=== PATIENT | male | born 1955 | race Caucasian/White ===

== ENCOUNTER 2016-06-03 03:10 | Emergency (ER) | payer MEDICARE, MEDICAID ==
[~2016-06-03] VITALS: Ht 190.5 cm; Wt 115.0 kg
[2016-06-03 03:20] VITALS: BP 139/70; PULSE 75; RESP 18; TEMP 98.1; O2SAT 99
[2016-06-03] MEDS ORDERED: PROZ40CA PO (03:24)
[2016-06-03] MEDS ORDERED: TRAZ100T4 PO (03:24)
[2016-06-03] MEDS ORDERED: HYDROmorphone HCL PF 1 MG/ML VIAL IVS ONE (03:45)
[2016-06-03] MEDS ORDERED: diphenhydrAMINE HCL 50 MG/ML VIAL IVP ONE (03:45)
[2016-06-03] MEDS ORDERED: METOCLOPRAMIDE HCL 10 MG/2 ML VIAL IVP ONE (03:45)
[2016-06-03] MEDS ORDERED: SODIUM CHLORIDE 0.9% FLUSH 5 ML FLUSH IVF PRN (03:45)
[2016-06-03 03:51] LABS: AUTOMATED NEUTROPHIL # 4.7 TH/MM3 (1.8-7.7); BASOPHIL # 0.1 TH/MM3 (0-0.2); BASOPHIL % 1.1 % (0.0-2.0); EOSINOPHIL # 0.3 TH/MM3 (0-0.4); EOSINOPHIL % 3.7 % (0.0-4.0); HEMATOCRIT 40.9 % (39.0-51.0); HEMO FLAGS DIFF FINAL; LYMPH % 31.6 % (9.0-44.0); LYMPHOCYTE # 2.8 TH/MM3 (1.0-4.8); MEAN CELL VOLUME 94.7 FL (80.0-100.0); MEAN CORPUSCULAR HEMOGLOBIN 32.9 PG (27.0-34.0); MEAN CORPUSCULAR HGB CONC 34.7 % (32.0-36.0); NEUT % 52.6 % (16.0-70.0); PLATELET COUNT 186 TH/MM3 (150-450); RED BLOOD COUNT 4.32 MIL/MM3 (4.50-5.90); RED CELL DISTRIBUTION WIDTH 14.4 % (11.6-17.2); WHITE BLOOD COUNT 8.9 TH/MM3 (4.0-11.0)
--- NOTE | 2016-06-03 03:52 | PD ---
HPI Chief Complaint: Headache Time Seen by Provider: 03:36 Travel History International Travel<30 days: No Contact w/Intl Traveler<30days: No Traveled to known affect area: No History of Present Illness HPI 60-year-old male with history of previous headaches, intracranial bleed, asthma , presents to the ER today because of headache that started gradually today getting to a 10 out of 10 currently. He has been nauseous, but denies any stiff neck, fevers, or other symptoms. He started having some chest discomfort while on the ambulance ride. He states it feels like his asthma. He denies any other issues. He does not know any exacerbating or alleviating factors. Modifying Factors: None Associated Signs & Symptoms: Headaches, nausea, chest discomfort Risk Factors: History of chronic headaches PFSH Past Medical History Depression: Yes Headaches: Yes Immunizations Current: No ("ALLERGIC TO IT") Tetanus Vaccination: < 5 Years Influenza Vaccination: Yes Past Surgical History Surgical History: No Previous Surgery Social History Alcohol Use: Yes Tobacco Use: No Substance Use: No Allergies-Medications (Allergen,Severity, Reaction): Coded Allergies: No Known Allergies (Unverified , 06/03/16) Reported Meds & Prescriptions Reported Meds & Active Scripts Active Reported Prozac (Fluoxetine HCl) 40 Mg Cap 40 Mg PO DAILY Trazodone (Trazodone HCl) 100 Mg Tab 200 Mg PO HS Review of Systems Except as stated in HPI: all other systems reviewed are Neg Physical Exam Narrative GENERAL: Well-nourished, well-developed elderly white male patient in no acute distress. Awake and oriented 3. SKIN: Warm and dry. HEAD: Normocephalic. EYES: No scleral icterus. No injection or drainage. NECK: Supple, trachea midline. CARDIOVASCULAR: Regular rate and rhythm without murmurs, gallops, or rubs. RESPIRATORY: Breath sounds equal with mild intermittent wheezing bilaterally. No accessory muscle use. GASTROINTESTINAL: Abdomen soft, non-tender, nondistended. MUSCULOSKELETAL: No cyanosis, or edema. BACK: Nontender without obvious deformity. No CVA tenderness. Data Data Last Documented VS Vital Signs Date Time Temp Pulse Resp B/P Pulse Ox O2 Delivery O2 Flow Rate FiO2 06/03/16 03:20 98.1 75 18 139/70 99 Room Air Orders Complete Blood Count With Diff (06/03/16 03:36) Comprehensive Metabolic Panel (06/03/16 03:36) [place] Sedimentation Rate (06/03/16 03:36) C-Reactive Protein (Crp) (06/03/16 03:36) Ct Brain W/O Iv Contrast(Rout) (06/03/16 03:36) Ecg Monitoring (06/03/16 03:36) Iv Access Insert/Monitor (06/03/16 03:36) Oximetry (06/03/16 03:36) Sodium Chloride 0.9% Flush (Ns Flush) (06/03/16 03:45) Diphenhydramine Inj (Benadryl Inj) (06/03/16 03:45) Metoclopramide Inj (Reglan Inj) (06/03/16 03:45) Hydromorphone Pf Inj (Dilaudid Pf Inj) (06/03/16 03:45) Ckmb (Isoenzyme) Profile (06/03/16 03:36) Troponin I (06/03/16 03:36) Albuterol Neb (Albuterol Neb) (06/03/16 04:00) CKMB (06/03/16 03:35) CKMB% (06/03/16 03:35) Labs Laboratory Tests Test 06/03/16 03:35 White Blood Count 8.9 TH/MM3 Red Blood Count 4.32 MIL/MM3 Hemoglobin 14.2 GM/DL Hematocrit 40.9 % Mean Corpuscular Volume 94.7 FL Mean Corpuscular Hemoglobin 32.9 PG Mean Corpuscular Hemoglobin 34.7 % Concent Red Cell Distribution Width 14.4 % Platelet Count 186 TH/MM3 Mean Platelet Volume 7.7 FL Neutrophils (%) (Auto) 52.6 % Lymphocytes (%) (Auto) 31.6 % Monocytes (%) (Auto) 11.0 % Eosinophils (%) (Auto) 3.7 % Basophils (%) (Auto) 1.1 % Neutrophils # (Auto) 4.7 TH/MM3 Lymphocytes # (Auto) 2.8 TH/MM3 Monocytes # (Auto) 1.0 TH/MM3 Eosinophils # (Auto) 0.3 TH/MM3 Basophils # (Auto) 0.1 TH/MM3 CBC Comment DIFF FINAL Differential Comment Erythrocyte Sedimentation Rate 7 mm/hr Sodium Level 137 MEQ/L Potassium Level 4.1 MEQ/L Chloride Level 103 MEQ/L Carbon Dioxide Level 26.8 MEQ/L Anion Gap 7 MEQ/L Blood Urea Nitrogen 39 MG/DL Creatinine 2.04 MG/DL Estimat Glomerular Filtration 33 ML/MIN Rate Random Glucose 87 MG/DL Calcium Level 8.4 MG/DL Total Bilirubin 0.4 MG/DL Aspartate Amino Transf 30 U/L (AST/SGOT) Alanine Aminotransferase 27 U/L (ALT/SGPT) Alkaline Phosphatase 46 U/L Total Creatine Kinase 722 U/L Creatine Kinase MB 4.1 NG/ML Creatine Kinase MB % 0.6 % Troponin I LESS THAN 0.02 NG/ML C-Reactive Protein LESS THAN 0.29 MG/DL Total Protein 6.9 GM/DL Albumin 3.9 GM/DL MDM Medical Decision Making Medical Screen Exam Complete: Yes Emergency Medical Condition: Yes Medical Record Reviewed: Yes Interpretation(s) EKG shows NSR, no ST elevation or depression, and no arrhythmias. No significant T-wave inversions. Laboratory Tests Test 06/03/16 03:35 Red Blood Count 4.32 MIL/MM3 (4.50-5.90) Monocytes (%) (Auto) 11.0 % (0.0-8.0) Monocytes # (Auto) 1.0 TH/MM3 (0-0.9) Blood Urea Nitrogen 39 MG/DL (7-18) Creatinine 2.04 MG/DL (0.60-1.30) Estimat Glomerular Filtration 33 ML/MIN (>89) Rate Calcium Level 8.4 MG/DL (8.5-10.1) Total Creatine Kinase 722 U/L (39-308) Creatine Kinase MB 4.1 NG/ML (0.5-3.6) Troponin I LESS THAN 0.02 NG/ML (0.02-0.05) Last [address] 06/03/16 0336 Signed Impressions: Service Date/Time: Friday, June 03, 2016 04:10 - CONCLUSION: No acute disease. Efrain Soria MD Differential Diagnosis Headache, nausea, chest discomfortmigraine headaches versus acute intracranial processes versus hypertensive urgency versus ACS versus asthma exacerbation Narrative Course Patient was given symptomatically relief for his headache, nausea medication, and nebulizers in the ER. Lab work did not indicate any signs of significant leukocytosis or metabolic issues or dehydration. His CAT scan the brain is negative for any signs of acute processes. Patient is reevaluated at 4:45 AM and I have offered to do a lumbar puncture for further characterization of the headache and to rule out acute intracranial bleeding. Patient has declined at this time stating that he is comfortable with current workup. I have talked him about missed infections and intracranial bleeds without LP. Patient states understanding. At this point, he states he is having some relief in headache but is still having the headache. He is comfortable with follow-up to primary care physician as an outpatient as well as a give him symptomatic relief for headache. Return for any worsening in symptoms as necessary or if he changes his mind about the lumbar puncture. The plan was discussed with him and he states understanding. Diagnosis Primary Impression: Headache Med/Other Pt SpecificInfo: Prescription(s) given Scripts Ondansetron Odt (Zofran Odt)4 Mg Tab4 Mg SL Q6HR PRN (Nausea/Vomiting) #7 TAB Ref 0 Prov:Bharath Rose MD 06/03/16 Hydrocodone-Acetaminophen (Lortab)5-325 Mg Tab1 Tab PO Q6H PRN (PAIN) #12 TAB Ref 0 Prov:Bharath Rose MD 06/03/16 Disposition: 01 DISCHARGE HOME Condition: Stable Bharath Rose MD Jun 03, 2016 03:52
[2016-06-03] MEDS ORDERED: RESP: ALBUTEROL 2.5 MG/3 ML NEB (SCH) INH ONE (04:00)
[2016-06-03 04:22] LABS: ALKALINE PHOSPHATASE 46 U/L (45-117); ALT (GPT) 27 U/L (12-78); ANION GAP 7 MEQ/L (5-15); AST (GOT) 30 U/L (15-37); BICARBONATE 26.8 MEQ/L (21.0-32.0); BLOOD UREA NITROGEN 39 MG/DL (7-18); CHLORIDE 103 MEQ/L (98-107); CREATINE KINASE 722 U/L (39-308); GLOMERULAR FILTRATION RATE 33 ML/MIN (>89); POTASSIUM 4.1 MEQ/L (3.5-5.1); SODIUM (NA) 137 MEQ/L (136-145); TOTAL BILIRUBIN ADULT 0.4 MG/DL (0.2-1.0)
--- NOTE | 2016-06-03 04:25 | RADRPT ---
EXAM DATE/TIME: 06/03/2016 04:10 [facility] COMPARISON: No previous studies available for comparison. INDICATIONS : Headaches. RADIATION DOSE: 35.39 CTDIvol (mGy) MEDICAL HISTORY : None SURGICAL HISTORY : None. ENCOUNTER: Initial ACUITY: 1 day PAIN SCALE: 10/10 LOCATION: Bilateral cranial TECHNIQUE: Multiple contiguous axial images were obtained of the head. Using automated exposure control and adj ustment of the mA and/or kV according to patient size, radiation dose was kept as low as reasonably a chievable to obtain optimal diagnostic quality images. FINDINGS: CEREBRUM: The ventricles are normal for age. No evidence of midline shift, mass lesion, hemorrhage or acute in farction. No extra-axial fluid collections are seen. POSTERIOR FOSSA: The cerebellum and brainstem are intact. The 4th ventricle is midline. The cerebellopontine angle i s unremarkable. EXTRACRANIAL: The visualized portion of the orbits is intact. SKULL: The calvaria is intact. No evidence of skull fracture. CONCLUSION: No acute disease. Efarin Soria MD on June 03, 2016 at 4:24 Board Certified Radiologist. This report was verified electronically.
[2016-06-03 04:35] LABS: CKMB 4.1 NG/ML (0.5-3.6)
[2016-06-03] MEDS ORDERED: HYDR-3533 PO (04:48)
[2016-06-03] MEDS ORDERED: ZOFR4TAB3 SL (04:48)
[2016-06-03 05:20] VITALS: BP 115/70; PULSE 76; RESP 18; O2SAT 99
--- NOTE | 2016-06-03 22:01 | EKG ---
Date Performed: 06/03/2016 Time Performed: 03:31:49 PTAGE: 60 years EKG: Sinus rhythm NORMAL ECG NO PREVIOUS TRACING DOCTOR: Jose Alejandro Rivera Interpretating Date/Time 06/03/2016 21:59:39
[2016-06-29] MEDS ORDERED: PROP40TA3 PO (14:23)
[2016-06-29] MEDS ORDERED: PROZ40CA PO (14:23)
[2016-06-29] MEDS ORDERED: TRAZ100T4 PO (14:23)
[2016-06-29] MEDS ORDERED: MECL-62 PO (14:23)
[2016-07-31] MEDS ORDERED: ZOFR4TAB3 SL (13:35)
[2016-07-31] MEDS ORDERED: VENTAER INH (13:35)
== END 2016-06-03 05:26 | disposition home or self-care (01) ==
LOC: NEPC 03:10
DX: R51 Headache (principal); R07.89 Other chest pain
CPT/HCPCS: 70450; 80053; 82550; 82552; 84484; 85025; 85652; 86140; 93005; 94664; 96374; 96375; 99284; J1170; J1200; J2765

== ENCOUNTER 2016-06-09 03:31 | Inpatient (IN) | payer MEDICARE, MEDICAID ==
[~2016-06-09] VITALS: Ht 190.5 cm; Wt 115.0 kg
[2016-06-09] VITALS (12 sets, daily range): BP systolic 110–188; BP diastolic 59–117; PULSE 61–82; RESP 15–22; TEMP 97.7–98.7; O2SAT 93–98
[~2016-06-09 03:31] MED LIST: HYDR-3533 PO; PROZ40CA PO; TRAZ100T4 PO; ZOFR4TAB3 SL
[2016-06-09] MEDS ORDERED: PROCHLORPERAZINE INJ 10 MG/2 ML VIAL IVS ONE (04:00)
--- NOTE | 2016-06-09 04:00 | PD ---
HPI Chief Complaint: Headache Time Seen by Provider: 03:42 Travel History International Travel<30 days: No Contact w/Intl Traveler<30days: No Traveled to known affect area: No History of Present Illness HPI The patient is a 60 year old male who presents to the [facility] emergency department with a history of headache that began 2 hours prior to arrival. The patient reports that the headache is in the back of his head and is associated with sensation of vertigo. He reports having nausea but no vomiting. The patient reports that he took an unknown pain pill for pain approximately 1-1/2 hours ago. The patient reports that he was up watching television when this began. He reports that he does have a history of migraine headaches. The patient was last seen in the emergency department related to a headache on June 03, 2016. He reports that he moved to the area 1 month ago from [place]. He has not established primary care physician. One week ago he reports he ran out of his blood pressure medication. He reports having some shortness of breath. He denies having any chest pain or pressure. The patient's past medical history otherwise is significant for depression, asthma, daily marijuana use. The patient denies any facial droop, difficulty with word finding ability, vision changes, numbness or tingling to his extremities, or weakness of his extremities. The patient denies any recent fevers, cough, congestion, neck pain, chest pain, abdominal pain, vomiting, diarrhea, urinary symptoms, or other neurologic symptoms. [facility] Past Medical History Narrative Medical The patient's past medical history is significant for migraine headaches, daily marijuana use, hypertension, asthma, depression Asthma: Yes Depression: Yes Headaches: Yes Respiratory: Yes (ASTHMA) Immunizations Current: No ("ALLERGIC TO IT") Past Surgical History Narrative Surgical The patient's past surgical history is significant for right shoulder surgery. Surgical History: No Previous Surgery Social History Alcohol Use: Yes Tobacco Use: No Substance Use: Yes (two joints daily) Allergies-Medications (Allergen,Severity, Reaction): Coded Allergies: No Known Allergies (Unverified , 06/09/16) Reported Meds & Prescriptions Reported Meds & Active Scripts Active Zofran Odt (Ondansetron Odt) 4 Mg Tab 4 Mg SL Q6HR PRN Lortab (Hydrocodone-Acetaminophen) 5-325 Mg Tab 1 Tab PO Q6H PRN Reported Prozac (Fluoxetine HCl) 40 Mg Cap 40 Mg PO DAILY Trazodone (Trazodone HCl) 100 Mg Tab 200 Mg PO HS Review of Systems Except as stated in HPI: all other systems reviewed are Neg General / Constitutional: No: Fever Eyes: No: Visual changes HENT: Positive: Headaches, Vertigo, No: Neck Stiffness, Neck Pain Cardiovascular: Positive: Dyspnea on exertion, No: Chest Pain or Discomfort Respiratory: Positive: Shortness of Breath Gastrointestinal: Positive: Nausea, No: Vomiting, Diarrhea, Abdominal Pain Genitourinary: No: Dysuria Musculoskeletal: No: Pain Skin: No Rash Neurologic: Positive: Dizziness, Coordination Problem, No: Weakness, Focal Abnormalities, Change in Mentation, Slurred Speech, Sensory Disturbance Psychiatric: No: Depression Endocrine: No: Polydipsia Hematologic/Lymphatic: No: Easy Bruising Physical Exam Narrative General: The patient is a well-developed well-nourished male in no acute distress. Head and Neck exam: Head is normocephalic atraumatic. Eyes: EOMI, pupils are equal round and reactive to light. The patient has nystagmus on lateral gaze bilaterally that fatigues. Nose: Midline septum with pink mucous membranes Mouth: Dentition unremarkable. Moist mucus membranes. Posterior oropharynx is not erythematous. No tonsillar hypertrophy. Uvula midline. Airway patent. Neck: No palpable lymphadenopathy. No nuchal rigidity. No thyromegaly. Cardiovascular: Regular rate and rhythm without murmurs, gallops, or rubs. Lungs: Clear to auscultation bilaterally. No wheezes, rhonchi, or rales. Abdomen: Soft, without tenderness to palpation in all 4 quadrants of the abdomen. No guarding, rebound, or rigidity. Normal bowel sounds are audible. Extremities: No clubbing, cyanosis, or edema. 2+ pulses in all 4 extremities. Back: No spinous process tenderness to palpation. No costovertebral angle tenderness to palpation. Neurologic Exam: Cranial nerves 2-12 were intact on exam. Strength is 5/5 in all 4 extremities. No sensory deficits noted. The patient has a poor finger to nose bilaterally, poor heel to morales bilaterally. Skin Exam: No rash noted. Intact skin that is warm and dry. Data Data Last Documented VS Vital Signs Date Time Temp Pulse Resp B/P Pulse Ox O2 Delivery O2 Flow Rate FiO2 06/09/16 03:41 80 15 94 Room Air 06/09/16 03:37 167/98 Orders Electrocardiogram (06/09/16 03:47) Complete Blood Count With Diff (06/09/16 03:47) Comprehensive Metabolic Panel (06/09/16 03:47) B-Type Natriuretic Peptide (06/09/16 03:47) Prothrombin Time / Inr (Pt) (06/09/16 03:47) Act Partial Throm Time (Ptt) (06/09/16 03:47) Urinalysis - C+S If Indicated (06/09/16 03:47) Chest, Single Ap (06/09/16 03:47) Ct Brain W/O Iv Contrast(Rout) (06/09/16 03:47) Iv Access Insert/Monitor (06/09/16 03:47) Ecg Monitoring (06/09/16 03:47) Oximetry (06/09/16 03:47) Drug Screen, Random Urine (06/09/16 03:47) Alcohol (Ethanol) (06/09/16 03:47) Creatine Kinase (Cpk) (06/09/16 03:47) Ckmb (Isoenzyme) Profile (06/09/16 03:47) Troponin I (06/09/16 03:47) C-Reactive Protein (Crp) (06/09/16 03:47) [place] (06/09/16 03:47) Sodium Chlor 0.9% 1000 Ml Inj (Ns 1000 M (06/09/16 04:00) Prochlorperazine Inj (Compazine Inj) (06/09/16 04:00) CKMB (06/09/16 04:12) CKMB% (06/09/16 04:12) Aspirin (Aspirin) (06/09/16 05:15) Meclizine (Antivert) (06/09/16 05:15) Admit Order (Ed Use Only) (06/09/16 05:34) Meclizine (Antivert) (06/09/16 05:45) Albuterol Neb (Albuterol Neb) (06/09/16 05:45) Mri Brain W&W/O Contrast (06/09/16 ) Consult Neurology (06/09/16 ) Neuro Checks . ORDERED (06/09/16 06:00) Labs Laboratory Tests Test 06/09/16 06/09/16 04:12 04:35 White Blood Count 7.4 TH/MM3 Red Blood Count 4.59 MIL/MM3 Hemoglobin 15.0 GM/DL Hematocrit 43.5 % Mean Corpuscular Volume 94.9 FL Mean Corpuscular Hemoglobin 32.7 PG Mean Corpuscular Hemoglobin 34.4 % Concent Red Cell Distribution Width 14.8 % Platelet Count 190 TH/MM3 Mean Platelet Volume 7.6 FL Neutrophils (%) (Auto) 49.8 % Lymphocytes (%) (Auto) 35.0 % Monocytes (%) (Auto) 9.9 % Eosinophils (%) (Auto) 4.1 % Basophils (%) (Auto) 1.2 % Neutrophils # (Auto) 3.7 TH/MM3 Lymphocytes # (Auto) 2.6 TH/MM3 Monocytes # (Auto) 0.7 TH/MM3 Eosinophils # (Auto) 0.3 TH/MM3 Basophils # (Auto) 0.1 TH/MM3 CBC Comment DIFF FINAL Differential Comment Prothrombin Time 11.5 SEC Prothromb Time International 1.0 RATIO Ratio Activated Partial 24.9 SEC Thromboplast Time Sodium Level 141 MEQ/L Potassium Level 4.2 MEQ/L Chloride Level 105 MEQ/L Carbon Dioxide Level 26.7 MEQ/L Anion Gap 9 MEQ/L Blood Urea Nitrogen 19 MG/DL Creatinine 1.94 MG/DL Estimat Glomerular Filtration 35 ML/MIN Rate Random Glucose 85 MG/DL Calcium Level 8.5 MG/DL Total Bilirubin 0.3 MG/DL Aspartate Amino Transf 28 U/L (AST/SGOT) Alanine Aminotransferase 31 U/L (ALT/SGPT) Alkaline Phosphatase 51 U/L Total Creatine Kinase 410 U/L Creatine Kinase MB 3.1 NG/ML Creatine Kinase MB % 0.8 % Troponin I LESS THAN 0.02 NG/ML C-Reactive Protein LESS THAN 0.29 MG/DL B-Type Natriuretic Peptide LESS THAN 2 PG/ML Total Protein 7.4 GM/DL Albumin 4.3 GM/DL Ethyl Alcohol Level 38 MG/DL Urine Color LIGHT-YELLOW Urine Turbidity CLEAR Urine pH 6.0 Urine Specific [place] 1.003 Urine Protein NEG mg/dL Urine Glucose (UA) NEG mg/dL Urine Ketones NEG mg/dL Urine Occult Blood NEG Urine Nitrite NEG Urine Bilirubin NEG Urine Urobilinogen LESS THAN 2.0 MG/DL Urine Leukocyte Esterase NEG Urine RBC 1 /hpf Urine WBC 1 /hpf Microscopic Urinalysis Comment CULT NOT INDICATED Urine Opiates Screen NEG Urine Barbiturates Screen NEG Urine Amphetamines Screen NEG Urine Benzodiazepines Screen NEG Urine Cocaine Screen NEG Urine Cannabinoids Screen POS MDM Medical Decision Making Medical Screen Exam Complete: Yes Emergency Medical Condition: Yes Medical Record Reviewed: Yes Interpretation(s) Last Impressions Head CT 06/09/16346 Signed Impressions: Service Date/Time: Thursday, June 09, 2016 04:41 - CONCLUSION: 1. No acute intracranial abnormalities. Small remote lacunar infarcts in the basal ganglia unchanged from prior study. Jordi Hudson MD Chest X-Ray 06/09/16346 Signed Impressions: Service Date/Time: Thursday, June 09, 2016 04:01 - CONCLUSION: No acute disease. Jordi Hudson MD Differential Diagnosis Benign positional vertigo, versus cerebellar process, versus cerebellar stroke, versus migraine headache, versus tension headache, versus cluster headache, versus labyrinthitis Narrative Course During the course of the patients emergency department visit, the patients history, examination, and differential diagnosis were reviewed with the patient. The patient had IV access obtained and blood work sent for analysis. The patient's place with the head of the bed flat. The patient was started on normal saline at 70 mL/h. The patient was given Compazine 5 mg IV [address] scan of the brain was ordered. The patient had an EKG done on arrival. The patient's EKG shows a sinus rhythm heart rate of 83, no acute ST segment elevation or depression. The patients laboratory studies were reviewed and remarkable for a white count of 7.4, hemoglobin 15, platelets 190 with 9.9 monocytes, CMP is remarkable for BUN of 19, creatinine 1.94, CPK is 410, troponin I is 0.02, MB percent is 0.8, C -reactive protein is less than 0.29, BNP is less than 2, PT PTT within normal limits. Urine drug screen was positive for cannabinoids, alcohol level XXXVIII , urinalysis is unremarkable. Radiology studies were reviewed and remarkable for a chest x-ray that shows no acute abnormality. CT scan of the brain shows no acute abnormality, small remote lacunar infarcts in the basal ganglia, unchanged from prior study. The patient was given aspirin 325 mg by mouth 1. The patient was given Antivert 25 mg by mouth 1 for vertigo. Given the concern that this could be a cerebellar process, versus cerebellar stroke, the patient will be admitted to the hospital for evaluation for possible TIA versus CVA cleaning an MRI of the brain. The patients results were discussed with the patient, including the plan of care. I explained that further testing and/ or monitoring is indicated based on the patients history, examination, and/ or laboratory findings. Therefore, I recommended admission for additional evaluation. The patient expressed understanding and was agreeable with this plan. The patient was admitted to the hospital in stable condition and sent to a bed under the care of the [facility]. Physician Communication Physician Communication The patient's case was discussed with Dr. Izaguirre who did agree to admit the patient for further evaluation and treatment at this time. Diagnosis Primary Impression: Vertigo Additional Impression: Headache Qualified Code: R51 - Acute nonintractable headache, unspecified headache type Admitting Information Admitting Physician Requests: Observation Corazon Lew MD Jun 09, 2016 04:00
--- NOTE | 2016-06-09 04:17 | RADRPT ---
EXAM DATE/TIME: 06/09/2016 04:01 [facility] COMPARISON: No previous studies available for comparison. INDICATIONS : Short of breath. Headaches. MEDICAL HISTORY : Asthma. SURGICAL HISTORY : None. ENCOUNTER: Initial ACUITY: 4 - 6 days PAIN SCORE: 0/10 LOCATION: Bilateral chest FINDINGS: A single view of the chest demonstrates the lungs to be symmetrically aerated without evidence of mas s, infiltrate or effusion. The cardiomediastinal contours are unremarkable. Osseous structures are intact. CONCLUSION: No acute disease. Jordi Hudson MD on June 09, 2016 at 4:15 Board Certified Radiologist. This report was verified electronically.
[2016-06-09] MEDS: SODIUM CHLOR 0.9% 1000 ML INJ 1,000 ML IV SCH ×2 (04:18→15:51)
[2016-06-09 04:21] LABS: AUTOMATED NEUTROPHIL # 3.7 TH/MM3 (1.8-7.7); BASOPHIL # 0.1 TH/MM3 (0-0.2); BASOPHIL % 1.2 % (0.0-2.0); EOSINOPHIL # 0.3 TH/MM3 (0-0.4); EOSINOPHIL % 4.1 % (0.0-4.0); HEMATOCRIT 43.5 % (39.0-51.0); HEMO FLAGS DIFF FINAL; LYMPHOCYTE # 2.6 TH/MM3 (1.0-4.8); MEAN CELL VOLUME 94.9 FL (80.0-100.0); MEAN CORPUSCULAR HEMOGLOBIN 32.7 PG (27.0-34.0); MEAN CORPUSCULAR HGB CONC 34.4 % (32.0-36.0); MONO % 9.9 % (0.0-8.0); NEUT % 49.8 % (16.0-70.0); PLATELET COUNT 190 TH/MM3 (150-450); RED BLOOD COUNT 4.59 MIL/MM3 (4.50-5.90); RED CELL DISTRIBUTION WIDTH 14.8 % (11.6-17.2); WHITE BLOOD COUNT 7.4 TH/MM3 (4.0-11.0)
[2016-06-09 04:29] LABS: APTT (PATIENT) 24.9 SEC (24.3-30.1); PROTHROMBIN TIME - PATIENT 11.5 SEC (9.8-11.6)
[2016-06-09 04:45] LABS: BLOOD, URINE NEG (NEG); COMMENT (UR) CULT NOT INDICATED; CULTURE IF INDICATED CULT NOT INDICATED; GLUCOSE,URINE NEG (NEG); KETONE, URINE NEG (NEG); NITRITE,URINE NEG (NEG); URINE COLOR LIGHT-YELLOW (YELLW/STRAW)
[2016-06-09 04:51] LABS: AMPHETAMINE, URINE NEG (NEG); BARBITURATES, URINE NEG (NEG); COCAINE, URINE NEG (NEG)
[2016-06-09 04:52] LABS: ALT (GPT) 31 U/L (12-78); ANION GAP 9 MEQ/L (5-15); AST (GOT) 28 U/L (15-37); BICARBONATE 26.7 MEQ/L (21.0-32.0); BLOOD UREA NITROGEN 19 MG/DL (7-18); CHLORIDE 105 MEQ/L (98-107); GLOMERULAR FILTRATION RATE 35 ML/MIN (>89); POTASSIUM 4.2 MEQ/L (3.5-5.1); SODIUM (NA) 141 MEQ/L (136-145)
[2016-06-09 04:54] LABS: ALKALINE PHOSPHATASE 51 U/L (45-117); CREATINE KINASE 410 U/L (39-308); TOTAL BILIRUBIN ADULT 0.3 MG/DL (0.2-1.0)
--- NOTE | 2016-06-09 05:06 | RADRPT ---
EXAM DATE/TIME: 06/09/2016 04:41 [facility] COMPARISON: No previous studies available for comparison. INDICATIONS : Cephalgia. RADIATION DOSE: 47.71 CTDIvol (mGy) MEDICAL HISTORY : asthma SURGICAL HISTORY : None. ENCOUNTER: Initial ACUITY: 1 day PAIN SCALE: 9/10 LOCATION: cranial TECHNIQUE: Multiple contiguous axial images were obtained of the head. Using automated exposure control and adj ustment of the mA and/or kV according to patient size, radiation dose was kept as low as reasonably a chievable to obtain optimal diagnostic quality images. FINDINGS: CEREBRUM: The ventricles are normal for age. No evidence of midline shift, mass lesion, hemorrhage or acute in farction. No extra-axial fluid collections are seen. POSTERIOR FOSSA: The cerebellum and brainstem are intact. The 4th ventricle is midline. The cerebellopontine angle i s unremarkable. EXTRACRANIAL: The visualized portion of the orbits is intact. SKULL: The calvaria is intact. No evidence of skull fracture. CONCLUSION: 1. No acute intracranial abnormalities. Small remote lacunar infarcts in the basal ganglia unchanged from prior study. Jordi Hudson MD on June 09, 2016 at 5:03 Board Certified Radiologist. This report was verified electronically.
[2016-06-09 05:07] LABS: CKMB 3.1 NG/ML (0.5-3.6)
[2016-06-09] MEDS ORDERED: MECLIZINE HCL 25 MG TAB PO ONE (05:15)
[2016-06-09] MEDS ORDERED: ASPIRIN 325 MG TAB PO ONE (05:15)
[2016-06-09] MEDS ORDERED: ENALAPRILAT 1.25 MG/ML VIAL IV PRN (05:45)
[2016-06-09] MEDS ORDERED: RESP: ALBUTEROL 0.63 MG/3 ML NEB (PRN) NEB (05:45)
[2016-06-09] MEDS ORDERED: ONDANSETRON HCL 4 MG/2 ML VIAL IVP PRN (05:45)
[2016-06-09] MEDS ORDERED: cloNIDine HCL 0.1 MG TAB PO PRN (05:45)
[2016-06-09] MEDS ORDERED: ACETAMINOPHEN 325 MG TAB PO PRN ×2 (05:45)
[2016-06-09] MEDS ORDERED: MAGNESIUM HYDROXIDE SUSP 30 ML CUP PO PRN (05:45)
[2016-06-09] MEDS ORDERED: METOCLOPRAMIDE HCL 10 MG/2 ML VIAL IV PUSH PRN (05:45)
[2016-06-09] MEDS ORDERED: SENNOSIDES 8.6 MG TAB PO PRN (05:45)
[2016-06-09] MEDS ORDERED: NALOXONE HCL 0.4 MG/ML AMP IV PRN (05:45)
[2016-06-09] MEDS ORDERED: SODIUM CHLORIDE 0.9% FLUSH 5 ML FLUSH FLUSH PRN (05:45)
[2016-06-09] MEDS ORDERED: traMADol HCL 50 MG TAB PO PRN ×2 (05:45)
[2016-06-09] MEDS ORDERED: BISACODYL 10 MG SUPP PR PRN (05:45)
[2016-06-09] MEDS ORDERED: LORazepam 0.5 MG TAB PO ONE (08:00)
[2016-06-09] MEDS: DOCUSATE SODIUM 100 MG CAP PO SCH ×2 (08:35→21:00)
[2016-06-09] MEDS: SODIUM CHLORIDE 0.9% FLUSH 5 ML FLUSH FLUSH SCH ×2 (08:45→21:44)
[2016-06-09] MEDS ORDERED: LORazepam 1 MG TAB PO ONE (09:00)
--- NOTE | 2016-06-09 09:15 | HHI.HP ---
HPI Service [facility] Primary Care Physician No Primary Care Physician Admission Diagnosis Vertigo, R/O cerebellar process Diagnoses: Chief Complaint: Headache Travel History International Travel<30 Days: No Contact w/Intl Traveler <30 Da: No Traveled to Known Affected Are: No History of Present Illness 60-year-old male with a past medical history of major depressive disorder and migraines who presented for evaluation of headache. The patient states that last night while watching TV he had sudden posterior headache. He had associated dizziness, lightheadedness, unsteadiness, sensation like the room is spinning. He states he had blurry vision, no vision loss. He denies any numbness or tingling. He denies any focal weakness. He does have a history of migraine headaches, but states that in the past those were frontal headaches and not associated with lightheadedness and dizziness. He states that he has been treated with "everything including Dilaudid" for his headaches in the past. He has been out of his multiple antidepressants for the past 1-2 weeks. He does smoke marijuana every other day, states it helps with headaches. He tried an MRI earlier, but became extremely anxious, and was unable to have it done. No other acute complaints at this time. Review of Systems Except as stated in HPI: all other systems reviewed are Neg Past Family Social History Past Medical History Migraine headaches Major depressive disorder Asthma by history, not taking anything for it Hypertension by history, not taking anything for it Past Surgical History Right shoulder surgery Reported Medications None currently Has been out of trazodone, Prozac, and BuSpar for 1-2 week Allergies: Coded Allergies: No Known Allergies (Unverified , 06/09/16) Active Ordered Medications Current Medications Medications (Trade) Dose Ordered Sig/Lou Route Start Time Stop Time Status Last Admin (NS 1000 ml Inj) 1,000 ml @ 70 mls/hr [id number] IV 06/09/16 04:00 06/09/16 04:18 (Antivert) 25 mg Q6H PRN PO 06/09/16 05:45 (NS Flush) 2 ml UNSCH PRN FLUSH 06/09/16 05:45 (NS Flush) 2 ml BID FLUSH 06/09/16 09:00 (Tylenol) 650 mg Q4H PRN PO 06/09/16 05:45 (Zofran Inj) 4 mg Q6H PRN IVP 06/09/16 05:45 (Reglan Inj) 5 mg Q6H PRN IV PUSH 06/09/16 05:45 (Dulcolax Supp) 10 mg DAILY PRN [place] 06/09/16 05:45 (Colace) 100 mg Q12H PO 06/09/16 09:00 (Milk Of [place] Liq) 30 ml Q12H PRN PO 06/09/16 05:45 (Senokot) 17.2 mg Q12H PRN PO 06/09/16 05:45 (Tylenol) 650 mg Q6H PRN PO 06/09/16 05:45 (Narcan Inj) 0.4 mg UNSCH PRN IV 06/09/16 05:45 (Ecotrin Ec) 325 mg DAILY PO 06/10/16 09:00 (Vasotec Inj) 1.25 mg Q6H PRN IV 06/09/16 05:45 (Catapres) 0.1 mg Q6H PRN PO 06/09/16 05:45 (PROzac) 40 mg DAILY PO 06/09/16 09:00 (Desyrel) 200 mg HS PO 06/09/16 21:00 (Fioricet 325-50-40) 1 tab Q6H PRN PO 06/09/16 09:15 UNV Family History Mother at age 98 Father had diabetes and of [place] at age 85 Social History Smokes marijuana every other day Occasional alcohol use Denies any tobacco use Physical Exam Vital Signs Vital Signs Date Time Temp Pulse Resp B/P Pulse Ox O2 Delivery O2 Flow Rate FiO2 06/09/16 07:20 97.8 78 20 188/94 96 06/09/16 06:15 80 15 152/92 93 Room Air 06/09/16 06:13 15 93 Room Air 06/09/16 03:41 80 15 94 Room Air 06/09/16 03:37 82 15 167/98 94 Physical Exam GENERAL: Well-developed well-nourished. In no acute distress. SKIN: Warm and dry. No lesions noted. HEENT: Normocephalic. Pupils equal and round and reactive to light. EOMs intact. Mucous membranes pink and moist. CARDIOVASCULAR: Regular rate and rhythm. No murmur appreciated. RESPIRATORY: No accessory muscle use. Clear to auscultation. Breath sounds equal bilaterally. GASTROINTESTINAL: Abdomen soft, non-tender, nondistended. Bowel sounds x4. MUSCULOSKELETAL: No obvious deformities. No clubbing or cyanosis. No edema. NEUROLOGICAL: Awake and alert. No focal neurological deficits. Moves upper and lower extremities spontaneously. Normal speech. Strength 5/5. No cranial nerve deficits. PSYCHIATRIC: Appropriate mood and affect; insight and judgment normal. Laboratory Laboratory Tests Test 06/09/16 06/09/16 04:12 04:35 White Blood Count 7.4 Red Blood Count 4.59 Hemoglobin 15.0 Hematocrit 43.5 Mean Corpuscular Volume 94.9 Mean Corpuscular Hemoglobin 32.7 Mean Corpuscular Hemoglobin 34.4 Concent Red Cell Distribution Width 14.8 Platelet Count 190 Mean Platelet Volume 7.6 Neutrophils (%) (Auto) 49.8 Lymphocytes (%) (Auto) 35.0 Monocytes (%) (Auto) 9.9 Eosinophils (%) (Auto) 4.1 Basophils (%) (Auto) 1.2 Neutrophils # (Auto) 3.7 Lymphocytes # (Auto) 2.6 Monocytes # (Auto) 0.7 Eosinophils # (Auto) 0.3 Basophils # (Auto) 0.1 CBC Comment DIFF FINAL Differential Comment Prothrombin Time 11.5 Prothromb Time International 1.0 Ratio Activated Partial 24.9 Thromboplast Time Sodium Level 141 Potassium Level 4.2 Chloride Level 105 Carbon Dioxide Level 26.7 Anion Gap 9 Blood Urea Nitrogen 19 Creatinine 1.94 Estimat Glomerular Filtration 35 Rate Random Glucose 85 Calcium Level 8.5 Total Bilirubin 0.3 Aspartate Amino Transf 28 (AST/SGOT) Alanine Aminotransferase 31 (ALT/SGPT) Alkaline Phosphatase 51 Total Creatine Kinase 410 Creatine Kinase MB 3.1 Creatine Kinase MB % 0.8 Troponin I LESS THAN 0.02 C-Reactive Protein LESS THAN 0.29 B-Type Natriuretic Peptide LESS THAN 2 Total Protein 7.4 Albumin 4.3 Ethyl Alcohol Level 38 Urine Color LIGHT-YELLOW Urine Turbidity CLEAR Urine pH 6.0 Urine Specific [place] 1.003 Urine Protein NEG Urine Glucose (UA) NEG Urine Ketones NEG Urine Occult Blood NEG Urine Nitrite NEG Urine Bilirubin NEG Urine Urobilinogen LESS THAN 2.0 Urine Leukocyte Esterase NEG Urine RBC 1 Urine WBC 1 Microscopic Urinalysis Comment CULT NOT INDICATED Urine Opiates Screen NEG Urine Barbiturates Screen NEG Urine Amphetamines Screen NEG Urine Benzodiazepines Screen NEG Urine Cocaine Screen NEG Urine Cannabinoids Screen POS Result Diagram: 06/09/1641106/09/16411 Imaging Last Impressions Head CT 06/09/16346 Signed Impressions: Service Date/Time: Thursday, June 09, 2016 04:41 - CONCLUSION: 1. No acute intracranial abnormalities. Small remote lacunar infarcts in the basal ganglia unchanged from prior study. Jordi Hudson MD Chest X-Ray 06/09/16346 Signed Impressions: Service Date/Time: Thursday, June 09, 2016 04:01 - CONCLUSION: No acute disease. Jordi Hudson MD Assessment and Plan Assessment and Plan 60-year-old male with a past medical history of major depressive disorder and migraines who presented for evaluation of headache Headache/vertigo/lightheadedness Migraine vs concern for cerebellar CVA Imaging reviewed: Head CT with no acute intracranial abnormalities; small remote lacunar infarcts in the basal ganglia unchanged from prior study. Labs reviewed: CRP within normal limits. CPK slightly elevated at 410. UDS positive for cannabinoids. EtOH level 38 at admission. -Neurology consulted, appreciate specialists input -Brain MRI ordered, will give Ativan 1 for claustrophobia -Check carotid ultrasound -PT/OT/ST -Fioricet as needed for headache -Started on daily aspirin -IVF and permissive hypertension for now -Antiemetics as needed Hypertension: Accelerated. Possibly exacerbated by headache pain. Permissive hypertension for now pending brain MRI. Clonidine and IV Vasotec as needed. CKD: Creatinine 1.94, previously 2.04 on 06/03/16. No prior labs for comparison. Monitor. Depression: Chronic. Resume home Prozac and trazodone. DVT prophylaxis: SCDs Discussed Condition With Patient, RN, Dr. Valle Attending Statement The exam, history, and the medical decision-making described in the above note were completed with the assistance of the mid-level provider. I reviewed and agree with the findings presented. I attest that I had a [id number] encounter with the patient on the same day, and personally performed and documented my assessment and findings in the medical record. Long,Aris D. PA Jun 09, 2016 09:15 Bolivar Valle MD Jun 15, 2016 00:36
[2016-06-09] MEDS: FLUoxetine HCL 20 MG CAP PO SCH (09:54)
--- NOTE | 2016-06-09 12:03 | RADRPT ---
EXAM DATE/TIME: 06/09/2016 11:03 [facility] COMPARISON: CT BRAIN W/O CONTRAST, June 09, 2016, 4:41. INDICATIONS : Cephalgia. Dizziness with nausea. CONTRAST: 23 cc Multihance (gadobenate) IV MEDICAL HISTORY : Hypertension. SURGICAL HISTORY : rt shoulder ENCOUNTER: Initial ACUITY: 1 day PAIN SCORE: 3/10 LOCATION: cranial TECHNIQUE: Multiplanar, multisequence MRI of the brain was performed both prior to and following the administrat ion of paramagnetic contrast. FINDINGS: CEREBRUM: The ventricles are normal for age. Basal ganglia lacunes. No evidence of midline shift, mass lesion, hemorrhage or acute infarction. No extraaxial fluid collections are seen. The pituitary gland and suprasellar cistern are normal in configuration. WHITE MATTER: No significant signal abnormalities are seen in the white matter. POSTERIOR FOSSA: The cerebellum and brainstem are intact. The 4th ventricle is midline. The cerebellopontine angle is unremarkable. The cerebellar tonsils are normal in position. DIFFUSION IMAGING: No focal areas of restricted diffusion are seen. No evidence of acute infarction. EXTRACRANIAL: The visualized portions of the orbits and paranasal sinuses are unremarkable. POST-CONTRAST: No abnormal areas of parenchymal or dural enhancement. No evidence of blood-brain barrier breakdown. CONCLUSION: 1. No acute intracranial abnormality. 2. Vascular channels versus old basal ganglia lacunar infarcts. Perico Wahl MD on June 09, 2016 at 12:00 Board Certified Radiologist. This report was verified electronically.
[2016-06-09] MEDS ORDERED: GADOBENATE DIM PF 529 MG/ML 5 ML VIAL (for RAD MRI) IV ONE (12:19)
--- NOTE | 2016-06-09 13:18 | RADRPT ---
EXAM DATE/TIME: 06/09/2016 09:28 [facility] COMPARISON: No previous studies available for comparison. INDICATIONS : Transischemic attack. MEDICAL HISTORY : Hypertension. Migraine. SURGICAL HISTORY : None. ENCOUNTER: Initial ACUITY: 1 day PAIN SCORE: 10 LOCATION: Bilateral neck PEAK SYSTOLIC VELOCITIES (cm/sec): ICA/CCA RATIO: Right: 0.7 Left: 0.8 ICA: Right: 95 Left: 97 CCA: Right: 146 Left: 114 ECA: Right: 131 Left: 98 VERTEBRAL: Right: 73 antegrade Left: 65 antegrade Elevated flow velocities and ICA/CCA ratios have been found to correlate with increased degrees of vessel stenosis, calculated as percentage of diameter relative to a normal segment of distal ICA/CCA FINDINGS: RIGHT CAROTID: No significant stenosis is visualized. The waveforms are within normal limits. LEFT CAROTID: No significant stenosis is visualized. The waveforms are within normal limits. VERTEBRAL ARTERIES: Antegrade flow is seen in both vertebral arteries. MISCELLANEOUS: None. CONCLUSION: No hemodynamically significant stenosis either carotid artery. Perico Wahl MD on June 09, 2016 at 13:16 Board Certified Radiologist. This report was verified electronically.
--- NOTE | 2016-06-09 13:55 | RADRPT ---
EXAM DATE/TIME: 06/09/2016 11:03 [facility] COMPARISON: No previous studies available for comparison. INDICATIONS : Cephalgia. Dizziness with nausea. MEDICAL HISTORY : Hypertension. SURGICAL HISTORY : Rt shoulder ENCOUNTER: Initial ACUITY: 1 day PAIN SCORE: 0/10 LOCATION: cranial Please note a normal MRA of the brain does not entirely exclude the possibility of a small aneurysm, nor the possibility of distal intracranial vessel disease. TECHNIQUE: 3D time of flight MRA was performed. Source images, multiplanar STS MIP, and 3D volume MIP reconstru ctions were reviewed. FINDINGS: There is excellent visualization of the major intracranial arteries out to the second-order branch ve ssels. There is no evidence for vessel truncation or stenosis, and no evidence for vascular malforma tion. Vertebrobasilar junction is normal. Small aneurysm at the tip of the basilar artery measures 4 x 3 mm. Small posterior communicating arteries. Anterior communicating artery. CONCLUSION: 1. 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 2. No stenosis or occlusion. Perico Wahl MD on June 09, 2016 at 13:50 Board Certified Radiologist. This report was verified electronically.
--- NOTE | 2016-06-09 14:00 | RADRPT ---
EXAM DATE/TIME: 06/09/2016 11:03 [facility] COMPARISON: No previous studies available for comparison. INDICATIONS : Vertigo. Stenosis. CONTRAST: 20 cc Multihance (gadobenate) IV MEDICAL HISTORY : Hypertension. SURGICAL HISTORY : Right shoulder. ENCOUNTER: Subsequent ACUITY: 1 day PAIN SCORE: 0/10 LOCATION: neck. Percent stenosis is calculated using the diameter of the stenotic region over the diameter of the nor mal distal internal carotid artery. TECHNIQUE: Bolus infused MRA of the extracranial circulation was performed using a neurovascular coil. Post pro cessing was performed including rotationg subvolume maximum intensity projections of each carotid art tammy, rotating full volume maximum intensity projections of both carotid arteries, sagittal and mcwilliams l sliding thin slab reformations of each carotid artery, and left oblique sliding thin slab reformati on through the aortic arch to include the origin of the arch branch vessels. FINDINGS: AORTIC ARCH: There is a three vessel origin of the great vessels from the aorta. No evidence of ostial narrowing. RIGHT CAROTID: The common carotid artery is intact. The carotid bulb has a normal configuration without ulceration or narrowing. The internal carotid artery lumen is smooth without stenosis. The external carotid ar travis is intact. LEFT CAROTID: The common carotid artery is intact. The carotid bulb has a normal configuration without ulceration or narrowing. The internal carotid artery lumen is smooth without stenosis. The external carotid ar travis is intact. VERTEBRALS: The vertebral arteries have a symmetric diameter. No stenotic lesions are seen. CONCLUSION: 1. No significant stenosis in either carotid artery. 2. 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 Perico Wahl MD on June 09, 2016 at 13:57 Board Certified Radiologist. This report was verified electronically.
[2016-06-09] MEDS: PROPRANOLOL HCL 40 MG TAB PO SCH ×2 (15:51→21:51)
[2016-06-09] MEDS: MECLIZINE HCL 25 MG TAB PO PRN ×2 (17:10→21:45)
--- NOTE | 2016-06-09 20:47 | MB ---
cc: FELICIA FAN MD DATE OF CONSULTATION: 06/09/2016 REASON FOR CONSULTATION: Headache, vertigo, rule out stroke. HISTORY OF PRESENT ILLNESS Mr. Gomez is a 60-year-old male with past medical history of major depressive disorder and migraine headache, who presented to the emergency room at [facility] for evaluation of headache. The patient states that he had a sudden headache in the back of his head associated with dizziness, lightheadedness, unsteadiness and a sensation that the room was spinning, pounding in character, associated with nausea but no vomiting. He denied slurred speech, difficulty in speech, loss of consciousness, convulsion or weakness of an extremity. The patient was diagnosed with a brain aneurysm 15 years ago and he states that the surgeon who saw him, who he cannot remember the name of, told him that this is a risky area in the brain to be operated. The patient smokes marijuana. He is out of his antidepressants for the last 2 weeks because he ran out of it. REVIEW OF SYSTEMS A 12-point review of systems is negative except for what is stated in the HPI. PAST MEDICAL HISTORY Migraine headaches, major depressive disorder, asthma, hypertension. PAST SURGICAL HISTORY Right shoulder surgery. ALLERGIES No known allergies. FAMILY HISTORY Mother at age 98. The father had diabetes of [place] at age 85. SOCIAL HISTORY Smokes marijuana every other day. Occasional alcohol use. Denies tobacco use. PHYSICAL EXAMINATION General: Awake, alert, oriented. Well-developed, well-nourished. He is in mild distress because of the headache. HEENT: Atraumatic, normocephalic. Intact vision, intact hearing. Cardiovascular: Regular rate and rhythm. Respiratory: Clear to auscultation. Musculoskeletal: No obvious deformities. Moves extremities equally. No edema. Neurological: Awake, alert, oriented to time, person and place. No dysarthria or dysphasia. Cranial nerve examination: Intact. No signs of meningeal irritation. Upper and lower extremity 5/5 bilateral symmetrical. No abnormal movements. No abnormal tone. Sensation is intact bilateral and symmetrical throughout to pain and temperature. Reflexes are 2+ bilateral and symmetrical. Cerebellar functions [id number] and [id number] are normal. Psychiatry: Appropriate mood and affect. LABORATORY DATA - White BC 7.4, hemoglobin 15, MCV 94.9, INR 1, sodium 141, potassium 4.2, chloride 105, anion gap 9, BUN 19, creatinine 1.94, AST 28, ALT 31, alkaline phosphatase 51, CK 410. Ethyl alcohol 38. Urine tox is positive for cannabinoids. DIAGNOSTIC IMAGING - Head CT scan without contrast revealed no acute intracranial abnormality. Small remote lacunar infarct in the basal ganglia unchanged from a prior study. - Brain MRI revealed no acute intracranial abnormality. Vascular channels versus old basal ganglia lacunar infarct. - Carotid ultrasound with no hemodynamically significant stenosis in either carotid artery. - Head MRA revealed small aneurysm at the tip of the basilar artery measuring 4.3 mm. No stenosis or occlusion. - Neck MRA with no significant stenosis in either carotid artery, there does appear to be aneurysm at the tip of the basilar artery. DIAGNOSTIC IMPRESSION 1. History of migraine headache, possible vertebrobasilar insufficiency / vertigo. 2. History of tip of basilar artery aneurysm. PLAN 1. Neuro checks q4 hourly. 2. Continue home medications 3. Aspirin 81 mg 4. Meclizine 12.5 mg three times daily p.r.n. 5. May consider consult, vascular surgery as per patient's request. 6. DVT prophylaxis. 7. GI prophylaxis. Thank you for the opportunity to participate in the care of your patient. MD CHARLENE Lomeli/EMIL /7:55 PM /8:31 PM RAFA
[2016-06-09] MEDS: traZODone HCL 100 MG TAB PO SCH (21:45)
[2016-06-09] MEDS: ACETAMIN 325 MG/BUTALBITAL 50 MG/CAFFEINE 40 MG TAB PO PRN (21:46)
[2016-06-10 04:50] VITALS: BP 166/71; PULSE 67; RESP 18; TEMP 97.8; O2SAT 95
[2016-06-10] MEDS: ACETAMIN 325 MG/BUTALBITAL 50 MG/CAFFEINE 40 MG TAB PO PRN ×2 (05:01→10:55)
[2016-06-10 05:58] LABS: BICARBONATE 30.1 MEQ/L (21.0-32.0); MAGNESIUM 2.1 MG/DL (1.5-2.5); POTASSIUM 4.6 MEQ/L (3.5-5.1)
[2016-06-10 06:17] LABS: CKMB 2.4 NG/ML (0.5-3.6)
[2016-06-10 08:00] VITALS: BP 126/69; PULSE 72; RESP 20; TEMP 97.4; O2SAT 97
[2016-06-10] MEDS ORDERED: ASPIRIN EC 325 MG TABEC PO SCH (09:00)
[2016-06-10] MEDS: SODIUM CHLORIDE 0.9% FLUSH 5 ML FLUSH FLUSH SCH ×2 (10:55→20:19)
[2016-06-10] MEDS: ASPIRIN 81 MG CHEW TAB CHEW SCH (10:55)
[2016-06-10] MEDS: PROPRANOLOL HCL 40 MG TAB PO SCH ×2 (10:55→20:14)
[2016-06-10] MEDS: DOCUSATE SODIUM 100 MG CAP PO SCH ×2 (10:56→20:15)
[2016-06-10] MEDS: FLUoxetine HCL 20 MG CAP PO SCH (10:56)
[2016-06-10 11:34] VITALS: BP 117/60; PULSE 68; RESP 20; TEMP 96.2; O2SAT 94
--- NOTE | 2016-06-10 12:01 | HHI.PR ---
Subjective Remarks Follow-up for headache. The patient continues to complain of headache today. He continues to complain of dizziness and gait unsteadiness. He states that overnight he tried to get better to go the bathroom, and had a fall because he is unsteady on his feet. He states he landed on his buttocks, no other trauma. He complains of mild buttocks pain. He declines any x-ray. Objective Vitals Vital Signs Date Time Temp Pulse Resp B/P Pulse Ox O2 Delivery O2 Flow Rate FiO2 06/10/16 11:34 96.2 68 20 117/60 94 06/10/16 08:00 97.4 72 20 126/69 97 06/10/16 07:14 20 06/10/16 04:50 97.8 67 18 166/71 95 06/09/16 23:31 98.4 61 18 110/59 96 06/09/16 21:29 94 06/09/16 21:03 72 06/09/16 19:19 98.2 68 18 173/94 94 06/09/16 18:46 77 22 184/117 98 06/09/16 16:00 75 06/09/16 15:42 97.7 75 20 158/81 96 Result Diagram: 06/09/16 0412 06/10/16 0427 Imaging Last Impressions Head CT 06/09/16346 Signed Impressions: Service Date/Time: Thursday, June 09, 2016 04:41 - CONCLUSION: 1. No acute intracranial abnormalities. Small remote lacunar infarcts in the basal ganglia unchanged from prior study. Jordi Hudson MD Chest X-Ray 06/09/16346 Signed Impressions: Service Date/Time: Thursday, June 09, 2016 04:01 - CONCLUSION: No acute disease. Jordi Hudson MD Neck Magnetic Resonance Angiography 06/09/16 0000 Signed Impressions: Service Date/Time: Thursday, June 09, 2016 11:03 - CONCLUSION: 1. No significant stenosis in either carotid artery. 2. 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 Perico Wahl MD Head Magnetic Resonance Angiography 06/09/16 0000 Signed Impressions: Service Date/Time: Thursday, June 09, 2016 11:03 - CONCLUSION: 1. 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 2. No stenosis or occlusion. Perico Wahl MD Carotid Artery Ultrasound 06/09/16 0000 Signed Impressions: Service Date/Time: Thursday, June 09, 2016 09:28 - CONCLUSION: No hemodynamically significant stenosis either carotid artery. Perico Wahl MD Brain MRI 06/09/16 0000 Signed Impressions: Service Date/Time: Thursday, June 09, 2016 11:03 - CONCLUSION: 1. No acute intracranial abnormality. 2. Vascular channels versus old basal ganglia lacunar infarcts. Perico Wahl MD Objective Remarks GENERAL: Well-developed well-nourished. In no acute distress. SKIN: Warm and dry. No lesions noted. HEENT: Normocephalic. Pupils equal and round. Mucous membranes pink and moist. CARDIOVASCULAR: Regular rate and rhythm. No murmur appreciated. RESPIRATORY: No accessory muscle use. Clear to auscultation. Breath sounds equal bilaterally. GASTROINTESTINAL: Abdomen soft, non-tender, nondistended. Bowel sounds x4. MUSCULOSKELETAL: No obvious deformities. No clubbing or cyanosis. No edema. NEUROLOGICAL: Awake and alert. No focal neurological deficits. Moves upper and lower extremities spontaneously. Normal speech. Mild to moderate uncoordination with finger to nose testing. No problems with rapid alternating movements or [id number] testing. PSYCHIATRIC: Appropriate mood and affect; insight and judgment normal. A/P Assessment and Plan 60-year-old male with a past medical history of major depressive disorder and migraines who presented for evaluation of headache Headache/vertigo/lightheadedness Migraine vs possible vertebrobasilar insufficiency Imaging reviewed: Brain MRI with no acute intracranial process, old basal ganglia lacunar infarcts. Head and neck MRAs showed small aneurysm of the tip of the basilar artery, stenosis or occlusion. Labs reviewed: CRP within normal limits. CPK slightly elevated. UDS positive for cannabinoids. EtOH level 38 at admission. -Neurology consulted, appreciate specialists input, recommended aspirin, meclizine, and possible vascular surgery consult -PT/OT/ST -Fioricet as needed for headache -Daily aspirin -IVF -Meclizine and Antiemetics as needed -Consult neurosurgery Hypertension: Accelerated, better controlled currently. Possibly exacerbated by headache. Started on propranolol for BP migraine prophylaxis with good effect. Clonidine and IV Vasotec as needed. CKD: Creatinine 1.94, previously 2.04 on 06/03/16. No prior labs for comparison. Monitor. Depression: Chronic. Continue home Prozac and trazodone. Fall: Secondary gait unsteadiness from the above. Fall precautions. Mild buttocks pain, patient declines x-ray. DVT prophylaxis: SCDs Discussed with Aris Farias Jun 10, 2016 12:01
[2016-06-10] MEDS: MECLIZINE HCL 25 MG TAB PO PRN (12:40)
[2016-06-10 15:28] VITALS: BP 134/77; PULSE 68; RESP 20; TEMP 98.4; O2SAT 94
[2016-06-10] MEDS: SODIUM CHLOR 0.9% 1000 ML INJ 1,000 ML IV SCH ×2 (18:41→22:54)
[2016-06-10 20:00] VITALS: PULSE 72
[2016-06-10] MEDS: traZODone HCL 100 MG TAB PO SCH (20:14)
[2016-06-10 20:44] VITALS: BP 119/65; PULSE 69; RESP 18; TEMP 98.2; O2SAT 94
[2016-06-11] VITALS (7 sets, daily range): BP systolic 105–124; BP diastolic 55–70; PULSE 58–84; RESP 18–20; TEMP 98; O2SAT 94–97
[2016-06-11] MEDS: SODIUM CHLORIDE 0.9% FLUSH 5 ML FLUSH FLUSH SCH ×2 (09:00→20:59)
[2016-06-11] MEDS: PROPRANOLOL HCL 40 MG TAB PO SCH ×2 (09:26→21:00)
[2016-06-11] MEDS: ACETAMIN 325 MG/BUTALBITAL 50 MG/CAFFEINE 40 MG TAB PO PRN ×2 (09:26→15:52)
[2016-06-11] MEDS: DOCUSATE SODIUM 100 MG CAP PO SCH ×2 (09:27→21:00)
[2016-06-11] MEDS: FLUoxetine HCL 20 MG CAP PO SCH (09:27)
[2016-06-11] MEDS: ASPIRIN 81 MG CHEW TAB CHEW SCH (09:27)
--- NOTE | 2016-06-11 10:53 | HHI.PR ---
Subjective Remarks Follow-up for headache, dizziness. The patient reports continued diffuse occipital 10/10 throbbing headache today, denies any photophobia/phonophobia/ nausea/vomiting. Denies any changes in his vision. He states he gets minimal relief with pain medications. He also complains of dizziness, worse upon ambulation with gait unsteadiness. He states last night he was dreaming that he was going home, and stood up from bed but became dizzy and fell to the ground. He denies hitting his head or any loss of consciousness. Denies any injury. He states he was able to get himself back into bed. He has no other medical complaints at this time. Objective Vitals Vital Signs Date Time Temp Pulse Resp B/P Pulse Ox O2 Delivery O2 Flow Rate FiO2 06/11/16 08:20 98.0 67 19 124/67 97 06/11/16 06:08 65 18 110/57 94 06/10/16 21:15 12 06/10/16 20:44 98.2 69 18 119/65 94 06/10/16 20:00 72 06/10/16 15:28 98.4 68 20 134/77 94 06/10/16 11:55 20 06/10/16 11:34 96.2 68 20 117/60 94 I/O 06/10/16 06/10/16 06/10/16 06/11/16 06/11/16 06/11/16 07:00 15:00 23:00 07:00 15:00 23:00 Output Total 400 ml Balance -400 ml Output Urine Total 400 ml Result Diagram: 06/09/16 0412 06/10/16 0427 Imaging Last Impressions Head CT 06/09/16346 Signed Impressions: Service Date/Time: Thursday, June 09, 2016 04:41 - CONCLUSION: 1. No acute intracranial abnormalities. Small remote lacunar infarcts in the basal ganglia unchanged from prior study. Jordi Hudson MD Chest X-Ray 06/09/16346 Signed Impressions: Service Date/Time: Thursday, June 09, 2016 04:01 - CONCLUSION: No acute disease. Jordi Hudson MD Neck Magnetic Resonance Angiography 06/09/16 0000 Signed Impressions: Service Date/Time: Thursday, June 09, 2016 11:03 - CONCLUSION: 1. No significant stenosis in either carotid artery. 2. 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 Perico Wahl MD Head Magnetic Resonance Angiography 06/09/16 0000 Signed Impressions: Service Date/Time: Thursday, June 09, 2016 11:03 - CONCLUSION: 1. 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 2. No stenosis or occlusion. Perico Wahl MD Carotid Artery Ultrasound 06/09/16 0000 Signed Impressions: Service Date/Time: Thursday, June 09, 2016 09:28 - CONCLUSION: No hemodynamically significant stenosis either carotid artery. Perico Wahl MD Brain MRI 06/09/16 Signed Impressions: Service Date/Time: Thursday, June 09, 2016 11:03 - CONCLUSION: 1. No acute intracranial abnormality. 2. Vascular channels versus old basal ganglia lacunar infarcts. Perico Wahl MD Objective Remarks GENERAL: Well-nourished, well-developed middle aged male patient in [facility]. SKIN: Warm and dry. No rash. HEENT: Normocephalic. Atraumatic. Pupils equal and round. No scleral icterus. No injection or drainage. Mucous membranes pink and moist. NECK: Supple. Trachea midline. CARDIOVASCULAR: Regular rate and rhythm. S1, S2 noted. No murmur appreciated. RESPIRATORY: No accessory muscle use. Clear to auscultation. Breath sounds equal bilaterally. GASTROINTESTINAL: Abdomen soft, non-tender, nondistended. Normoactive bowel sounds x4. MUSCULOSKELETAL: No obvious deformities. Extremities without clubbing, cyanosis , or edema. NEUROLOGICAL: Awake and alert. No obvious cranial nerve deficits. Motor grossly within normal limits. 5/5 muscle strength in bilateral upper and lower extremities. Normal speech. PSYCHIATRIC: Appropriate mood and affect; insight and judgment normal. Medications and IVs Current Medications Medications (Trade) Dose Ordered Sig/Lou Route Start Time Stop Time Status Last Admin (NS 1000 ml Inj) 1,000 ml @ 70 mls/hr [id number] IV 06/09/16 04:00 06/10/16 18:41 (Antivert) 25 mg Q6H PRN PO 06/09/16 05:45 06/10/16 12:40 (NS Flush) 2 ml UNSCH PRN FLUSH 06/09/16 05:45 (NS Flush) 2 ml BID FLUSH 06/09/16 09:00 06/10/16 10:55 (Tylenol) 650 mg Q4H PRN PO 06/09/16 05:45 06/10/16 20:15 (Zofran Inj) 4 mg Q6H PRN IVP 06/09/16 05:45 (Reglan Inj) 5 mg Q6H PRN IV PUSH 06/09/16 05:45 (Dulcolax Supp) 10 mg DAILY PRN [place] 06/09/16 05:45 (Colace) 100 mg Q12H PO 06/09/16 09:00 06/11/16 09:27 (Milk Of Magnchristina Liq) 30 ml Q12H PRN PO 06/09/16 05:45 (Senokot) 17.2 mg Q12H PRN PO 06/09/16 05:45 (Tylenol) 650 mg Q6H PRN PO 06/09/16 05:45 06/10/16 06:14 (Narcan Inj) 0.4 mg UNSCH PRN IV 06/09/16 05:45 (Vasotec Inj) 1.25 mg Q6H PRN IV 06/09/16 05:45 06/09/16 18:52 (Catapres) 0.1 mg Q6H PRN PO 06/09/16 05:45 (PROzac) 40 mg DAILY PO 06/09/16 09:00 06/11/16 09:27 (Desyrel) 200 mg HS PO 06/09/16 21:00 06/10/16 20:14 (Fioricet 325-50-40) 1 tab Q6H PRN PO 06/09/16 09:15 06/11/16 09:26 (Aspirin Chew) 81 mg DAILY CHEW 06/10/16 09:00 06/11/16 09:27 (Inderal) 40 mg Q12HR PO 06/09/16 14:00 06/11/16 09:26 Urinary Catheter: No Vascular Central Line Catheter: No A/P Assessment and Plan 60-year-old male with a past medical history of major depressive disorder and migraines who presented for evaluation of headache Headache/vertigo/lightheadedness Suspect Migraine vs possible vertebrobasilar insufficiency Imaging reviewed: Brain MRI with no acute intracranial process, old basal ganglia lacunar infarcts. 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 Labs reviewed: CRP wnl. CPK slightly elevated. UDS positive for cannabinoids. EtOH level 38 at admission. -Neurology consulted, appreciate specialists input, recommended aspirin, meclizine -PT/OT/ST, recommends outpatient PT if still symptomatic -Fioricet as needed for headache -Daily aspirin -IVF -Meclizine and Antiemetics as needed -Consult neurosurgery, discussed with Dr. Amaro, no surgical intervention recommended, dizziness/headache not related to aneurysm Hypertension: Accelerated, better controlled currently. Possibly exacerbated by headache. -Started on propranolol for BP and migraine prophylaxis with good effect. -Clonidine and IV Vasotec as needed. CKD: Creatinine 1.94, previously 2.04 on 06/03/16. No prior labs for comparison. Monitor. Depression: Chronic. Continue home Prozac and trazodone. Fall: Secondary gait unsteadiness from the above. Fall precautions. Mild buttocks pain, patient declines x-ray. DVT prophylaxis: SCDs Discussed with Carlee Blanca PA-C Jun 11, 2016 10:53
--- NOTE | 2016-06-11 12:50 | PD.CONS ---
[facility] Service Neurosurg Consult Requested By dr Ellis Reason for Consult Aneurysm Primary Care Physician No Primary Care Physician History of Present Illness This is a 60-year-old male with past medical history of major depressive disorder and migraine headaches, who presented to the emergency room at [facility] for evaluation of vertigo. He reports a sudden headache in the back of his head associated with dizziness, lightheadedness, unsteadiness and a sensation that the room was spinning, associated with nausea but no vomiting. He denied slurred speech, difficulty in speech, loss of consciousness, seizures, neck pain , or weakness of an extremities. He was diagnosed with a brain aneurysm 15 years ago and he states that the surgeon who saw him, told him that this is a risky area in the brain to be operated. The patient smokes marijuana. He stopped his antidepressants. Neurosurgical consultation was requested. Review of Systems Constitutional: COMPLAINS OF: Dizziness, DENIES: Diaphoretic episodes, Fatigue , Fever, Weight gain, Weight loss, Chills, Change in appetite, Night Sweats Endocrine: DENIES: Heat/cold intolerance, Polydipsia, Polyuria, Polyphagia Eyes: DENIES: Blurred vision, Diplopia, Eye inflammation, Eye pain, Vision loss , Photosensitivity, Double Vision Ears, nose, mouth, throat: COMPLAINS OF: Vertigo, DENIES: Tinnitus, Hearing loss, Nasal discharge, Oral lesions, Throat pain, Hoarseness, Ear Pain, Running Nose, Epistaxis, Sinus Pain, Toothache, Odynophagia Respiratory: DENIES: Apneas, Cough, Snoring, Wheezing, Hemoptysis, Sputum production, Shortness of breath Cardiovascular: DENIES: Chest pain, Palpitations, Syncope, Dyspnea on Exertion , PND, Lower Extremity Edema, Orthopnea, Claudication Gastrointestinal: DENIES: Abdominal pain, Black stools, Bloody stools, Constipation, Diarrhea, Nausea, Vomiting, Difficulty Swallowing, Anorexia Genitourinary: DENIES: Sexual dysfunction, Urinary frequency, Urinary incontinence, Urgency, Hematuria, Dysuria, Nocturia, Penile Discharge, Testicular Pain, Testicular Swelling Musculoskeletal: DENIES: Joint pain, Muscle aches, Stiffness, Joint Swelling, Back pain, Neck pain Integumentary: DENIES: Abnormal pigmentation, Nail changes, Pruritus, Rash Hematologic/lymphatic: DENIES: Bruising, Lymphadenopathy Immunologic/allergic: DENIES: Eczema, Urticaria Neurologic: COMPLAINS OF: Headache, Poor Balance, DENIES: Abnormal gait, Localized weakness, Paresthesias, Seizures, Speech Problems, Tremor Psychiatric: DENIES: Anxiety, Confusion, Mood changes, Depression, Hallucinations, Agitation, Suicidal Ideation, Homicidal Ideation, Delusions Past Family Social History Allergies: Coded Allergies: No Known Allergies (Unverified , 06/09/16) Past Medical History Migraine headaches, major depressive disorder, asthma, hypertension. Basilar aneurysm Past Surgical History Right shoulder surgery. Reported Medications He stopped all Active Ordered Medications Current Medications Sodium Chloride (NS 1000 ml Inj) 1,000 ml @ 70 mls/hr [id number] IV Last administered on 06/10/16 18:41; Start 06/09/16 at 04:00 Prochlorperazine Edisylate (Compazine Inj) 5 mg ONCE ONCE IVS Last administered on 06/09/16 04:32; Start 06/09/16 at 04:00; Stop 06/09/16 at 04:01 ; Status DC Aspirin (Aspirin) 325 mg ONCE ONCE PO Last administered on 06/09/16 05:35; Start 06/09/16 at 05:15; Stop 06/09/16 at 05:16; Status DC Meclizine HCl (Antivert) 25 mg ONCE ONCE PO Last administered on 06/09/16 05: 35; Start 06/09/16 at 05:15; Stop 06/09/16 at 05:16; Status DC Meclizine HCl (Antivert) 25 mg Q6H PRN PO vertigo Last administered on 12:40; Start 06/09/16 at 05:45 Albuterol Sulfate (Albuterol Neb) 0.63 mg Q4HR NEB PRN NEB SOB/WHEEZING; Start 06/09/16 at 05:45 IV Flush (NS Flush) 2 ml UNSCH PRN FLUSH FLUSH AFTER USING IV ACCESS; Start at 05:45 IV Flush (NS Flush) 2 ml BID FLUSH Last administered on 06/10/16 10:55; Start 06/09/16 at 09:00 Acetaminophen (Tylenol) 650 mg Q4H PRN PO TEMP > 100.4 Last administered on 06/10 20:15; Start 06/09/16 at 05:45 Ondansetron HCl (Zofran Inj) 4 mg Q6H PRN IVP NAUSEA OR VOMITING; Start at 05:45 Metoclopramide HCl (Reglan Inj) 5 mg Q6H PRN IV PUSH NAUSEA OR VOMITING; Start 06/09/16 at 05:45 Bisacodyl (Dulcolax Supp) 10 mg DAILY PRN OR CONSTIPATION; Start 06/09/16 at 05 :45 Docusate Sodium (Colace) 100 mg Q12H PO Last administered on 06/11/16 09:27; Start 06/09/16 at 09:00 Magnesium Hydroxide (Milk Of Magnchristina Liq) 30 ml Q12H PRN PO CONSTIPATION; Start 06/09/16 at 05:45 Sennosides (Senokot) 17.2 mg Q12H PRN PO CONSTIPATION; Start 06/09/16 at 05:45 Acetaminophen (Tylenol) 650 mg Q6H PRN PO PAIN SCALE 1 TO 2 Last administered on 06/10/16 06:14; Start 06/09/16 at 05:45 Tramadol HCl (Ultram) 50 mg Q4H PRN PO PAIN SCALE 3 TO 5; Start 06/09/16 at 05: 45; Stop 06/09/16 at 09:02; Status DC Tramadol HCl (Ultram) 100 mg Q4H PRN PO PAIN SCALE 6 TO 10; Start 06/09/16 at 05:45; Stop 06/09/16 at 09:02; Status DC Naloxone HCl (Narcan Inj) 0.4 mg UNSCH PRN IV SEE LABEL COMMENTS; Start at 05:45 Aspirin (Ecotrin Ec) 325 mg DAILY PO ; Start 06/10/16 at 09:00; Stop 06/10/16 at 09:00; Status DC Enalaprilat (Vasotec Inj) 1.25 mg Q6H PRN IV SBP> OR = 200, DBP> OR = 100 Last administered on 06/09/16 18:52; Start 06/09/16 at 05:45 Clonidine (Catapres) 0.1 mg Q6H PRN PO SBP> OR = 200, DBP> OR = 100; Start at 05:45 Lorazepam (Ativan) 0.5 mg ONCE ONCE PO Last administered on 06/09/16 08:00; Start 06/09/16 at 08:00; Stop 06/09/16 at 08:01; Status DC Fluoxetine HCl (PROzac) 40 mg DAILY PO Last administered on 06/11/16 09:27; Start 06/09/16 at 09:00 Trazodone HCl (Desyrel) 200 mg HS PO Last administered on 06/10/16 20:14; Start 06/09/16 at 21:00 Lorazepam (Ativan) 1 mg ONCE ONCE PO Last administered on 06/09/16 09:54; Start 06/09/16 at 09:00; Stop 06/09/16 at 09:01; Status DC Acetaminophen/ Butalbital/ Caffeine (Fioricet 325-50-40) 1 tab Q6H PRN PO HEADACHE Last administered on 06/11/16 09:26; Start 06/09/16 at 09:15 Aspirin (Aspirin Chew) 81 mg DAILY CHEW Last administered on 06/11/16 09:27; Start 06/10/16 at 09:00 Gadobenate Dimeglumine (Multihance Pf Inj) 23 ml STK-MED ONCE IV Last administered on 06/09/16 12:19; Start 06/09/16 at 12:19; Stop 06/09/16 at 12:21 ; Status DC Propranolol HCl (Inderal) 40 mg Q12HR PO Last administered on 06/11/16 09:26; Start 06/09/16 at 14:00 Family History Mother at age 98. The father had diabetes of [place] at age 85. Social History Smokes marijuana every other day. Occasional alcohol use. Denies tobacco use. Physical Exam Vital Signs Vital Signs Date Time Temp Pulse Resp B/P Pulse Ox O2 Delivery O2 Flow Rate FiO2 06/11/16 08:20 98.0 67 19 124/67 97 06/11/16 06:08 65 18 110/57 94 06/10/16 21:15 12 06/10/16 20:44 98.2 69 18 119/65 94 06/10/16 20:00 72 06/10/16 15:28 98.4 68 20 134/77 94 Physical Exam The patient is alert, awake and oriented to time, place and person. Speech is fluent. Higher cognitive functions are normal. Cranial nerve examination demonstrates the pupils to be equal, round, and reactive to light. Extra-ocular movements are intact. Facial motor and sensory function are normal and symmetrical. Gross hearing is intact, bilaterally. The uvula is midline and elevates symmetrically with the soft palate. Sternocleidomastoid and trapezius muscles have normal and symmetrical strength. Other cranial nerves are intact. Neck is soft and supple. Cervical spine has a full range of motion in anterior flexion, extension, lateral bending, and rotation without pain. There is no tenderness to palpation to the spinous processes or paraspinal muscles. Muscle testing reveals normal bulk and tone overall without rigidity, spasticity , fasciculations, or atrophy. Muscle strength is 5/5 in all muscle groups of both upper extremities including deltoid, biceps, triceps, brachioradialis, wrist extension and pastry supervisor. In the lower extremities, strength is 5/5 in both iliopsoas, quadriceps, hamstrings, plantar flexion, dorsiflexion, and extensor hallicus longus. Sensory examination is intact to light touch and sharp/dull discrimination in both the upper and lower extremities, symmetrically. Deep tendon reflexes are 2+ and symmetrical in the biceps, triceps, and brachioradialis, bilaterally, in the upper extremities. In the lower extremities , the patellar and Achilles are 2+, bilaterally. There is a bilateral plantar flexion response. Hoffmanns sign is negative. There is no clonus or other abnormal reflexes noted. Cerebellar examination is intact to [id number] test, rapid rhythmic alternating motion. There is no dysmetria, dysdiadochokinesia, truncal ataxia, or tremor. Result Diagram: 06/09/16 0412 06/10/16426 Imaging Last Impressions Head CT 06/09/16346 Signed Impressions: Service Date/Time: Thursday, June 09, 2016 04:41 - CONCLUSION: 1. No acute intracranial abnormalities. Small remote lacunar infarcts in the basal ganglia unchanged from prior study. Jordi Hudson MD Chest X-Ray 06/09/16346 Signed Impressions: Service Date/Time: Thursday, June 09, 2016 04:01 - CONCLUSION: No acute disease. Jordi Hudson MD Neck Magnetic Resonance Angiography 06/09/16 0000 Signed Impressions: Service Date/Time: Thursday, June 09, 2016 11:03 - CONCLUSION: 1. No significant stenosis in either carotid artery. 2. 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 Perico Wahl MD Head Magnetic Resonance Angiography 06/09/16 0000 Signed Impressions: Service Date/Time: Thursday, June 09, 2016 11:03 - CONCLUSION: 1. 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 2. No stenosis or occlusion. Perico Wahl MD Carotid Artery Ultrasound 06/09/16 0000 Signed Impressions: Service Date/Time: Thursday, June 09, 2016 09:28 - CONCLUSION: No hemodynamically significant stenosis either carotid artery. Perico Wahl MD Brain MRI 06/09/16 0000 Signed Impressions: Service Date/Time: Thursday, June 09, 2016 11:03 - CONCLUSION: 1. No acute intracranial abnormality. 2. Vascular channels versus old basal ganglia lacunar infarcts. Perico Wahl MD Assessment and Plan Assessment and Plan 1. History of migraine headache, possible bening parixusmal vertigo, rule out vertebrobasilar insufficiency 2. History of tip of basilar artery aneurysm., incidental Attending Statement I have reviewed his clinical and further studies. neuro checks in a serial fashion. I have discussed the natural history and physiopathology of intracranial aneurysms. Intracranial aneurysms can grow in size producing mass effect, or they can rupture producing intracranial, subarachnoid hemorrhage. The risk of aneurysm rupture depends on its size, and it is estimated to be 1 to 2% per year. Approximately one-to- two thirds of patients with ruptured aneurysms will not survive the hemorrhage or will require detention care. I have explained to the patient that the size considered critical for a hemorrhage is 7-to-8 mm. We also discussed the treatment options for people with cerebral aneurysms including surgical treatment by clipping or endovascular coiling. The common goal of both surgical clipping and endovascular coiling is the obliteration of the aneurysm. An aneurysm is clipped through a craniotomy, where the brain and the blood vessels are accessed through an opening in the skull. During endovascular treatment coils are released into the aneurysm, the blood flow pattern within the aneurysm is altered, and the slow or sluggish remaining blood flow leads to a clot of the aneurysm. Another alternative is to undergo no treatment and medical follow up. I discussed the case with an interventional neuroradiologist Dr Blackwood. He is aneurysm is too small for endovascular treatment and the risks at the weights the potential benefits Respiratory. pulmonary toilette, nasotracheal suction, and breathing treatments with nebulizers. Hypertension As needed Cardene to maintain systolic blood pressure less than 150. Meclizine 12.5 mg three times daily p.r.n. PT and OT eval Nutrition. Oral diet Renal. monitor closely urine output, BUN and creatinine Endocrine. Monitor serial Acu checks and SSI for tight control ID monitor for signs of infection Protonix for stress ulcer prophylaxis Lorenzo hose and SCD's for DVT prophylaxis Rodo Amaro MD Jun 11, 2016 12:50
[2016-06-11] MEDS: SODIUM CHLOR 0.9% 1000 ML INJ 1,000 ML IV SCH (13:12)
[2016-06-11] MEDS: traZODone HCL 100 MG TAB PO SCH (21:00)
--- NOTE | 2016-06-11 21:35 | HHI.PR ---
Review/Management Diagnosis - History of migraine headache, possible vertebrobasilar insufficiency / vertigo. - History of tip of basilar artery aneurysm - H/o intracerebral thrombosis 2009, was on Coumadin Plan - Neuro checks q4 hourly. - Continue home medications - Aspirin 81 mg - Meclizine 12.5 mg three times daily p.r.n. - MRV with contrast - DVT prophylaxis. - GI prophylaxis. Diagnosis/Plan: Subjective Subjective Comments Complains of constant pulsating occipital headache, dizziness, nausea Denies double vision or speech difficulty Patient states that he was diagnosed with "clot in my head" in [place] in 2009, received anticoagulation/Coumadin. Basilar aneurysm is not amenable to intervention Active Medications Current Medications Medications (Trade) Dose Ordered Sig/Lou Route Start Time Stop Time Status Last Admin (NS 1000 ml Inj) 1,000 ml @ 70 mls/hr [id number] IV 06/09/16 04:00 06/10/16 18:41 (Antivert) 25 mg Q6H PRN PO 06/09/16 05:45 06/10/16 12:40 (NS Flush) 2 ml UNSCH PRN FLUSH 06/09/16 05:45 (NS Flush) 2 ml BID FLUSH 06/09/16 09:00 06/11/16 20:59 (Tylenol) 650 mg Q4H PRN PO 06/09/16 05:45 06/10/16 20:15 (Zofran Inj) 4 mg Q6H PRN IVP 06/09/16 05:45 (Reglan Inj) 5 mg Q6H PRN IV PUSH 06/09/16 05:45 (Dulcolax Supp) 10 mg DAILY PRN [place] 06/09/16 05:45 (Colace) 100 mg Q12H PO 06/09/16 09:00 06/11/16 21:00 (Milk Of Magnesia Liq) 30 ml Q12H PRN PO 06/09/16 05:45 (Senokot) 17.2 mg Q12H PRN PO 06/09/16 05:45 (Tylenol) 650 mg Q6H PRN PO 06/09/16 05:45 06/10/16 06:14 (Narcan Inj) 0.4 mg UNSCH PRN IV 06/09/16 05:45 (Vasotec Inj) 1.25 mg Q6H PRN IV 06/09/16 05:45 06/09/16 18:52 (Catapres) 0.1 mg Q6H PRN PO 06/09/16 05:45 (PROzac) 40 mg DAILY PO 06/09/16 09:00 06/11/16 09:27 (Desyrel) 200 mg HS PO 06/09/16 21:00 06/11/16 21:00 (Fioricet 325-50-40) 1 tab Q6H PRN PO 06/09/16 09:15 06/11/16 15:52 (Aspirin Chew) 81 mg DAILY CHEW 06/10/16 09:00 06/11/16 09:27 (Inderal) 40 mg Q12HR PO 06/09/16 14:00 06/11/16 21:00 Allergies Allergies Coded Allergies No Known Allergies (Unverified06/09/16) Exam I&O / VS 06/10/16 06/10/16 06/11/16 15:00 23:00 07:00 Output Total 400 ml Balance -400 ml Output Urine Total 400 ml Vital Signs Date Time Temp Pulse Resp B/P Pulse Ox O2 Delivery O2 Flow Rate FiO2 06/11/16 19:24 84 18 105/55 97 06/11/16 17:22 60 20 114/66 95 06/11/16 16:52 20 06/11/16 12:59 62 19 123/70 96 06/11/16 08:20 98.0 67 19 124/67 97 06/11/16 08:00 58 06/11/16 06:08 65 18 110/57 94 Exam Comments General: Awake, alert, oriented. Well-developed, well-nourished. Mild distress because of the headache. HEENT: Atraumatic, normocephalic. Intact vision, intact hearing. Cardiovascular: Regular rate and rhythm. Respiratory: Clear to auscultation. Musculoskeletal: No obvious deformities. Moves extremities equally. No edema. Neurological: Awake, alert, oriented to time, person and place. No dysarthria or dysphasia. Cranial nerve examination: Intact. No signs of meningeal irritation. Upper and lower extremity 5/5 bilateral symmetrical. No abnormal movements. No abnormal tone. Sensation is intact bilateral and symmetrical throughout to pain and temperature. Reflexes are 2+ bilateral and symmetrical. Cerebellar functions [id number] and [id number] are normal. Psychiatry: Appropriate mood and affect. Objective Radiology Results Last [address] 06/09/16346 Signed Impressions: Service Date/Time: Thursday, June 09, 2016 04:41 - CONCLUSION: 1. No acute intracranial abnormalities. Small remote lacunar infarcts in the basal ganglia unchanged from prior study. Jordi Hudson MD Chest X-Ray 06/09/16346 Signed Impressions: Service Date/Time: Thursday, June 09, 2016 04:01 - CONCLUSION: No acute disease. Jordi Hudson MD Neck Magnetic Resonance Angiography 06/09/16 0000 Signed Impressions: Service Date/Time: Thursday, June 09, 2016 11:03 - CONCLUSION: 1. No significant stenosis in either carotid artery. 2. 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 Perico Wahl MD Head Magnetic Resonance Angiography 06/09/16 0000 Signed Impressions: Service Date/Time: Thursday, June 09, 2016 11:03 - CONCLUSION: 1. 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 2. No stenosis or occlusion. Perico Wahl MD Carotid Artery Ultrasound 06/09/16 0000 Signed Impressions: Service Date/Time: Thursday, June 09, 2016 09:28 - CONCLUSION: No hemodynamically significant stenosis either carotid artery. Perico Wahl MD Brain MRI 06/09/16 0000 Signed Impressions: Service Date/Time: Thursday, June 09, 2016 11:03 - CONCLUSION: 1. No acute intracranial abnormality. 2. Vascular channels versus old basal ganglia lacunar infarcts. Perico Wahl MD Ossi,Mya Cates MD Jun 11, 2016 21:35
[2016-06-12] VITALS (7 sets, daily range): BP systolic 112–146; BP diastolic 58–89; PULSE 61–80; RESP 18–20; TEMP 97.8–98.5; O2SAT 94–97
[2016-06-12] MEDS: SODIUM CHLOR 0.9% 1000 ML INJ 1,000 ML IV SCH ×2 (03:30→15:00)
[2016-06-12] MEDS: ACETAMIN 325 MG/BUTALBITAL 50 MG/CAFFEINE 40 MG TAB PO PRN (08:38)
[2016-06-12] MEDS: SODIUM CHLORIDE 0.9% FLUSH 5 ML FLUSH FLUSH SCH ×2 (09:00→19:51)
--- NOTE | 2016-06-12 09:31 | HHI.PR ---
Subjective Remarks Follow-up for headache, dizziness. Attempted to see the patient early this morning [id number] however he was sound asleep. Saw the patient later this morning around 9am, he is sitting upright in bed eating breakfast. He reports overall feeling a little bit better today. He still reports an 8/10 throbbing occipital headache today. Also reporting some mild dizziness, mostly with ambulation. Denies nausea/vomiting. He is tolerating oral intake. He was able to ambulate down the hallway with physical therapy this morning. The patient agrees to home health care if possible. Objective Vitals Vital Signs Date Time Temp Pulse Resp B/P Pulse Ox O2 Delivery O2 Flow Rate FiO2 06/12/16 08:01 98.5 65 19 128/77 94 06/12/16 03:45 98.1 80 18 116/75 97 06/11/16 20:00 68 06/11/16 19:24 84 18 105/55 97 06/11/16 17:22 60 20 114/66 95 06/11/16 16:52 20 06/11/16 12:59 62 19 123/70 96 I/O 06/11/16 06/11/16 06/11/16 06/12/16 06/12/16 06/12/16 07:00 15:00 23:00 07:00 15:00 23:00 Intake Total 900 ml Output Total 600 ml Balance 300 ml Intake Oral 900 ml Output Urine Total 600 ml # Bowel Movements 1 Result Diagram: 06/09/16 0412 06/10/16 0427 Imaging Last Impressions Head CT 06/09/16346 Signed Impressions: Service Date/Time: Thursday, June 09, 2016 04:41 - CONCLUSION: 1. No acute intracranial abnormalities. Small remote lacunar infarcts in the basal ganglia unchanged from prior study. Jordi Hudson MD Chest X-Ray 06/09/167 Signed Impressions: Service Date/Time: Thursday, June 09, 2016 04:01 - CONCLUSION: No acute disease. Jordi Hudson MD Neck Magnetic Resonance Angiography 06/09/16 0000 Signed Impressions: Service Date/Time: Thursday, June 09, 2016 11:03 - CONCLUSION: 1. No significant stenosis in either carotid artery. 2. 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 Perico Wahl MD Head Magnetic Resonance Angiography 06/09/16 0000 Signed Impressions: Service Date/Time: Thursday, June 09, 2016 11:03 - CONCLUSION: 1. 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 2. No stenosis or occlusion. Perico Wahl MD Carotid Artery Ultrasound 06/09/16 0000 Signed Impressions: Service Date/Time: Thursday, June 09, 2016 09:28 - CONCLUSION: No hemodynamically significant stenosis either carotid artery. Perico Wahl MD Brain MRI 06/09/16 0000 Signed Impressions: Service Date/Time: Thursday, June 09, 2016 11:03 - CONCLUSION: 1. No acute intracranial abnormality. 2. Vascular channels versus old basal ganglia lacunar infarcts. Perico Wahl MD Objective Remarks GENERAL: Well-nourished, well-developed middle aged male patient in [facility]. SKIN: Warm and dry. No rash. HEENT: Normocephalic. Atraumatic. Pupils equal and round. No scleral icterus. No injection or drainage. Mucous membranes pink and moist. NECK: Supple. Trachea midline. CARDIOVASCULAR: Regular rate and rhythm. S1, S2 noted. No murmur appreciated. RESPIRATORY: No accessory muscle use. Clear to auscultation. Breath sounds equal bilaterally. GASTROINTESTINAL: Abdomen soft, non-tender, nondistended. Normoactive bowel sounds x4. MUSCULOSKELETAL: No obvious deformities. Extremities without clubbing, cyanosis , or edema. NEUROLOGICAL: Awake and alert. No obvious cranial nerve deficits. Motor grossly within normal limits. 5/5 muscle strength in bilateral upper and lower extremities. Normal speech. PSYCHIATRIC: Appropriate mood and affect; insight and judgment normal. Medications and IVs Current Medications Medications (Trade) Dose Ordered Sig/Lou Route Start Time Stop Time Status Last Admin (NS 1000 ml Inj) 1,000 ml @ 70 mls/hr [id number] IV 06/09/16 04:00 06/10/16 18:41 (Antivert) 25 mg Q6H PRN PO 06/09/16 05:45 06/10/16 12:40 (NS Flush) 2 ml UNSCH PRN FLUSH 06/09/16 05:45 (NS Flush) 2 ml BID FLUSH 06/09/16 09:00 06/11/16 20:59 (Tylenol) 650 mg Q4H PRN PO 06/09/16 05:45 06/10/16 20:15 (Zofran Inj) 4 mg Q6H PRN IVP 06/09/16 05:45 (Reglan Inj) 5 mg Q6H PRN IV PUSH 06/09/16 05:45 (Dulcolax Supp) 10 mg DAILY PRN [place] 06/09/16 05:45 (Colace) 100 mg Q12H PO 06/09/16 09:00 06/11/16 21:00 (Milk Of Magnchristina Liq) 30 ml Q12H PRN PO 06/09/16 05:45 (Senokot) 17.2 mg Q12H PRN PO 06/09/16 05:45 (Tylenol) 650 mg Q6H PRN PO 06/09/16 05:45 06/10/16 06:14 (Narcan Inj) 0.4 mg UNSCH PRN IV 06/09/16 05:45 (Vasotec Inj) 1.25 mg Q6H PRN IV 06/09/16 05:45 06/09/16 18:52 (Catapres) 0.1 mg Q6H PRN PO 06/09/16 05:45 (PROzac) 40 mg DAILY PO 06/09/16 09:00 06/11/16 09:27 (Desyrel) 200 mg HS PO 06/09/16 21:00 06/11/16 21:00 (Fioricet 325-50-40) 1 tab Q6H PRN PO 06/09/16 09:15 06/12/16 08:38 (Aspirin Chew) 81 mg DAILY CHEW 06/10/16 09:00 06/11/16 09:27 (Inderal) 40 mg Q12HR PO 06/09/16 14:00 06/11/16 21:00 Urinary Catheter: No Vascular Central Line Catheter: No A/P Assessment and Plan 60-year-old male with a past medical history of major depressive disorder and migraines who presented for evaluation of headache Headache/vertigo/dizziness Suspect Migraine vs vertigo vs possible vertebrobasilar insufficiency Imaging reviewed: Brain MRI with no acute intracranial process, old basal ganglia lacunar infarcts. 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 Labs reviewed: CRP wnl. CPK slightly elevated. UDS positive for cannabinoids. EtOH level 38 at admission. -Neurology consulted, appreciate specialists input, recommended aspirin, meclizine -PT/OT/ST, recommends outpatient PT if still symptomatic -Fioricet as needed for headache -Daily aspirin -IVF -Meclizine and Antiemetics as needed -Consult neurosurgery, discussed with Dr. Amaro, no surgical intervention recommended, dizziness/headache not related to aneurysm -Neurology ordered brain MRV -if imaging unremarkable, will likely discharge today with Meclizine Hypertension: Accelerated, better controlled currently. Possibly exacerbated by headache. -Started on propranolol for BP and migraine prophylaxis with good effect. -Clonidine and IV Vasotec as needed. CKD: Creatinine 1.94, previously 2.04 on 06/03/16. No prior labs for comparison. Repeat BMP. Depression: Chronic. Continue home Prozac and trazodone. Fall: Secondary to gait unsteadiness from the above. Fall precautions. Mild buttocks pain, patient declines x-ray. Pain resolved. DVT prophylaxis: SCDs Discussed with Dr. Ellis Discharge Planning Discharge today if Brain MRV unremarkable. Carlee Petersen PA-C Jun 12, 2016 9:31 am
[2016-06-12] MEDS: ASPIRIN 81 MG CHEW TAB CHEW SCH (10:12)
[2016-06-12] MEDS: DOCUSATE SODIUM 100 MG CAP PO SCH ×2 (10:12→19:51)
[2016-06-12] MEDS: PROPRANOLOL HCL 40 MG TAB PO SCH ×2 (10:12→19:51)
[2016-06-12] MEDS: FLUoxetine HCL 20 MG CAP PO SCH (10:13)
[2016-06-12 11:16] LABS: BICARBONATE 31.9 MEQ/L (21.0-32.0); POTASSIUM 4.3 MEQ/L (3.5-5.1)
[2016-06-12] MEDS ORDERED: LORazepam 2 MG/ML VIAL IV PUSH PRN (14:45)
[2016-06-12] MEDS ORDERED: PILL SPLITTER OTHER PRN (16:00)
--- NOTE | 2016-06-12 17:14 | RADRPT ---
EXAM DATE/TIME: 06/12/2016 15:46 [facility] COMPARISON: MRI BRAIN W & W/O CONTRAST, June 09, 2016, 11:03. INDICATIONS : Thrombosis. MEDICAL HISTORY : Hypertension. SURGICAL HISTORY : Right shoulder. ENCOUNTER: Initial ACUITY: 2 day PAIN SCORE: 3/10 LOCATION: head Please note a normal MRA of the brain does not entirely exclude the possibility of a small aneurysm, nor the possibility of distal intracranial vessel disease. TECHNIQUE: MR venography of the brain was performed without contrast with multiplanar and 3D reconstructions. FINDINGS: The superior sagittal sinus straight sinus and intracerebral veins are patent. The transverse sinuses are intact. CONCLUSION: 1. No evidence of venous sinus thrombosis Ramírez El MD on June 12, 2016 at 17:10 Board Certified Radiologist. This report was verified electronically.
[2016-06-12] MEDS: traZODone HCL 100 MG TAB PO SCH (19:51)
[2016-06-12] MEDS: MECLIZINE HCL 25 MG TAB PO PRN (19:52)
[2016-06-13 00:07] VITALS: BP_SYST 111; BP_SYST 95; BP_DIAS 53; BP_DIAS 65; PULSE 68; RESP 20; TEMP 98.3; O2SAT 95
[2016-06-13 04:23] VITALS: BP 110/83; PULSE 73; RESP 20; TEMP 97.6; O2SAT 95
[2016-06-13] MEDS: ACETAMIN 325 MG/BUTALBITAL 50 MG/CAFFEINE 40 MG TAB PO PRN (05:09)
[2016-06-13 07:21] VITALS: BP 111/57; PULSE 64; RESP 18; TEMP 97.7; O2SAT 94
[2016-06-13 07:29] LABS: BICARBONATE 30.8 MEQ/L (21.0-32.0); POTASSIUM 4.7 MEQ/L (3.5-5.1)
[2016-06-13] MEDS: SODIUM CHLORIDE 0.9% FLUSH 5 ML FLUSH FLUSH SCH (09:00)
[2016-06-13] MEDS: DOCUSATE SODIUM 100 MG CAP PO SCH (09:00)
[2016-06-13] MEDS ORDERED: SUMAtriptan SUCCINATE 25 MG TAB PO ONE ×2 (09:00→16:00)
[2016-06-13] MEDS: FLUoxetine HCL 20 MG CAP PO SCH (09:20)
[2016-06-13] MEDS: ASPIRIN 81 MG CHEW TAB CHEW SCH (09:20)
[2016-06-13] MEDS: PROPRANOLOL HCL 40 MG TAB PO SCH (09:20)
[2016-06-13] MEDS: MECLIZINE HCL 25 MG TAB PO PRN (09:21)
[2016-06-13] MEDS: SODIUM CHLOR 0.9% 1000 ML INJ 1,000 ML IV SCH (09:24)
--- NOTE | 2016-06-13 09:30 | HHI.PR ---
Subjective Remarks Follow-up for headache, dizziness. Patient is again sound asleep upon my arrival this morning. He awakens and tells me he has continued 8/10 occipital headache, requesting medication. He has continued mild dizziness mostly with ambulation. He was able to ambulate with physical therapy yesterday. Discussed the patient seeing an ENT specialist after discharge for evaluation of vertigo, the patient verbalizes understanding. Also recommended that he follow-up with Dr. Garibay to discuss treatment for migraine prophylaxis if the headaches persist. The patient reports he does get headaches frequently. He otherwise denies any other medical complaints. No nausea/vomiting, photophobia/ phonophobia. He is tolerating oral intake. Objective Vitals Vital Signs Date Time Temp Pulse Resp B/P Pulse Ox O2 Delivery O2 Flow Rate FiO2 06/13/16 07:21 97.7 64 18 111/57 94 06/13/16 06:19 16 06/13/16 04:23 97.6 73 20 110/83 95 06/13/16 00:07 98.3 68 20 111/65 95 06/12/16 21:30 62 06/12/16 19:06 98.0 68 20 112/58 97 06/12/16 16:26 97.8 61 19 139/89 95 06/12/16 11:36 63 20 146/73 97 I/O 06/12/16 06/12/16 06/12/16 06/13/16 06/13/16 06/13/16 07:00 15:00 23:00 07:00 15:00 23:00 Output Total 800 ml 900 ml 800 ml Balance -800 ml -900 ml -800 ml Output Urine Total 800 ml 900 ml 800 ml # Voids 2 Result Diagram: 06/09/16 0412 06/13/16 0510 Imaging Last Impressions Head/Brain Mag Res Venography 06/12/16 0000 Signed Impressions: Service Date/Time: Sunday, June 12, 2016 15:46 - CONCLUSION: 1. No evidence of venous sinus thrombosis Ramírez El MD Head CT 06/09/16 0347 Signed Impressions: Service Date/Time: Thursday, June 09, 2016 04:41 - CONCLUSION: 1. No acute intracranial abnormalities. Small remote lacunar infarcts in the basal ganglia unchanged from prior study. Jordi Hudson MD Chest X-Ray 06/09/16 0347 Signed Impressions: Service Date/Time: Thursday, June 09, 2016 04:01 - CONCLUSION: No acute disease. Jordi Hudson MD Neck Magnetic Resonance Angiography 06/09/16 0000 Signed Impressions: Service Date/Time: Thursday, June 09, 2016 11:03 - CONCLUSION: 1. No significant stenosis in either carotid artery. 2. 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 Perico Wahl MD Head Magnetic Resonance Angiography 06/09/16 0000 Signed Impressions: Service Date/Time: Thursday, June 09, 2016 11:03 - CONCLUSION: 1. 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 2. No stenosis or occlusion. Perico Wahl MD Carotid Artery Ultrasound 06/09/16 Signed Impressions: Service Date/Time: Thursday, June 09, 2016 09:28 - CONCLUSION: No hemodynamically significant stenosis either carotid artery. Perico Wahl MD Brain MRI 06/09/16 Signed Impressions: Service Date/Time: Thursday, June 09, 2016 11:03 - CONCLUSION: 1. No acute intracranial abnormality. 2. Vascular channels versus old basal ganglia lacunar infarcts. Perico Wahl MD Objective Remarks GENERAL: Well-nourished, well-developed middle aged male patient in [facility]. Sleeping upon my arrival. SKIN: Warm and dry. No rash. HEENT: Normocephalic. Atraumatic. Pupils equal and round. No scleral icterus. No injection or drainage. Mucous membranes pink and moist. NECK: Supple. Trachea midline. CARDIOVASCULAR: Regular rate and rhythm. S1, S2 noted. No murmur appreciated. RESPIRATORY: No accessory muscle use. Clear to auscultation. Breath sounds equal bilaterally. GASTROINTESTINAL: Abdomen soft, non-tender, nondistended. Normoactive bowel sounds x4. MUSCULOSKELETAL: No obvious deformities. Extremities without clubbing, cyanosis , or edema. NEUROLOGICAL: Awake and alert. No obvious cranial nerve deficits. Motor grossly within normal limits. 5/5 muscle strength in bilateral upper and lower extremities. Normal speech. PSYCHIATRIC: Appropriate mood and affect; insight and judgment normal. Medications and IVs Current Medications Medications (Trade) Dose Ordered Sig/Lou Route Start Time Stop Time Status Last Admin (NS 1000 ml Inj) 1,000 ml @ 70 mls/hr [id number] IV 06/09/16 04:00 06/13/16 09:24 (NS Flush) 2 ml UNSCH PRN FLUSH 06/09/16 05:45 (NS Flush) 2 ml BID FLUSH 06/09/16 09:00 06/12/16 19:51 (Tylenol) 650 mg Q4H PRN PO 06/09/16 05:45 06/10/16 20:15 (Zofran Inj) 4 mg Q6H PRN IVP 06/09/16 05:45 (Reglan Inj) 5 mg Q6H PRN IV PUSH 06/09/16 05:45 (Dulcolax Supp) 10 mg DAILY PRN [place] 06/09/16 05:45 (Colace) 100 mg Q12H PO 06/09/16 09:00 06/12/16 19:51 (Milk Of Magnesia Liq) 30 ml Q12H PRN PO 06/09/16 05:45 (Senokot) 17.2 mg Q12H PRN PO 06/09/16 05:45 (Tylenol) 650 mg Q6H PRN PO 06/09/16 05:45 06/10/16 06:14 (Narcan Inj) 0.4 mg UNSCH PRN IV 06/09/16 05:45 (Vasotec Inj) 1.25 mg Q6H PRN IV 06/09/16 05:45 06/09/16 18:52 (Catapres) 0.1 mg Q6H PRN PO 06/09/16 05:45 (PROzac) 40 mg DAILY PO 06/09/16 09:00 06/13/16 09:20 (Desyrel) 200 mg HS PO 06/09/16 21:00 06/12/16 19:51 (Fioricet 325-50-40) 1 tab Q6H PRN PO 06/09/16 09:15 06/13/16 05:09 (Aspirin Chew) 81 mg DAILY CHEW 06/10/16 09:00 06/13/16 09:20 (Inderal) 40 mg Q12HR PO 06/09/16 14:00 06/13/16 09:20 (Antivert) 12.5 mg Q6H PRN PO 06/12/16 18:00 06/13/16 09:21 (Pill Splitter) 1 ea UNSCH PRN OTHER 06/12/16 16:00 A/P Assessment and Plan 60-year-old male with a past medical history of major depressive disorder and migraines who presented for evaluation of headache Headache/vertigo/dizziness Suspect Migraine vs vertigo vs possible vertebrobasilar insufficiency Imaging reviewed: Brain MRI with no acute intracranial process, old basal ganglia lacunar infarcts. 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 Brain MRV unremarkable. Labs reviewed: CRP wnl. CPK slightly elevated. UDS positive for cannabinoids. EtOH level 38 at admission. -Neurology consulted, appreciate specialists input, recommended aspirin, meclizine -PT/OT/ST, recommends outpatient PT if still symptomatic -Fioricet as needed for headache -Daily aspirin, IVF, Meclizine and Antiemetics as needed -Consult neurosurgery, discussed with Dr. Amaro, no surgical intervention recommended, dizziness/headache not related to aneurysm -still with headache today 06/13, will give Imitrex x1 -with extensive work up unremarkable, will discharge with Rx for Meclizine/ Fioricet, outpatient f/up with neurology and ENT Hypertension: Accelerated, better controlled currently. Possibly exacerbated by headache. -Started on propranolol for BP and migraine prophylaxis with good effect. -Clonidine and IV Vasotec as needed. CKD: Creatinine 1.94, previously 2.04 on 06/03/16. No prior labs for comparison. BMP stable with Cr ~2. -Check renal U/S -Outpatient f/up with nephrology Depression: Chronic. Continue home Prozac and trazodone. Fall: Secondary to gait unsteadiness from the above. Fall precautions. Mild buttocks pain, patient declines x-ray. Pain resolved. DVT prophylaxis: SCDs Discussed with Dr. Ellis Discharge Planning Discharge today after renal U/S. Carlee Petersen PA-C Jun 13, 2016 9:29 am
[2016-06-13 09:45] VITALS: PULSE 71
[2016-06-13 11:01] VITALS: BP_SYST 117; BP_SYST 161; BP_DIAS 57; BP_DIAS 96; PULSE 68; RESP 20; TEMP 97.9; O2SAT 95
--- NOTE | 2016-06-13 12:15 | RADRPT ---
EXAM DATE/TIME: 06/13/2016 10:15 [facility] COMPARISON: No previous studies available for comparison. INDICATIONS : Increased BUN/creatinine. MEDICAL HISTORY : Vertigo. Asthma. Substance use. SURGICAL HISTORY : Right shoulder surgery. ENCOUNTER: Initial ACUITY: 1 day PAIN SCORE: 2/10 LOCATION: Bilateral flank MEASUREMENTS: RIGHT KIDNEY: 11.5 x 4.8 x 5.2 cm LEFT KIDNEY: 11.7 x 5.5 x 6.5 cm FINDINGS: RIGHT KIDNEY: Renal cortex is normal in thickness and echotexture. No hydronephrosis, stone, or mass. LEFT KIDNEY: Renal cortex is normal in thickness and echotexture. No hydronephrosis, stone, or mass. BLADDER: Within normal limits given the degree of distension. CONCLUSION: Normal ultrasound of the urinary system. Efrain Stokes MD on June 13, 2016 at 12:13 Board Certified Radiologist. This report was verified electronically.
--- NOTE | 2016-06-13 13:39 | HHI.DCPOC ---
Discharge Care Plan Diagnosis: (1) Headache (2) Vertigo Goals to Promote Your Health * To prevent worsening of your condition and complications * To maintain your health at the optimal level Directions to Meet Your Goals Take your medications as prescribed Follow your dietary instruction Follow activity as directed Keep your appointments as scheduled Take your immunizations and boosters as scheduled If your symptoms worsen call your PCP, if no PCP go to Urgent Care Center or Emergency Room Smoking is Dangerous to Your Health. Avoid second hand smoke Call the 24-hour hour crisis hotline for domestic abuse at Carlee Petersen PA-C Jun 13, 2016 13:39
[2016-06-13] MEDS ORDERED: Aspirin Chew CHEW (13:40)
[2016-06-13] MEDS ORDERED: PROP40TA3 PO (13:40)
[2016-06-13] MEDS ORDERED: MECL-62 PO (13:40)
[2016-06-13 14:14] VITALS: BP 146/64; PULSE 62; RESP 20; TEMP 97.4; O2SAT 89
[2016-06-13] MEDS ORDERED: BUTATAB6 PO (15:39)
--- NOTE | 2016-06-13 15:42 | HHI.FF ---
Face to Face Verification Diagnosis: (1) Migraine (2) Vertigo (3) CKD (chronic kidney disease) Physical Therapy Order: Evaluate and Treat, Improve ambulation, Strength and gait training Home Health Nursing Order: Medical education Signs/symptoms of disease process Nursing assessment with vital signs I have seen patient Stephan Gomez on 06/13/16. My clinical findings support the need for the requested home health care services because: Ltd mobility - disease progression Deconditioned w/ increased weakness Limited ability to care for self High risk of falls I certify that my clinical findings support that this patient is homebound because: Unsteady gait/balance Unsafe to leave home unassisted Carlee Petersen PA-C Jun 13, 2016 3:42 pm
--- NOTE | 2016-06-13 16:02 | HHI.DS ---
Discharge Summary Admission Date Jun 09, 2016 Discharge Date: Jun 13, 2016 Admitting Diagnosis Vertigo, R/O cerebellar process (1) Migraine ICD Code: G43.909 Diagnosis: Principal (2) Vertigo ICD Code: R42 Diagnosis: Principal (3) CKD (chronic kidney disease) ICD Code: N18.9 Diagnosis: Secondary Procedures None. Brief History - From Admission 60-year-old male with a past medical history of major depressive disorder and migraines who presented for evaluation of headache. The patient states that last night while watching TV he had sudden posterior headache. He had associated dizziness, lightheadedness, unsteadiness, sensation like the room is spinning. He states he had blurry vision, no vision loss. He denies any numbness or tingling. He denies any focal weakness. He does have a history of migraine headaches, but states that in the past those were frontal headaches and not associated with lightheadedness and dizziness. He states that he has been treated with "everything including Dilaudid" for his headaches in the past. He has been out of his multiple antidepressants for the past 1-2 weeks. He does smoke marijuana every other day, states it helps with headaches. He tried an MRI earlier, but became extremely anxious, and was unable to have it done. No other acute complaints at this time. CBC/BMP: 06/09/16 0412 06/13/16 0510 Significant Findings Laboratory Tests Test 06/12/16 06/13/16 10:12 05:10 Anion Gap 4 MEQ/L (5-15) Blood Urea Nitrogen 20 MG/DL (7-18) 21 MG/DL (7-18) Creatinine 2.24 MG/DL 2.21 MG/DL (0.60-1.30) (0.60-1.30) Estimat Glomerular Filtration 30 ML/MIN (>89) 30 ML/MIN (>89) Rate Random Glucose 139 MG/DL (74-106) Calcium Level 8.4 MG/DL (8.5-10.1) Imaging Last Impressions Renal Ultrasound 06/13/16 0000 Signed Impressions: Service Date/Time: Monday, June 13, 2016 10:15 - CONCLUSION: Normal ultrasound of the urinary system. Efrain Stoeks MD Head/Brain Mag Res Venography 06/12/16 Signed Impressions: Service Date/Time: Sunday, June 12, 2016 15:46 - CONCLUSION: 1. No evidence of venous sinus thrombosis Ramírez El MD Head CT 06/09/16346 Signed Impressions: Service Date/Time: Thursday, June 09, 2016 04:41 - CONCLUSION: 1. No acute intracranial abnormalities. Small remote lacunar infarcts in the basal ganglia unchanged from prior study. Jordi Hudson MD Chest X-Ray 06/09/16346 Signed Impressions: Service Date/Time: Thursday, June 09, 2016 04:01 - CONCLUSION: No acute disease. Jordi Hudson MD Neck Magnetic Resonance Angiography 06/09/16 Signed Impressions: Service Date/Time: Thursday, June 09, 2016 11:03 - CONCLUSION: 1. No significant stenosis in either carotid artery. 2. 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 Perico Wahl MD Head Magnetic Resonance Angiography 06/09/16 Signed Impressions: Service Date/Time: Thursday, June 09, 2016 11:03 - CONCLUSION: 1. 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 2. No stenosis or occlusion. Perico Wahl MD Carotid Artery Ultrasound 06/09/16 Signed Impressions: Service Date/Time: Thursday, June 09, 2016 09:28 - CONCLUSION: No hemodynamically significant stenosis either carotid artery. Perico Wahl MD Brain MRI 06/09/16 0000 Signed Impressions: Service Date/Time: Thursday, June 09, 2016 11:03 - CONCLUSION: 1. No acute intracranial abnormality. 2. Vascular channels versus old basal ganglia lacunar infarcts. Perico Wahl MD PE at Discharge GENERAL: Well-nourished, well-developed middle aged male patient in NAD. Sleeping upon my arrival. SKIN: Warm and dry. No rash. HEENT: Normocephalic. Atraumatic. Pupils equal and round. No scleral icterus. No injection or drainage. Mucous membranes pink and moist. NECK: Supple. Trachea midline. CARDIOVASCULAR: Regular rate and rhythm. S1, S2 noted. No murmur appreciated. RESPIRATORY: No accessory muscle use. Clear to auscultation. Breath sounds equal bilaterally. GASTROINTESTINAL: Abdomen soft, non-tender, nondistended. Normoactive bowel sounds x4. MUSCULOSKELETAL: No obvious deformities. Extremities without clubbing, cyanosis , or edema. NEUROLOGICAL: Awake and alert. No obvious cranial nerve deficits. Motor grossly within normal limits. 5/5 muscle strength in bilateral upper and lower extremities. Normal speech. PSYCHIATRIC: Appropriate mood and affect; insight and judgment normal. Pt update on day of discharge Patient has mild headache and mild dizziness almost resolved. No nausea or vomiting. Not short of breath. Hospital Course 60-year-old male with a past medical history of major depressive disorder and migraines who presented for evaluation of headache Headache/vertigo/dizziness Suspect Migraine vs vertigo vs possible vertebrobasilar insufficiency Imaging reviewed: Brain MRI with no acute intracranial process, old basal ganglia lacunar infarcts. 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 Brain MRV unremarkable. Labs reviewed: CRP wnl. CPK slightly elevated. UDS positive for cannabinoids. EtOH level 38 at admission. -Neurology consulted, appreciate specialists input, recommended aspirin, meclizine -PT/OT/ST, recommends outpatient PT if still symptomatic -Fioricet as needed for headache -Daily aspirin, IVF, Meclizine and Antiemetics as needed -Consult neurosurgery, discussed with Dr. Amaro, no surgical intervention recommended, dizziness/headache not related to aneurysm -still with headache today 3/4, given Imitrex x2 with some relief -with extensive work up unremarkable, will discharge with Rx for Meclizine/ Fioricet, outpatient f/up with neurology and ENT Hypertension: Accelerated, better controlled currently. Possibly exacerbated by headache. -Started on propranolol for BP and migraine prophylaxis with good effect. -Clonidine and IV Vasotec as needed. CKD: Creatinine 1.94, previously 2.04 on 06/03/16. No prior labs for comparison. BMP stable with Cr ~2. -Renal U/S unremarkable -Outpatient f/up with nephrology Depression: Chronic. Continue home Prozac and trazodone. Fall: Secondary to gait unsteadiness from the above. Fall precautions. Mild buttocks pain, patient declines x-ray. Pain resolved. DVT prophylaxis: SCDs I spent 35 minutes [id number] with the patient or on the oseguera discussing the patient's disposition, prognosis, and plan of care with his caregivers. Over half the time spent was devoted to counseling the patient regarding placement in coordinating care with caregivers and case management. Written by Carlee Petersen, acting as scribe for Dr. Ellis on 06/13/16 at 16: 01. Pt Condition on Discharge: Stable Discharge Disposition: Disch w/ Home Health Serv Discharge Time: > 30 minutes Discharge Instructions DIET: Follow Instructions for: Heart Healthy Diet Activities you can perform: Regular-No Restrictions Follow up Referrals: Ear Nose Throat - 1 Week @ [facility] Nephrology - 1 Week Neurology - 1 Week with Mya Garibay MD PCP Follow-up - 1 Week New Medications: Hstdfollld-Jgtkwjddvhqao-Uwnhyilm (Lwvqweakjf-Wlzcdwtcbvmuo-Uixbfqmw) 50-325-40 Mg Tab 1 TAB PO Q6H PRN HEADACHE #20 TAB Meclizine (Meclizine) 25 Mg Tab 12.5 MG PO Q8HR PRN vertigo #21 TAB Propranolol (Propranolol) 40 Mg Tab 40 MG PO Q12HR Migraines #60 TAB ([Aspirin Chew]) 81 MG CHEW 81 MG CHEW DAILY Prevent Blood Clot #30 TAB.CHEW Continued Medications: Fluoxetine (Prozac) 40 Mg Cap 40 MG PO DAILY Depression Control #14 Ref 0 CAP (This prescription has been renewed) Trazodone (Trazodone) 100 Mg Tab 200 MG PO HS Control Depression #14 Ref 0 TAB (This prescription has been renewed) Discontinued Medications: Hydrocodone-Acetaminophen (Lortab) 5-325 Mg Tab 1 TAB PO Q6H PRN PAIN #12 Ref 0 TAB Ondansetron Odt (Zofran Odt) 4 Mg Tab 4 MG SL Q6HR PRN Nausea/Vomiting #7 Ref 0 TAB Carlee Petersen PA-C Jun 13, 2016 16:02 Rosalee Ellis MD Jun 14, 2016 13:38
[2016-06-13] MEDS ORDERED: TRAZ100T4 PO (17:27)
[2016-06-13] MEDS ORDERED: PROZ40CA PO (17:27)
--- NOTE | 2016-06-15 14:50 | EKG ---
Date Performed: 06/09/2016 Time Performed: 03:39:30 PTAGE: 60 years EKG: Sinus rhythm NORMAL ECG Compared to prior tracing no significant change PREVIOUS TRACING : 06/03/2016 03.31 DOCTOR: Ramírez Dickey Interpretating Date/Time 06/15/2016 14:48:57
[2016-06-29] MEDS ORDERED: TRAZ100T4 PO (14:23)
[2016-06-29] MEDS ORDERED: PROP40TA3 PO (14:23)
[2016-06-29] MEDS ORDERED: MECL-62 PO (14:23)
[2016-06-29] MEDS ORDERED: PROZ40CA PO (14:23)
[2016-07-31] MEDS ORDERED: ZOFR4TAB3 SL (13:35)
[2016-07-31] MEDS ORDERED: VENTAER INH (13:35)
== END 2016-06-13 19:45 | disposition home or self-care (01) | DRG 103 ==
LOC: NEPC 03:31 → NEDA 05:36 → NEPFCDU 07:01 → OBSVTOIN 06-12 08:44
PROVIDERS: ADMIT Hospitalist; ATTEND Hospitalist
DX: G43.909 Migraine, unspecified, not intractable, without status migrainosus (principal); I67.1 Cerebral aneurysm, nonruptured; I12.9 Hypertensive chronic kidney disease with stage 1 through stage 4 chronic kidney disease, or unspecified chronic kidney disease; N18.9 Chronic kidney disease, unspecified; Z91.14 Patient's other noncompliance with medication regimen; R42 Dizziness and giddiness; F12.90 Cannabis use, unspecified, uncomplicated; F32.9 Major depressive disorder, single episode, unspecified; Z79.82 Long term (current) use of aspirin; W19.XXXA Unspecified fall, initial encounter; Y92.230 Patient room in hospital as the place of occurrence of the external cause; R26.81 Unsteadiness on feet; Y90.1 Blood alcohol level of 20-39 mg/100 ml
CPT/HCPCS: 70450; 70544; 70548; 70553; 71010; 76775; 80048; 80053; 80307; 80320; 81001; 82550; 82552; 83735; 83880; 84484; 85025; 85610; 85730; 86140; 93005; 93880; 96361; 96374; A9577; G0378; G8987-GO; G8987-GP; G8988-GO; G8988-GP; G8996-GN; G8997-GN; G8998-GN; J0780; J2060; J7030

== ENCOUNTER 2016-06-28 05:03 | Emergency (ER) | payer MEDICARE, MEDICAID ==
[~2016-06-28] VITALS: Ht 190.5 cm; Wt 115.0 kg
[~2016-06-28 05:03] MED LIST changes: +Aspirin Chew CHEW; +BUTATAB6 PO; -HYDR-3533 PO; +MECL-62 PO; +PROP40TA3 PO; -ZOFR4TAB3 SL
[2016-06-28 05:19] VITALS: BP 140/85; PULSE 80; RESP 16; TEMP 98.6; O2SAT 94
[2016-06-28 05:24] VITALS: BP 140/85; PULSE 84; RESP 15; O2SAT 94
[2016-06-28] MEDS ORDERED: SODIUM CHLORIDE 0.9% FLUSH 5 ML FLUSH IVF PRN (05:30)
[2016-06-28] MEDS ORDERED: diphenhydrAMINE HCL 50 MG/ML VIAL IVP ONE (05:30)
[2016-06-28] MEDS ORDERED: MECLIZINE HCL 25 MG TAB PO ONE (05:30)
[2016-06-28] MEDS ORDERED: METOCLOPRAMIDE HCL 10 MG/2 ML VIAL IVP ONE (05:30)
--- NOTE | 2016-06-28 05:34 | PD ---
HPI Chief Complaint: Headache Time Seen by Provider: 05:26 Travel History International Travel<30 days: No Contact w/Intl Traveler<30days: No Traveled to known affect area: No History of Present Illness HPI Patient is a 60-year-old male with history of venous sinus thrombosis here with complaint of headache. Patient admitted at the end of May for intractable headache with vertigo. 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 Patient states that he has been taking meclizine that he was discharged with with some improvement of his headaches. He developed a headache at approximately 1 AM over the course of 30 minutes while attempting to fall sleep. This is primarily along the top of the head and occiput bilateral. Associated photophobia, phonophobia, nausea but no vomiting. Patient has had some visual sick, with this. States it is similar to his previous headache. He has not tried any the meclizine tonight. He does have the sense of vertigo currently. PFSH Past Medical History Asthma: Yes Blood Disorders: No Anxiety: Yes Depression: Yes (ECT [place] (JAN 2017)) Heart Rhythm Problems: No Cancer: No Cardiovascular Problems: No High Cholesterol: No Chest Pain: No Congestive Heart Failure: No Diabetes: No Endocrine: No Genitourinary: No Headaches: Yes Immune Disorder: No Neurologic: No Psychiatric: Yes Reproductive: No Respiratory: Yes (ASTHMA) Immunizations Current: No ("ALLERGIC TO IT") Thyroid Disease: No Past Surgical History Other Surgery: Yes (right shoulder) Social History Alcohol Use: Yes Tobacco Use: No Substance Use: Yes (two joints daily) Allergies-Medications (Allergen,Severity, Reaction): Coded Allergies: No Known Allergies (Unverified , 06/28/16) Reported Meds & Prescriptions Reported Meds & Active Scripts Active Prozac (Fluoxetine HCl) 40 Mg Cap 40 Mg PO DAILY Trazodone (Trazodone HCl) 100 Mg Tab 200 Mg PO HS Ncksjvibag-Fxptizlbsarig-Yjequzhe 50-325-40 Mg Tab 1 Tab PO Q6H PRN Propranolol (Propranolol HCl) 40 Mg Tab 40 Mg PO Q12HR Meclizine (Meclizine HCl) 25 Mg Tab 12.5 Mg PO Q8HR PRN [Aspirin Chew] 81 MG Chew 81 Mg CHEW DAILY Review of Systems Except as stated in HPI: all other systems reviewed are Neg Physical Exam Narrative GENERAL: Well-appearing male sitting and ambulate room in no acute distress SKIN: Warm and dry. HEAD: Normocephalic. EYES: Pupils equal and round. No scleral icterus. No injection or drainage. ENT: No nasal bleeding or discharge. Mucous membranes pink and moist. NECK: supple without bruit or nuchal rigidity CARDIOVASCULAR: Regular rate and rhythm. RESPIRATORY: No accessory muscle use. MUSCULOSKELETAL: Moves all extremities normally NEUROLOGICAL: Awake and alert. No obvious cranial nerve deficits. Motor grossly within normal limits. Normal speech. PSYCHIATRIC: Appropriate mood and affect; insight and judgment normal. Data Data Last Documented VS Vital Signs Date Time Temp Pulse Resp B/P Pulse Ox O2 Delivery O2 Flow Rate FiO2 06/28/16 05:24 84 15 140/85 94 Room Air 06/28/16 05:19 98.6 Orders Ecg Monitoring (06/28/16 05:28) Iv Access Insert/Monitor (06/28/16 05:28) Oximetry (06/28/16 05:28) Sodium Chloride 0.9% Flush (Ns Flush) (06/28/16 05:30) Diphenhydramine Inj (Benadryl Inj) (06/28/16 05:30) Metoclopramide Inj (Reglan Inj) (06/28/16 05:30) Meclizine (Antivert) (06/28/16 05:30) Lorazepam Inj (Ativan Inj) (06/28/16 06:45) MDM Medical Decision Making Medical Screen Exam Complete: Yes Emergency Medical Condition: Yes Medical Record Reviewed: Yes Differential Diagnosis 60-year-old male with history of venous sinus thrombosis with admission approximately 2-3 weeks ago for intractable headache with negative MRI/MRA/MRV here with complaint of headache to the occiput and the top of the head for the last 4 hours that was gradual in onset, typical of his previous headache. Differential includes migraine headache, tension headache, cluster headache.Patient has been afebrile, no neck stiffness or noctural headaches, is well-appearing, with a normal neurologic examination. This makes infection and subarachnoid hemorrhage very unlikely. There is not enough evidence to pursue these diagnoses. My suspicion for venous sinus thrombosis is exceedingly low and I do not think patient warrants further workup for this. Narrative Course Patient placed on monitor, IV established. Patient given 50 mg Benadryl, 10 mg Reglan, 25 mg meclizine. Patient's headache improved but still vertiginous. Given 1 mg Ativan. Patient had improvement will be discharged home. Diagnosis Primary Impression: Migraine Qualified Code: G43.109 - Migraine with aura and without status migrainosus, not intractable Additional Impression: Vertigo Referrals: Neurologist 2 days Additional Instructions: Follow-up with neurologist as discussed. Continue home meclizine as needed for vertigo. Med/Other Pt SpecificInfo: No Change to Meds Disposition: 01 DISCHARGE HOME Condition: Stable Loreto Meléndez MD Jun 28, 2016 05:34
[2016-06-28] MEDS ORDERED: LORazepam 2 MG/ML VIAL IV PUSH ONE (06:45)
[2016-06-29] MEDS ORDERED: PROZ40CA PO (14:23)
[2016-06-29] MEDS ORDERED: MECL-62 PO (14:23)
[2016-06-29] MEDS ORDERED: TRAZ100T4 PO (14:23)
[2016-06-29] MEDS ORDERED: PROP40TA3 PO (14:23)
[2016-07-31] MEDS ORDERED: VENTAER INH (13:35)
[2016-07-31] MEDS ORDERED: ZOFR4TAB3 SL (13:35)
== END 2016-06-28 08:24 | disposition home or self-care (01) ==
LOC: NEPE 05:03
DX: G43.109 Migraine with aura, not intractable, without status migrainosus (principal); R42 Dizziness and giddiness; F12.90 Cannabis use, unspecified, uncomplicated
CPT/HCPCS: 96374; 96375; 99284; J1200; J2060; J2765

== ENCOUNTER 2016-06-30 16:04 | Emergency (ER) | payer MEDICAID, MEDICARE ==
[~2016-06-30] VITALS: Ht 190.5 cm; Wt 115.0 kg
[~2016-06-30 16:04] MED LIST changes: -BUTATAB6 PO
[2016-06-30 16:05] VITALS: BP 138/71; PULSE 104; RESP 20; TEMP 98.6; O2SAT 95
[2016-07-31] MEDS ORDERED: VENTAER INH (13:35)
[2016-07-31] MEDS ORDERED: ZOFR4TAB3 SL (13:35)
== END 2016-06-30 19:40 | disposition left against medical advice (07) ==
LOC: NED 16:04
DX: R51 Headache (principal)
CPT/HCPCS: 99281

== ENCOUNTER 2016-08-04 18:06 | Inpatient (IN) | payer MEDICARE, MEDICAID ==
[2016-08-04] VITALS (13 sets, daily range): BP systolic 89–150; BP diastolic 49–73; PULSE 112–133; RESP 10–24; TEMP 98.5–98.9; O2SAT 77–100
[~2016-08-04] VITALS: Ht 188 cm; Wt 107.9 kg
[~2016-08-04 18:06] MED LIST changes: -MECL-62 PO; -PROP40TA3 PO; +VENTAER INH; +ZOFR4TAB3 SL
[2016-08-04] MEDS ORDERED: CEFEPIME INJ 2,000 MG in SODIUM CHLORIDE 0.9% INJ 100 ML IV STA (18:40)
[2016-08-04] MEDS ORDERED: AZITHROMYCIN INJ 500 MG in SODIUM CHLOR 0.9% 250 ML INJ 250 ML IV STA (18:40)
[2016-08-04] MEDS ORDERED: SODIUM CHLOR 0.9% 1000 ML INJ 1,000 ML IV ONE ×3 (18:45→21:30)
[2016-08-04] MEDS ORDERED: methylPREDNISolone SOD SUCC 125 MG/2 ML VIAL IVP ONE (18:45)
--- NOTE | 2016-08-04 18:47 | PD ---
HPI Chief Complaint: SOB,N/V/D Time Seen by Provider: 18:44 Travel History International Travel<30 days: No Contact w/Intl Traveler<30days: No History of Present Illness HPI 60-year-old male presents to the emergency department by EMS for evaluation of shortness of breath, productive cough, nausea, vomiting or diarrhea. Per EMS report the patient has had oxygen saturation 80% on room air and 85% on 5 L nasal cannula. The patient states that he has been sick for a little over 2 weeks. States that his symptoms acutely worsened over the past 3-4 days. States that he has not been able to keep down any food or fluids and has had loose brown stools. States that he has subjective fevers and night sweats. He is complaining of pain in his chest with shortness of breath and cough. States that he has a history of childhood asthma and his asthma flares up when he gets sick. He has been using an inhaler without improvement of symptoms. He's also been taking Zofran without improvement of symptoms. He denies any recent travel or sick contacts. Denies any smoking history. Does not have a PCP. No other complaints. PFSH Past Medical History Asthma: Yes Blood Disorders: No Anxiety: Yes Depression: Yes (ECT [place] (JAN 2017)) Heart Rhythm Problems: No Cancer: No Cardiovascular Problems: No High Cholesterol: No Chest Pain: No Congestive Heart Failure: No Diabetes: No Endocrine: No Genitourinary: No Headaches: Yes Immune Disorder: No Neurologic: No Psychiatric: Yes Reproductive: No Respiratory: Yes (ASTHMA) Immunizations Current: No ("ALLERGIC TO IT") Thyroid Disease: No Past Surgical History Other Surgery: Yes (right shoulder) Social History Alcohol Use: Yes Tobacco Use: No Substance Use: Yes (two joints daily) Allergies-Medications (Allergen,Severity, Reaction): Coded Allergies: No Known Allergies (Unverified , 07/31/16) Reported Meds & Prescriptions Reported Meds & Active Scripts Active Zofran Odt (Ondansetron Odt) 4 Mg Tab 4 Mg SL Q6HR PRN Ventolin Hfa 18 GM Inh (Albuterol Sulfate) 90 Mcg/Act Aer 2 Puff INH Q3HR PRN Prozac (Fluoxetine HCl) 40 Mg Cap 40 Mg PO DAILY Trazodone (Trazodone HCl) 100 Mg Tab 200 Mg PO HS [Aspirin Chew] 81 MG Chew 81 Mg CHEW DAILY Review of Systems Except as stated in HPI: all other systems reviewed are Neg Physical Exam Narrative GENERAL: Well-nourished and well-developed male patient in no acute distress. SKIN: Warm and dry. HEAD: Normocephalic and atraumatic. EYES: No injection, drainage, or hyphema noted. PERRLA. EOMI. ENT: No nasal drainage noted. Oropharynx is clear. NECK: Supple and the trachea is midline. CARDIOVASCULAR: Regular rate and rhythm. RESPIRATORY: Left lung kelly with wheezing and crackles throughout, right lung field with wheezing and crackles at bases. No accessory muscle use. Speaking in full sentences. GASTROINTESTINAL: Tenderness to palpation of left lower quadrant, no rebound tenderness or guarding. Abdomen is soft and nondistended. MUSCULOSKELETAL: No obvious deformities, swelling, cyanosis, or ecchymosis is present throughout the upper and lower extremities. Patient has full range of motion without any signs of neurovascular compromise. NEUROLOGICAL: Awake, alert, and oriented. Normal speech and gait. Cranial nerves are grossly intact. Data Data Last Documented VS Vital Signs Date Time Temp Pulse Resp B/P Pulse Ox O2 Delivery O2 Flow Rate FiO2 08/04/16 18:45 87 BiPAP 50 08/04/16 18:30 98.5 124 24 105/61 Orders Complete Blood Count With Diff (08/04/16 18:32) Comprehensive Metabolic Panel (08/04/16 18:32) Urinalysis - C+S If Indicated (08/04/16 18:32) Influenzae A/B Antigen (08/04/16 18:32) Iv Access Insert/Monitor (08/04/16 18:32) Ecg Monitoring (08/04/16 18:32) Oximetry (08/04/16 18:32) Oxygen Administration (08/04/16 18:32) Chest, Single Ap (08/04/16 18:32) Sodium Chloride 0.9% Flush (Ns Flush) (08/04/16 18:45) Methylprednisolone So Succ Inj (Solumedr (08/04/16 18:45) Albuterol Neb (Albuterol Neb) (08/04/16 18:45) Lactic Acid Sepsis Protocol (08/04/16 18:32) Creatine Kinase (Cpk) (08/04/16 18:32) Blood Culture (08/04/16 18:38) Cefepime Inj (Maxipime Inj) (08/04/16 18:40) Azithromycin Inj (Zithromax Inj) (08/04/16 18:40) Sodium Chlor 0.9% 1000 Ml Inj (Ns 1000 M (08/04/16 18:45) Resp Bipap / Cpap Non Invas Vt (08/04/16 ) Succinylcholine Inj (Quelicin Inj) (08/04/16 19:03) Etomidate Inj (Amidate Inj) (08/04/16 19:03) Chest, Single Ap (08/04/16 ) Labs Laboratory Tests Test 08/04/16 18:45 White Blood Count 15.6 TH/MM3 Red Blood Count 4.62 MIL/MM3 Hemoglobin 14.6 GM/DL Hematocrit 43.1 % Mean Corpuscular Volume 93.3 FL Mean Corpuscular Hemoglobin 31.7 PG Mean Corpuscular Hemoglobin 34.0 % Concent Red Cell Distribution Width 13.6 % Platelet Count 250 TH/MM3 Mean Platelet Volume 8.7 FL Neutrophils (%) (Auto) 97.6 % Lymphocytes (%) (Auto) 1.1 % Monocytes (%) (Auto) 0.6 % Eosinophils (%) (Auto) 0.3 % Basophils (%) (Auto) 0.4 % Neutrophils # (Auto) 15.2 TH/MM3 Lymphocytes # (Auto) 0.2 TH/MM3 Monocytes # (Auto) 0.1 TH/MM3 Eosinophils # (Auto) 0.0 TH/MM3 Basophils # (Auto) 0.1 TH/MM3 CBC Comment AUTO DIFF MDM Medical Decision Making Medical Screen Exam Complete: Yes Emergency Medical Condition: Yes Differential Diagnosis Pneumonia versus influenza versus dehydration versus electrolyte abnormality versus sepsis Narrative Course 60-year-old male is brought to the emergency department by EMS for evaluation of productive cough, shortness of breath, nausea, vomiting, diarrhea and abdominal pain. Patient is afebrile. Tachycardic with heart rate of 124 bpm. He's hypoxic with an oxygen saturation of 77% on room air. The patient's oxygen saturation only improved to 87% on BiPAP. His chest x-ray shows consolidations throughout both lung kelly. The patient will be signed out to my attending physician Dr. Levi as he will require emergent intubation. Ruth Herbert Aug 04, 2016 18:47
[2016-08-04] MEDS: RESP: ALBUTEROL 2.5 MG/3 ML NEB (SCH) INH ×2 (18:54→18:55)
[2016-08-04] MEDS: SODIUM CHLORIDE 0.9% FLUSH 10 ML FLUSH IVF PRN (18:58)
[2016-08-04 19:01] LABS: AUTOMATED NEUTROPHIL # 15.2 TH/MM3 (1.8-7.7); BASOPHIL # 0.1 TH/MM3 (0-0.2); BASOPHIL % 0.4 % (0.0-2.0); EOSINOPHIL % 0.3 % (0.0-4.0); HEMATOCRIT 43.1 % (39.0-51.0); LYMPH % 1.1 % (9.0-44.0); LYMPHOCYTE # 0.2 TH/MM3 (1.0-4.8); MEAN CELL VOLUME 93.3 FL (80.0-100.0); MEAN CORPUSCULAR HEMOGLOBIN 31.7 PG (27.0-34.0); MONO % 0.6 % (0.0-8.0); NEUT % 97.6 % (16.0-70.0); PLATELET COUNT 250 TH/MM3 (150-450); RED BLOOD COUNT 4.62 MIL/MM3 (4.50-5.90); RED CELL DISTRIBUTION WIDTH 13.6 % (11.6-17.2); WHITE BLOOD COUNT 15.6 TH/MM3 (4.0-11.0)
[2016-08-04] MEDS ORDERED: ETOMIDATE 40 MG/20 ML VIAL ONE (19:03)
[2016-08-04] MEDS ORDERED: SUCCINYLCHOLINE CHLORIDE 200 MG/10 ML VIAL ONE (19:03)
[2016-08-04 19:09] LABS: HEMO FLAGS AUTO DIFF
--- NOTE | 2016-08-04 19:10 | RADRPT ---
EXAM DATE/TIME: 08/04/2016 18:50 [facility] COMPARISON: No previous studies available for comparison. INDICATIONS : [place], vomiting, diarrhea, chest pain, shortness of breath. MEDICAL HISTORY : Hypertension. Asthma. SURGICAL HISTORY : None. ENCOUNTER: Initial ACUITY: 2 weeks PAIN SCORE: 8/10 LOCATION: Left chest FINDINGS: A single view of the chest demonstrates patchy airspace disease throughout the left lung and also to a lesser degree within the right lung more notably within the right perihilar region and right lower lobe. Questionable pneumomediastinum. Osseous structures are intact. CONCLUSION: Extensive bilateral airspace disease greater in the left lung. There may be pneumomediastinum. Perico Wahl MD on August 04, 2016 at 19:02 Board Certified Radiologist. This report was verified electronically.
[2016-08-04] MEDS ORDERED: PROPOFOL 1000 MG/100 ML INJ 100 ML ONE (19:13)
[2016-08-04] MEDS ORDERED: ETOMIDATE 40 MG/20 ML VIAL IV PUSH ONE (19:15)
[2016-08-04] MEDS ORDERED: SUCCINYLCHOLINE CHLORIDE 200 MG/10 ML VIAL IV PUSH ONE (19:15)
[2016-08-04] MEDS ORDERED: PROPOFOL 1000 MG/100 ML INJ 100 ML IV SCH (19:15)
--- NOTE | 2016-08-04 19:18 | PD ---
Physical Exam Exam Limitations: Clinical Condition Narrative GENERAL: Pale, diaphoretic ill-appearing patient. SKIN: Warm HEAD: Normocephalic EYES: No injection or drainage. ENT: No nasal drainage noted. NECK: Supple, trachea midline. CARDIOVASCULAR: Tachycardic rate RESPIRATORY: Coarse bilaterally. Tachypnea noted GASTROINTESTINAL: Abdomen soft, diffusely tender, nondistended. NEUROLOGICAL: Talks in short sentences, moves all extremities Data Data Last Documented VS Vital Signs Date Time Temp Pulse Resp B/P Pulse Ox O2 Delivery O2 Flow Rate FiO2 08/04/16 18:45 87 BiPAP 50 08/04/16 18:30 98.5 124 24 105/61 Orders Complete Blood Count With Diff (08/04/16 18:32) Comprehensive Metabolic Panel (08/04/16 18:32) Urinalysis - C+S If Indicated (08/04/16 18:32) Influenzae A/B Antigen (08/04/16 18:32) Iv Access Insert/Monitor (08/04/16 18:32) Ecg Monitoring (08/04/16 18:32) Oximetry (08/04/16 18:32) Oxygen Administration (08/04/16 18:32) Chest, Single Ap (08/04/16 18:32) Sodium Chloride 0.9% Flush (Ns Flush) (08/04/16 18:45) Methylprednisolone So Succ Inj (Solumedr (08/04/16 18:45) Albuterol Neb (Albuterol Neb) (08/04/16 18:45) Lactic Acid Sepsis Protocol (08/04/16 18:32) Creatine Kinase (Cpk) (08/04/16 18:32) Blood Culture (08/04/16 18:38) Cefepime Inj (Maxipime Inj) (08/04/16 18:40) Azithromycin Inj (Zithromax Inj) (08/04/16 18:40) Sodium Chlor 0.9% 1000 Ml Inj (Ns 1000 M (08/04/16 18:45) Resp Bipap / Cpap Non Invas Vt (08/04/16 ) Succinylcholine Inj (Quelicin Inj) (08/04/16 19:03) Etomidate Inj (Amidate Inj) (08/04/16 19:03) Chest, Single Ap (08/04/16 ) Labs Laboratory Tests Test 08/04/16 18:45 White Blood Count 15.6 TH/MM3 Red Blood Count 4.62 MIL/MM3 Hemoglobin 14.6 GM/DL Hematocrit 43.1 % Mean Corpuscular Volume 93.3 FL Mean Corpuscular Hemoglobin 31.7 PG Mean Corpuscular Hemoglobin 34.0 % Concent Red Cell Distribution Width 13.6 % Platelet Count 250 TH/MM3 Mean Platelet Volume 8.7 FL Neutrophils (%) (Auto) 97.6 % Lymphocytes (%) (Auto) 1.1 % Monocytes (%) (Auto) 0.6 % Eosinophils (%) (Auto) 0.3 % Basophils (%) (Auto) 0.4 % Neutrophils # (Auto) 15.2 TH/MM3 Lymphocytes # (Auto) 0.2 TH/MM3 Monocytes # (Auto) 0.1 TH/MM3 Eosinophils # (Auto) 0.0 TH/MM3 Basophils # (Auto) 0.1 TH/MM3 CBC Comment AUTO DIFF MDM Medical Record Reviewed: Yes Supervised Visit with JERAMIE: Yes Interpretation(s) Prelim chest x-ray shows significant infiltrate bilaterally left worse than right Differential Diagnosis Pneumonia, asthma exacerbation, pneumothorax, anemia, renal failure Narrative Course I, Dr. barrett, have reviewed the advance practice practitioner's documentation and am in agreement, met with the patient face to face, made the diagnosis, and the medical decision making was done by me. *My assessment and Findings: 60-year-old male presents by ambulance with hypoxemia, shortness of breath with recent urgent care visit for vomiting and URI symptoms. He was given an inhaler and Zofran there. He has not improved. When I evaluated the patient he had been placed on a nonrebreather and his oxygen saturations were in the low 90s. I switched him to BiPAP and ordered broad-spectrum antibiotic coverage and IV fluid hydration. After review of prelim x-ray discussed with change of shift physician who will take over care and intubate patient Physician Communication Physician Communication dr ramirez given transfer report and will take over care of patient at bedside Diagnosis Primary Impression: Acute respiratory failure Qualified Code: J96.00 - Acute respiratory failure, unspecified whether with hypoxia or hypercapnia Additional Impressions: Sepsis Qualified Code: A41.9 - Sepsis, due to unspecified organism Pneumonia Qualified Code: J18.9 - Pneumonia of both lungs due to infectious organism, unspecified part of lung Admitting Information Admitting Physician Requests: Admit Lindsay Barrett MD Aug 04, 2016 19:18
[2016-08-04] MEDS ORDERED: ROCURONIUM INJ 100 MG/10 ML VIAL IV ONE (19:45)
[2016-08-04] MEDS ORDERED: MIDAZOLAM HCL 2 MG/2 ML VIAL IV PUSH ONE (19:45)
[2016-08-04 19:48] LABS: BANDS 38 % (0-6); METAMYELOCYTES 1 % (0-1); NEUTROPHIL # MANUAL DIFF 15.3 TH/MM3 (1.8-7.7); PLATELET ESTIMATE SMEAR NORMAL (NORMAL); PLATELET MORPHOLOGY NORMAL (NORMAL); POLYS (SEG NEUTROPHILS) 59 % (16-70); SCAN/DIFF FINAL DIFF MANUAL; TOXIC GRANULATION 1+ (NORMAL); TOXIC VACUOLATION PRESENT (NONE SEEN); WBC DIFF SAMPLE 100
[2016-08-04 19:50] LABS: BACTERIA, URINE MOD /hpf; BLOOD, URINE SMALL (NEG); COMMENT (UR) CULTURE INDICATED; CULTURE IF INDICATED CULTURE INDICATED; GLUCOSE,URINE NEG (NEG); HYALINE CAST, URINE 43 /lpf (RARE); KETONE, URINE NEG (NEG); MUCUS URINE MANY /lpf (OCC); NITRITE,URINE NEG (NEG); PH, URINE 5.5 (5.0-8.5); SQUAMOUS EPITHELIAL CELL URINE 6 /hpf (0-5); URINE COLOR ORANGE (YELLW/STRAW)
--- NOTE | 2016-08-04 19:56 | RADRPT ---
EXAM DATE/TIME: 08/04/2016 19:24 [facility] COMPARISON: CHEST SINGLE AP, August 04, 2016, 18:50. INDICATIONS : Post intubation and OG tube placement. MEDICAL HISTORY : None. SURGICAL HISTORY : None. ENCOUNTER: Initial ACUITY: 1 day PAIN SCORE: Non-responsive. LOCATION: Bilateral chest FINDINGS: A single view of the chest demonstrates bilateral airspace disease greater in the left lung. Endotrac heal tube 6.5 cm above the long. Nasogastric tube is in the left mainstem bronchus. Osseous struct ures are intact. CONCLUSION: 1. Endotracheal tube 6.5 cm above the long. 2. Nasogastric tube in left mainstem bronchus and needs to be removed. Perico Wahl MD on August 04, 2016 at 19:53 Board Certified Radiologist. This report was verified electronically.
--- NOTE | 2016-08-04 19:56 | PD ---
HPI Chief Complaint: Respiratory Distress Time Seen by Provider: 19:12 Travel History International Travel<30 days: No Contact w/Intl Traveler<30days: No Traveled to known affect area: No History of Present Illness HPI 60-year-old male came to the emergency room with history of shortness of breath that has been progressively over past 4-5 days. Patient had cough, nausea, vomiting and fever about 5 days ago when he went to urgent care and was started on Zofran and an inhaler. Patient has been taking this medication but did not feel better. Today he was extremely short of breath and called 911. When he was brought in he was on oxygen via nasal cannula 5 L and saturating in the 80s. He appeared to be in distress. He was initially seen by the PA and the previous ER physician. Please refer to their notes for additional details. He was started on a BiPAP initially as per the previous ER physician's orders. By the time I came in and patient was on the BiPAP for about 20 minutes but continued to appear in distress. I asked him how he was feeling and he gave me a thumbs down. His oxygen saturation was 88-89% on 100%. [facility] Past Medical History Narrative Medical List of his past medical, surgical, social and family history is reviewed from the nursing note. Asthma: Yes Blood Disorders: No Anxiety: Yes Depression: Yes (ECT [place] (JAN 2017)) Heart Rhythm Problems: No Cancer: No High Cholesterol: No Chest Pain: No Congestive Heart Failure: No Diabetes: No Diminished Hearing: No Endocrine: No Genitourinary: No Headaches: Yes Hypertension: Yes Immune Disorder: No Neurologic: No Psychiatric: Yes Reproductive: No Respiratory: Yes (ASTHMA ) Immunizations Current: No ("ALLERGIC TO IT") Thyroid Disease: No Tetanus Vaccination: Unknown Influenza Vaccination: Yes Past Surgical History Surgical History: Unable to Obtain Other Surgery: Yes (right shoulder) Social History Alcohol Use: Yes (OCC) Tobacco Use: No Substance Use: Yes (two joints daily) Allergies-Medications (Allergen,Severity, Reaction): Coded Allergies: No Known Allergies (Unverified , 07/31/16) Comments No known drug allergies. Reported Meds & Prescriptions Reported Meds & Active Scripts Active Zofran Odt (Ondansetron Odt) 4 Mg Tab 4 Mg SL Q6HR PRN Ventolin Hfa 18 GM Inh (Albuterol Sulfate) 90 Mcg/Act Aer 2 Puff INH Q3HR PRN Prozac (Fluoxetine HCl) 40 Mg Cap 40 Mg PO DAILY Trazodone (Trazodone HCl) 100 Mg Tab 200 Mg PO HS [Aspirin Chew] 81 MG Chew 81 Mg CHEW DAILY Narrative Medication List of his home medications reviewed from the nursing note. Review of Systems Except as stated in HPI: all other systems reviewed are Neg Physical Exam Narrative GENERAL: Patient is awake but in severe distress, BiPAP on SKIN: Clear, cool and diaphoretic HEAD: Atraumatic. Normocephalic. EYES: Pupils equal and round. No scleral icterus. No injection or drainage. ENT: No nasal bleeding or discharge. Mucous membranes pink and moist. BiPAP on the face NECK: Trachea midline. No JVD. CARDIOVASCULAR: Regular rate and rhythm. No murmur appreciated. RESPIRATORY: Decreased air entry bilaterally with scattered coarse crackles GASTROINTESTINAL: Abdomen soft, non-tender, nondistended. Hepatic and splenic margins not palpable. MUSCULOSKELETAL: No obvious deformities. No clubbing. No cyanosis. No edema. NEUROLOGICAL: Awake and alert. No obvious cranial nerve deficits. Motor grossly within normal limits. Normal speech. PSYCHIATRIC: Anxious Data Data Last Documented VS Vital Signs Date Time Temp Pulse Resp B/P Pulse Ox O2 Delivery O2 Flow Rate FiO2 08/04/16 19:19 125 16 145/72 96 Auto-Vent 100 08/04/16 18:30 98.5 Orders Complete Blood Count With Diff (08/04/16 18:32) Comprehensive Metabolic Panel (08/04/16 18:32) Urinalysis - C+S If Indicated (08/04/16 18:32) Iv Access Insert/Monitor (08/04/16 18:32) Ecg Monitoring (08/04/16 18:32) Oximetry (08/04/16 18:32) Oxygen Administration (08/04/16 18:32) Chest, Single Ap (08/04/16 18:32) Sodium Chloride 0.9% Flush (Ns Flush) (08/04/16 18:45) Methylprednisolone So Succ Inj (Solumedr (08/04/16 18:45) Albuterol Neb (Albuterol Neb) (08/04/16 18:45) Lactic Acid Sepsis Protocol (08/04/16 18:32) Creatine Kinase (Cpk) (08/04/16 18:32) Blood Culture (08/04/16 18:38) Cefepime Inj (Maxipime Inj) (08/04/16 18:40) Azithromycin Inj (Zithromax Inj) (08/04/16 18:40) Sodium Chlor 0.9% 1000 Ml Inj (Ns 1000 M (08/04/16 18:45) Resp Bipap / Cpap Non Invas Vt (08/04/16 ) Succinylcholine Inj (Quelicin Inj) (08/04/16 19:03) Etomidate Inj (Amidate Inj) (08/04/16 19:03) Chest, Single Ap (08/04/16 ) Propofol 1000 Mg/100 Ml Inj (Diprivan 10 (08/04/16 19:13) Arterial Blood Gas (Abg) (08/04/16 ) ^ Orogastric Tube (08/04/16 19:12) Urinary Catheter Insert/Apply (08/04/16 19:12) Propofol 1000 Mg/100 Ml Inj (Diprivan 10 (08/04/16 19:15) ^ Infusion (08/04/16 19:12) RASS (08/04/16 19:12) Neurological Rass Scale BRITTNEE.Q2H (08/04/16 19:12) Succinylcholine Inj (Quelicin Inj) (08/04/16 19:15) Etomidate Inj (Amidate Inj) (08/04/16 19:15) Sodium Chlor 0.9% 1000 Ml Inj (Ns 1000 M (08/04/16 19:15) Sputum Culture And Gram Stain (08/04/16 19:15) Sputum Afb Culture And Stain (08/04/16 19:15) Legionella Urinary Antigen (08/04/16 19:15) Midazolam Inj (Versed Inj) (08/04/16 19:45) Fentanyl Inj (Fentanyl Inj) (08/04/16 19:45) Rocuronium Inj (Zemuron Inj) (08/04/16 19:45) Urine Culture (08/04/16 19:15) Troponin I (08/04/16 19:56) B-Type Natriuretic Peptide (08/04/16 19:56) Admit Order (Ed Use Only) (08/04/16 20:08) Labs Laboratory Tests Test 08/04/16 08/04/16 08/04/16 18:45 18:55 19:15 White Blood Count 15.6 TH/MM3 Red Blood Count 4.62 MIL/MM3 Hemoglobin 14.6 GM/DL Hematocrit 43.1 % Mean Corpuscular Volume 93.3 FL Mean Corpuscular Hemoglobin 31.7 PG Mean Corpuscular Hemoglobin 34.0 % Concent Red Cell Distribution Width 13.6 % Platelet Count 250 TH/MM3 Mean Platelet Volume 8.7 FL Neutrophils (%) (Auto) 97.6 % Lymphocytes (%) (Auto) 1.1 % Monocytes (%) (Auto) 0.6 % Eosinophils (%) (Auto) 0.3 % Basophils (%) (Auto) 0.4 % Neutrophils # (Auto) 15.2 TH/MM3 Lymphocytes # (Auto) 0.2 TH/MM3 Monocytes # (Auto) 0.1 TH/MM3 Eosinophils # (Auto) 0.0 TH/MM3 Basophils # (Auto) 0.1 TH/MM3 CBC Comment AUTO DIFF Differential Total Cells 100 Counted Neutrophils % (Manual) 59 % Band Neutrophils % 38 % Lymphocytes % 1 % Monocytes % 1 % Neutrophils # (Manual) 15.3 TH/MM3 Metamyelocytes 1 % Differential Comment FINAL DIFF MANUAL Toxic Granulation 1+ Toxic Vacuolation PRESENT Platelet Estimate NORMAL Platelet Morphology Comment NORMAL Red Cell Morphology Comment NORMAL Sodium Level 132 MEQ/L Potassium Level 5.4 MEQ/L Chloride Level 95 MEQ/L Carbon Dioxide Level 22.9 MEQ/L Anion Gap 14 MEQ/L Blood Urea Nitrogen 50 MG/DL Creatinine 3.36 MG/DL Estimat Glomerular Filtration 19 ML/MIN Rate Random Glucose 103 MG/DL Calcium Level 8.8 MG/DL Total Bilirubin 1.6 MG/DL Aspartate Amino Transf 91 U/L (AST/SGOT) Alanine Aminotransferase 41 U/L (ALT/SGPT) Alkaline Phosphatase 63 U/L Total Creatine Kinase 207 U/L Troponin I LESS THAN 0.02 NG/ML B-Type Natriuretic Peptide 23 PG/ML Total Protein 7.4 GM/DL Albumin 2.0 GM/DL Lactic Acid Level 2.3 mmol/L Urine Color ORANGE Urine Turbidity CLOUDY Urine pH 5.5 Urine Specific [place] 1.019 Urine Protein 30 mg/dL Urine Glucose (UA) NEG mg/dL Urine Ketones NEG mg/dL Urine Occult Blood SMALL Urine Nitrite NEG Urine Bilirubin SMALL Urine Urobilinogen 4.0 MG/DL Urine Leukocyte Esterase NEG Urine RBC 6 /hpf Urine WBC 21 /hpf Urine Squamous Epithelial 6 /hpf Cells Urine Amorphous Sediment RARE Urine Bacteria MOD /hpf Urine Hyaline Casts 43 /lpf Urine Mucus MANY /lpf Microscopic Urinalysis Comment CULTURE INDICATED MDM Medical Decision Making Medical Screen Exam Complete: Yes Emergency Medical Condition: Yes Medical Record Reviewed: Yes Differential Diagnosis pneumonia, impending respiratory failure, congestive heart failure Narrative Course 7:53 PM patient's chest x-ray showed bilateral significant infiltrate in the left upper, lower lobe and right lower and medial lobe. Given the extensive nature of the airway disease and the clinical picture I decided to go ahead and intubate the patient since he seemed to be in impending respiratory failure. I quickly discussed this with the patient and he consented verbally to the intubation. Please refer to my intubation note. Patient overall tolerated the procedure well. Currently he is on sedation and paralyzed as well. Awaiting for the 2 blood gas. The repeat chest x-ray shows the tube and OG tube to be in good position. Awaiting for the tufting machine fixer to call back for admission. Patient is receiving IV cefepime and Zithromax. I have ordered sputum culture and Gram stain and AFB as well as urine for legionella antigen. He is given 2 L of IV fluid bolus. 9:24 PM his blood pressure has been dropping and the lowest has been 80 systolic. I decided to put a central line. A left subclavian triple-lumen has been inserted. Awaiting for the chest x-ray for placement. Patient will be going to the ICU soon. Critical Care Narrative Aggregate critical care time was 90 minutes. Time to perform other separately billable procedures was not included in the critical care time. My time did not include minutes spent treating any other patients simultaneously or on activities that did not directly contribute to the patient's treatment. The services I provided to this patient were to treat and/or prevent clinically significant deterioration that could result in: Respiratory failure, hypoxia, pneumonia, ventilator management, sepsis I provided critical care services requiring my management, as noted below: Chart data review, documentation time, medication orders and management, vital sign assessments/reviewing monitor data, ordering and reviewing lab tests, ordering and interpreting/reviewing x-rays and diagnostic studies, care of the patient and discussion of the patient with the admitting physicians. Procedures Procedure Narrative After the risks and benefits were discussed the following procedure was performed: INTUBATION: The patient was put in optimal position for the procedure. Rapid sequence intubation was initiated by me using 40 milligrams of etomidate IV and 200 milligrams of succinylcholine IV. The patient was intubated with a 7.5 cuffed endotracheal tube. Tube placement was confirmed by visualization of the tube and balloon passing through the cords, capnometry and subsequent chest x-ray. Breath sounds were equal and well aerated bilaterally postintubation. No breath sounds over stomach. Patient tolerated procedure well. CENTRAL VENOUS LINE: The site was prepped with Betadine and sterilely draped. It was infiltrated with 1% lidocaine plain. The deep vein was cannulated using normal Seldinger technique. A triple lumen central line was placed in the left subclavian site and secured with simple interrupted suture. The site was sterilely dressed. The patient tolerated the procedure well. EKG Prior to Arrival: No Physician Communication Physician Communication Dr. De La O Diagnosis Primary Impression: Acute respiratory failure Qualified Code: J96.00 - Acute respiratory failure, unspecified whether with hypoxia or hypercapnia Additional Impressions: Sepsis Qualified Code: A41.9 - Sepsis, due to unspecified organism Pneumonia Qualified Code: J18.9 - Pneumonia of both lungs due to infectious organism, unspecified part of lung Admitting Information Admitting Physician Requests: Admit Jacqui Levi MD Aug 04, 2016 19:56
[2016-08-04 20:33] LABS: BLOOD GAS BASE EXCESS -4.6 mmol/L (-2-2); BLOOD GAS CARBOXYHEMOGLOBIN 0.6 % (0-4); BLOOD GAS HCO3 21 mmol/L (22-26); BLOOD GAS METHEMOGLOBIN 0.6 % (0-2); BLOOD GAS O2 HGB SATURATION 87 % (90-100); BLOOD GAS OXYGEN CONTENT 15.6 Vol % (12.0-20.0); BLOOD GAS PCO2 46 mmHg (38-42); BLOOD GAS PO2 65 mmHG (61-120); BLOOD GAS TOTAL HGB 12.7 G/DL (12.0-16.0); CRITICAL VALUE YES; DRAW SITE RT RADIAL; FIO2 100 %; NUMBER OF ARTERIAL PUNCTURES 1; OXYGEN DEVICE VENTILATOR; STAT NO; TEMP CORR TO 98.6; ULNAR PULSE PRESENT; VENT SETTINGS AC/16/650/PEEP7
[2016-08-04 20:50] LABS: ALKALINE PHOSPHATASE 63 U/L (45-117); ALT (GPT) 41 U/L (12-78); ANION GAP 14 MEQ/L (5-15); AST (GOT) 91 U/L (15-37); BICARBONATE 22.9 MEQ/L (21.0-32.0); BLOOD UREA NITROGEN 50 MG/DL (7-18); CHLORIDE 95 MEQ/L (98-107); CREATINE KINASE 207 U/L (39-308); GLOMERULAR FILTRATION RATE 19 ML/MIN (>89); SODIUM (NA) 132 MEQ/L (136-145); TOTAL BILIRUBIN ADULT 1.6 MG/DL (0.2-1.0)
[2016-08-04 20:51] LABS: POTASSIUM 5.4 MEQ/L (3.5-5.1)
[2016-08-04 20:57] LABS: LACTIC ACID GHOST NOT REPORTABLE
--- NOTE | 2016-08-04 21:24 | HHI.HP ---
HPI Service Critical Care Medicine Primary Care Physician Unknown Admission Diagnosis respiratory failure, pneumonia Diagnosis: (1) Acute respiratory failure Diagnosis: Principal (2) Pneumonia (3) CKD (chronic kidney disease) Travel History International Travel<30 Days: No Contact w/Intl Traveler <30 Da: No Traveled to Known Affected Are: No History of Present Illness 60 y/o man with several week history of weakness, fatigue; fevers and sweats over past week. Today with severe SOB, arrived by EMS with hypoxemia. CO2 retention as well in ED. Required intubation in ED. Creatinine > 3.0 and severely dehydrated. Past Family Social History Allergies: Coded Allergies: No Known Allergies (Unverified , 07/31/16) Past Medical History Past Medical History Asthma: Yes Blood Disorders: No Anxiety: Yes Depression: Yes (ECT [place] (JAN 2017)) Heart Rhythm Problems: No Cancer: No Cardiovascular Problems: No High Cholesterol: No Chest Pain: No Congestive Heart Failure: No Diabetes: No Endocrine: No Genitourinary: No Headaches: Yes Immune Disorder: No Neurologic: No Psychiatric: Yes Reproductive: No Respiratory: Yes (ASTHMA) Immunizations Current: No ("ALLERGIC TO IT") Thyroid Disease: No Past Surgical History Other Surgery: Yes (right shoulder) Social History Alcohol Use: Yes Tobacco Use: No Substance Use: Yes (two joints daily) Allergies-Medications Allergies-Medications (Allergen,Severity, Reaction): Coded Allergies: No Known Allergies (Unverified , 07/31/16) Reported Meds & Prescriptions Reported Meds & Active Scripts Active Zofran Odt (Ondansetron Odt) 4 Mg Tab 4 Mg SL Q6HR PRN Ventolin Hfa 18 GM Inh (Albuterol Sulfate) 90 Mcg/Act Aer 2 Puff INH Q3HR PRN Prozac (Fluoxetine HCl) 40 Mg Cap 40 Mg PO DAILY Trazodone (Trazodone HCl) 100 Mg Tab 200 Mg PO HS [Aspirin Chew] 81 MG Chew 81 Mg CHEW DAILY Physical Exam Vital Signs Vital Signs Date Time Temp Pulse Resp B/P Pulse Ox O2 Delivery O2 Flow Rate FiO2 08/04/16 21:17 120 10 150/65 91 Auto-Vent 100 08/04/16 21:04 114 16 89/49 82 Auto-Vent 100 08/04/16 20:30 100 08/04/16 20:29 118 16 105/53 88 Auto-Vent 100 08/04/16 19:19 125 16 145/72 96 Auto-Vent 100 08/04/16 19:18 96 Auto-Vent 100 08/04/16 19:18 96 Auto-Vent 100 08/04/16 19:10 100 08/04/16 19:10 93 100 08/04/16 18:45 88 BiPAP 100 08/04/16 18:45 87 BiPAP 100 08/04/16 18:45 88 100 08/04/16 18:30 98.5 112 24 105/61 77 Room Air 08/04/16 18:30 98.5 124 24 105/61 77 Physical Exam Gen: Pale, ill-appearing Head: Normal. Neck: Supple, orally intubated. Lungs: Diffuse light wheezes, rhonchi. Heart: NL S1S2, no JVD. Abdomen: Soft, NT, ND, no guarding. Extremities: Clammy, adequately perfused. Neuro: Conversant prior to intubation, distress, moves 4 limbs. Laboratory Laboratory Tests Test 08/04/16 08/04/16 08/04/16 08/04/16 18:45 18:55 19:15 20:22 White Blood Count 15.6 Red Blood Count 4.62 Hemoglobin 14.6 Hematocrit 43.1 Mean Corpuscular Volume 93.3 Mean Corpuscular Hemoglobin 31.7 Mean Corpuscular Hemoglobin 34.0 Concent Red Cell Distribution Width 13.6 Platelet Count 250 Mean Platelet Volume 8.7 Neutrophils (%) (Auto) 97.6 Lymphocytes (%) (Auto) 1.1 Monocytes (%) (Auto) 0.6 Eosinophils (%) (Auto) 0.3 Basophils (%) (Auto) 0.4 Neutrophils # (Auto) 15.2 Lymphocytes # (Auto) 0.2 Monocytes # (Auto) 0.1 Eosinophils # (Auto) 0.0 Basophils # (Auto) 0.1 CBC Comment AUTO DIFF Differential Total Cells 100 Counted Neutrophils % (Manual) 59 Band Neutrophils % 38 Lymphocytes % 1 Monocytes % 1 Neutrophils # (Manual) 15.3 Metamyelocytes 1 Differential Comment FINAL DIFF MANUAL Toxic Granulation 1+ Toxic Vacuolation PRESENT Platelet Estimate NORMAL Platelet Morphology Comment NORMAL Red Cell Morphology Comment NORMAL Sodium Level 132 Potassium Level 5.4 Chloride Level 95 Carbon Dioxide Level 22.9 Anion Gap 14 Blood Urea Nitrogen 50 Creatinine 3.36 Estimat Glomerular Filtration 19 Rate Random Glucose 103 Calcium Level 8.8 Total Bilirubin 1.6 Aspartate Amino Transf 91 (AST/SGOT) Alanine Aminotransferase 41 (ALT/SGPT) Alkaline Phosphatase 63 Total Creatine Kinase 207 Troponin I LESS THAN 0.02 B-Type Natriuretic Peptide 23 Total Protein 7.4 Albumin 2.0 Lactic Acid Level 2.3 Urine Color ORANGE Urine Turbidity CLOUDY Urine pH 5.5 Urine Specific [place] 1.019 Urine Protein 30 Urine Glucose (UA) NEG Urine Ketones NEG Urine Occult Blood SMALL Urine Nitrite NEG Urine Bilirubin SMALL Urine Urobilinogen 4.0 Urine Leukocyte Esterase NEG Urine RBC 6 Urine WBC 21 Urine Squamous Epithelial 6 Cells Urine Amorphous Sediment RARE Urine Bacteria MOD Urine Hyaline Casts 43 Urine Mucus MANY Microscopic Urinalysis Comment CULTURE INDICATED Blood Gas Puncture Site RT RADIAL Blood Gas Patient Temperature 98.6 Blood Gas HCO3 21 Blood Gas Base Excess -4.6 Blood Gas Oxygen Saturation 87 Arterial Blood pH 7.28 Arterial Blood Partial 46 Pressure CO2 Arterial Blood Partial 65 Pressure O2 Arterial Blood Oxygen Content 15.6 Arterial Blood 0.6 Carboxyhemoglobin Arterial Blood Methemoglobin 0.6 Blood Gas Hemoglobin 12.7 Oxygen Delivery Device VENTILATOR Blood Gas Ventilator Setting AC/16/650/PEEP7 Blood Gas Inspired Oxygen 100 Date/Time Procedure Status Source Growth 08/04/16 20:00 Gram Stain Received Sputum Oral Tracheal Aspirate Pending 08/04/16 20:00 Sputum Culture Received Sputum Oral Tracheal Aspirate Pending 08/04/16 20:00 Acid Fast Stain Received Sputum Oral Tracheal Aspirate Pending 08/04/16 20:00 Mycobacterial Culture Received Sputum Oral Tracheal Aspirate Pending 08/04/16 19:15 Urine Culture Worksheet Urine Random Urine Pending 08/04/16 18:55 Aerobic Blood Culture Received Blood Peripheral Pending 08/04/16 18:55 Anaerobic Blood Culture Received Blood Peripheral Pending Result Diagram: 08/04/16 1845 08/04/16 1845 Assessment and Plan Assessment and Plan Assessment: 1. Severe Sepsis. 2. Hypoxemic Respiratory Failure. 3. Pneumonia, bilateral. 4. CKD with CHAN 5. Hx depression with recent ECT 2017 Plan: 1. APRV vent mode until achieve oxygenation > 90% 2. Blood, urine, sputum cults. 3. Broad abx coverage for ICU admission pneumonia. 4. Protonix. 5. Lovenox adjusted for renal function. 6. Witt to CBD. 7. Central line. Overall impression: Critically ill with severe sepsis, renal failure, and hypoxemic respiratory failure. He will require mechanical ventilation for at least 3 days and is probably going to end up on dialysis. Critical Care 45 mins aside from procedures. Problem Qualifiers (1) Acute respiratory failure: Qualified Code: J96.01 - Acute respiratory failure with hypoxia and hypercapnia (2) Pneumonia: Qualified Code: J18.9 - Pneumonia of both lungs due to infectious organism, unspecified part of lung Lul De La O MD Aug 04, 2016 21:24
[2016-08-04] MEDS ORDERED: SENNOSIDES SYRUP 8.8 MG/5 ML CUP G-TUBE PRN (21:45)
[2016-08-04] MEDS ORDERED: CHLORHEXIDINE GLUCONATE 2 % 1 PACK (2 CLOTHS) TOP PRN (21:45)
[2016-08-04] MEDS ORDERED: MISCELLANEOUS NURSING INFORMATION XX SCH (21:45)
[2016-08-04] MEDS ORDERED: LORazepam 2 MG/ML VIAL IV PRN (21:45)
[2016-08-04] MEDS ORDERED: ONDANSETRON HCL 4 MG/2 ML VIAL IV PRN (21:45)
[2016-08-04] MEDS: SODIUM CHLOR 0.9% 1000 ML INJ 1,000 ML IV SCH (21:45)
[2016-08-04] MEDS: RESP: ALBUTEROL 2.5 MG/IPRATROPIUM 0.5 MG NEB (SCH) INH (22:00)
--- NOTE | 2016-08-04 22:02 | RADRPT ---
EXAM DATE/TIME: 08/04/2016 21:34 [facility] COMPARISON: CHEST SINGLE AP, August 04, 2016, 19:24. INDICATIONS : Central line placement and NG tube placement. MEDICAL HISTORY : None. SURGICAL HISTORY : None. ENCOUNTER: Subsequent ACUITY: 1 day PAIN SCORE: Non-responsive. LOCATION: Bilateral chest FINDINGS: A single view of the chest demonstrates bilateral airspace disease greater left lung. Nasogastric tub e has been placed with tip in the stomach. Endotracheal tube unchanged. Left subclavian central line with tip in the SVC. No pneumothorax. Osseous structures are intact. CONCLUSION: Stable chest. Endotracheal tube with tip in stomach. Perico Wahl MD on August 04, 2016 at 22:00 Board Certified Radiologist. This report was verified electronically.
[2016-08-04 22:16] LABS: BLOOD GAS BASE EXCESS -4.7 mmol/L (-2-2); BLOOD GAS HCO3 23 mmol/L (22-26); BLOOD GAS METHEMOGLOBIN 0.6 % (0-2); BLOOD GAS O2 HGB SATURATION 96 % (90-100); BLOOD GAS OXYGEN CONTENT 19.4 Vol % (12.0-20.0); BLOOD GAS PCO2 63 mmHg (38-42); BLOOD GAS PO2 118 mmHG (61-120); BLOOD GAS TOTAL HGB 14.3 G/DL (12.0-16.0); TEMP CORR TO 98.6
[2016-08-04 22:18] LABS: CRITICAL VALUE YES; OXYGEN DEVICE VENTILATOR
[2016-08-04 22:19] LABS: DRAW SITE RT RADIAL; FIO2 100 %; NUMBER OF ARTERIAL PUNCTURES 1; ULNAR PULSE PRESENT; VENT SETTINGS APRV
[2016-08-04 22:20] LABS: STAT NO
[2016-08-04] MEDS: CHLORHEXIDINE GLUCONATE 2 % 1 PACK (2 CLOTHS) TOP SCH (22:49)
[2016-08-04] MEDS: fentaNYL DRIP 250 ML IV SCH (23:03)
[2016-08-05] VITALS (23 sets, daily range): BP systolic 90–141; BP diastolic 52–71; PULSE 86–132; RESP 12–23; TEMP 97.6–98.8; O2SAT 90–98
[2016-08-05] MEDS ORDERED: SODIUM CHLOR 0.9% 1000 ML INJ 1,000 ML IV ONE ×2 (01:00→20:30)
[2016-08-05] MEDS: SODIUM CHLOR 0.9% 1000 ML INJ 1,000 ML IV SCH ×4 (02:06→20:17)
[2016-08-05] MEDS: RESP: ALBUTEROL 2.5 MG/IPRATROPIUM 0.5 MG NEB (SCH) INH ×4 (02:53→19:53)
[2016-08-05 03:27] LABS: BLOOD GAS BASE EXCESS -5.4 mmol/L (-2-2); BLOOD GAS CARBOXYHEMOGLOBIN 0.7 % (0-4); BLOOD GAS HCO3 21 mmol/L (22-26); BLOOD GAS METHEMOGLOBIN 1.2 % (0-2); BLOOD GAS O2 HGB SATURATION 94 % (90-100); BLOOD GAS OXYGEN CONTENT 16.5 Vol % (12.0-20.0); BLOOD GAS PCO2 51 mmHg (38-42); BLOOD GAS PO2 105 mmHg (61-120); BLOOD GAS TOTAL HGB 12.4 G/DL (12.0-16.0); TEMP CORR TO 98.6
[2016-08-05 03:28] LABS: CRITICAL VALUE YES; DRAW SITE RT RADIAL; FIO2 100 %; NUMBER OF ARTERIAL PUNCTURES 1; OXYGEN DEVICE VENTILATOR; STAT NO; ULNAR PULSE PRESENT
[2016-08-05] MEDS ORDERED: LORazepam 2 MG/ML VIAL IV PUSH ONE (03:30)
[2016-08-05] MEDS ORDERED: diphenhydrAMINE HCL 50 MG/ML VIAL IV PUSH ONE (03:45)
[2016-08-05] MEDS: methylPREDNISolone SOD SUCC 125 MG/2 ML VIAL IV PUSH SCH ×3 (05:04→20:16)
[2016-08-05] MEDS: ENOXAPARIN SODIUM 30 MG/0.3 ML SYRINGE SQ SCH (05:04)
[2016-08-05 05:18] LABS: AUTOMATED NEUTROPHIL # 10.1 TH/MM3 (1.8-7.7); BASOPHIL % 0.3 % (0.0-2.0); EOSINOPHIL % 0.1 % (0.0-4.0); HEMATOCRIT 36.3 % (39.0-51.0); LYMPH % 2.1 % (9.0-44.0); LYMPHOCYTE # 0.2 TH/MM3 (1.0-4.8); MEAN CELL VOLUME 94.8 FL (80.0-100.0); MEAN CORPUSCULAR HGB CONC 33.7 % (32.0-36.0); MONO % 1.2 % (0.0-8.0); NEUT % 96.3 % (16.0-70.0); PLATELET COUNT 167 TH/MM3 (150-450); RED BLOOD COUNT 3.83 MIL/MM3 (4.50-5.90); RED CELL DISTRIBUTION WIDTH 13.7 % (11.6-17.2); WHITE BLOOD COUNT 10.5 TH/MM3 (4.0-11.0)
[2016-08-05 05:37] LABS: HEMO FLAGS AUTO DIFF
[2016-08-05 05:40] LABS: ALKALINE PHOSPHATASE 48 U/L (45-117); ALT (GPT) 39 U/L (12-78); ANION GAP 7 MEQ/L (5-15); AST (GOT) 83 U/L (15-37); BICARBONATE 24.9 MEQ/L (21.0-32.0); BLOOD UREA NITROGEN 55 MG/DL (7-18); CHLORIDE 105 MEQ/L (98-107); GLOMERULAR FILTRATION RATE 19 ML/MIN (>89); POTASSIUM 4.9 MEQ/L (3.5-5.1); SODIUM (NA) 137 MEQ/L (136-145); TOTAL BILIRUBIN ADULT 1.8 MG/DL (0.2-1.0)
[2016-08-05 07:03] LABS: BANDS 33 % (0-6); NEUTROPHIL # MANUAL DIFF 10.1 TH/MM3 (1.8-7.7); POLYS (SEG NEUTROPHILS) 63 % (16-70); WBC DIFF SAMPLE 100
[2016-08-05 07:04] LABS: PLATELET ESTIMATE SMEAR NORMAL (NORMAL); PLATELET MORPHOLOGY NORMAL (NORMAL); SCAN/DIFF FINAL DIFF MANUAL
[2016-08-05] MEDS: PANTOPRAZOLE SODIUM 40 MG VIAL IV SCH (08:16)
[2016-08-05] MEDS: SODIUM CHLORIDE 0.9% FLUSH 10 ML FLUSH IVF PRN (08:16)
[2016-08-05] MEDS: CHLORHEXIDINE 0.12% (ORAL KIT) 15 ML CUP MT SCH ×2 (08:17→19:35)
[2016-08-05] MEDS: LACTULOSE SYRUP 20 GM/30 ML CUP PO SCH (08:18)
[2016-08-05] MEDS: PROPOFOL 1000 MG/100 ML INJ 100 ML IV SCH ×2 (12:42→21:44)
--- NOTE | 2016-08-05 14:49 | PD.CONS ---
HPI Service Nephrology Consult Requested By Reason for Consult CHAN on CKD Primary Care Physician Unknown History of Present Illness This is a 60 y/o male pt who was admitted yesterday. He came to ER for weakness , fever/chills with sweating, and shortness of breath. He had symptoms for one week. In the ER he became hypoxic and was intubated, CXR shows patchy infiltrates and urine tested positive for legionella. He was seen today in [facility], is on ventilator but is awake and able to answer questions. 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 May of this year his best creatinine was 1.94, GFR 35, consistent with CKD 3. He nods his head yes when asked about history of kidney stones. Other PMH of migraines/chronic headaches, asthma, insomnia, and anxiety. His creatinine was 3.36 yesterday, is 3.30 today. Potassium 5.4 improved to 4.9. Lactic acid 2.3 improved to 1.3 with IV fluids. He received 4 to 5 liters of normal saline in the ER, has been borderline hypotensive but is not on pressors. He is non oliguric, we were consulted for renal management. He is to be placed on rotoprone bed beginning tomorrow. On ventilatory at 80% with saturations of 97%. Review of Systems ROS Limitations: Intubated, Unresponsive Past Family Social History Allergies: Coded Allergies: No Known Allergies (Unverified , 07/31/16) Past Medical History CKD 3, creatinine 1.94, GFR 35 from May 2016 HTN chronic headaches/migraines anxiety insomnia asthma Past Surgical History Right shoulder others unknown Reported Medications Zofran Odt (Ondansetron Odt) 4 Mg Tab 4 Mg SL Q6HR PRN Ventolin Hfa 18 GM Inh (Albuterol Sulfate) 90 Mcg/Act Aer 2 Puff INH Q3HR PRN Prozac (Fluoxetine HCl) 40 Mg Cap 40 Mg PO DAILY Trazodone (Trazodone HCl) 100 Mg Tab 200 Mg PO HS [Aspirin Chew] 81 MG Chew 81 Mg CHEW DAILY Active Ordered Medications Current Medications Medications (Trade) Dose Ordered Sig/Lou Route Start Time Stop Time Status Last Admin (NS Flush) 2 ml UNSCH PRN IVF 08/04/16 18:45 08/05/16 08:16 Chlorhexidine Gluconate 15 ml 15 ml BID@08,20 MT 08/05/16 08:00 08/05/16 08:17 Propofol 100 ml @ 0 mls/hr TITRATE IV 08/04/16 21:45 08/05/16 12:42 Cefepime HCl 2000 mg/Sodium Chloride 100 ml @ 200 mls/hr HS IV 08/05/16 21:00 Azithromycin 500 mg/Sodium Chloride 250 ml @ 250 mls/hr Q24H IV 08/05/16 20:00 (NS 1000 ml Inj) 1,000 ml @ 200 mls/hr Q5H IV 08/04/16 21:45 08/05/16 12:41 (Tylenol) 650 mg Q6H PRN PO 08/04/16 21:45 (Morphine Inj) 2 mg Q2H PRN IV 08/04/16 21:45 (Protonix Inj) 40 mg DAILY IV 08/05/16 09:00 08/05/16 08:16 (Ativan Inj) 1 mg Q1H PRN IV 08/04/16 21:45 (Zofran Inj) 4 mg Q6H PRN IV 08/04/16 21:45 (Senna Liq) 17.6 mg Q12H PRN G-TUBE 08/04/16 21:45 (Lactulose Liq) 30 ml DAILY PO 08/05/16 09:00 (Lovenox Inj) 30 mg Q24H SQ 08/05/16 06:00 08/05/16 05:04 Miscellaneous Information 1 Q361D XX 08/04/16 21:45 08/04/16 21:45 (Chlorhexidine 2% Cloth) 3 pack Taper DAILY@04 TOP 08/05/16 04:00 08/01/17 03:59 08/04/16 22:49 (Chlorhexidine 2% Cloth) 3 pack UNSCH PRN TOP 08/04/16 21:45 Fentanyl Citrate 100 mcg 100 mcg Q1H PRN SLOW IVP 08/04/16 22:45 (fentaNYL DRIP) 250 ml @ 0 mls/hr TITRATE IV 08/04/16 22:45 08/04/16 23:03 (SoluMEDROL INJ) 60 mg Q6H IV PUSH 08/05/16 05:00 08/05/16 08:16 Family History unable to obtain family hx related to renal disorders Social History unknown about smoking history denies ETOH smoker marijuana daily retired lives with family he is no longer full code Physical Exam Vital Signs Vital Signs Date Time Temp Pulse Resp B/P Pulse Ox O2 Delivery O2 Flow Rate FiO2 08/05/16 13:00 93 80 08/05/16 12:00 97.6 86 22 102/58 94 08/05/16 12:00 86 08/05/16 10:21 95 100 08/05/16 10:00 87 08/05/16 09:31 90 100 08/05/16 09:26 90 90 08/05/16 08:00 97.6 99 23 141/71 98 08/05/16 08:00 99 08/05/16 07:56 98 85 08/05/16 06:00 89 08/05/16 04:57 95 100 08/05/16 04:01 97 100 08/05/16 04:00 89 08/05/16 04:00 98.6 89 18 104/55 97 08/05/16 03:06 94 100 08/05/16 02:00 88 08/05/16 00:00 101 08/05/16 00:00 98.8 101 12 90/52 91 08/04/16 23:58 93 100 08/04/16 22:29 97 100 08/04/16 22:28 98.9 133 18 141/73 97 08/04/16 22:05 100 100 08/04/16 22:00 130 08/04/16 21:17 120 10 150/65 91 Auto-Vent 100 08/04/16 21:04 114 16 89/49 82 Auto-Vent 100 08/04/16 20:30 100 08/04/16 20:29 118 16 105/53 88 Auto-Vent 100 08/04/16 19:19 125 16 145/72 96 Auto-Vent 100 08/04/16 19:18 96 Auto-Vent 100 08/04/16 19:18 96 Auto-Vent 100 08/04/16 19:10 100 08/04/16 19:10 93 100 08/04/16 18:45 88 BiPAP 100 08/04/16 18:45 87 BiPAP 100 08/04/16 18:45 88 100 08/04/16 18:30 98.5 112 24 105/61 77 Room Air 08/04/16 18:30 98.5 124 24 105/61 77 Physical Exam Young appearing middle aged male intubated but awake answers questions, follows commands, no neuro deficit S1/S2, tachycardic 120s, no murmurs lungs: scattered rales, exp wheezing abd: round, soft, non tender : no scrotal edema; gamboa in place, urine dark but clear Ext: trace edema, distal pulses strong Laboratory Laboratory Tests Test 08/04/16 08/04/16 08/04/16 08/04/16 18:45 18:55 19:15 20:22 White Blood Count 15.6 Red Blood Count 4.62 Hemoglobin 14.6 Hematocrit 43.1 Mean Corpuscular Volume 93.3 Mean Corpuscular Hemoglobin 31.7 Mean Corpuscular Hemoglobin 34.0 Concent Red Cell Distribution Width 13.6 Platelet Count 250 Mean Platelet Volume 8.7 Neutrophils (%) (Auto) 97.6 Lymphocytes (%) (Auto) 1.1 Monocytes (%) (Auto) 0.6 Eosinophils (%) (Auto) 0.3 Basophils (%) (Auto) 0.4 Neutrophils # (Auto) 15.2 Lymphocytes # (Auto) 0.2 Monocytes # (Auto) 0.1 Eosinophils # (Auto) 0.0 Basophils # (Auto) 0.1 CBC Comment AUTO DIFF Differential Total Cells 100 Counted Neutrophils % (Manual) 59 Band Neutrophils % 38 Lymphocytes % 1 Monocytes % 1 Neutrophils # (Manual) 15.3 Metamyelocytes 1 Differential Comment FINAL DIFF MANUAL Toxic Granulation 1+ Toxic Vacuolation PRESENT Platelet Estimate NORMAL Platelet Morphology Comment NORMAL Red Cell Morphology Comment NORMAL Sodium Level 132 Potassium Level 5.4 Chloride Level 95 Carbon Dioxide Level 22.9 Anion Gap 14 Blood Urea Nitrogen 50 Creatinine 3.36 Estimat Glomerular Filtration 19 Rate Random Glucose 103 Calcium Level 8.8 Total Bilirubin 1.6 Aspartate Amino Transf 91 (AST/SGOT) Alanine Aminotransferase 41 (ALT/SGPT) Alkaline Phosphatase 63 Total Creatine Kinase 207 Troponin I LESS THAN 0.02 B-Type Natriuretic Peptide 23 Total Protein 7.4 Albumin 2.0 Lactic Acid Level 2.3 Urine Color ORANGE Urine Turbidity CLOUDY Urine pH 5.5 Urine Specific [place] 1.019 Urine Protein 30 Urine Glucose (UA) NEG Urine Ketones NEG Urine Occult Blood SMALL Urine Nitrite NEG Urine Bilirubin SMALL Urine Urobilinogen 4.0 Urine Leukocyte Esterase NEG Urine RBC 6 Urine WBC 21 Urine Squamous Epithelial 6 Cells Urine Amorphous Sediment RARE Urine Bacteria MOD Urine Hyaline Casts 43 Urine Mucus MANY Microscopic Urinalysis Comment CULTURE INDICATED Blood Gas Puncture Site RT RADIAL Blood Gas Patient Temperature 98.6 Blood Gas HCO3 21 Blood Gas Base Excess -4.6 Blood Gas Oxygen Saturation 87 Arterial Blood pH 7.28 Arterial Blood Partial 46 Pressure CO2 Arterial Blood Partial 65 Pressure O2 Arterial Blood Oxygen Content 15.6 Arterial Blood 0.6 Carboxyhemoglobin Arterial Blood Methemoglobin 0.6 Blood Gas Hemoglobin 12.7 Oxygen Delivery Device VENTILATOR Blood Gas Ventilator Setting AC/16/650/PEEP7 Blood Gas Inspired Oxygen 100 Test 08/04/16 08/04/16 08/05/16 08/05/16 22:00 22:30 00:03 03:15 Blood Gas Puncture Site RT RADIAL RT RADIAL Blood Gas Patient Temperature 98.6 98.6 Blood Gas HCO3 23 21 Blood Gas Base Excess -4.7 -5.4 Blood Gas Oxygen Saturation 96 94 Arterial Blood pH 7.18 7.23 Arterial Blood Partial 63 51 Pressure CO2 Arterial Blood Partial 118 105 Pressure O2 Arterial Blood Oxygen Content 19.4 16.5 Arterial Blood 0.0 0.7 Carboxyhemoglobin Arterial Blood Methemoglobin 0.6 1.2 Blood Gas Hemoglobin 14.3 12.4 Oxygen Delivery Device VENTILATOR VENTILATOR Blood Gas Ventilator Setting APRV SEE COMMENT Blood Gas Inspired Oxygen 100 100 Nasal Screen MRSA (PCR) MRSA NOT DETECTED Lactic Acid Level 1.3 Test 08/05/16 04:41 White Blood Count 10.5 Red Blood Count 3.83 Hemoglobin 12.2 Hematocrit 36.3 Mean Corpuscular Volume 94.8 Mean Corpuscular Hemoglobin 32.0 Mean Corpuscular Hemoglobin 33.7 Concent Red Cell Distribution Width 13.7 Platelet Count 167 Mean Platelet Volume 8.4 Neutrophils (%) (Auto) 96.3 Lymphocytes (%) (Auto) 2.1 Monocytes (%) (Auto) 1.2 Eosinophils (%) (Auto) 0.1 Basophils (%) (Auto) 0.3 Neutrophils # (Auto) 10.1 Lymphocytes # (Auto) 0.2 Monocytes # (Auto) 0.1 Eosinophils # (Auto) 0.0 Basophils # (Auto) 0.0 CBC Comment AUTO DIFF Differential Total Cells 100 Counted Neutrophils % (Manual) 63 Band Neutrophils % 33 Lymphocytes % 4 Neutrophils # (Manual) 10.1 Differential Comment FINAL DIFF MANUAL Platelet Estimate NORMAL Platelet Morphology Comment NORMAL Red Cell Morphology Comment NORMAL Sodium Level 137 Potassium Level 4.9 Chloride Level 105 Carbon Dioxide Level 24.9 Anion Gap 7 Blood Urea Nitrogen 55 Creatinine 3.30 Estimat Glomerular Filtration 19 Rate Random Glucose 171 Lactic Acid Level 1.3 Calcium Level 7.8 Total Bilirubin 1.8 Aspartate Amino Transf 83 (AST/SGOT) Alanine Aminotransferase 39 (ALT/SGPT) Alkaline Phosphatase 48 Total Protein 5.9 Albumin 1.6 Date/Time Procedure Status Source Growth 08/04/16 20:00 Gram Stain - Final Resulted Sputum Oral Tracheal Aspirate 08/04/16 20:00 Sputum Culture - Preliminary Resulted Sputum Oral Tracheal Aspirate HEAVY GROWTH NORMAL RESPIRATORY THANIA... 08/04/16 20:00 Acid Fast Stain - Final Resulted Sputum Oral Tracheal Aspirate NO ACID FAST BACILLI SEEN 08/04/16 20:00 Mycobacterial Culture Resulted Sputum Oral Tracheal Aspirate Pending 08/04/16 19:15 Urine Culture - Preliminary Resulted Urine Random Urine RESULTS PENDING 08/04/16 19:15 Legionella Antigen - Final Complete Urine Catheterized Urine Pos For Legionella Antigen 08/04/16 18:55 Aerobic Blood Culture - Preliminary Resulted Blood Peripheral NO GROWTH IN 1 DAY 08/04/16 18:55 Anaerobic Blood Culture - Preliminary Resulted Blood Peripheral NO GROWTH IN 1 DAY Result Diagram: 08/05/16 0441 08/05/16 0441 Imaging Last Impressions Chest X-Ray 08/04/16 1832 Signed Impressions: Service Date/Time: Thursday, August 04, 2016 18:50 - CONCLUSION: Extensive bilateral airspace disease greater in the left lung. There may be pneumomediastinum. Perico Wahl MD Assessment and Plan Problem List: (1) Acute renal failure superimposed on stage 3 chronic kidney disease Plan: baseline creatinine 1.94, GFR 35 CHAN may be due to sepsis, hypotension, and diminished renal perfusion he also reports vomiting/diarrhea prior to admission, may have been dehydrated check urine electrolytes, check renal US quantify proteinuria no current electrolyte disorders minimal improvement in renal function overnight has Miryam, he is non oliguric at this time reduce IVF from 200 cc/hr to 75 cc/hr, monitor response may need diuresis in upcoming days pressors if needed to maintain adequate MAP > 65 mmHg avoid nephrotoxins daily renal panel (2) Acute respiratory failure Plan: vent management by nurse sitter on A/C 20/550/80/14 (3) Pneumonia Plan: Blood culture negative x 1 day + legionella in urine he is on Zithromax and cefepime to be placed on rotoprone bed tomorrow (4) Hyperglycemia Plan: may be due to steroid use monitor glucose insulin if needed Problem Qualifiers (1) Acute respiratory failure: Qualified Code: J96.01 - Acute respiratory failure with hypoxia and hypercapnia (2) Pneumonia: Qualified Code: J18.9 - Pneumonia of both lungs due to infectious organism, unspecified part of lung Marium Diana [facility] Aug 05, 2016 14:48
[2016-08-05] MEDS ORDERED: DIGOXIN 0.5 MG/2 ML VIAL IV PUSH STA (15:28)
[2016-08-05] MEDS ORDERED: AMIODARONE INJ 150 MG in DEXTROSE 5% IN WATER 100ML INJ 97 ML IV ONE ×2 (15:30)
[2016-08-05] MEDS ORDERED: DIGOXIN 0.5 MG/2 ML VIAL ONE (15:30)
--- NOTE | 2016-08-05 15:57 | PD.CONS ---
History of Present Illness Service Infectious Disease Consult Requested By Dr Nazario Duran Reason for Consult Evaluate patient with sepsis and Legionella PNA Primary Care Physician Unknown Diagnoses: History of Present Illness Patient seen and examined. Records reviewed Patient is a 60-year-old male, brought into the hospital for evaluation of shortness of breath, cough, nausea and vomiting, as well as diarrhea. He apparently has been sick for a little over 2 weeks, but his symptoms have been worsening over the last 4-5 days. He brings up some yellow phlegm, and at times it would be somewhat cifuentes. There is been no hemoptysis. He has not had any chest pain. There is been no fever or chills. He denies any ear problem. He has no recent travel. He lives with 3 other people, and no one else in the house has been sick. EMS was called, and his oxygen saturation was about 80%. Patient got intubated, and currently he is on the vent, FiO2 at 80%. He is not hypotensive. His chest x-ray showed bilateral pulmonary infiltrates. Urine for Legionella antigen came back positive. Patient also has acute renal failure , but still making some urine. Nephrology has been evaluating the patient. Patient also has atrial fibrillation with RVR, and is on Cordarone drip. Infectious disease consultation has been requested to evaluate the patient. Review of Systems ROS Limitations: Clinical Condition, Intubated Constitutional: DENIES: Fever, Chills Ears, nose, mouth, throat: DENIES: Throat pain, Ear Pain Respiratory: COMPLAINS OF: Cough, Sputum production, Shortness of breath Cardiovascular: DENIES: Chest pain, Syncope Gastrointestinal: COMPLAINS OF: Diarrhea, Nausea, Vomiting, DENIES: Abdominal pain Genitourinary: DENIES: Dysuria Musculoskeletal: DENIES: Joint pain, Muscle aches Integumentary: DENIES: Rash Past Family Social History Allergies: Coded Allergies: No Known Allergies (Unverified , 07/31/16) Past Medical History Asthma Anxiety, Depression Hypertension Headache, ?migraine 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 2016 Past Surgical History R shoulder surgery Active Ordered Medications Tylenol Albuterol Cordarone Azithromycin Cefepime Lovenox Fentanyl Lactulose Ativan Solumedrol Morphine Zofran Protonix Diprivan Senna Social History No smoking Occ ETOH smokes marijuana Physical Exam Vital Signs Vital Signs Date Time Temp Pulse Resp B/P Pulse Ox O2 Delivery O2 Flow Rate FiO2 08/05/16 14:00 125 08/05/16 13:00 93 80 08/05/16 12:00 80 08/05/16 12:00 97.6 86 22 102/58 94 08/05/16 12:00 86 08/05/16 10:21 95 100 08/05/16 10:00 87 08/05/16 09:31 90 100 08/05/16 09:26 90 90 08/05/16 08:00 97.6 99 23 141/71 98 08/05/16 08:00 99 08/05/16 07:56 98 85 08/05/16 06:00 89 08/05/16 04:57 95 100 08/05/16 04:01 97 100 08/05/16 04:00 89 08/05/16 04:00 98.6 89 18 104/55 97 08/05/16 03:06 94 100 08/05/16 02:00 88 08/05/16 00:00 101 08/05/16 00:00 98.8 101 12 90/52 91 08/04/16 23:58 93 100 08/04/16 22:29 97 100 08/04/16 22:28 98.9 133 18 141/73 97 08/04/16 22:05 100 100 08/04/16 22:00 130 08/04/16 21:17 120 10 150/65 91 Auto-Vent 100 08/04/16 21:04 114 16 89/49 82 Auto-Vent 100 08/04/16 20:30 100 08/04/16 20:29 118 16 105/53 88 Auto-Vent 100 08/04/16 19:19 125 16 145/72 96 Auto-Vent 100 08/04/16 19:18 96 Auto-Vent 100 08/04/16 19:18 96 Auto-Vent 100 08/04/16 19:10 100 08/04/16 19:10 93 100 08/04/16 18:45 88 BiPAP 100 08/04/16 18:45 87 BiPAP 100 08/04/16 18:45 88 100 08/04/16 18:30 98.5 112 24 105/61 77 Room Air 08/04/16 18:30 98.5 124 24 105/61 77 Physical Exam GENERAL: This is a well-nourished, well-developed male, intubated, on sedation, but he is awake and interactive. He looks comfortable on the current vent settings. SKIN: Cool and moist. No generalized rash, no ecchymosis. HEAD: Atraumatic. Normocephalic. No temporal or scalp tenderness. EYES: Crum conjunctivae, no petechia or hemorrhage. Pupils equal round and reactive. Extraocular motions intact. No scleral icterus. No injection or drainage. ENT: Nose without bleeding, or purulent drainage. He is orally intubated, has moist oral mucosa. NECK: Trachea midline. No JVD or lymphadenopathy. Supple, nontender, no meningeal signs. CARDIOVASCULAR: Tachycardic, with irregular rate and rhythm without murmurs, gallops, or rubs. RESPIRATORY: Decreased breath sounds bilaterally, with scattered rales. No wheezing or rhonchi. GASTROINTESTINAL: Abdomen soft, globular, non-tender, nondistended. Bowel sounds are present and normoactive. No hepato-splenomegaly, or palpable masses. No guarding. MUSCULOSKELETAL: Extremities without clubbing, cyanosis, or edema. No joint effusion, or edema noted. No calf tenderness. Both feet are warm. NEUROLOGICAL: Awake and alert. Following commands. No facial asymmetry. Motor grossly within normal limits. No Babinski. PSYCH: Unable to fully assess LINE: LSC TLC with no evidence of infection : Witt cath in place, urine looks clear Laboratory Laboratory Tests Test 08/04/16 08/04/16 08/04/16 08/04/16 18:45 18:55 19:15 20:22 White Blood Count 15.6 Red Blood Count 4.62 Hemoglobin 14.6 Hematocrit 43.1 Mean Corpuscular Volume 93.3 Mean Corpuscular Hemoglobin 31.7 Mean Corpuscular Hemoglobin 34.0 Concent Red Cell Distribution Width 13.6 Platelet Count 250 Mean Platelet Volume 8.7 Neutrophils (%) (Auto) 97.6 Lymphocytes (%) (Auto) 1.1 Monocytes (%) (Auto) 0.6 Eosinophils (%) (Auto) 0.3 Basophils (%) (Auto) 0.4 Neutrophils # (Auto) 15.2 Lymphocytes # (Auto) 0.2 Monocytes # (Auto) 0.1 Eosinophils # (Auto) 0.0 Basophils # (Auto) 0.1 CBC Comment AUTO DIFF Differential Total Cells 100 Counted Neutrophils % (Manual) 59 Band Neutrophils % 38 Lymphocytes % 1 Monocytes % 1 Neutrophils # (Manual) 15.3 Metamyelocytes 1 Differential Comment FINAL DIFF MANUAL Toxic Granulation 1+ Toxic Vacuolation PRESENT Platelet Estimate NORMAL Platelet Morphology Comment NORMAL Red Cell Morphology Comment NORMAL Sodium Level 132 Potassium Level 5.4 Chloride Level 95 Carbon Dioxide Level 22.9 Anion Gap 14 Blood Urea Nitrogen 50 Creatinine 3.36 Estimat Glomerular Filtration 19 Rate Random Glucose 103 Calcium Level 8.8 Total Bilirubin 1.6 Aspartate Amino Transf 91 (AST/SGOT) Alanine Aminotransferase 41 (ALT/SGPT) Alkaline Phosphatase 63 Total Creatine Kinase 207 Troponin I LESS THAN 0.02 B-Type Natriuretic Peptide 23 Total Protein 7.4 Albumin 2.0 Lactic Acid Level 2.3 Urine Color ORANGE Urine Turbidity CLOUDY Urine pH 5.5 Urine Specific [place] 1.019 Urine Protein 30 Urine Glucose (UA) NEG Urine Ketones NEG Urine Occult Blood SMALL Urine Nitrite NEG Urine Bilirubin SMALL Urine Urobilinogen 4.0 Urine Leukocyte Esterase NEG Urine RBC 6 Urine WBC 21 Urine Squamous Epithelial 6 Cells Urine Amorphous Sediment RARE Urine Bacteria MOD Urine Hyaline Casts 43 Urine Mucus MANY Microscopic Urinalysis Comment CULTURE INDICATED Blood Gas Puncture Site RT RADIAL Blood Gas Patient Temperature 98.6 Blood Gas HCO3 21 Blood Gas Base Excess -4.6 Blood Gas Oxygen Saturation 87 Arterial Blood pH 7.28 Arterial Blood Partial 46 Pressure CO2 Arterial Blood Partial 65 Pressure O2 Arterial Blood Oxygen Content 15.6 Arterial Blood 0.6 Carboxyhemoglobin Arterial Blood Methemoglobin 0.6 Blood Gas Hemoglobin 12.7 Oxygen Delivery Device VENTILATOR Blood Gas Ventilator Setting AC/16/650/PEEP7 Blood Gas Inspired Oxygen 100 Test 08/04/16 08/04/16 08/05/16 08/05/16 22:00 22:30 00:03 03:15 Blood Gas Puncture Site RT RADIAL RT RADIAL Blood Gas Patient Temperature 98.6 98.6 Blood Gas HCO3 23 21 Blood Gas Base Excess -4.7 -5.4 Blood Gas Oxygen Saturation 96 94 Arterial Blood pH 7.18 7.23 Arterial Blood Partial 63 51 Pressure CO2 Arterial Blood Partial 118 105 Pressure O2 Arterial Blood Oxygen Content 19.4 16.5 Arterial Blood 0.0 0.7 Carboxyhemoglobin Arterial Blood Methemoglobin 0.6 1.2 Blood Gas Hemoglobin 14.3 12.4 Oxygen Delivery Device VENTILATOR VENTILATOR Blood Gas Ventilator Setting APRV SEE COMMENT Blood Gas Inspired Oxygen 100 100 Nasal Screen MRSA (PCR) MRSA NOT DETECTED Lactic Acid Level 1.3 Test 08/05/16 04:41 White Blood Count 10.5 Red Blood Count 3.83 Hemoglobin 12.2 Hematocrit 36.3 Mean Corpuscular Volume 94.8 Mean Corpuscular Hemoglobin 32.0 Mean Corpuscular Hemoglobin 33.7 Concent Red Cell Distribution Width 13.7 Platelet Count 167 Mean Platelet Volume 8.4 Neutrophils (%) (Auto) 96.3 Lymphocytes (%) (Auto) 2.1 Monocytes (%) (Auto) 1.2 Eosinophils (%) (Auto) 0.1 Basophils (%) (Auto) 0.3 Neutrophils # (Auto) 10.1 Lymphocytes # (Auto) 0.2 Monocytes # (Auto) 0.1 Eosinophils # (Auto) 0.0 Basophils # (Auto) 0.0 CBC Comment AUTO DIFF Differential Total Cells 100 Counted Neutrophils % (Manual) 63 Band Neutrophils % 33 Lymphocytes % 4 Neutrophils # (Manual) 10.1 Differential Comment FINAL DIFF MANUAL Platelet Estimate NORMAL Platelet Morphology Comment NORMAL Red Cell Morphology Comment NORMAL Sodium Level 137 Potassium Level 4.9 Chloride Level 105 Carbon Dioxide Level 24.9 Anion Gap 7 Blood Urea Nitrogen 55 Creatinine 3.30 Estimat Glomerular Filtration 19 Rate Random Glucose 171 Lactic Acid Level 1.3 Calcium Level 7.8 Total Bilirubin 1.8 Aspartate Amino Transf 83 (AST/SGOT) Alanine Aminotransferase 39 (ALT/SGPT) Alkaline Phosphatase 48 Total Protein 5.9 Albumin 1.6 Date/Time Procedure Status Source Growth 08/04/16 20:00 Gram Stain - Final Resulted Sputum Oral Tracheal Aspirate 08/04/16 20:00 Sputum Culture - Preliminary Resulted Sputum Oral Tracheal Aspirate HEAVY GROWTH NORMAL RESPIRATORY THANIA... 08/04/16 20:00 Acid Fast Stain - Final Resulted Sputum Oral Tracheal Aspirate NO ACID FAST BACILLI SEEN 08/04/16 20:00 Mycobacterial Culture Resulted Sputum Oral Tracheal Aspirate Pending 08/04/16 19:15 Urine Culture - Preliminary Resulted Urine Random Urine RESULTS PENDING 08/04/16 19:15 Legionella Antigen - Final Complete Urine Catheterized Urine Pos For Legionella Antigen 08/04/16 18:55 Aerobic Blood Culture - Preliminary Resulted Blood Peripheral NO GROWTH IN 1 DAY 08/04/16 18:55 Anaerobic Blood Culture - Preliminary Resulted Blood Peripheral NO GROWTH IN 1 DAY Result Diagram: 08/05/1644008/05/16 0441 Imaging Chest X-Ray 08/04/16 1832 Signed Impressions: Service Date/Time: Thursday, August 04, 2016 18:50 - CONCLUSION: Extensive bilateral airspace disease greater in the left lung. There may be pneumomediastinum. Perico Wahl MD Assessment and Plan Assessment and Plan IMPRESSION Severe bilateral pneumonia, (+) Legionella Respiratory failure, with significant hypoxemia Hx anxiety/depression RECOMMENDATION Continue current Abx: Cefepime and Zithromax Add Levaquin - some studies of some benefit with 2 therapy for severe Pcases If nothing else on C/S, stop Cefepime Follow C/S Monitor progress To be placed on rotaprone bed tomorrow I will follow along with you Thank you for this consultation Discussed Condition With D/W Kyleigh Duarte MD Aug 05, 2016 15:56
--- NOTE | 2016-08-05 16:00 | HHI.CCPN ---
Subjective Remarks/Hospital Course 08/04: 60 y/o man with several week history of weakness, fatigue; fevers and sweats over past week. Today with severe SOB, arrived by EMS with hypoxemia. CO2 retention as well in ED. Required intubation in ED. Creatinine > 3.0 and severely dehydrated. 08/05: Remains sedated, orally intubated on mechanical ventilation. He remains at PEEP+14, FiO2 decreased to 80%. Urine positive for Legionella Ag. Went into A. fib with RVR. Objective Vital Signs Date Time Temp Pulse Resp B/P Pulse Ox O2 Delivery O2 Flow Rate FiO2 08/05/16 14:00 125 08/05/16 13:00 93 80 08/05/16 12:00 97.6 22 102/58 08/04/16 21:17 Auto-Vent Result Diagram: 08/05/16 0441 08/05/16 0441 Other Results Microbiology Date/Time Procedure Status Source Growth 08/04/16 19:15 Legionella Antigen - Final Complete Urine Catheterized Urine Pos For Legionella Antigen Laboratory Tests Test 08/04/16 08/04/16 08/05/16 20:22 22:00 03:15 Blood Gas Puncture Site RT RADIAL RT RADIAL RT RADIAL Blood Gas Patient Temperature 98.6 98.6 98.6 Blood Gas HCO3 21 mmol/L 23 mmol/L 21 mmol/L (22-26) (22-26) (22-26) Blood Gas Base Excess -4.6 mmol/L -4.7 mmol/L -5.4 mmol/L (-2-2) (-2-2) (-2-2) Blood Gas Oxygen Saturation 87 % (90-100) 96 % (90-100) 94 % (90-100) Arterial Blood pH 7.28 7.18 7.23 (7.380-7.420) (7.380-7.420) (7.380-7.420) Arterial Blood Partial 46 mmHg (38-42) 63 mmHg (38-42) 51 mmHg (38-42) Pressure CO2 Arterial Blood Partial 65 mmHG 118 mmHG 105 mmHg Pressure O2 (61-120) (61-120) (61-120) Arterial Blood Oxygen Content 15.6 Vol % 19.4 Vol % 16.5 Vol % (12.0-20.0) (12.0-20.0) (12.0-20.0) Arterial Blood 0.6 % (0-4) 0.0 % (0-4) 0.7 % (0-4) Carboxyhemoglobin Arterial Blood Methemoglobin 0.6 % (0-2) 0.6 % (0-2) 1.2 % (0-2) Blood Gas Hemoglobin 12.7 G/DL 14.3 G/DL 12.4 G/DL (12.0-16.0) (12.0-16.0) (12.0-16.0) Oxygen Delivery Device VENTILATOR VENTILATOR VENTILATOR Blood Gas Ventilator Setting AC/16/650/PEEP7 APRV SEE COMMENT Blood Gas Inspired Oxygen 100 % 100 % 100 % Imaging Last Impressions Chest X-Ray 08/04/16 1832 Signed Impressions: Service Date/Time: Thursday, August 04, 2016 18:50 - CONCLUSION: Extensive bilateral airspace disease greater in the left lung. There may be pneumomediastinum. Perico Wahl MD Objective Remarks Gen: Pale, ill-appearing HEENT: Positive pallor, no icterus. Orally intubated. Mucosa moist. Neck: Supple, orally intubated. Lungs: Orally intubated on mechanical ventilation, air entry decreased bilaterally at bases, bilateral rhonchi Heart: NL S1S2 irregularly irregular, no JVD. Abdomen: Soft, NT, ND, no guarding. Extremities: Warm bilaterally, no edema Neuro: Sedated, orally intubated on mechanical ventilation. A/P Assessment and Plan Assessment: 1. Severe Sepsis. 2. Hypoxemic Respiratory Failure. 3. Legionella Pneumonia 4. ARDS 5. CKD with CHAN 6. A. fib with RVR 7. Hx depression with recent ECT 2016 Neuro: Continue sedation with propofol/fentanyl gtt. No sedation vacation while requiring high PEEP and FiO2. Cardiovascular: IV hydration, watch for hypotension. Digoxin 0.5 mg IV stat for A. fib with RVR. Initiating amiodarone 150 mg bolus followed by drip per protocol. Pulmonary: Continue mechanical ventilation, PRVC mode: PEEP +14, FiO2 80%. Vent bundle, bronchodilators, pulmonary toilet. We will initiate prone ventilation if unable to titrate down FiO2. Decrease Solu-Medrol to 80 mg IV every 12 hourly GI/liver: Tube feeds as tolerated. Renal/: IV hydration, strict intake output, monitor and replete elect lites, follow BUN/creatinine. Nephrology consulted for history of present illness/CKD. Heme: Follow CBC ID: Continue antibiotic coverage with IV Zithromax/cefepime. ID consult requested. Urine positive for Legionella antigen. Endocrine: SSI for glycemic control Prophylaxis: PPI/SCDs/Lovenox Discussed with ID - Dr. Nichols. Overall impression: Critically ill with severe sepsis, renal failure, and hypoxemic respiratory failure with legionella pneumonia. He will require mechanical ventilation for at least 3 days and is probably going to end up on dialysis. Critical Care 45 mins aside from procedures. Viet Duran MD Aug 05, 2016 16:00
[2016-08-05] MEDS: AMIODARONE INJ 450 MG in DEXTROSE 5% IN WATE(EXCEL) INJ 250 ML IV SCH ×4 (16:04→23:32)
[2016-08-05] MEDS ORDERED: CISATRACURIUM BESYLATE 20 MG/10 ML VIAL IVP ONE (16:30)
[2016-08-05] MEDS ORDERED: CALCIUM GLUCONATE INJ 2 GM in DEXTROSE 5% IN WATER 100ML INJ 100 ML IV ONE ×2 (17:00)
[2016-08-05] MEDS: LEVOFLOXACIN 250 MG PREMIX INJ 50 ML IV SCH (17:31)
[2016-08-05] MEDS: MAGNESIUM SULFATE 1 GM PREMIX 100 ML IV SCH ×2 (17:31→18:24)
--- NOTE | 2016-08-05 18:08 | PD.CONS ---
HPI Consult Requested By Primary Care Physician Unknown Past Family Social History Allergies: Coded Allergies: No Known Allergies (Unverified , 07/31/16) Physical Exam Vital Signs Vital Signs Date Time Temp Pulse Resp B/P Pulse Ox O2 Delivery O2 Flow Rate FiO2 08/05/16 16:52 90 100 08/05/16 14:00 125 08/05/16 13:00 93 80 08/05/16 12:00 80 08/05/16 12:00 97.6 86 22 102/58 94 08/05/16 12:00 86 08/05/16 10:21 95 100 08/05/16 10:00 87 08/05/16 09:31 90 100 08/05/16 09:26 90 90 08/05/16 08:00 97.6 99 23 141/71 98 08/05/16 08:00 99 08/05/16 07:56 98 85 08/05/16 06:00 89 08/05/16 04:57 95 100 08/05/16 04:01 97 100 08/05/16 04:00 89 08/05/16 04:00 98.6 89 18 104/55 97 08/05/16 03:06 94 100 08/05/16 02:00 88 08/05/16 00:00 101 08/05/16 00:00 98.8 101 12 90/52 91 08/04/16 23:58 93 100 08/04/16 22:29 97 100 08/04/16 22:28 98.9 133 18 141/73 97 08/04/16 22:05 100 100 08/04/16 22:00 130 08/04/16 21:17 120 10 150/65 91 Auto-Vent 100 08/04/16 21:04 114 16 89/49 82 Auto-Vent 100 08/04/16 20:30 100 08/04/16 20:29 118 16 105/53 88 Auto-Vent 100 08/04/16 19:19 125 16 145/72 96 Auto-Vent 100 08/04/16 19:18 96 Auto-Vent 100 08/04/16 19:18 96 Auto-Vent 100 08/04/16 19:10 100 08/04/16 19:10 93 100 08/04/16 18:45 88 BiPAP 100 08/04/16 18:45 87 BiPAP 100 08/04/16 18:45 88 100 08/04/16 18:30 98.5 112 24 105/61 77 Room Air 08/04/16 18:30 98.5 124 24 105/61 77 Laboratory Laboratory Tests Test 08/04/16 08/04/16 08/04/16 08/04/16 18:45 18:55 19:15 20:22 White Blood Count 15.6 Red Blood Count 4.62 Hemoglobin 14.6 Hematocrit 43.1 Mean Corpuscular Volume 93.3 Mean Corpuscular Hemoglobin 31.7 Mean Corpuscular Hemoglobin 34.0 Concent Red Cell Distribution Width 13.6 Platelet Count 250 Mean Platelet Volume 8.7 Neutrophils (%) (Auto) 97.6 Lymphocytes (%) (Auto) 1.1 Monocytes (%) (Auto) 0.6 Eosinophils (%) (Auto) 0.3 Basophils (%) (Auto) 0.4 Neutrophils # (Auto) 15.2 Lymphocytes # (Auto) 0.2 Monocytes # (Auto) 0.1 Eosinophils # (Auto) 0.0 Basophils # (Auto) 0.1 CBC Comment AUTO DIFF Differential Total Cells 100 Counted Neutrophils % (Manual) 59 Band Neutrophils % 38 Lymphocytes % 1 Monocytes % 1 Neutrophils # (Manual) 15.3 Metamyelocytes 1 Differential Comment FINAL DIFF MANUAL Toxic Granulation 1+ Toxic Vacuolation PRESENT Platelet Estimate NORMAL Platelet Morphology Comment NORMAL Red Cell Morphology Comment NORMAL Sodium Level 132 Potassium Level 5.4 Chloride Level 95 Carbon Dioxide Level 22.9 Anion Gap 14 Blood Urea Nitrogen 50 Creatinine 3.36 Estimat Glomerular Filtration 19 Rate Random Glucose 103 Calcium Level 8.8 Total Bilirubin 1.6 Aspartate Amino Transf 91 (AST/SGOT) Alanine Aminotransferase 41 (ALT/SGPT) Alkaline Phosphatase 63 Total Creatine Kinase 207 Troponin I LESS THAN 0.02 B-Type Natriuretic Peptide 23 Total Protein 7.4 Albumin 2.0 Lactic Acid Level 2.3 Urine Color ORANGE Urine Turbidity CLOUDY Urine pH 5.5 Urine Specific [place] 1.019 Urine Protein 30 Urine Glucose (UA) NEG Urine Ketones NEG Urine Occult Blood SMALL Urine Nitrite NEG Urine Bilirubin SMALL Urine Urobilinogen 4.0 Urine Leukocyte Esterase NEG Urine RBC 6 Urine WBC 21 Urine Squamous Epithelial 6 Cells Urine Amorphous Sediment RARE Urine Bacteria MOD Urine Hyaline Casts 43 Urine Mucus MANY Microscopic Urinalysis Comment CULTURE INDICATED Blood Gas Puncture Site RT RADIAL Blood Gas Patient Temperature 98.6 Blood Gas HCO3 21 Blood Gas Base Excess -4.6 Blood Gas Oxygen Saturation 87 Arterial Blood pH 7.28 Arterial Blood Partial 46 Pressure CO2 Arterial Blood Partial 65 Pressure O2 Arterial Blood Oxygen Content 15.6 Arterial Blood 0.6 Carboxyhemoglobin Arterial Blood Methemoglobin 0.6 Blood Gas Hemoglobin 12.7 Oxygen Delivery Device VENTILATOR Blood Gas Ventilator Setting AC/16/650/PEEP7 Blood Gas Inspired Oxygen 100 Test 08/04/16 08/04/16 08/05/16 08/05/16 22:00 22:30 00:03 03:15 Blood Gas Puncture Site RT RADIAL RT RADIAL Blood Gas Patient Temperature 98.6 98.6 Blood Gas HCO3 23 21 Blood Gas Base Excess -4.7 -5.4 Blood Gas Oxygen Saturation 96 94 Arterial Blood pH 7.18 7.23 Arterial Blood Partial 63 51 Pressure CO2 Arterial Blood Partial 118 105 Pressure O2 Arterial Blood Oxygen Content 19.4 16.5 Arterial Blood 0.0 0.7 Carboxyhemoglobin Arterial Blood Methemoglobin 0.6 1.2 Blood Gas Hemoglobin 14.3 12.4 Oxygen Delivery Device VENTILATOR VENTILATOR Blood Gas Ventilator Setting APRV SEE COMMENT Blood Gas Inspired Oxygen 100 100 Nasal Screen MRSA (PCR) MRSA NOT DETECTED Lactic Acid Level 1.3 Test 08/05/16 04:41 White Blood Count 10.5 Red Blood Count 3.83 Hemoglobin 12.2 Hematocrit 36.3 Mean Corpuscular Volume 94.8 Mean Corpuscular Hemoglobin 32.0 Mean Corpuscular Hemoglobin 33.7 Concent Red Cell Distribution Width 13.7 Platelet Count 167 Mean Platelet Volume 8.4 Neutrophils (%) (Auto) 96.3 Lymphocytes (%) (Auto) 2.1 Monocytes (%) (Auto) 1.2 Eosinophils (%) (Auto) 0.1 Basophils (%) (Auto) 0.3 Neutrophils # (Auto) 10.1 Lymphocytes # (Auto) 0.2 Monocytes # (Auto) 0.1 Eosinophils # (Auto) 0.0 Basophils # (Auto) 0.0 CBC Comment AUTO DIFF Differential Total Cells 100 Counted Neutrophils % (Manual) 63 Band Neutrophils % 33 Lymphocytes % 4 Neutrophils # (Manual) 10.1 Differential Comment FINAL DIFF MANUAL Platelet Estimate NORMAL Platelet Morphology Comment NORMAL Red Cell Morphology Comment NORMAL Sodium Level 137 Potassium Level 4.9 Chloride Level 105 Carbon Dioxide Level 24.9 Anion Gap 7 Blood Urea Nitrogen 55 Creatinine 3.30 Estimat Glomerular Filtration 19 Rate Random Glucose 171 Lactic Acid Level 1.3 Calcium Level 7.8 Total Bilirubin 1.8 Aspartate Amino Transf 83 (AST/SGOT) Alanine Aminotransferase 39 (ALT/SGPT) Alkaline Phosphatase 48 Total Protein 5.9 Albumin 1.6 Date/Time Procedure Status Source Growth 08/04/16 20:00 Gram Stain - Final Resulted Sputum Oral Tracheal Aspirate 08/04/16 20:00 Sputum Culture - Preliminary Resulted Sputum Oral Tracheal Aspirate HEAVY GROWTH NORMAL RESPIRATORY THANIA... 08/04/16 20:00 Acid Fast Stain - Final Resulted Sputum Oral Tracheal Aspirate NO ACID FAST BACILLI SEEN 08/04/16 20:00 Mycobacterial Culture Resulted Sputum Oral Tracheal Aspirate Pending 08/04/16 19:15 Urine Culture - Preliminary Resulted Urine Random Urine RESULTS PENDING 08/04/16 19:15 Legionella Antigen - Final Complete Urine Catheterized Urine Pos For Legionella Antigen 08/04/16 18:55 Aerobic Blood Culture - Preliminary Resulted Blood Peripheral NO GROWTH IN 1 DAY 08/04/16 18:55 Anaerobic Blood Culture - Preliminary Resulted Blood Peripheral NO GROWTH IN 1 DAY Result Diagram: 08/05/1644008/05/16440 Assessment and Plan Problem List: (1) Acute renal failure superimposed on stage 3 chronic kidney disease Plan: baseline creatinine 1.94, GFR 35 CHAN may be due to sepsis, hypotension, and diminished renal perfusion he also reports vomiting/diarrhea prior to admission, may have been dehydrated check urine electrolytes, check renal US quantify proteinuria no current electrolyte disorders minimal improvement in renal function overnight has Miryam, he is non oliguric at this time reduce IVF from 200 cc/hr to 75 cc/hr, monitor response may need diuresis in upcoming days pressors if needed to maintain adequate MAP > 65 mmHg avoid nephrotoxins daily renal panel (2) Acute respiratory failure Plan: vent management by checker cashier on A/C 20/550/80/14 (3) Pneumonia Plan: Blood culture negative x 1 day + legionella in urine he is on Zithromax and cefepime to be placed on rotoprone bed tomorrow (4) Hyperglycemia Plan: may be due to steroid use monitor glucose insulin if needed Discussed Condition With patient was seen and examined. ARDS picture with Legionella pneumonia. Acute on chronic kidney disease, likely due to ATN. May need dialysis. At this time, recommend to minimize IVF administration. Avoid nephrotoxins. ID note reviewed. Will be on Zithromax and Levaquin. Prognosis is guarded. We will follow. Problem Qualifiers (1) Acute respiratory failure: Qualified Code: J96.01 - Acute respiratory failure with hypoxia and hypercapnia (2) Pneumonia: Qualified Code: J18.9 - Pneumonia of both lungs due to infectious organism, unspecified part of lung Kevin Hernandez MD Aug 05, 2016 18:08
[2016-08-05] MEDS: fentaNYL DRIP 250 ML IV SCH (19:35)
[2016-08-05] MEDS: AZITHROMYCIN INJ 500 MG in SODIUM CHLOR 0.9% 250 ML INJ 250 ML IV SCH (19:35)
[2016-08-05] MEDS: CEFEPIME INJ 2,000 MG in SODIUM CHLORIDE 0.9% INJ 100 ML IV SCH (20:16)
[2016-08-05] MEDS ORDERED: TERBUTALINE INJ 1 MG/ML AMP SQ PRN (20:30)
--- NOTE | 2016-08-05 21:43 | RADRPT ---
EXAM DATE/TIME: 08/05/2016 21:01 [facility] COMPARISON: US KIDNEY/RENAL/BLADDER, June 13, 2016, 10:15. INDICATIONS : Increased BUN/creatinine. MEDICAL HISTORY : Hypertension. Asthma. Depression. Anxiety. Substance use. SURGICAL HISTORY : Right shoulder surgery. ENCOUNTER: Subsequent ACUITY: 1 day PAIN SCORE: Nonresponsive. LOCATION: Bilateral flank MEASUREMENTS: RIGHT KIDNEY: 11.6 x 6.2 x 4.9 cm LEFT KIDNEY: 11.8 x 5.6 x 5.3 cm FINDINGS: RIGHT KIDNEY: Renal cortex is normal in thickness and echotexture. 13 mm simple appearing right upper pole cyst. N o hydronephrosis, stone, or solid mass. LEFT KIDNEY: Renal cortex is normal in thickness and echotexture. No hydronephrosis, stone, or mass. BLADDER: Decompressed with a Witt catheter, grossly unremarkable. Small left pleural effusion evident. CONCLUSION: 1. No evidence of obstruction or other acute renal abnormality. 2. Small, benign appearing cyst of the right kidney. 3. Witt catheter present. Efrain Syed MD on August 05, 2016 at 21:39 Board Certified Radiologist. This report was verified electronically.
[2016-08-05] MEDS: PHENYLEPHRINE 40 MG/D5W 496 ML ADMIX IV SCH ×4 (21:44→23:33)
[2016-08-05 23:20] LABS: BLOOD GAS CARBOXYHEMOGLOBIN 0.5 % (0-4); BLOOD GAS HCO3 19 mmol/L (22-26); BLOOD GAS METHEMOGLOBIN 1.3 % (0-2); BLOOD GAS O2 HGB SATURATION 94 % (90-100); BLOOD GAS OXYGEN CONTENT 17.2 Vol % (12.0-20.0); BLOOD GAS PCO2 52 mmHg (38-42); BLOOD GAS PO2 107 mmHg (61-120); BLOOD GAS TOTAL HGB 12.9 G/DL (12.0-16.0); CRITICAL VALUE YES; TEMP CORR TO 98.6
[2016-08-05 23:21] LABS: OXYGEN DEVICE VENTILATOR
[2016-08-05 23:22] LABS: DRAW SITE ART LINE; FIO2 100 %; STAT NO; VENT SETTINGS BILEVEL/APRV
[2016-08-06] VITALS (17 sets, daily range): BP systolic 99–120; BP diastolic 55–88; PULSE 81–113; RESP 11–20; TEMP 97.3–98.4; O2SAT 93–98
[2016-08-06] MEDS: CHLORHEXIDINE GLUCONATE 2 % 1 PACK (2 CLOTHS) TOP SCH (02:52)
[2016-08-06] MEDS: PHENYLEPHRINE 40 MG/D5W 496 ML ADMIX IV SCH ×2 (02:52)
[2016-08-06] MEDS: RESP: ALBUTEROL 2.5 MG/IPRATROPIUM 0.5 MG NEB (SCH) INH ×4 (03:15→20:03)
--- NOTE | 2016-08-06 04:23 | RADRPT ---
EXAM DATE/TIME: 08/06/2016 03:00 [facility] COMPARISON: CHEST SINGLE AP, August 04, 2016, 21:34. INDICATIONS : Shortness of breath MEDICAL HISTORY : Hypertension. Asthma. SURGICAL HISTORY : None. ENCOUNTER: Initial ACUITY: 1 day PAIN SCORE: Non-responsive. LOCATION: Bilateral chest FINDINGS: The support devices remain in place. There has been no significant change of the bilateral interstiti al and airspace pulmonary infiltrates. No evidence of pneumothorax. Heart size is stable. No signific ant pleural effusions. CONCLUSION: No significant interval change with bilateral pulmonary infiltrates. Ronny Joshi MD on August 06, 2016 at 4:22 Board Certified Radiologist. This report was verified electronically.
[2016-08-06] MEDS: ENOXAPARIN SODIUM 30 MG/0.3 ML SYRINGE SQ SCH (05:07)
[2016-08-06 05:42] LABS: AUTOMATED NEUTROPHIL # 17.8 TH/MM3 (1.8-7.7); BASOPHIL % 0.1 % (0.0-2.0); HEMATOCRIT 36.4 % (39.0-51.0); LYMPHOCYTE # 0.2 TH/MM3 (1.0-4.8); MEAN CELL VOLUME 95.7 FL (80.0-100.0); MEAN CORPUSCULAR HEMOGLOBIN 31.7 PG (27.0-34.0); MEAN CORPUSCULAR HGB CONC 33.1 % (32.0-36.0); MONO % 1.4 % (0.0-8.0); NEUT % 97.5 % (16.0-70.0); PLATELET COUNT 194 TH/MM3 (150-450); RED CELL DISTRIBUTION WIDTH 14.2 % (11.6-17.2); WHITE BLOOD COUNT 18.3 TH/MM3 (4.0-11.0)
[2016-08-06 05:47] LABS: HEMO FLAGS AUTO DIFF
[2016-08-06 06:16] LABS: ALKALINE PHOSPHATASE 60 U/L (45-117); ALT (GPT) 73 U/L (12-78); ANION GAP 8 MEQ/L (5-15); AST (GOT) 138 U/L (15-37); BICARBONATE 24.5 MEQ/L (21.0-32.0); BLOOD UREA NITROGEN 70 MG/DL (7-18); CHLORIDE 105 MEQ/L (98-107); GLOMERULAR FILTRATION RATE 18 ML/MIN (>89); MAGNESIUM 3.7 MG/DL (1.5-2.5); SODIUM (NA) 137 MEQ/L (136-145); TOTAL BILIRUBIN ADULT 1.6 MG/DL (0.2-1.0)
[2016-08-06] MEDS: PANTOPRAZOLE SODIUM 40 MG VIAL IV SCH (08:02)
[2016-08-06] MEDS: LACTULOSE SYRUP 20 GM/30 ML CUP PO SCH (08:02)
[2016-08-06] MEDS: methylPREDNISolone SOD SUCC 125 MG/2 ML VIAL IV PUSH SCH (08:03)
[2016-08-06] MEDS: CISATRACURIUM INJ 100 MG in SODIUM CHLOR 0.9% 250 ML INJ 240 ML IV SCH ×3 (08:04→22:52)
[2016-08-06] MEDS: fentaNYL DRIP 250 ML IV SCH ×3 (08:04→22:53)
[2016-08-06 08:21] LABS: BANDS 51 % (0-6); NEUTROPHIL # MANUAL DIFF 18.1 TH/MM3 (1.8-7.7); POLYS (SEG NEUTROPHILS) 48 % (16-70); WBC DIFF SAMPLE 100
[2016-08-06 08:22] LABS: BURR CELLS 1+ (NORMAL); PLATELET ESTIMATE SMEAR NORMAL (NORMAL); PLATELET MORPHOLOGY NORMAL (NORMAL); SCAN/DIFF FINAL DIFF MANUAL
[2016-08-06] MEDS ORDERED: PHENYLEPHRINE HCL 80 MG/D5W 492 ML ADMIX IV SCH ×2 (08:30)
[2016-08-06] MEDS ORDERED: MIDAZOLAM HCL 2 MG/2 ML VIAL IV ONE (09:00)
[2016-08-06 09:06] LABS: BLOOD GAS BASE EXCESS -7.7 mmol/L (-2-2); BLOOD GAS CARBOXYHEMOGLOBIN 0.9 % (0-4); BLOOD GAS HCO3 18 mmol/L (22-26); BLOOD GAS METHEMOGLOBIN 1.5 % (0-2); BLOOD GAS O2 HGB SATURATION 92 % (90-100); BLOOD GAS OXYGEN CONTENT 16.1 Vol % (12.0-20.0); BLOOD GAS PCO2 45 mmHg (38-42); BLOOD GAS PO2 88 mmHg (61-120); BLOOD GAS TOTAL HGB 12.3 G/DL (12.0-16.0); TEMP CORR TO 98.6
[2016-08-06 09:07] LABS: CRITICAL VALUE YES; OXYGEN DEVICE VENTILATOR; VENT SETTINGS PC/AC
[2016-08-06 09:08] LABS: DRAW SITE ART LINE; FIO2 70 %; STAT NO
[2016-08-06] MEDS ORDERED: FUROSEMIDE 40 MG/4 ML VIAL IV PUSH SCH (09:15)
[2016-08-06] MEDS ORDERED: SODIUM BICARBONATE 8.4% INJ 150 MEQ in WATER STERILE FOR INJ 850 ML IV SCH (10:00)
[2016-08-06] MEDS: VASOPRESSIN INJ 40 UNITS in DEXTROSE 5% IN WATER 100ML INJ 98 ML IV SCH ×2 (11:02)
[2016-08-06] MEDS: HYDROCORTISONE SOD SUCCINATE 100 MG VIAL IV PUSH SCH ×4 (11:10→23:01)
[2016-08-06] MEDS: CHLORHEXIDINE 0.12% (ORAL KIT) 15 ML CUP MT SCH ×2 (11:11→20:24)
--- NOTE | 2016-08-06 12:26 | HHI.NPPN ---
Subjective Renal Failure: Chronic, Acute Interval History He was placed on rotaprone bed. Intubated, sedated, on Nimbex. On 70% Fi02, PEEP 10. He went into A fib with RVR last night, is on amiodarone gtt but rate now controlled. (Marium Diana) Review of Systems General General Remarks unable to evaluate (Marium Diana) Objective Data Data 08/05/16 08/06/16 19:00 07:00 Intake Total 1914 ml 2402 ml Output Total 575 ml 1050 ml Balance 1339 ml 1352 ml Intake IV Total 1914 ml 2402 ml Output Urine Total 575 ml 1050 ml Vital Signs Date Time Temp Pulse Resp B/P Pulse Ox O2 Delivery O2 Flow Rate FiO2 08/06/16 11:47 96 70 08/06/16 08:10 95 80 08/06/16 06:00 94 08/06/16 04:15 95 100 08/06/16 04:00 97.3 103 11 120/61 95 08/06/16 04:00 103 08/06/16 04:00 100 08/06/16 02:00 113 08/06/16 00:00 98.4 113 20 115/63 93 08/06/16 00:00 113 08/06/16 00:00 100 08/05/16 22:30 93 100 08/05/16 22:00 104 08/05/16 20:00 97.8 103 20 99/62 91 08/05/16 20:00 90 08/05/16 20:00 103 08/05/16 19:53 93 50 08/05/16 18:00 115 08/05/16 16:52 90 100 08/05/16 16:00 98.2 132 20 110/55 90 08/05/16 16:00 90 08/05/16 16:00 132 08/05/16 14:00 125 08/05/16 13:00 93 80 (Marium Diana) -: 08/06/16 0445 08/06/16 0445 Imaging Last Impressions Chest X-Ray 08/06/16 0400 Signed Impressions: Service Date/Time: July 03:00 - CONCLUSION: No significant interval change with bilateral pulmonary infiltrates. Ronny Joshi MD Renal Ultrasound 08/05/16 1504 Signed Impressions: Service Date/Time: Friday, August 05, 2016 21:01 - CONCLUSION: 1. No evidence of obstruction or other acute renal abnormality. 2. Small, benign appearing cyst of the right kidney. 3. Witt catheter present. Efrain Syed MD Tubes & Lines: Witt Tubes & Lines Comment TLC Drip Comment fentanyl, propofol, nimbex, amiodarone, bicarbonate, vasopressin (Marium DianaP) Physical Exam General Appearance: Well Developed, Well Nourished, No Acute Distress Appearance Remarks difficult to examine in rotaprone bed (Marium DianaP) Throat Throat Remarks ETT (Marium Diana DROP WIRE STRINGER) Pulmonary Resp Exam: Breath Sounds Equal, Crackles (Marium Diana BJackie DROP WIRE STRINGER) Cardiology CV Exam: Good Perfusion, Irregular, Tachycardia (Marium DianaP) Genitourinary Exam: Clear Urine (Marium DianaP) Extremeties Extremities Exam: Pedal Pulses Palpable, Moderate Edema (Marium Diana DROP WIRE STRINGER) Neurologic Neuro Exam: Unresponsive, Sedated, Comatose (Marium Diana) Assessment/Plan Assessment Summary: CHAN/Acute Renal Failure, Fluid/Volume Overload, Hypotension Problem List: (1) Acute renal failure superimposed on stage 3 chronic kidney disease Plan: baseline creatinine 1.94, GFR 35 FeNa < 1% confirming prerenal etiology of renal failure from sepsis and hypotension with diminished renal perfusion dehydration may also contributed renal US benign aside from a cyst no current electrolyte disorders creatinine increased only sightly overnight has Witt, he is non oliguric he is fluid overloaded, stop bicarb gtt and change Lasix to Bumex 2 mg BID; monitor response if inadequate response and/or renal function worsens, he may need renal replacement therapy pressors if needed to maintain adequate MAP > 65 mmHg avoid nephrotoxins NPO now, begin phoslo when tube feeding has started for hyperphosphatemia daily renal panel (2) Acute respiratory failure Plan: vent management by wardsperson on A/C 20/600/70/15 ABG reviewed (3) Pneumonia Plan: Blood culture negative to date + legionella in urine he is on Zithromax and cefepime, Levaquin added ID following (4) Hyperglycemia Plan: may be due to steroid use monitor glucose insulin if needed (5) A-fib Plan: on amiodarone also on digoxin, monitor drug levels (Marium Diana) Plan patient was seen and examined. Stop IVF, continue diuretics. No immediate need for dialysis. (Kevin Hernandez MD) Problem Qualifiers (1) Acute respiratory failure: Qualified Code: J96.01 - Acute respiratory failure with hypoxia and hypercapnia (2) Pneumonia: Qualified Code: J18.9 - Pneumonia of both lungs due to infectious organism, unspecified part of lung Marium Diana Aug 06, 2016 12:26 Kevin Hernandez MD Aug 07, 2016 13:47
--- NOTE | 2016-08-06 14:35 | HHI.IDPN ---
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 Vital Signs Date Time Temp Pulse Resp B/P Pulse Ox O2 Delivery O2 Flow Rate FiO2 08/06/16 12:00 89 08/06/16 12:00 98.0 91 20 120/74 93 111/75 08/06/16 12:00 70 08/06/16 11:47 96 70 08/06/16 10:30 70 08/06/16 10:00 90 08/06/16 08:10 95 80 08/06/16 08:00 100 08/06/16 08:00 106 08/06/16 08:00 97.8 106 20 120/65 97 104/55 08/06/16 06:00 94 08/06/16 04:15 95 100 08/06/16 04:00 97.3 103 11 120/61 95 08/06/16 04:00 103 08/06/16 04:00 100 08/06/16 02:00 113 08/06/16 00:00 98.4 113 20 115/63 93 08/06/16 00:00 113 08/06/16 00:00 100 08/05/16 22:30 93 100 08/05/16 22:00 104 08/05/16 20:00 97.8 103 20 99/62 91 08/05/16 20:00 90 08/05/16 20:00 103 08/05/16 19:53 93 50 08/05/16 18:00 115 08/05/16 16:52 90 100 08/05/16 16:00 98.2 132 20 110/55 90 08/05/16 16:00 90 08/05/16 16:00 132 08/05/16 08/05/16 08/06/16 15:00 23:00 07:00 Intake Total 1914 ml 562 ml 1840 ml Output Total 575 ml 550 ml 500 ml Balance 1339 ml 12 ml 1340 ml Intake IV Total 1914 ml 562 ml 1840 ml Output Urine Total 575 ml 550 ml 500 ml . Laboratory Tests Test 08/04/16 08/05/16 08/06/16 18:45 04:41 04:45 White Blood Count 15.6 TH/MM3 10.5 TH/MM3 18.3 TH/MM3 Red Blood Count 4.62 MIL/MM3 3.83 MIL/MM3 3.80 MIL/MM3 Hemoglobin 14.6 GM/DL 12.2 GM/DL 12.1 GM/DL Hematocrit 43.1 % 36.3 % 36.4 % Mean Corpuscular Volume 93.3 FL 94.8 FL 95.7 FL Mean Corpuscular Hemoglobin 31.7 PG 32.0 PG 31.7 PG Mean Corpuscular Hemoglobin 34.0 % 33.7 % 33.1 % Concent Red Cell Distribution Width 13.6 % 13.7 % 14.2 % Platelet Count 250 TH/MM3 167 TH/MM3 194 TH/MM3 Mean Platelet Volume 8.7 FL 8.4 FL 8.0 FL Neutrophils (%) (Auto) 97.6 % 96.3 % 97.5 % Lymphocytes (%) (Auto) 1.1 % 2.1 % 1.0 % Monocytes (%) (Auto) 0.6 % 1.2 % 1.4 % Eosinophils (%) (Auto) 0.3 % 0.1 % 0.0 % Basophils (%) (Auto) 0.4 % 0.3 % 0.1 % Neutrophils # (Auto) 15.2 TH/MM3 10.1 TH/MM3 17.8 TH/MM3 Lymphocytes # (Auto) 0.2 TH/MM3 0.2 TH/MM3 0.2 TH/MM3 Monocytes # (Auto) 0.1 TH/MM3 0.1 TH/MM3 0.3 TH/MM3 Eosinophils # (Auto) 0.0 TH/MM3 0.0 TH/MM3 0.0 TH/MM3 Basophils # (Auto) 0.1 TH/MM3 0.0 TH/MM3 0.0 TH/MM3 CBC Comment AUTO DIFF AUTO DIFF AUTO DIFF Differential Total Cells 100 100 100 Counted Neutrophils % (Manual) 59 % 63 % 48 % Band Neutrophils % 38 % 33 % 51 % Lymphocytes % 1 % 4 % 1 % Monocytes % 1 % Neutrophils # (Manual) 15.3 TH/MM3 10.1 TH/MM3 18.1 TH/MM3 Metamyelocytes 1 % Differential Comment FINAL DIFF FINAL DIFF FINAL DIFF MANUAL MANUAL MANUAL Toxic Granulation 1+ Toxic Vacuolation PRESENT Platelet Estimate NORMAL NORMAL NORMAL Platelet Morphology Comment NORMAL NORMAL NORMAL Red Cell Morphology Comment NORMAL NORMAL [place] Cells 1+ Laboratory Tests Test 08/04/16 08/04/16 08/05/16 08/05/16 18:45 18:55 00:03 04:41 Sodium Level 132 MEQ/L 137 MEQ/L Potassium Level 5.4 MEQ/L 4.9 MEQ/L Chloride Level 95 MEQ/L 105 MEQ/L Carbon Dioxide Level 22.9 MEQ/L 24.9 MEQ/L Anion Gap 14 MEQ/L 7 MEQ/L Blood Urea Nitrogen 50 MG/DL 55 MG/DL Creatinine 3.36 MG/DL 3.30 MG/DL Estimat Glomerular Filtration 19 ML/MIN 19 ML/MIN Rate Random Glucose 103 MG/DL 171 MG/DL Calcium Level 8.8 MG/DL 7.8 MG/DL Total Bilirubin 1.6 MG/DL 1.8 MG/DL Aspartate Amino Transf 91 U/L 83 U/L (AST/SGOT) Alanine Aminotransferase 41 U/L 39 U/L (ALT/SGPT) Alkaline Phosphatase 63 U/L 48 U/L Total Creatine Kinase 207 U/L Troponin I LESS THAN 0.02 NG/ML B-Type Natriuretic Peptide 23 PG/ML Total Protein 7.4 GM/DL 5.9 GM/DL Albumin 2.0 GM/DL 1.6 GM/DL Lactic Acid Level 2.3 mmol/L 1.3 mmol/L 1.3 mmol/L Test 08/06/16 04:45 Sodium Level 137 MEQ/L Potassium Level 5.0 MEQ/L Chloride Level 105 MEQ/L Carbon Dioxide Level 24.5 MEQ/L Anion Gap 8 MEQ/L Blood Urea Nitrogen 70 MG/DL Creatinine 3.41 MG/DL Estimat Glomerular Filtration 18 ML/MIN Rate Random Glucose 195 MG/DL Calcium Level 8.0 MG/DL Phosphorus Level 6.3 MG/DL Magnesium Level 3.7 MG/DL Total Bilirubin 1.6 MG/DL Aspartate Amino Transf 138 U/L (AST/SGOT) Alanine Aminotransferase 73 U/L (ALT/SGPT) Alkaline Phosphatase 60 U/L Total Protein 6.4 GM/DL Albumin 1.6 GM/DL Microbiology Date/Time Procedure Status Source Growth 08/04/16 18:45 Aerobic Blood Culture - Preliminary Resulted Blood Peripheral NO GROWTH IN 2 DAYS 08/04/16 18:45 Anaerobic Blood Culture - Preliminary Resulted Blood Peripheral NO GROWTH IN 2 DAYS 08/04/16 18:55 Aerobic Blood Culture - Preliminary Resulted Blood Peripheral NO GROWTH IN 2 DAYS 08/04/16 18:55 Anaerobic Blood Culture - Preliminary Resulted Blood Peripheral NO GROWTH IN 2 DAYS 08/04/16 19:15 Legionella Antigen - Final Complete Urine Catheterized Urine Pos For Legionella Antigen 08/04/16 19:15 Urine Culture - Final Complete Urine Random Urine NO GROWTH IN 48 HOURS. 08/04/16 20:00 Gram Stain - Final Complete Sputum Oral Tracheal Aspirate 08/04/16 20:00 Sputum Culture - Final Complete Sputum Oral Tracheal Aspirate HEAVY GROWTH NORMAL RESPIRATORY THANIA 08/04/16 20:00 Acid Fast Stain - Final Resulted Sputum Oral Tracheal Aspirate NO ACID FAST BACILLI SEEN 08/04/16 20:00 Mycobacterial Culture Resulted Sputum Oral Tracheal Aspirate Pending Imaging Last Impressions Chest X-Ray 08/06/16 0400 Signed Impressions: Service Date/Time: July 03:00 - CONCLUSION: No significant interval change with bilateral pulmonary infiltrates. Ronny Joshi MD Renal Ultrasound 08/05/16 1504 Signed Impressions: Service Date/Time: Friday, August 05, 2016 21:01 - CONCLUSION: 1. No evidence of obstruction or other acute renal abnormality. 2. Small, benign appearing cyst of the right kidney. 3. Witt catheter present. Efrain Syed MD Physical Exam GENERAL: On the vent, on sedation and paralytics, on rotaprone bed, currently prone. SKIN: Cool and moist. No rash, or ecchymosis in back. CARDIOVASCULAR: Tachycardic, with irregular rate and rhythm without murmurs, gallops, or rubs. RESPIRATORY: Decreased breath sounds bilaterally GASTROINTESTINAL: Abdomen soft, MUSCULOSKELETAL: Extremities without edema. NEUROLOGICAL: Sedated, on paralytics PSYCH: Unable to fully assess LINE: LSC TLC with no evidence of infection : Witt cath in place, urine looks clear Assessment & Plan Remarks IMPRESSION Severe bilateral pneumonia, (+) Legionella Respiratory failure, with significant hypoxemia Hx anxiety/depression RECOMMENDATION Continue current Abx: Cefepime and Zithromax Continue Levaquin - some studies of some benefit with 2 therapy for severe Pcases If nothing else on C/S, stop Cefepime tomorrow Follow C/S Monitor progress D/W Kyleigh Duarte MD Aug 06, 2016 14:34
[2016-08-06 14:55] LABS: MICRO ALBUMIN RANDOM URINE RAW 23.4 MG/L (0.0-30.0)
[2016-08-06] MEDS: AMIODARONE INJ 450 MG in DEXTROSE 5% IN WATE(EXCEL) INJ 250 ML IV SCH ×4 (15:03→22:53)
[2016-08-06 15:16] LABS: BLOOD GAS BASE EXCESS -7.1 mmol/L (-2-2); BLOOD GAS CARBOXYHEMOGLOBIN 0.5 % (0-4); BLOOD GAS HCO3 19 mmol/L (22-26); BLOOD GAS METHEMOGLOBIN 1.1 % (0-2); BLOOD GAS O2 HGB SATURATION 95 % (90-100); BLOOD GAS OXYGEN CONTENT 30.5 Vol % (12.0-20.0); BLOOD GAS PCO2 41 mmHg (38-42); BLOOD GAS PO2 115 mmHg (61-120); BLOOD GAS TOTAL HGB 22.8 G/DL (12.0-16.0); CRITICAL VALUE YES; OXYGEN DEVICE VENT; TEMP CORR TO 98.6
[2016-08-06 15:18] LABS: DRAW SITE ALINE; FIO2 70 %; STAT NO; VENT SETTINGS PC/AC/20/20/1.85ITIM
--- NOTE | 2016-08-06 17:04 | HHI.CCPN ---
Subjective Remarks/Hospital Course 08/04: 60 y/o man with several week history of weakness, fatigue; fevers and sweats over past week. Today with severe SOB, arrived by EMS with hypoxemia. CO2 retention as well in ED. Required intubation in ED. Creatinine > 3.0 and severely dehydrated. 08/05: Remains sedated, orally intubated on mechanical ventilation. He remains at PEEP+14, FiO2 decreased to 80%. Urine positive for Legionella Ag. Went into A. fib with RVR. 08/06: Remains sedated, orally intubated on mechanical ventilation. On neuromuscular blockade with Nimbex. Initiated on prone ventilation today. Switched to pressure control mode with positive inspiratory pressure +20, PEEP + 15, respiratory rate 20, I time 1.82 seconds, FiO2 70%.. On propofol/fentanyl/ Versed/Nimbex/amiodarone/ vasopressin drips. Jose-Synephrine titrated off following switching from APRV to pressure control mode mechanical ventilation and initiating pronating. Objective Vital Signs Date Time Temp Pulse Resp B/P Pulse Ox O2 Delivery O2 Flow Rate FiO2 08/06/16 16:00 81 08/06/16 12:00 98.0 20 120/74 93 111/75 08/06/16 12:00 70 08/04/16 21:17 Auto-Vent Intake and Output 08/05/16 08/05/16 08/06/16 08:00 16:00 00:00 Intake Total 2524 ml 1914 ml 562 ml Output Total 750 ml 575 ml 550 ml Balance 1774 ml 1339 ml 12 ml Result Diagram: 08/06/16 0445 08/06/16 0445 Other Results Microbiology Date/Time Procedure Status Source Growth 08/04/16 19:15 Legionella Antigen - Final Complete Urine Catheterized Urine Pos For Legionella Antigen 08/04/16 19:15 Urine Culture - Final Complete Urine Random Urine NO GROWTH IN 48 HOURS. 08/04/16 20:00 Gram Stain - Final Complete Sputum Oral Tracheal Aspirate 08/04/16 20:00 Sputum Culture - Final Complete Sputum Oral Tracheal Aspirate HEAVY GROWTH NORMAL RESPIRATORY THANIA Laboratory Tests Test 08/05/16 08/06/16 08/06/16 23:08 08:55 15:00 Blood Gas Puncture Site ART LINE ART LINE GURMEET Blood Gas Patient Temperature 98.6 98.6 98.6 Blood Gas HCO3 19 mmol/L 18 mmol/L 19 mmol/L (22-26) (22-26) (22-26) Blood Gas Base Excess -8.0 mmol/L -7.7 mmol/L -7.1 mmol/L (-2-2) (-2-2) (-2-2) Blood Gas Oxygen Saturation 94 % (90-100) 92 % (90-100) 95 % (90-100) Arterial Blood pH 7.19 7.24 7.28 (7.380-7.420) (7.380-7.420) (7.380-7.420) Arterial Blood Partial 52 mmHg (38-42) 45 mmHg (38-42) 41 mmHg (38-42) Pressure CO2 Arterial Blood Partial 107 mmHg 88 mmHg 115 mmHg Pressure O2 (61-120) (61-120) (61-120) Arterial Blood Oxygen Content 17.2 Vol % 16.1 Vol % 30.5 Vol % (12.0-20.0) (12.0-20.0) (12.0-20.0) Arterial Blood 0.5 % (0-4) 0.9 % (0-4) 0.5 % (0-4) Carboxyhemoglobin Arterial Blood Methemoglobin 1.3 % (0-2) 1.5 % (0-2) 1.1 % (0-2) Blood Gas Hemoglobin 12.9 G/DL 12.3 G/DL 22.8 G/DL (12.0-16.0) (12.0-16.0) (12.0-16.0) Oxygen Delivery Device VENTILATOR VENTILATOR VENT Blood Gas Ventilator Setting BILEVEL/APRV PC/AC PC/AC/20/20/1.85ITIM Blood Gas Inspired Oxygen 100 % 70 % 70 % Imaging Last 24 hours Impressions Chest X-Ray 08/06/16 0400 Signed Impressions: Service Date/Time: July 03:00 - CONCLUSION: No significant interval change with bilateral pulmonary infiltrates. Ronny Joshi MD Last Impressions Chest X-Ray 08/04/16 1832 Signed Impressions: Service Date/Time: Thursday, August 04, 2016 18:50 - CONCLUSION: Extensive bilateral airspace disease greater in the left lung. There may be pneumomediastinum. Perico Wahl MD Objective Remarks Gen: Pale, ill-appearing HEENT: Positive pallor, no icterus. Orally intubated. Mucosa moist. Neck: Supple, orally intubated. Lungs: Orally intubated on mechanical ventilation, air entry decreased bilaterally at bases, bilateral rhonchi Heart: NL S1S2 irregularly irregular, no JVD. Abdomen: Soft, NT, ND, no guarding. Extremities: Warm bilaterally, no edema Neuro: Sedated, on neuromuscular blockade, orally intubated on mechanical ventilation. Urinary Catheter: Yes Assessment to: Continue Vascular Central Line Catheter: Yes Assessment to: Continue A/P Assessment and Plan Assessment: 1. Septic shock 2. Acute Respiratory Failure on mechanical ventilation 3. Legionella Pneumonia 4. ARDS 5. CKD with CHAN 6. A. fib with RVR 7. Hx depression with recent ECT 2016 Neuro: Continue sedation with Versed/fentanyl gtt, titrate off propofol in view of hypotension. No sedation vacation while requiring high PEEP and FiO2 and on Rota prone bed. Cardiovascular: Continue amiodarone drip for A. fib. Jose-Synephrine titrated off. Continue vasopressin 0.03 units per minute. IV fluids decreased to KVO and initiated on Bumex to attempt keeping even fluid balance. Pulmonary: Continue mechanical ventilation, AC/PC PIP +20, PEEP +15, respiratory rate 20, FiO2 70%, inspiratory time 1.83 seconds(I:E 1.5:1) Vent bundle, bronchodilators, pulmonary toilet. On prone ventilation. On neuromuscular blockade. GI/liver: Tube feeds as tolerated. Renal/: KVO IVF, strict intake output, monitor and replete elect lites, follow BUN/creatinine. Nephrology consulted for CHAN/CKD. Heme: Follow CBC ID: Continue antibiotic coverage with IV Levaquin Zithromax/cefepime per ID. ID following. Urine positive for Legionella antigen. Endocrine: SSI for glycemic control Prophylaxis: PPI/SCDs/Lovenox Remains critical with severe ARDS secondary to Legionella pneumonia and septic shock on prone ventilation and neuromuscular blockade. Critical Care time: 50 mins aside from procedures. Viet Duran MD Aug 06, 2016 17:03
[2016-08-06] MEDS: LEVOFLOXACIN 250 MG PREMIX INJ 50 ML IV SCH (17:18)
[2016-08-06] MEDS: BUMETANIDE INJ 1 MG/4 ML VIAL IV PUSH SCH (17:18)
[2016-08-06 17:25] LABS: MAGNESIUM 3.7 MG/DL (1.5-2.5)
--- NOTE | 2016-08-06 18:04 | EKG ---
Date Performed: 08/05/2016 Time Performed: 15:29:46 PTAGE: 60 years EKG: ATRIAL FIBRILLATION WITH RAPID VENTRICULAR RESPONSE NONSPECIFIC T-WAVE ABNORMALITY ABNORMAL RHYTHM ECG Compared to prior study of 06/09/2016, atrial fibrillation with rapid ventricular respons e has replaced Sinus rhythm . PREVIOUS TRACING : 06/09/2016 03.39 DOCTOR: Ramírez Dickey Interpretating Date/Time 08/06/2016 18:03:50
[2016-08-06] MEDS: AZITHROMYCIN INJ 500 MG in SODIUM CHLOR 0.9% 250 ML INJ 250 ML IV SCH (20:10)
[2016-08-06] MEDS: CEFEPIME INJ 2,000 MG in SODIUM CHLORIDE 0.9% INJ 100 ML IV SCH (20:10)
[2016-08-06] MEDS: MIDAZOLAM 100 MG/ML INJ 100 ML IV SCH (22:53)
[2016-08-07] VITALS (17 sets, daily range): BP systolic 102–139; BP diastolic 58–98; PULSE 71–100; RESP 20; TEMP 96.8–98.3; O2SAT 91–96
[2016-08-07] MEDS: VASOPRESSIN INJ 40 UNITS in DEXTROSE 5% IN WATER 100ML INJ 98 ML IV SCH ×4 (00:59→23:53)
[2016-08-07] MEDS: RESP: ALBUTEROL 2.5 MG/IPRATROPIUM 0.5 MG NEB (SCH) INH ×4 (03:38→21:48)
[2016-08-07] MEDS: CHLORHEXIDINE GLUCONATE 2 % 1 PACK (2 CLOTHS) TOP SCH (04:00)
[2016-08-07 05:13] LABS: AUTOMATED NEUTROPHIL # 18.2 TH/MM3 (1.8-7.7); BASOPHIL % 0.2 % (0.0-2.0); LYMPH % 1.2 % (9.0-44.0); LYMPHOCYTE # 0.2 TH/MM3 (1.0-4.8); MEAN CELL VOLUME 93.6 FL (80.0-100.0); MEAN CORPUSCULAR HEMOGLOBIN 32.4 PG (27.0-34.0); MEAN CORPUSCULAR HGB CONC 34.6 % (32.0-36.0); MONO % 0.5 % (0.0-8.0); NEUT % 98.1 % (16.0-70.0); PLATELET COUNT 214 TH/MM3 (150-450); RED BLOOD COUNT 3.52 MIL/MM3 (4.50-5.90); RED CELL DISTRIBUTION WIDTH 14.5 % (11.6-17.2); WHITE BLOOD COUNT 18.6 TH/MM3 (4.0-11.0)
[2016-08-07 05:18] LABS: HEMO FLAGS AUTO DIFF
[2016-08-07 05:19] LABS: ALT (GPT) 62 U/L (12-78); ANION GAP 10 MEQ/L (5-15); AST (GOT) 74 U/L (15-37); BLOOD UREA NITROGEN 85 MG/DL (7-18); CHLORIDE 105 MEQ/L (98-107); GLOMERULAR FILTRATION RATE 20 ML/MIN (>89); MAGNESIUM 3.4 MG/DL (1.5-2.5); SODIUM (NA) 138 MEQ/L (136-145)
[2016-08-07 05:21] LABS: ALKALINE PHOSPHATASE 60 U/L (45-117); TOTAL BILIRUBIN ADULT 1.5 MG/DL (0.2-1.0)
[2016-08-07] MEDS: ENOXAPARIN SODIUM 30 MG/0.3 ML SYRINGE SQ SCH (05:32)
[2016-08-07] MEDS: HYDROCORTISONE SOD SUCCINATE 100 MG VIAL IV PUSH SCH ×4 (05:32→23:52)
--- NOTE | 2016-08-07 06:12 | RADRPT ---
EXAM DATE/TIME: 08/07/2016 04:57 [facility] COMPARISON: CHEST SINGLE AP, August 06, 2016, 3:00. INDICATIONS : Shortness of breath. MEDICAL HISTORY : Hypertension. Asthma. SURGICAL HISTORY : None. ENCOUNTER: Subsequent ACUITY: 4 - 6 days PAIN SCORE: Non-responsive. LOCATION: chest FINDINGS: Bilateral extensive infiltrates persist and not significantly changed. No large effusion seen. No pne umothorax. Heart size stable, upper limits of normal. Endotracheal tube tip is approximately 5 cm above the long. There is a nasogastric tube coursing in to the stomach. Left subclavian central venous catheter with tip in the superior vena cava again note d. CONCLUSION: No significant change. Extensive bilateral infiltrates persist. Efrain Syed MD on August 07, 2016 at 6:10 Board Certified Radiologist. This report was verified electronically.
[2016-08-07] MEDS: fentaNYL DRIP 250 ML IV SCH ×3 (06:31→23:53)
[2016-08-07] MEDS: MIDAZOLAM 100 MG/ML INJ 100 ML IV SCH (06:31)
[2016-08-07 08:06] LABS: BANDS 42 % (0-6); METAMYELOCYTES 1 % (0-1); NEUTROPHIL # MANUAL DIFF 18.2 TH/MM3 (1.8-7.7); POLYS (SEG NEUTROPHILS) 55 % (16-70); WBC DIFF SAMPLE 100
[2016-08-07 08:07] LABS: BURR CELLS 1+ (NORMAL); PLATELET ESTIMATE SMEAR NORMAL (NORMAL); PLATELET MORPHOLOGY NORMAL (NORMAL); SCAN/DIFF FINAL DIFF MANUAL
[2016-08-07] MEDS: CHLORHEXIDINE 0.12% (ORAL KIT) 15 ML CUP MT SCH ×2 (08:11→20:02)
[2016-08-07] MEDS: BUMETANIDE INJ 1 MG/4 ML VIAL IV PUSH SCH ×2 (08:11→17:15)
[2016-08-07] MEDS: PANTOPRAZOLE SODIUM 40 MG VIAL IV SCH (08:12)
[2016-08-07] MEDS: SODIUM CHLORIDE 0.9% FLUSH 10 ML FLUSH IVF PRN (08:12)
[2016-08-07] MEDS: LACTULOSE SYRUP 20 GM/30 ML CUP PO SCH (08:12)
--- NOTE | 2016-08-07 09:52 | HHI.NPPN ---
Subjective Renal Failure: Chronic, Acute Interval History Continues on rotaprone bed. On pressors, sedation, nimbex. Creatinine slightly worse but diuresing well. (Marium Diana) Review of Systems General General Remarks unable to evaluate (Marium Diana) Objective Data Data 08/06/16 08/07/16 19:00 07:00 Intake Total 1492 ml 1768 ml Output Total 1300 ml 2700 ml Balance 192 ml -932 ml Intake IV Total 1372 ml 1768 ml Other 120 ml Output Urine Total 1200 ml 2450 ml Stool Total 50 ml Gastric Drainage Total 100 ml 200 ml Vital Signs Date Time Temp Pulse Resp B/P Pulse Ox O2 Delivery O2 Flow Rate FiO2 08/07/16 08:00 100 08/07/16 08:00 60 08/07/16 06:00 91 08/07/16 04:32 95 60 08/07/16 04:00 98.3 100 20 108/67 95 107/71 08/07/16 04:00 60 08/07/16 04:00 100 08/07/16 02:11 95 60 08/07/16 02:00 88 08/07/16 00:00 97.6 93 20 114/68 95 128/88 08/07/16 00:00 93 08/07/16 00:00 60 08/06/16 22:00 103 08/06/16 20:03 93 60 08/06/16 20:00 60 08/06/16 20:00 97.3 94 20 114/88 95 100/68 08/06/16 20:00 94 08/06/16 18:00 95 08/06/16 16:55 96 70 08/06/16 16:00 98.1 83 20 99/66 98 101/64 08/06/16 16:00 81 08/06/16 16:00 60 08/06/16 14:00 88 08/06/16 12:00 89 08/06/16 12:00 98.0 91 20 120/74 93 111/75 08/06/16 12:00 70 08/06/16 11:47 96 70 08/06/16 10:30 70 08/06/16 10:00 90 (Marium Diana) -: 08/07/16 0330 08/07/16 0330 Tubes & Lines: Witt Tubes & Lines Comment TLC Drip Comment fentanyl, propofol, nimbex, amiodarone, bicarbonate, vasopressin (Marium Diana) Physical Exam General Appearance: Well Developed, Well Nourished, No Acute Distress Appearance Remarks difficult to examine in rotaprone bed (Marium Diana) Throat Throat Remarks ETT (Marium Diana) Pulmonary Resp Exam: Breath Sounds Equal, Crackles (Marium Diana) Cardiology CV Exam: Good Perfusion, Irregular, Tachycardia (Marium Diana) Genitourinary Exam: Clear Urine (Marium Diana) Extremeties Extremities Exam: Pedal Pulses Palpable, Moderate Edema (Marium Diana) Neurologic Neuro Exam: Unresponsive, Sedated, Comatose (Marium Diana) Assessment/Plan Assessment Summary: CHAN/Acute Renal Failure, Fluid/Volume Overload, Hypotension Problem List: (1) Acute renal failure superimposed on stage 3 chronic kidney disease Plan: baseline creatinine 1.94, GFR 35 renal failure from sepsis and hypotension, possible dehydration; may have progressed to ATN no current electrolyte disorders creatinine slightly worse today excellent response to diuretics, continue Bumex 2 mg BID, beginning negative fluid balance if inadequate response and/or renal function worsens, he may need renal replacement therapy pressors if needed to maintain adequate MAP > 65 mmHg avoid nephrotoxins NPO now, begin phoslo when tube feeding has started for hyperphosphatemia daily renal panel (2) Acute respiratory failure Plan: vent management by stallion keeper on A/C 20/600/50/15 ABG reviewed (3) Pneumonia Plan: Blood culture negative to date + legionella in urine, but sputum negative he is on Zithromax and cefepime, Levaquin added ID following (4) Hyperglycemia Plan: may be due to steroid use monitor glucose insulin if needed (5) A-fib Plan: on amiodarone also on digoxin, monitor drug levels (Marium Diana) Plan patient was seen and examined. Slight increase in creatinine. Very good diuresis , but high intake volume. Consider double concentrating all drips and minimize intake. Taper off diuretics. Recommend to maintain negative fluid balance. ( Kevin Hernandez MD) Problem Qualifiers (1) Acute respiratory failure: Qualified Code: J96.01 - Acute respiratory failure with hypoxia and hypercapnia (2) Pneumonia: Qualified Code: J18.9 - Pneumonia of both lungs due to infectious organism, unspecified part of lung Marium Diana [facility] Aug 07, 2016 09:52 Kevin Hernandez MD Aug 07, 2016 13:49
--- NOTE | 2016-08-07 13:05 | HHI.IDPN ---
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 Vital Signs Date Time Temp Pulse Resp B/P Pulse Ox O2 Delivery O2 Flow Rate FiO2 08/07/16 12:00 50 08/07/16 12:00 98 08/07/16 11:32 92 50 08/07/16 10:00 92 08/07/16 08:00 100 08/07/16 08:00 96.8 94 20 108/69 96 116/72 08/07/16 08:00 60 08/07/16 06:00 91 08/07/16 04:32 95 60 08/07/16 04:00 98.3 100 20 108/67 95 107/71 08/07/16 04:00 60 08/07/16 04:00 100 08/07/16 02:11 95 60 08/07/16 02:00 88 08/07/16 00:00 97.6 93 20 114/68 95 128/88 08/07/16 00:00 93 08/07/16 00:00 60 08/06/16 22:00 103 08/06/16 20:03 93 60 08/06/16 20:00 60 08/06/16 20:00 97.3 94 20 114/88 95 100/68 08/06/16 20:00 94 08/06/16 18:00 95 08/06/16 16:55 96 70 08/06/16 16:00 98.1 83 20 99/66 98 101/64 08/06/16 16:00 81 08/06/16 16:00 60 08/06/16 14:00 88 08/06/16 08/06/16 08/07/16 15:00 23:00 07:00 Intake Total 1492 ml 1140 ml 628 ml Output Total 1300 ml 1750 ml 950 ml Balance 192 ml -610 ml -322 ml Intake IV Total 1372 ml 1140 ml 628 ml Other 120 ml Output Urine Total 1200 ml 1600 ml 850 ml Stool Total 50 ml Gastric Drainage Total 100 ml 100 ml 100 ml . Laboratory Tests Test 08/06/16 08/07/16 04:45 03:30 White Blood Count 18.3 TH/MM3 18.6 TH/MM3 Red Blood Count 3.80 MIL/MM3 3.52 MIL/MM3 Hemoglobin 12.1 GM/DL 11.4 GM/DL Hematocrit 36.4 % 33.0 % Mean Corpuscular Volume 95.7 FL 93.6 FL Mean Corpuscular Hemoglobin 31.7 PG 32.4 PG Mean Corpuscular Hemoglobin 33.1 % 34.6 % Concent Red Cell Distribution Width 14.2 % 14.5 % Platelet Count 194 TH/MM3 214 TH/MM3 Mean Platelet Volume 8.0 FL 8.7 FL Neutrophils (%) (Auto) 97.5 % 98.1 % Lymphocytes (%) (Auto) 1.0 % 1.2 % Monocytes (%) (Auto) 1.4 % 0.5 % Eosinophils (%) (Auto) 0.0 % 0.0 % Basophils (%) (Auto) 0.1 % 0.2 % Neutrophils # (Auto) 17.8 TH/MM3 18.2 TH/MM3 Lymphocytes # (Auto) 0.2 TH/MM3 0.2 TH/MM3 Monocytes # (Auto) 0.3 TH/MM3 0.1 TH/MM3 Eosinophils # (Auto) 0.0 TH/MM3 0.0 TH/MM3 Basophils # (Auto) 0.0 TH/MM3 0.0 TH/MM3 CBC Comment AUTO DIFF AUTO DIFF Differential Total Cells 100 100 Counted Neutrophils % (Manual) 48 % 55 % Band Neutrophils % 51 % 42 % Lymphocytes % 1 % 2 % Neutrophils # (Manual) 18.1 TH/MM3 18.2 TH/MM3 Differential Comment FINAL DIFF FINAL DIFF MANUAL MANUAL Platelet Estimate NORMAL NORMAL Platelet Morphology Comment NORMAL NORMAL [place] Cells 1+ 1+ Metamyelocytes 1 % Laboratory Tests Test 08/06/16 08/06/16 08/07/16 04:45 16:30 03:30 Sodium Level 137 MEQ/L 138 MEQ/L 138 MEQ/L Potassium Level 5.0 MEQ/L 5.0 MEQ/L 5.0 MEQ/L Chloride Level 105 MEQ/L 105 MEQ/L 105 MEQ/L Carbon Dioxide Level 24.5 MEQ/L 19.0 MEQ/L 23.0 MEQ/L Anion Gap 8 MEQ/L 14 MEQ/L 10 MEQ/L Blood Urea Nitrogen 70 MG/DL 78 MG/DL 85 MG/DL Creatinine 3.41 MG/DL 3.02 MG/DL 3.19 MG/DL Estimat Glomerular Filtration 18 ML/MIN 21 ML/MIN 20 ML/MIN Rate Random Glucose 195 MG/DL 193 MG/DL 208 MG/DL Calcium Level 8.0 MG/DL 8.7 MG/DL 8.2 MG/DL Phosphorus Level 6.3 MG/DL Magnesium Level 3.7 MG/DL 3.7 MG/DL 3.4 MG/DL Total Bilirubin 1.6 MG/DL 1.5 MG/DL Aspartate Amino Transf 138 U/L 74 U/L (AST/SGOT) Alanine Aminotransferase 73 U/L 62 U/L (ALT/SGPT) Alkaline Phosphatase 60 U/L 60 U/L Total Protein 6.4 GM/DL 6.1 GM/DL Albumin 1.6 GM/DL 1.5 GM/DL Microbiology Date/Time Procedure Status Source Growth 08/04/16 18:45 Aerobic Blood Culture - Preliminary Resulted Blood Peripheral NO GROWTH IN 3 DAYS 08/04/16 18:45 Anaerobic Blood Culture - Preliminary Resulted Blood Peripheral NO GROWTH IN 3 DAYS 08/04/16 18:55 Aerobic Blood Culture - Preliminary Resulted Blood Peripheral NO GROWTH IN 3 DAYS 08/04/16 18:55 Anaerobic Blood Culture - Preliminary Resulted Blood Peripheral NO GROWTH IN 3 DAYS 08/04/16 19:15 Legionella Antigen - Final Complete Urine Catheterized Urine Pos For Legionella Antigen 08/04/16 19:15 Urine Culture - Final Complete Urine Random Urine NO GROWTH IN 48 HOURS. 08/04/16 20:00 Gram Stain - Final Complete Sputum Oral Tracheal Aspirate 08/04/16 20:00 Sputum Culture - Final Complete Sputum Oral Tracheal Aspirate HEAVY GROWTH NORMAL RESPIRATORY THANIA 08/04/16 20:00 Acid Fast Stain - Final Resulted Sputum Oral Tracheal Aspirate NO ACID FAST BACILLI SEEN 08/04/16 20:00 Mycobacterial Culture Resulted Sputum Oral Tracheal Aspirate Pending Imaging Chest X-Ray 08/07/16 0600 Signed Impressions: Service Date/Time: Sunday, August 07, 2016 04:57 - CONCLUSION: No significant change. Extensive bilateral infiltrates persist. Efrain Syed MD Chest X-Ray 08/06/16 0400 Signed Impressions: Service Date/Time: July 03:00 - CONCLUSION: No significant interval change with bilateral pulmonary infiltrates. Ronny Joshi MD Renal Ultrasound 08/05/16 1504 Signed Impressions: Service Date/Time: Friday, August 05, 2016 21:01 - CONCLUSION: 1. No evidence of obstruction or other acute renal abnormality. 2. Small, benign appearing cyst of the right kidney. 3. Witt catheter present. Efrain Syed MD Last Impressions Chest X-Ray 08/06/16 0400 Signed Impressions: Service Date/Time: July 03:00 - CONCLUSION: No significant interval change with bilateral pulmonary infiltrates. Ronny Joshi MD Renal Ultrasound 08/05/16 1504 Signed Impressions: Service Date/Time: Friday, August 05, 2016 21:01 - CONCLUSION: 1. No evidence of obstruction or other acute renal abnormality. 2. Small, benign appearing cyst of the right kidney. 3. Witt catheter present. Efrain Syed MD Physical Exam GENERAL: On the vent, on sedation and paralytics, on rotaprone bed, currently supine. SKIN: Cool and moist. No rash, or ecchymosis in back. CARDIOVASCULAR: irregular rate and rhythm without murmurs, gallops, or rubs. RESPIRATORY: Decreased breath sounds bilaterally GASTROINTESTINAL: Abdomen soft, MUSCULOSKELETAL: Extremities without edema. NEUROLOGICAL: Sedated, on paralytics PSYCH: Unable to fully assess LINE: LSC TLC with no evidence of infection : Witt cath in place, urine looks clear Assessment & Plan Remarks IMPRESSION Severe bilateral pneumonia, (+) Legionella Respiratory failure, with significant hypoxemia Hx anxiety/depression Leukocytosis, infection, reactive, ?solucortef adding to it RECOMMENDATION Continue Zithromax Continue Levaquin - some studies of some benefit with 2 therapy for severe Pcases Stop Cefepime Monitor progress D/W RN Dr Morrison covering me this weekend Kyleigh Nichols MD Aug 07, 2016 13:05
[2016-08-07] MEDS: CISATRACURIUM INJ 100 MG in SODIUM CHLOR 0.9% 250 ML INJ 240 ML IV SCH (14:01)
[2016-08-07] MEDS: LEVOFLOXACIN 250 MG PREMIX INJ 50 ML IV SCH (17:16)
--- NOTE | 2016-08-07 17:47 | HHI.CCPN ---
Subjective Remarks/Hospital Course 08/04: 60 y/o man with several week history of weakness, fatigue; fevers and sweats over past week. Today with severe SOB, arrived by EMS with hypoxemia. CO2 retention as well in ED. Required intubation in ED. Creatinine > 3.0 and severely dehydrated. 08/05: Remains sedated, orally intubated on mechanical ventilation. He remains at PEEP+14, FiO2 decreased to 80%. Urine positive for Legionella Ag. Went into A. fib with RVR. 08/06: Remains sedated, orally intubated on mechanical ventilation. On neuromuscular blockade with Nimbex. Initiated on prone ventilation today. Switched to pressure control mode with positive inspiratory pressure +20, PEEP + 15, respiratory rate 20, I time 1.82 seconds, FiO2 70%.. On propofol/fentanyl/ Versed/Nimbex/amiodarone/ vasopressin drips. Jose-Synephrine titrated off following switching from APRV to pressure control mode mechanical ventilation and initiating proning. 08/07: Remains sedated, on neuromuscular blockade, orally intubated on prone ventilation. FiO2 decreased to 50%, PEEP remains at +15. On fentanyl/versed/ Nimbex/amiodarone/vasopressin drips. Jose-Synephrine on transiently today. Diuresed well with Bumex. Objective Vital Signs Date Time Temp Pulse Resp B/P Pulse Ox O2 Delivery O2 Flow Rate FiO2 08/07/16 16:35 94 50 08/07/16 16:00 88 08/07/16 16:00 97.4 20 102/63 104/78 08/04/16 21:17 Auto-Vent Intake and Output 08/06/16 08/06/16 08/07/16 08:00 16:00 00:00 Intake Total 1840 ml 1492 ml 1140 ml Output Total 500 ml 1300 ml 1750 ml Balance 1340 ml 192 ml -610 ml Result Diagram: 08/07/16 0330 08/07/16 0330 Other Results Laboratory Tests Test 08/07/16 03:30 White Blood Count 18.6 TH/MM3 Red Blood Count 3.52 MIL/MM3 Hemoglobin 11.4 GM/DL Hematocrit 33.0 % Mean Corpuscular Volume 93.6 FL Mean Corpuscular Hemoglobin 32.4 PG Mean Corpuscular Hemoglobin 34.6 % Concent Red Cell Distribution Width 14.5 % Platelet Count 214 TH/MM3 Mean Platelet Volume 8.7 FL Neutrophils (%) (Auto) 98.1 % Lymphocytes (%) (Auto) 1.2 % Monocytes (%) (Auto) 0.5 % Eosinophils (%) (Auto) 0.0 % Basophils (%) (Auto) 0.2 % Neutrophils # (Auto) 18.2 TH/MM3 Lymphocytes # (Auto) 0.2 TH/MM3 Monocytes # (Auto) 0.1 TH/MM3 Eosinophils # (Auto) 0.0 TH/MM3 Basophils # (Auto) 0.0 TH/MM3 CBC Comment AUTO DIFF Differential Total Cells 100 Counted Neutrophils % (Manual) 55 % Band Neutrophils % 42 % Lymphocytes % 2 % Neutrophils # (Manual) 18.2 TH/MM3 Metamyelocytes 1 % Differential Comment FINAL DIFF MANUAL Platelet Estimate NORMAL Platelet Morphology Comment NORMAL [place] Cells 1+ Sodium Level 138 MEQ/L Potassium Level 5.0 MEQ/L Chloride Level 105 MEQ/L Carbon Dioxide Level 23.0 MEQ/L Anion Gap 10 MEQ/L Blood Urea Nitrogen 85 MG/DL Creatinine 3.19 MG/DL Estimat Glomerular Filtration 20 ML/MIN Rate Random Glucose 208 MG/DL Calcium Level 8.2 MG/DL Magnesium Level 3.4 MG/DL Total Bilirubin 1.5 MG/DL Aspartate Amino Transf 74 U/L (AST/SGOT) Alanine Aminotransferase 62 U/L (ALT/SGPT) Alkaline Phosphatase 60 U/L Total Protein 6.1 GM/DL Albumin 1.5 GM/DL Microbiology Date/Time Procedure Status Source Growth 08/04/16 19:15 Legionella Antigen - Final Complete Urine Catheterized Urine Pos For Legionella Antigen 08/04/16 19:15 Urine Culture - Final Complete Urine Random Urine NO GROWTH IN 48 HOURS. 08/04/16 20:00 Gram Stain - Final Complete Sputum Oral Tracheal Aspirate 08/04/16 20:00 Sputum Culture - Final Complete Sputum Oral Tracheal Aspirate HEAVY GROWTH NORMAL RESPIRATORY THANIA Imaging Last 24 hours Impressions Chest X-Ray 08/07/16 0600 Signed Impressions: Service Date/Time: Sunday, August 07, 2016 04:57 - CONCLUSION: No significant change. Extensive bilateral infiltrates persist. Efrain Syed MD Last 24 hours Impressions Chest X-Ray 08/06/16 0400 Signed Impressions: Service Date/Time: July 03:00 - CONCLUSION: No significant interval change with bilateral pulmonary infiltrates. Ronny Joshi MD Last Impressions Chest X-Ray 08/04/16 1832 Signed Impressions: Service Date/Time: Thursday, August 04, 2016 18:50 - CONCLUSION: Extensive bilateral airspace disease greater in the left lung. There may be pneumomediastinum. Perico Wahl MD Objective Remarks Gen: Pale, ill-appearing HEENT: Positive pallor, no icterus. Orally intubated. Mucosa moist. Neck: Supple, orally intubated. Lungs: Orally intubated on mechanical ventilation, air entry decreased bilaterally at bases, bilateral rhonchi Heart: NL S1S2 irregularly irregular, no JVD. Abdomen: Soft, NT, ND, no guarding. Extremities: Warm bilaterally, no edema Neuro: Sedated, on neuromuscular blockade, orally intubated on mechanical ventilation. A/P Assessment and Plan Assessment: 1. Septic shock 2. Acute Respiratory Failure on mechanical ventilation 3. Legionella Pneumonia 4. ARDS 5. CKD with CHAN 6. A. fib with RVR 7. Hx depression with recent ECT 2016 Neuro: Continue sedation with Versed/fentanyl gtt. No sedation vacation while requiring high PEEP and FiO2 and on R[place] prone bed. Cardiovascular: Continue amiodarone drip for A. fib. Jose-Synephrine titrated off. Continue vasopressin 0.03 units per minute. IV fluids decreased to KVO and initiated on Bumex to attempt keeping even fluid balance. Pulmonary: Continue mechanical ventilation, AC/PC PIP +20, PEEP +15, respiratory rate 20, FiO2 70%, inspiratory time 1.83 seconds(I:E 1.5:1) Vent bundle, bronchodilators, pulmonary toilet. On prone ventilation. On neuromuscular blockade. GI/liver: Tube feeds as tolerated. Renal/: KVO IVF, strict intake output, monitor and replete electrolytes, follow BUN/creatinine. Nephrology following for CHAN/CKD. Heme: Follow CBC ID: Continue antibiotic coverage with IV Levaquin Zithromax/cefepime per ID. ID following. Urine positive for Legionella antigen. Endocrine: SSI for glycemic control Prophylaxis: PPI/SCDs/Lovenox Remains critical with severe ARDS secondary to Legionella pneumonia and septic shock on prone ventilation and neuromuscular blockade. Critical Care time: 45 mins aside from procedures. Viet Duran MD Aug 07, 2016 17:47
[2016-08-07] MEDS: AZITHROMYCIN INJ 500 MG in SODIUM CHLOR 0.9% 250 ML INJ 250 ML IV SCH (20:01)
[2016-08-08] VITALS (19 sets, daily range): BP systolic 92–139; BP diastolic 45–81; PULSE 70–97; RESP 20; TEMP 97.5–98.5; O2SAT 89–93
[2016-08-08] MEDS: AMIODARONE INJ 450 MG in DEXTROSE 5% IN WATE(EXCEL) INJ 250 ML IV SCH ×4 (01:37→22:36)
[2016-08-08] MEDS: RESP: ALBUTEROL 2.5 MG/IPRATROPIUM 0.5 MG NEB (SCH) INH ×4 (03:34→20:25)
[2016-08-08] MEDS: CHLORHEXIDINE GLUCONATE 2 % 1 PACK (2 CLOTHS) TOP SCH (04:00)
[2016-08-08] MEDS: CISATRACURIUM INJ 100 MG in SODIUM CHLOR 0.9% 250 ML INJ 240 ML IV SCH ×2 (04:16→17:59)
[2016-08-08] MEDS: ENOXAPARIN SODIUM 30 MG/0.3 ML SYRINGE SQ SCH (05:59)
[2016-08-08] MEDS: HYDROCORTISONE SOD SUCCINATE 100 MG VIAL IV PUSH SCH ×4 (05:59→23:26)
[2016-08-08] MEDS: CHLORHEXIDINE 0.12% (ORAL KIT) 15 ML CUP MT SCH ×2 (07:57→19:23)
[2016-08-08] MEDS: LACTULOSE SYRUP 20 GM/30 ML CUP PO SCH (08:36)
[2016-08-08] MEDS: PANTOPRAZOLE SODIUM 40 MG VIAL IV SCH (08:36)
[2016-08-08] MEDS: BUMETANIDE INJ 1 MG/4 ML VIAL IV PUSH SCH (08:37)
[2016-08-08] MEDS: SODIUM CHLORIDE 0.9% FLUSH 10 ML FLUSH IVF PRN (08:37)
--- NOTE | 2016-08-08 10:45 | HHI.NPPN ---
Subjective Renal Failure: Chronic, Acute Interval History patient was seen in the ICU. He is on rotaprone bed. Excellent diuresis. BUN and creatinine are higher. Review of Systems General General Remarks unable to evaluate Objective Data Data 08/07/16 08/08/16 19:00 07:00 Intake Total 711 ml 1498 ml Output Total 1700 ml 3250 ml Balance -989 ml -1752 ml Intake IV Total 711 ml 1498 ml Output Urine Total 1600 ml 3100 ml Stool Total 0 ml 0 ml Gastric Drainage Total 100 ml 150 ml Vital Signs Date Time Temp Pulse Resp B/P Pulse Ox O2 Delivery O2 Flow Rate FiO2 08/08/16 10:00 78 08/08/16 08:00 97.7 79 20 133/75 91 136/72 08/08/16 08:00 45 08/08/16 08:00 79 08/08/16 07:43 93 45 08/08/16 06:00 72 08/08/16 04:48 93 50 08/08/16 04:00 98.4 70 20 92/53 92 124/70 08/08/16 04:00 50 08/08/16 04:00 70 08/08/16 02:00 75 08/08/16 01:02 92 50 08/08/16 00:00 50 08/08/16 00:00 97.5 70 20 111/61 93 115/61 08/08/16 00:00 70 08/07/16 22:00 72 08/07/16 21:48 93 50 08/07/16 20:00 97.2 71 20 139/89 94 125/75 08/07/16 20:00 50 08/07/16 20:00 71 08/07/16 18:00 71 08/07/16 16:35 94 50 08/07/16 16:00 88 08/07/16 16:00 50 08/07/16 16:00 97.4 88 20 102/63 94 104/78 08/07/16 14:00 94 08/07/16 12:00 50 08/07/16 12:00 97.2 91 20 106/58 91 113/98 08/07/16 12:00 98 08/07/16 11:32 92 50 -: 08/07/16 0330 08/07/16 0330 Tubes & Lines: Witt Tubes & Lines Comment TLC Drip Comment fentanyl, propofol, nimbex, amiodarone, bicarbonate, vasopressin Physical Exam General Appearance: Well Developed, Well Nourished, No Acute Distress Pulmonary Resp Exam: Breath Sounds Equal, Crackles Cardiology CV Exam: Good Perfusion, Irregular, Tachycardia Genitourinary Exam: Clear Urine Extremeties Extremities Exam: Pedal Pulses Palpable, Trace Edema Neurologic Neuro Exam: Unresponsive, Sedated Assessment/Plan Assessment Summary: CHAN/Acute Renal Failure, Fluid/Volume Overload, Hypotension Problem List: (1) Acute renal failure superimposed on stage 3 chronic kidney disease Plan: baseline creatinine 1.94, GFR 35 renal failure from sepsis and hypotension, possible dehydration; may have progressed to ATN We have achieved negative fluid balance. Improvement in oxygen requirement. Reduce bumex to once daily, may consider stopping it altogether. Avoid nephrotoxins. (2) Acute respiratory failure Plan: vent management by medical orderly on A/C 20/600/50/15 ABG reviewed (3) Pneumonia Plan: Blood culture negative to date + legionella in urine, he is on Levaquin and Zithromax. (4) Hyperglycemia Plan: may be due to steroid use monitor glucose insulin if needed (5) A-fib Plan: on amiodarone also on digoxin, monitor drug levels Plan . Problem Qualifiers (1) Acute respiratory failure: Qualified Code: J96.01 - Acute respiratory failure with hypoxia and hypercapnia (2) Pneumonia: Qualified Code: J18.9 - Pneumonia of both lungs due to infectious organism, unspecified part of lung Kevin Hernandez MD Aug 08, 2016 10:44
[2016-08-08 10:57] LABS: BLOOD GAS BASE EXCESS -0.1 mmol/L (-2-2); BLOOD GAS CARBOXYHEMOGLOBIN 0.9 % (0-4); BLOOD GAS HCO3 25 mmol/L (22-26); BLOOD GAS METHEMOGLOBIN 1.5 % (0-2); BLOOD GAS O2 HGB SATURATION 92 % (90-100); BLOOD GAS OXYGEN CONTENT 15.1 Vol % (12.0-20.0); BLOOD GAS PCO2 45 mmHg (38-42); BLOOD GAS PO2 84 mmHg (61-120); BLOOD GAS TOTAL HGB 11.6 G/DL (12.0-16.0); CRITICAL VALUE NO; OXYGEN DEVICE VENTILATOR; TEMP CORR TO 98.6
[2016-08-08 10:59] LABS: DRAW SITE ART LINE; FIO2 45 %; STAT NO
[2016-08-08 11:11] LABS: ALKALINE PHOSPHATASE 59 U/L (45-117); ALT (GPT) 55 U/L (12-78); ANION GAP 11 MEQ/L (5-15); AST (GOT) 40 U/L (15-37); BICARBONATE 23.6 MEQ/L (21.0-32.0); BLOOD UREA NITROGEN 103 MG/DL (7-18); CHLORIDE 109 MEQ/L (98-107); GLOMERULAR FILTRATION RATE 22 ML/MIN (>89); POTASSIUM 5.2 MEQ/L (3.5-5.1); SODIUM (NA) 144 MEQ/L (136-145); TOTAL BILIRUBIN ADULT 1.1 MG/DL (0.2-1.0)
--- NOTE | 2016-08-08 11:39 | RADRPT ---
EXAM DATE/TIME: 08/08/2016 10:38 [facility] COMPARISON: CHEST SINGLE AP, August 07, 2016, 4:57. INDICATIONS : Respiratory disease. MEDICAL HISTORY : Hypertension. Asthma. SURGICAL HISTORY : None. ENCOUNTER: Subsequent ACUITY: 4 - 6 days PAIN SCORE: Non-responsive. LOCATION: Bilateral chest FINDINGS: The patchy areas of parenchymal airspace disease are noted, decreased in prominence in the previous s tudy. Endotracheal tube tip at the thoracic inlet. Left subclavian line tip overlies the SVC. No effu sions. Osseous structures are intact. CONCLUSION: Improved aeration. Murali Perdomo MD on August 08, 2016 at 11:37 Board Certified Radiologist. This report was verified electronically.
[2016-08-08 11:51] LABS: AUTOMATED NEUTROPHIL # 16.4 TH/MM3 (1.8-7.7); BASOPHIL % 0.2 % (0.0-2.0); EOSINOPHIL % 0.2 % (0.0-4.0); LYMPH % 1.8 % (9.0-44.0); LYMPHOCYTE # 0.3 TH/MM3 (1.0-4.8); MEAN CELL VOLUME 94.8 FL (80.0-100.0); MEAN CORPUSCULAR HEMOGLOBIN 31.1 PG (27.0-34.0); MEAN CORPUSCULAR HGB CONC 32.8 % (32.0-36.0); NEUT % 95.8 % (16.0-70.0); PLATELET COUNT 217 TH/MM3 (150-450); RED BLOOD COUNT 3.69 MIL/MM3 (4.50-5.90); RED CELL DISTRIBUTION WIDTH 14.3 % (11.6-17.2); WHITE BLOOD COUNT 17.2 TH/MM3 (4.0-11.0)
[2016-08-08] MEDS: fentaNYL DRIP 250 ML IV SCH ×2 (11:51→19:23)
[2016-08-08] MEDS: MIDAZOLAM 100 MG/ML INJ 100 ML IV SCH ×2 (11:51→18:25)
[2016-08-08 11:53] LABS: HEMO FLAGS AUTO DIFF
[2016-08-08 12:38] LABS: BANDS 17 % (0-6); METAMYELOCYTES 1 % (0-1); MYELOCYTES 4 % (0-0); NEUTROPHIL # MANUAL DIFF 15.3 TH/MM3 (1.8-7.7); POLYS (SEG NEUTROPHILS) 67 % (16-70); WBC DIFF SAMPLE 100
[2016-08-08 12:39] LABS: PLATELET ESTIMATE SMEAR NORMAL (NORMAL); PLATELET MORPHOLOGY NORMAL (NORMAL); SCAN/DIFF FINAL DIFF MANUAL
--- NOTE | 2016-08-08 13:11 | RADRPT ---
EXAM DATE/TIME: 08/08/2016 10:38 [facility] COMPARISON: No previous studies available for comparison. INDICATIONS : Dobbhoff placement. MEDICAL HISTORY : None. SURGICAL HISTORY : None. ENCOUNTER: Initial ACUITY: 1 day PAIN SCORE: Non-responsive. LOCATION: abdomen. FINDINGS: Endotracheal tube and subclavian line are noted. EKG leads are seen. Patchy bilateral airspace diseas e is noted with nodular opacities present. A nonobstructive bowel gas pattern is noted. There is no e vidence of Dobbhoff catheter. CONCLUSION: No evidence of obstruction. Murali Perdomo MD on August 08, 2016 at 11:45 Board Certified Radiologist. This report was verified electronically.
--- NOTE | 2016-08-08 13:27 | HHI.CCPN ---
Subjective Remarks/Hospital Course 08/04: 60 y/o man with several week history of weakness, fatigue; fevers and sweats over past week. Today with severe SOB, arrived by EMS with hypoxemia. CO2 retention as well in ED. Required intubation in ED. Creatinine > 3.0 and severely dehydrated. 08/05: Remains sedated, orally intubated on mechanical ventilation. He remains at PEEP+14, FiO2 decreased to 80%. Urine positive for Legionella Ag. Went into A. fib with RVR. 08/06: Remains sedated, orally intubated on mechanical ventilation. On neuromuscular blockade with Nimbex. Initiated on prone ventilation today. Switched to pressure control mode with positive inspiratory pressure +20, PEEP + 15, respiratory rate 20, I time 1.82 seconds, FiO2 70%.. On propofol/fentanyl/ Versed/Nimbex/amiodarone/ vasopressin drips. Jose-Synephrine titrated off following switching from APRV to pressure control mode mechanical ventilation and initiating proning. 08/07: Remains sedated, on neuromuscular blockade, orally intubated on prone ventilation. FiO2 decreased to 50%, PEEP remains at +15. On fentanyl/versed/ Nimbex/amiodarone/vasopressin drips. Jose-Synephrine on transiently today. Diuresed well with Bumex. 08/08: Remains sedated, on neuromuscular blockade, orally intubated on prone ventilation. FiO2 decreased to 45%, PEEP remains at +15. Attempting to place Dobbhoff to initiate tube feeds. Off Jose-Synephrine. Vasopressin being titrated down. Objective Vital Signs Date Time Temp Pulse Resp B/P Pulse Ox O2 Delivery O2 Flow Rate FiO2 08/08/16 12:27 90 45 08/08/16 12:00 78 08/08/16 12:00 98.3 20 108/59 139/81 08/04/16 21:17 Auto-Vent Intake and Output 08/07/16 08/07/16 08/08/16 08:00 16:00 00:00 Intake Total 628 ml 711 ml 980 ml Output Total 950 ml 1700 ml 2200 ml Balance -322 ml -989 ml -1220 ml Result Diagram: 08/08/16 1000 08/08/16 0408 Other Results Laboratory Tests Test 08/08/16 08/08/16 08/08/16 04:08 10:00 10:47 Sodium Level 144 MEQ/L Potassium Level 5.2 MEQ/L Chloride Level 109 MEQ/L Carbon Dioxide Level 23.6 MEQ/L Anion Gap 11 MEQ/L Blood Urea Nitrogen 103 MG/DL Creatinine 2.95 MG/DL Estimat Glomerular Filtration 22 ML/MIN Rate Random Glucose 173 MG/DL Calcium Level 8.3 MG/DL Magnesium Level 3.5 MG/DL Total Bilirubin 1.1 MG/DL Aspartate Amino Transf 40 U/L (AST/SGOT) Alanine Aminotransferase 55 U/L (ALT/SGPT) Alkaline Phosphatase 59 U/L Total Protein 6.0 GM/DL Albumin 1.5 GM/DL White Blood Count 17.2 TH/MM3 Red Blood Count 3.69 MIL/MM3 Hemoglobin 11.5 GM/DL Hematocrit 35.0 % Mean Corpuscular Volume 94.8 FL Mean Corpuscular Hemoglobin 31.1 PG Mean Corpuscular Hemoglobin 32.8 % Concent Red Cell Distribution Width 14.3 % Platelet Count 217 TH/MM3 Mean Platelet Volume 8.9 FL Neutrophils (%) (Auto) 95.8 % Lymphocytes (%) (Auto) 1.8 % Monocytes (%) (Auto) 2.0 % Eosinophils (%) (Auto) 0.2 % Basophils (%) (Auto) 0.2 % Neutrophils # (Auto) 16.4 TH/MM3 Lymphocytes # (Auto) 0.3 TH/MM3 Monocytes # (Auto) 0.3 TH/MM3 Eosinophils # (Auto) 0.0 TH/MM3 Basophils # (Auto) 0.0 TH/MM3 CBC Comment AUTO DIFF Differential Total Cells 100 Counted Neutrophils % (Manual) 67 % Band Neutrophils % 17 % Lymphocytes % 5 % Monocytes % 6 % Neutrophils # (Manual) 15.3 TH/MM3 Metamyelocytes 1 % Myelocytes 4 % Differential Comment FINAL DIFF MANUAL Platelet Estimate NORMAL Platelet Morphology Comment NORMAL Blood Gas Puncture Site ART LINE Blood Gas Patient Temperature 98.6 Blood Gas HCO3 25 mmol/L Blood Gas Base Excess -0.1 mmol/L Blood Gas Oxygen Saturation 92 % Arterial Blood pH 7.36 Arterial Blood Partial 45 mmHg Pressure CO2 Arterial Blood Partial 84 mmHg Pressure O2 Arterial Blood Oxygen Content 15.1 Vol % Arterial Blood 0.9 % Carboxyhemoglobin Arterial Blood Methemoglobin 1.5 % Blood Gas Hemoglobin 11.6 G/DL Oxygen Delivery Device VENTILATOR Blood Gas Ventilator Setting Blood Gas Inspired Oxygen 45 % Imaging Last 24 hours Impressions Chest X-Ray 08/08/16 1000 Signed Impressions: Service Date/Time: Monday, August 08, 2016 10:38 - CONCLUSION: Improved aeration. Murali Perdomo MD Abdomen X-Ray 08/08/16 0000 Signed Impressions: Service Date/Time: Monday, August 08, 2016 10:38 - CONCLUSION: No evidence of obstruction. Murali Perdomo MD Last 24 hours Impressions Chest X-Ray 08/07/16 0600 Signed Impressions: Service Date/Time: Sunday, August 07, 2016 04:57 - CONCLUSION: No significant change. Extensive bilateral infiltrates persist. Efrain Syed MD Last 24 hours Impressions Chest X-Ray 08/06/16 0400 Signed Impressions: Service Date/Time: July 03:00 - CONCLUSION: No significant interval change with bilateral pulmonary infiltrates. Ronny Joshi MD Last Impressions Chest X-Ray 08/04/16 1832 Signed Impressions: Service Date/Time: Thursday, August 04, 2016 18:50 - CONCLUSION: Extensive bilateral airspace disease greater in the left lung. There may be pneumomediastinum. Perico Wahl MD Objective Remarks Gen: Pale, ill-appearing HEENT: Positive pallor, no icterus. Orally intubated. Mucosa moist. Neck: Supple, orally intubated. Lungs: Orally intubated on mechanical ventilation, air entry decreased bilaterally at bases, bilateral rhonchi Heart: NL S1S2 irregularly irregular, no JVD. Abdomen: Soft, NT, ND, no guarding. Extremities: Warm bilaterally, no edema Neuro: Sedated, on neuromuscular blockade, orally intubated on mechanical ventilation. Urinary Catheter: Yes Assessment to: Continue A/P Assessment and Plan Assessment: 1. Septic shock 2. Acute Respiratory Failure on mechanical ventilation 3. Legionella Pneumonia 4. ARDS 5. CKD with CHAN 6. A. fib with RVR 7. Hx depression with recent ECT 2016 Neuro: Continue sedation with Versed/fentanyl gtt. on Nimbex for neuromuscular blockade No sedation vacation. Cardiovascular: Continue amiodarone drip for A. fib. Jose-Synephrine titrated off. Decrease vasopressin gtt gradually. IV fluids decreased to KVO. Diurese with Bumex. Pulmonary: Continue mechanical ventilation, AC/PC PIP +20, PEEP +15, respiratory rate 20, FiO2 45%, inspiratory time 1.83 seconds(I:E 1.5:1) Vent bundle, bronchodilators, pulmonary toilet. On prone ventilation. On neuromuscular blockade. GI/liver: Insert Dobbhoff and start Tube feeds. Renal/: KVO IVF, strict intake output, monitor and replete electrolytes, follow BUN/creatinine. Nephrology following for CHAN/CKD. Heme: Follow CBC ID: Continue antibiotic coverage with IV Levaquin Zithromax. Cefepime stopped on 08/07 per ID. ID following. Urine positive for Legionella antigen. Endocrine: SSI for glycemic control Prophylaxis: PPI/SCDs/Lovenox Remains critical with severe ARDS secondary to Legionella pneumonia and septic shock on prone ventilation and neuromuscular blockade. Critical Care time: 45 mins aside from procedures. Viet Duran MD Aug 08, 2016 13:27
[2016-08-08] MEDS ORDERED: GLUCAGON 1 MG/ML VIAL IM/SQ PRN (13:30)
[2016-08-08] MEDS ORDERED: DEXTROSE 50% IN WATER 50 ML VIAL(D50) IV PRN (13:30)
[2016-08-08] MEDS: PROPOFOL 1000 MG/100 ML INJ 100 ML IV SCH ×2 (16:00→23:25)
[2016-08-08] MEDS: LEVOFLOXACIN 250 MG PREMIX INJ 50 ML IV SCH (16:56)
--- NOTE | 2016-08-08 17:26 | RADRPT ---
EXAM DATE/TIME: 08/08/2016 16:10 [facility] COMPARISON: No previous studies available for comparison. INDICATIONS : Evaluate for DOBHOFF placement. MEDICAL HISTORY : None. SURGICAL HISTORY : None. ENCOUNTER: Subsequent ACUITY: 1 day PAIN SCORE: Non-responsive. LOCATION: Abdomen FINDINGS: The bowel gas is nonspecific. There are no signs of obstruction or free air for technique. No defini te calcified stones are identified for technique. The visualized lungs demonstrate parenchymal proces s bilaterally discussed on the patient's chest x-ray. Dobbhoff tube is present with tip in right lowe r lobe bronchus. CONCLUSION: Dobbhoff tube is present with tip in right lower lobe bronchus. Findings were dis cussed with the patient's nurse at the time of this dictation. Aj Wright MD on August 08, 2016 at 17:21 Board Certified Radiologist. This report was verified electronically.
[2016-08-08] MEDS: INSULIN ASPART SUPPLEMENTAL SCALE SQ SCH ×2 (17:55→23:26)
[2016-08-08] MEDS: AZITHROMYCIN INJ 500 MG in SODIUM CHLOR 0.9% 250 ML INJ 250 ML IV SCH (19:24)
[2016-08-09] VITALS (18 sets, daily range): BP systolic 114–146; BP diastolic 60–93; PULSE 65–94; RESP 18–20; TEMP 97.2–99; O2SAT 90–95
[2016-08-09] MEDS: CHLORHEXIDINE GLUCONATE 2 % 1 PACK (2 CLOTHS) TOP SCH ×2 (00:50→23:16)
[2016-08-09] MEDS: VASOPRESSIN INJ 40 UNITS in DEXTROSE 5% IN WATER 100ML INJ 98 ML IV SCH ×4 (03:09→16:14)
[2016-08-09] MEDS: fentaNYL DRIP 250 ML IV SCH ×3 (03:15→21:22)
[2016-08-09] MEDS: MIDAZOLAM 100 MG/ML INJ 100 ML IV SCH ×3 (03:15→19:29)
[2016-08-09] MEDS: CISATRACURIUM INJ 100 MG in SODIUM CHLOR 0.9% 250 ML INJ 240 ML IV SCH ×2 (03:35→19:29)
[2016-08-09] MEDS: HYDROCORTISONE SOD SUCCINATE 100 MG VIAL IV PUSH SCH ×3 (05:27→21:08)
[2016-08-09] MEDS: ENOXAPARIN SODIUM 30 MG/0.3 ML SYRINGE SQ SCH (05:27)
[2016-08-09] MEDS: INSULIN ASPART SUPPLEMENTAL SCALE SQ SCH ×4 (05:28→23:15)
[2016-08-09] MEDS: SODIUM CHLORIDE 0.9% FLUSH 10 ML FLUSH IVF PRN ×2 (05:28→21:08)
[2016-08-09 05:55] LABS: AUTOMATED NEUTROPHIL # 16.6 TH/MM3 (1.8-7.7); BASOPHIL % 0.1 % (0.0-2.0); EOSINOPHIL # 0.1 TH/MM3 (0-0.4); EOSINOPHIL % 0.3 % (0.0-4.0); HEMATOCRIT 33.7 % (39.0-51.0); LYMPH % 1.1 % (9.0-44.0); LYMPHOCYTE # 0.2 TH/MM3 (1.0-4.8); MEAN CELL VOLUME 95.2 FL (80.0-100.0); MEAN CORPUSCULAR HEMOGLOBIN 31.3 PG (27.0-34.0); MEAN CORPUSCULAR HGB CONC 32.9 % (32.0-36.0); MONO % 2.6 % (0.0-8.0); NEUT % 95.9 % (16.0-70.0); PLATELET COUNT 205 TH/MM3 (150-450); RED BLOOD COUNT 3.53 MIL/MM3 (4.50-5.90); RED CELL DISTRIBUTION WIDTH 14.7 % (11.6-17.2); WHITE BLOOD COUNT 17.3 TH/MM3 (4.0-11.0)
[2016-08-09 06:04] LABS: HEMO FLAGS AUTO DIFF
[2016-08-09 06:17] LABS: ALKALINE PHOSPHATASE 70 U/L (45-117); ALT (GPT) 76 U/L (12-78); ANION GAP 7 MEQ/L (5-15); AST (GOT) 81 U/L (15-37); BICARBONATE 28.4 MEQ/L (21.0-32.0); BLOOD UREA NITROGEN 107 MG/DL (7-18); CHLORIDE 114 MEQ/L (98-107); GLOMERULAR FILTRATION RATE 25 ML/MIN (>89); POTASSIUM 5.3 MEQ/L (3.5-5.1); SODIUM (NA) 149 MEQ/L (136-145); TOTAL BILIRUBIN ADULT 1.1 MG/DL (0.2-1.0)
[2016-08-09] MEDS: CHLORHEXIDINE 0.12% (ORAL KIT) 15 ML CUP MT SCH ×2 (07:53→19:28)
[2016-08-09] MEDS: LACTULOSE SYRUP 20 GM/30 ML CUP PO SCH (08:38)
[2016-08-09] MEDS: PANTOPRAZOLE SODIUM 40 MG VIAL IV SCH (08:38)
[2016-08-09] MEDS: PROPOFOL 1000 MG/100 ML INJ 100 ML IV SCH ×3 (08:38→21:22)
[2016-08-09] MEDS: SODIUM POLYSTYRENE SULFONATE SUSP 15 GM/60 ML CUP OG-TUBE SCH ×2 (08:43→10:00)
--- NOTE | 2016-08-09 08:47 | RADRPT ---
EXAM DATE/TIME: 08/09/2016 07:51 This report includes an Addendum and supersedes previous reports for this exam. [facility] COMPARISON: CHEST SINGLE AP, August 08, 2016, 10:38. INDICATIONS : OG tube placement. MEDICAL HISTORY : None. SURGICAL HISTORY : None. ENCOUNTER: Subsequent ACUITY: 1 week PAIN SCORE: Non-responsive. LOCATION: Bilateral chest FINDINGS: Single AP view of the chest. Endotracheal tube is in place with the tip 2 cm above the long. Left s ubclavian central venous catheter is in place with the tip in the region of the brachiocephalic vein confluence. Asymmetric bilateral pulmonary parenchymal opacity is again seen with no significant inte rval change. CONCLUSION: Endotracheal tube tip now 2 cm above the long. No change in patchy bilateral pulmonary parenchymal opacity. Julio Grove MD on August 09, 2016 at 8:43 Board Certified Radiologist. This report was verified electronically. ADDENDUM: There is an NG tube in place overlapping the nasogastric tube on the image. The tip of the NG tube is at the level of the aortic arch in the proximal to mid thoracic esophagus. Side-port 3 cm below the thoracic inlet. Endotracheal tube tip is 9 cm above the long and 3 cm below the thoracic inlet. Julio Grove MD on August 09, 2016 at 9:14 Board Certified Radiologist. This report was verified electronically.
[2016-08-09] MEDS ORDERED: BUMETANIDE INJ 1 MG/4 ML VIAL IV PUSH SCH ×2 (09:00)
[2016-08-09 09:22] LABS: BLOOD GAS BASE EXCESS 1.6 mmol/L (-2-2); BLOOD GAS CARBOXYHEMOGLOBIN 1.1 % (0-4); BLOOD GAS HCO3 26 mmol/L (22-26); BLOOD GAS METHEMOGLOBIN 1.3 % (0-2); BLOOD GAS O2 HGB SATURATION 95 % (90-100); BLOOD GAS OXYGEN CONTENT 15.8 Vol % (12.0-20.0); BLOOD GAS PCO2 40 mmHg (38-42); BLOOD GAS PO2 106 mmHg (61-120); BLOOD GAS TOTAL HGB 11.7 G/DL (12.0-16.0); CRITICAL VALUE NO; OXYGEN DEVICE VENTILATOR; TEMP CORR TO 98.6
[2016-08-09 09:23] LABS: DRAW SITE ART LINE; FIO2 50 %; STAT NO
--- NOTE | 2016-08-09 11:17 | RADRPT ---
EXAM DATE/TIME: 08/09/2016 10:18 [facility] COMPARISON: No previous studies available for comparison. INDICATIONS : Evaluate for NG tube placement. MEDICAL HISTORY : None. SURGICAL HISTORY : None. ENCOUNTER: Subsequent ACUITY: 1 day PAIN SCORE: Non-responsive. LOCATION: abdomen. FINDINGS: 2 AP supine views of the abdomen. Scattered gas in small bowel and colon. No gross bowel dilatation. No abnormal abdominal calcification. Mild degenerative findings of the lumbar spine. CONCLUSION: Nonspecific bowel gas pattern. Julio Grove MD on August 09, 2016 at 11:15 Board Certified Radiologist. This report was verified electronically.
[2016-08-09] MEDS ORDERED: INSULIN HUMAN REGULAR 1,000 UNITS/10 ML VIAL SQ ONE ×2 (11:45→12:30)
[2016-08-09 12:16] LABS: BANDS 16 % (0-6); METAMYELOCYTES 1 % (0-1); MYELOCYTES 1 % (0-0); NEUTROPHIL # MANUAL DIFF 16.6 TH/MM3 (1.8-7.7); PLATELET ESTIMATE SMEAR NORMAL (NORMAL); PLATELET MORPHOLOGY CLUMPED (NORMAL); POLYS (SEG NEUTROPHILS) 78 % (16-70); SCAN/DIFF FINAL DIFF MANUAL; WBC DIFF SAMPLE 100
--- NOTE | 2016-08-09 13:39 | HHI.NPPN ---
Subjective Renal Failure: Chronic, Acute Interval History remains on the rotoprone bed. Excellent urine output. Creatinine is better, but BUN is higher. Negative fluid balance in the last 24 hours. Review of Systems General General Remarks unable to evaluate Objective Data Data 08/08/16 08/09/16 19:00 07:00 Intake Total 748 ml 1944 ml Output Total 1950 ml 2450 ml Balance -1202 ml -506 ml Intake IV Total 748 ml 1944 ml Output Urine Total 1925 ml 2450 ml Stool Total 25 ml Vital Signs Date Time Temp Pulse Resp B/P Pulse Ox O2 Delivery O2 Flow Rate FiO2 08/09/16 12:22 91 50 08/09/16 12:00 75 08/09/16 12:00 50 08/09/16 12:00 97.2 75 20 141/86 92 130/75 08/09/16 10:00 68 08/09/16 08:00 97.5 74 20 138/82 93 120/60 08/09/16 08:00 50 08/09/16 08:00 74 08/09/16 07:44 92 50 08/09/16 06:00 74 08/09/16 04:00 97.6 79 20 146/93 131/75 08/09/16 04:00 79 08/09/16 04:00 50 08/09/16 03:42 92 50 08/09/16 02:00 78 08/09/16 00:00 79 08/09/16 00:00 50 08/09/16 00:00 99.0 82 20 121/71 90 130/75 08/08/16 23:03 91 50 08/08/16 22:00 79 08/08/16 20:23 91 50 08/08/16 20:00 78 08/08/16 20:00 50 08/08/16 20:00 98.0 79 20 111/64 91 118/68 08/08/16 18:00 87 08/08/16 16:00 94 08/08/16 16:00 98.5 94 20 98/45 90 136/70 08/08/16 16:00 50 08/08/16 15:25 90 50 08/08/16 14:00 97 -: 08/09/16 0400 08/09/16 0400 Tubes & Lines: Witt Tubes & Lines Comment TLC Drip Comment fentanyl, propofol, nimbex, amiodarone, bicarbonate, vasopressin Physical Exam General Appearance: Well Developed, Well Nourished, No Acute Distress Pulmonary Resp Exam: Breath Sounds Equal, Crackles Cardiology CV Exam: Good Perfusion, Irregular Genitourinary Exam: Clear Urine Extremeties Extremities Exam: Pedal Pulses Palpable, Trace Edema Neurologic Neuro Exam: Unresponsive, Sedated Assessment/Plan Assessment Summary: CHAN/Acute Renal Failure, Fluid/Volume Overload, Hypotension Problem List: (1) Acute renal failure superimposed on stage 3 chronic kidney disease Plan: baseline creatinine 1.94, GFR 35 renal failure from sepsis and hypotension, possible dehydration; may have progressed to ATN We have achieved negative fluid balance. Improvement in oxygen requirement. Stop Bumex. No immediate need for dialysis. Taper down steroids if possible. Insulin and dextrose for hyperkalemia. Discussed with (2) Acute respiratory failure Plan: vent management by quarry extraction worker Still requiring PEEP of 15. (3) Pneumonia Plan: Blood culture negative to date + legionella in urine, he is on Levaquin and Zithromax. (4) Hyperglycemia Plan: may be due to steroid use monitor glucose insulin if needed (5) A-fib Plan: on amiodarone Plan . Problem Qualifiers (1) Acute respiratory failure: Qualified Code: J96.01 - Acute respiratory failure with hypoxia and hypercapnia (2) Pneumonia: Qualified Code: J18.9 - Pneumonia of both lungs due to infectious organism, unspecified part of lung Kevin Hernandez MD Aug 09, 2016 13:39
[2016-08-09] MEDS ORDERED: DEXTROSE 50% IN WATER 50 ML VIAL(D50) IV PUSH ONE (13:45)
[2016-08-09] MEDS ORDERED: INSULIN HUMAN REGULAR 1,000 UNITS/10 ML VIAL IV PUSH ONE (13:45)
[2016-08-09] MEDS: AMIODARONE INJ 450 MG in DEXTROSE 5% IN WATE(EXCEL) INJ 250 ML IV SCH ×2 (15:26)
--- NOTE | 2016-08-09 15:52 | HHI.CCPN ---
Subjective Remarks/Hospital Course 08/04: 60 y/o man with several week history of weakness, fatigue; fevers and sweats over past week. Today with severe SOB, arrived by EMS with hypoxemia. CO2 retention as well in ED. Required intubation in ED. Creatinine > 3.0 and severely dehydrated. 08/05: Remains sedated, orally intubated on mechanical ventilation. He remains at PEEP+14, FiO2 decreased to 80%. Urine positive for Legionella Ag. Went into A. fib with RVR. 08/06: Remains sedated, orally intubated on mechanical ventilation. On neuromuscular blockade with Nimbex. Initiated on prone ventilation today. Switched to pressure control mode with positive inspiratory pressure +20, PEEP + 15, respiratory rate 20, I time 1.82 seconds, FiO2 70%.. On propofol/fentanyl/ Versed/Nimbex/amiodarone/ vasopressin drips. Jose-Synephrine titrated off following switching from APRV to pressure control mode mechanical ventilation and initiating proning. 08/07: Remains sedated, on neuromuscular blockade, orally intubated on prone ventilation. FiO2 decreased to 50%, PEEP remains at +15. On fentanyl/versed/ Nimbex/amiodarone/vasopressin drips. Jose-Synephrine on transiently today. Diuresed well with Bumex. 08/08: Remains sedated, on neuromuscular blockade, orally intubated on prone ventilation. FiO2 decreased to 45%, PEEP remains at +15. Attempting to place Dobbhoff to initiate tube feeds. Off Jose-Synephrine. Vasopressin being titrated down. 09/08: Remains sedated, orally intubated on prone ventilation. Remains on Nimbex for neuromuscular blockade. PEEP +15, FiO2 50%. Have been unable to place OG tube despite multiple attempts. Objective Vital Signs Date Time Temp Pulse Resp B/P Pulse Ox O2 Delivery O2 Flow Rate FiO2 08/09/16 14:35 91 50 08/09/16 14:00 94 08/09/16 12:00 97.2 20 141/86 130/75 Intake and Output 08/08/16 08/08/16 08/09/16 08:00 16:00 00:00 Intake Total 518 ml 748 ml 1130 ml Output Total 1050 ml 1950 ml 1250 ml Balance -532 ml -1202 ml -120 ml Result Diagram: 08/09/16 0400 08/09/16 0400 Other Results Laboratory Tests Test 08/09/16 08/09/16 04:00 09:14 White Blood Count 17.3 TH/MM3 Red Blood Count 3.53 MIL/MM3 Hemoglobin 11.1 GM/DL Hematocrit 33.7 % Mean Corpuscular Volume 95.2 FL Mean Corpuscular Hemoglobin 31.3 PG Mean Corpuscular Hemoglobin 32.9 % Concent Red Cell Distribution Width 14.7 % Platelet Count 205 TH/MM3 Mean Platelet Volume 8.5 FL Neutrophils (%) (Auto) 95.9 % Lymphocytes (%) (Auto) 1.1 % Monocytes (%) (Auto) 2.6 % Eosinophils (%) (Auto) 0.3 % Basophils (%) (Auto) 0.1 % Neutrophils # (Auto) 16.6 TH/MM3 Lymphocytes # (Auto) 0.2 TH/MM3 Monocytes # (Auto) 0.4 TH/MM3 Eosinophils # (Auto) 0.1 TH/MM3 Basophils # (Auto) 0.0 TH/MM3 CBC Comment AUTO DIFF Differential Total Cells 100 Counted Neutrophils % (Manual) 78 % Band Neutrophils % 16 % Lymphocytes % 1 % Monocytes % 3 % Neutrophils # (Manual) 16.6 TH/MM3 Metamyelocytes 1 % Myelocytes 1 % Differential Comment FINAL DIFF MANUAL Platelet Estimate NORMAL Platelet Morphology Comment CLUMPED Red Cell Morphology Comment NORMAL Sodium Level 149 MEQ/L Potassium Level 5.3 MEQ/L Chloride Level 114 MEQ/L Carbon Dioxide Level 28.4 MEQ/L Anion Gap 7 MEQ/L Blood Urea Nitrogen 107 MG/DL Creatinine 2.59 MG/DL Estimat Glomerular Filtration 25 ML/MIN Rate Random Glucose 143 MG/DL Calcium Level 8.4 MG/DL Total Bilirubin 1.1 MG/DL Aspartate Amino Transf 81 U/L (AST/SGOT) Alanine Aminotransferase 76 U/L (ALT/SGPT) Alkaline Phosphatase 70 U/L Total Protein 6.3 GM/DL Albumin 1.6 GM/DL Blood Gas Puncture Site ART LINE Blood Gas Patient Temperature 98.6 Blood Gas HCO3 26 mmol/L Blood Gas Base Excess 1.6 mmol/L Blood Gas Oxygen Saturation 95 % Arterial Blood pH 7.43 Arterial Blood Partial 40 mmHg Pressure CO2 Arterial Blood Partial 106 mmHg Pressure O2 Arterial Blood Oxygen Content 15.8 Vol % Arterial Blood 1.1 % Carboxyhemoglobin Arterial Blood Methemoglobin 1.3 % Blood Gas Hemoglobin 11.7 G/DL Oxygen Delivery Device VENTILATOR Blood Gas Ventilator Setting Blood Gas Inspired Oxygen 50 % Imaging Last 24 hours Impressions Chest X-Ray 08/08/16 1000 Signed Impressions: Service Date/Time: Monday, August 08, 2016 10:38 - CONCLUSION: Improved aeration. Murali Perdomo MD Abdomen X-Ray 08/08/16 0000 Signed Impressions: Service Date/Time: Monday, August 08, 2016 10:38 - CONCLUSION: No evidence of obstruction. Murali Perdomo MD Last 24 hours Impressions Chest X-Ray 08/07/16 0600 Signed Impressions: Service Date/Time: Sunday, August 07, 2016 04:57 - CONCLUSION: No significant change. Extensive bilateral infiltrates persist. Efrain Syed MD Last 24 hours Impressions Chest X-Ray 08/06/16 0400 Signed Impressions: Service Date/Time: July 03:00 - CONCLUSION: No significant interval change with bilateral pulmonary infiltrates. Ronny Joshi MD Last Impressions Chest X-Ray 08/04/16 1832 Signed Impressions: Service Date/Time: Thursday, August 04, 2016 18:50 - CONCLUSION: Extensive bilateral airspace disease greater in the left lung. There may be pneumomediastinum. Perico Wahl MD Objective Remarks Gen: Elderly male, sedated, orally intubated on mechanical ventilation and neuromuscular blockade. On Rota prone bed HEENT: Positive pallor, no icterus. Orally intubated. Mucosa moist. Neck: Supple, orally intubated. Lungs: Orally intubated on mechanical ventilation, air entry decreased bilaterally at bases, bilateral rhonchi Heart: NL S1S2 regularly regular, no JVD. Abdomen: Soft, NT, ND, no guarding. Extremities: Warm bilaterally, no edema Neuro: Sedated, on neuromuscular blockade, orally intubated on mechanical ventilation. A/P Assessment and Plan Assessment: 1. Septic shock 2. Acute Respiratory Failure on mechanical ventilation 3. Legionella Pneumonia 4. ARDS 5. CKD with CHAN 6. A. fib with RVR (converted to RSR) 7. Hx depression with recent ECT 2016 Neuro: Continue sedation with Versed/fentanyl gtt. on Nimbex for neuromuscular blockade No sedation vacation. Cardiovascular: Continue amiodarone drip for A. fib. Jose-Synephrine titrated off. Decrease vasopressin gtt gradually. IV fluids decreased to KVO. Diurese with Bumex. Pulmonary: Continue mechanical ventilation, adjusted following ABG to AC/PC PIP +18, PEEP +15, respiratory rate 18, FiO2 45%, inspiratory time 1.23 seconds Vent bundle, bronchodilators, pulmonary toilet. On prone ventilation. On neuromuscular blockade. GI/liver: Unable to place OG tube despite multiple attempts. We'll consult GI to assist with Dobbhoff placement. Renal/: KVO IVF, strict intake output, monitor and replete electrolytes, follow BUN/creatinine. Nephrology following for CHAN/CKD. Given glucose/ insulin for hyperkalemia. Heme: Follow CBC ID: Continue antibiotic coverage with IV Levaquin Zithromax. Cefepime stopped on 08/07 per ID. ID following. Urine positive for Legionella antigen. Endocrine: SSI for glycemic control. Tapering stress dose hydrocortisone. Prophylaxis: PPI/SCDs/Lovenox Remains critical with severe ARDS secondary to Legionella pneumonia and septic shock on prone ventilation and neuromuscular blockade. Critical Care time: 45 mins aside from procedures. Viet Duran MD Aug 09, 2016 15:52
[2016-08-09] MEDS: LEVOFLOXACIN 250 MG PREMIX INJ 50 ML IV SCH (16:19)
[2016-08-09] MEDS: AZITHROMYCIN INJ 500 MG in SODIUM CHLOR 0.9% 250 ML INJ 250 ML IV SCH (19:28)
[2016-08-10] VITALS (21 sets, daily range): BP systolic 120–155; BP diastolic 66–84; PULSE 64–102; RESP 18–20; TEMP 97.4–99.1; O2SAT 84–100
[2016-08-10] MEDS: MIDAZOLAM 100 MG/ML INJ 100 ML IV SCH ×3 (02:16→22:20)
[2016-08-10] MEDS: AMIODARONE INJ 450 MG in DEXTROSE 5% IN WATE(EXCEL) INJ 250 ML IV SCH ×4 (02:28→22:20)
[2016-08-10 05:22] LABS: AUTOMATED NEUTROPHIL # 16.3 TH/MM3 (1.8-7.7); BASOPHIL % 0.1 % (0.0-2.0); EOSINOPHIL # 0.2 TH/MM3 (0-0.4); EOSINOPHIL % 1.1 % (0.0-4.0); HEMATOCRIT 34.1 % (39.0-51.0); LYMPH % 2.5 % (9.0-44.0); LYMPHOCYTE # 0.4 TH/MM3 (1.0-4.8); MEAN CELL VOLUME 94.9 FL (80.0-100.0); MEAN CORPUSCULAR HEMOGLOBIN 31.9 PG (27.0-34.0); MEAN CORPUSCULAR HGB CONC 33.6 % (32.0-36.0); MONO % 3.7 % (0.0-8.0); NEUT % 92.6 % (16.0-70.0); PLATELET COUNT 211 TH/MM3 (150-450); RED BLOOD COUNT 3.59 MIL/MM3 (4.50-5.90); RED CELL DISTRIBUTION WIDTH 14.5 % (11.6-17.2); WHITE BLOOD COUNT 17.6 TH/MM3 (4.0-11.0)
[2016-08-10 05:29] LABS: HEMO FLAGS AUTO DIFF
[2016-08-10] MEDS: HYDROCORTISONE SOD SUCCINATE 100 MG VIAL IV PUSH SCH ×3 (05:44→20:16)
[2016-08-10] MEDS: ENOXAPARIN SODIUM 30 MG/0.3 ML SYRINGE SQ SCH (05:44)
[2016-08-10] MEDS: INSULIN ASPART SUPPLEMENTAL SCALE SQ SCH ×3 (05:44→18:00)
[2016-08-10 05:56] LABS: ALKALINE PHOSPHATASE 67 U/L (45-117); ALT (GPT) 59 U/L (12-78); ANION GAP 4 MEQ/L (5-15); AST (GOT) 34 U/L (15-37); BICARBONATE 33.2 MEQ/L (21.0-32.0); BLOOD UREA NITROGEN 100 MG/DL (7-18); CHLORIDE 119 MEQ/L (98-107); GLOMERULAR FILTRATION RATE 31 ML/MIN (>89); POTASSIUM 5.5 MEQ/L (3.5-5.1)
[2016-08-10 06:10] LABS: SODIUM (NA) 156 MEQ/L (136-145)
[2016-08-10] MEDS: DEXTROSE 5% IN WATE 1000ML INJ 1,000 ML IV SCH ×2 (06:30→22:55)
[2016-08-10 07:04] LABS: BANDS 7 % (0-6); METAMYELOCYTES 2 % (0-1); MYELOCYTES 7 % (0-0); NEUTROPHIL # MANUAL DIFF 15.8 TH/MM3 (1.8-7.7); POLYS (SEG NEUTROPHILS) 74 % (16-70); WBC DIFF SAMPLE 100
[2016-08-10 07:05] LABS: PLATELET ESTIMATE SMEAR NORMAL (NORMAL); PLATELET MORPHOLOGY NORMAL (NORMAL); SCAN/DIFF FINAL DIFF MANUAL
[2016-08-10] MEDS: CHLORHEXIDINE 0.12% (ORAL KIT) 15 ML CUP MT SCH ×2 (07:40→20:16)
[2016-08-10] MEDS: PROPOFOL 1000 MG/100 ML INJ 100 ML IV SCH ×3 (07:46→20:17)
[2016-08-10] MEDS: PANTOPRAZOLE SODIUM 40 MG VIAL IV SCH (08:11)
[2016-08-10] MEDS: LACTULOSE SYRUP 20 GM/30 ML CUP PO SCH (08:12)
[2016-08-10] MEDS ORDERED: CHLOROTHIAZIDE SOD 500 MG VIAL IV ONE (09:00)
--- NOTE | 2016-08-10 10:12 | HHI.NPPN ---
Subjective Renal Failure: Chronic, Acute Interval History Creatinine is better. Excellent urine output. OG tube unable to be passed. Still on low dose pressor support. (Marium Diana) Review of Systems General General Remarks unable to evaluate (Marium Diana) Objective Data Data 08/09/16 08/10/16 19:00 07:00 Intake Total 1089 ml 1820 ml Output Total 2725 ml 2150 ml Balance -1636 ml -330 ml Intake IV Total 1089 ml 1820 ml Output Urine Total 2725 ml 2150 ml Vital Signs Date Time Temp Pulse Resp B/P Pulse Ox O2 Delivery O2 Flow Rate FiO2 08/10/16 08:00 97.4 71 20 139/84 93 131/70 08/10/16 08:00 71 08/10/16 08:00 50 08/10/16 07:50 92 50 08/10/16 06:00 71 08/10/16 04:02 93 60 08/10/16 04:00 75 08/10/16 04:00 98.6 75 18 139/77 96 120/68 08/10/16 04:00 50 08/10/16 02:00 76 08/10/16 00:41 100 60 08/10/16 00:00 78 08/10/16 00:00 50 08/10/16 00:00 98.0 78 18 132/70 99 131/72 08/09/16 22:30 92 100 08/09/16 22:00 65 08/09/16 20:00 70 08/09/16 20:00 97.4 70 18 137/86 95 114/68 08/09/16 20:00 50 08/09/16 19:53 92 50 08/09/16 18:00 72 08/09/16 16:00 77 08/09/16 16:00 98.2 77 18 137/81 90 124/68 08/09/16 16:00 50 08/09/16 14:35 91 50 08/09/16 14:00 94 08/09/16 12:22 91 50 08/09/16 12:00 75 08/09/16 12:00 50 08/09/16 12:00 97.2 75 20 141/86 92 130/75 (Marium Diana) -: 08/10/16 0430 08/10/16 0430 Imaging Last 72 hours Impressions Chest X-Ray 08/09/16 0000 Signed Impressions: Service Date/Time: Tuesday, August 09, 2016 07:51 - CONCLUSION: Endotracheal tube tip now 2 cm above the long. No change in patchy bilateral pulmonary parenchymal opacity. Julio Grove MD ADDENDUM: There is an NG tube in place overlapping the nasogastric tube on the image. The tip of the NG tube is at the level of the aortic arch in the proximal to mid thoracic esophagus. Side-port 3 cm below the thoracic inlet. Endotracheal tube tip is 9 cm above the long and 3 cm below the thoracic inlet. Julio Grove MD Abdomen X-Ray 08/09/16 0000 Signed Impressions: Service Date/Time: Tuesday, August 09, 2016 10:18 - CONCLUSION: Nonspecific bowel gas pattern. Julio Grove MD Chest X-Ray 08/08/16 1000 Signed Impressions: Service Date/Time: Monday, August 08, 2016 10:38 - CONCLUSION: Improved aeration. Murali Perdomo MD Abdomen X-Ray 08/08/16 0000 Signed Impressions: Service Date/Time: Monday, August 08, 2016 16:10 - CONCLUSION: Dobbhoff tube is present with tip in right lower lobe bronchus. Findings were discussed with the patient's nurse at the time of this dictation. Aj Wright MD Abdomen X-Ray 08/08/16 0000 Signed Impressions: Service Date/Time: Monday, August 08, 2016 10:38 - CONCLUSION: No evidence of obstruction. Murali Perdomo MD Tubes & Lines: Witt Tubes & Lines Comment TLC Drip Comment fentanyl, propofol, nimbex, amiodarone, vasopressin (Marium Diana) Physical Exam General Appearance: Well Developed, Well Nourished, No Acute Distress Appearance Remarks difficult to examine in rotaprone bed (Marium Diana) Throat Throat Remarks ETT (Marium Diana) Pulmonary Resp Exam: Breath Sounds Equal, Crackles Resp Remarks some expiratory wheezing (Marium Diana) Cardiology CV Exam: Good Perfusion, Irregular (Marium Diana) Genitourinary Exam: Clear Urine (Marium Diana) Extremeties Extremities Exam: Pedal Pulses Palpable, Trace Edema (Marium Diana) Neurologic Neuro Exam: Unresponsive, Sedated (Marium Diana) Assessment/Plan Assessment Summary: CHAN/Acute Renal Failure, Fluid/Volume Overload, Hypotension Problem List: (1) Acute renal failure superimposed on stage 3 chronic kidney disease Plan: baseline creatinine 1.94, GFR 35 renal failure from sepsis and hypotension, possible dehydration; may have progressed to ATN creatinine is better, excellent urine output negative fluid balance Bumex was stopped, in light of hypernatremia give a dose of Diuril he is on D5W @ 60 cc/hr K 5.5, monitor for now repeat renal panel in am (2) Acute respiratory failure Plan: vent management by project management specialist 50% Fi02, PEEP 15 (3) Pneumonia Plan: Blood culture negative to date + legionella in urine, sputum negative, taken off isolation Abx include Levaquin and Zithromax. (4) Hyperglycemia Plan: may be due to steroid use monitor glucose insulin if needed (5) A-fib Plan: on amiodarone gtt, rate controlled Plan . (Marium Diana) Plan patient was seen and examined. Non oliguric. Insulin and dextrose for hyperkalemia. Hypernatremia is noted. He is on D5W. No immediate need for dialysis. (Kevin Hernandez MD) Problem Qualifiers (1) Acute respiratory failure: Qualified Code: J96.01 - Acute respiratory failure with hypoxia and hypercapnia (2) Pneumonia: Qualified Code: J18.9 - Pneumonia of both lungs due to infectious organism, unspecified part of lung Marium Diana August 10, 2016 10:12 Kevin Hernandez MD August 11, 2016 10:52
[2016-08-10] MEDS ORDERED: DEXTROSE 50% IN WATER 50 ML VIAL(D50) IV PUSH ONE (10:30)
[2016-08-10] MEDS ORDERED: INSULIN HUMAN REGULAR 1,000 UNITS/10 ML VIAL IV PUSH ONE ×2 (11:00→18:00)
[2016-08-10] MEDS: fentaNYL DRIP 250 ML IV SCH ×2 (11:27→22:20)
[2016-08-10] MEDS: CISATRACURIUM INJ 100 MG in SODIUM CHLOR 0.9% 250 ML INJ 240 ML IV SCH (12:21)
--- NOTE | 2016-08-10 12:39 | HHI.IDPN ---
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 Vital Signs Date Time Temp Pulse Resp B/P Pulse Ox O2 Delivery O2 Flow Rate FiO2 08/10/16 12:00 50 08/10/16 12:00 97.8 66 18 126/75 94 138/80 08/10/16 12:00 66 08/10/16 10:45 92 50 08/10/16 10:20 92 50 08/10/16 10:00 92 50 08/10/16 10:00 64 08/10/16 08:00 97.4 71 18 139/84 93 131/70 08/10/16 08:00 71 08/10/16 08:00 50 08/10/16 07:50 92 50 08/10/16 06:00 71 08/10/16 04:02 93 60 08/10/16 04:00 75 08/10/16 04:00 98.6 75 18 139/77 96 120/68 08/10/16 04:00 50 08/10/16 02:00 76 08/10/16 00:41 100 60 08/10/16 00:00 78 08/10/16 00:00 50 08/10/16 00:00 98.0 78 18 132/70 99 131/72 08/09/16 22:30 92 100 08/09/16 22:00 65 08/09/16 20:00 70 08/09/16 20:00 97.4 70 18 137/86 95 114/68 08/09/16 20:00 50 08/09/16 19:53 92 50 08/09/16 18:00 72 08/09/16 16:00 77 08/09/16 16:00 98.2 77 18 137/81 90 124/68 08/09/16 16:00 50 08/09/16 14:35 91 50 08/09/16 14:00 94 08/09/16 08/09/16 08/10/16 15:00 23:00 07:00 Intake Total 1089 ml 1010 ml 810 ml Output Total 2725 ml 1000 ml 1150 ml Balance -1636 ml 10 ml -340 ml Intake IV Total 1089 ml 1010 ml 810 ml Output Urine Total 2725 ml 1000 ml 1150 ml . Laboratory Tests Test 08/09/16 08/10/16 04:00 04:30 White Blood Count 17.3 TH/MM3 17.6 TH/MM3 Red Blood Count 3.53 MIL/MM3 3.59 MIL/MM3 Hemoglobin 11.1 GM/DL 11.5 GM/DL Hematocrit 33.7 % 34.1 % Mean Corpuscular Volume 95.2 FL 94.9 FL Mean Corpuscular Hemoglobin 31.3 PG 31.9 PG Mean Corpuscular Hemoglobin 32.9 % 33.6 % Concent Red Cell Distribution Width 14.7 % 14.5 % Platelet Count 205 TH/MM3 211 TH/MM3 Mean Platelet Volume 8.5 FL 8.6 FL Neutrophils (%) (Auto) 95.9 % 92.6 % Lymphocytes (%) (Auto) 1.1 % 2.5 % Monocytes (%) (Auto) 2.6 % 3.7 % Eosinophils (%) (Auto) 0.3 % 1.1 % Basophils (%) (Auto) 0.1 % 0.1 % Neutrophils # (Auto) 16.6 TH/MM3 16.3 TH/MM3 Lymphocytes # (Auto) 0.2 TH/MM3 0.4 TH/MM3 Monocytes # (Auto) 0.4 TH/MM3 0.6 TH/MM3 Eosinophils # (Auto) 0.1 TH/MM3 0.2 TH/MM3 Basophils # (Auto) 0.0 TH/MM3 0.0 TH/MM3 CBC Comment AUTO DIFF AUTO DIFF Differential Total Cells 100 100 Counted Neutrophils % (Manual) 78 % 74 % Band Neutrophils % 16 % 7 % Lymphocytes % 1 % 3 % Monocytes % 3 % 7 % Neutrophils # (Manual) 16.6 TH/MM3 15.8 TH/MM3 Metamyelocytes 1 % 2 % Myelocytes 1 % 7 % Differential Comment FINAL DIFF FINAL DIFF MANUAL MANUAL Platelet Estimate NORMAL NORMAL Platelet Morphology Comment CLUMPED NORMAL Red Cell Morphology Comment NORMAL Laboratory Tests Test 08/09/16 08/10/16 04:00 04:30 Sodium Level 149 MEQ/L 156 MEQ/L Potassium Level 5.3 MEQ/L 5.5 MEQ/L Chloride Level 114 MEQ/L 119 MEQ/L Carbon Dioxide Level 28.4 MEQ/L 33.2 MEQ/L Anion Gap 7 MEQ/L 4 MEQ/L Blood Urea Nitrogen 107 MG/DL 100 MG/DL Creatinine 2.59 MG/DL 2.17 MG/DL Estimat Glomerular Filtration 25 ML/MIN 31 ML/MIN Rate Random Glucose 143 MG/DL 135 MG/DL Calcium Level 8.4 MG/DL 8.4 MG/DL Total Bilirubin 1.1 MG/DL 1.0 MG/DL Aspartate Amino Transf 81 U/L 34 U/L (AST/SGOT) Alanine Aminotransferase 76 U/L 59 U/L (ALT/SGPT) Alkaline Phosphatase 70 U/L 67 U/L Total Protein 6.3 GM/DL 6.1 GM/DL Albumin 1.6 GM/DL 1.6 GM/DL Phosphorus Level 4.9 MG/DL Imaging Chest X-Ray 08/07/16 0600 Signed Impressions: Service Date/Time: Sunday, August 07, 2016 04:57 - CONCLUSION: No significant change. Extensive bilateral infiltrates persist. Efrain Syed MD Chest X-Ray 08/06/16 0400 Signed Impressions: Service Date/Time: July 03:00 - CONCLUSION: No significant interval change with bilateral pulmonary infiltrates. Ronny Joshi MD Renal Ultrasound 08/05/16 1504 Signed Impressions: Service Date/Time: Friday, August 05, 2016 21:01 - CONCLUSION: 1. No evidence of obstruction or other acute renal abnormality. 2. Small, benign appearing cyst of the right kidney. 3. Witt catheter present. Efrain Syed MD Last Impressions Chest X-Ray 08/06/160 Signed Impressions: Service Date/Time: July 03:00 - CONCLUSION: No significant interval change with bilateral pulmonary infiltrates. Ronny Joshi MD Renal Ultrasound 08/05/16 1504 Signed Impressions: Service Date/Time: Friday, August 05, 2016 21:01 - CONCLUSION: 1. No evidence of obstruction or other acute renal abnormality. 2. Small, benign appearing cyst of the right kidney. 3. Witt catheter present. Efrain Syed MD Physical Exam GENERAL: On the vent, on sedation and paralytics, on rotaprone bed, currently supine. SKIN: Cool and moist. No rash, or ecchymosis in back. CARDIOVASCULAR: irregular rate and rhythm without murmurs, gallops, or rubs. RESPIRATORY: Decreased breath sounds bilaterally GASTROINTESTINAL: Abdomen soft, BS (+) MUSCULOSKELETAL: Extremities without edema. NEUROLOGICAL: Sedated, on paralytics PSYCH: Unable to fully assess LINE: LSC TLC with no evidence of infection : Witt cath in place, urine looks clear Assessment & Plan Remarks IMPRESSION Severe bilateral pneumonia, (+) Legionella Respiratory failure, with significant hypoxemia Hx anxiety/depression Leukocytosis, infection, reactive, ?solucortef adding to it RECOMMENDATION Continue Zithromax Continue Levaquin Monitor progress Monitor crystal [facility]/W Kyleigh Duarte MD August 10, 2016 12:39
--- NOTE | 2016-08-10 13:46 | PD.CONS ---
HPI History of Present Illness This is a 60 year old [gentleman] on prone ventilation who Per EMR pt arrived to ER with SOB, hypoxic, dehydration. Has PNA, sepsis, urine + for legionella antigen. Per RN multiple failed attempts to place NGT, dobhoff. GI consulted for endoscopy placement of OGT. (Jia Ruiz) PFSH Past Medical History Per EMR - asthma - depression Past Surgical History right shoulder surgery (Jia Ruiz) Coded Allergies: No Known Allergies (Unverified , 07/31/16) Medications Current Medications Medications (Trade) Dose Ordered Sig/Lou Route PRN Reason Start Time Stop Time Status Last Admin Dose Admin Sodium Chloride (NS Flush) 2 ml UNSCH PRN IVF FLUSH AFTER USING IV ACCESS 08/04/16 18:45 08/09/16 21:08 Chlorhexidine Gluconate 15 ml 15 ml BID@08,20 MT 08/05/16 08:00 08/10/16 07:40 Propofol 100 ml @ 0 mls/hr TITRATE IV 08/04/16 21:45 08/10/16 07:46 Azithromycin/ Sodium Chloride (Zithromax Inj/ NS 250 ml Inj) 250 ml @ 250 mls/hr Q24H IV 08/05/16 20:00 08/09/16 19:28 Acetaminophen (Tylenol) 650 mg Q6H PRN PO PAIN 1-10 AND/OR FEVER >101F 08/04/16 21:45 Morphine Sulfate (Morphine Inj) 2 mg Q2H PRN IV PAIN SCALE 6 TO 10 08/04/16 21:45 Pantoprazole Sodium (Protonix Inj) 40 mg DAILY IV 08/05/16 09:00 08/10/16 08:11 Lorazepam (Ativan Inj) 1 mg Q1H PRN IV Agitation/Sedation 08/04/16 21:45 Ondansetron HCl (Zofran Inj) 4 mg Q6H PRN IV NAUSEA OR VOMITING 08/04/16 21:45 Sennosides (Senna Liq) 17.6 mg Q12H PRN G-TUBE CONSTIPATION 08/04/16 21:45 Lactulose (Lactulose Liq) 30 ml DAILY PO 08/05/16 09:00 08/09/16 08:38 Enoxaparin Sodium (Lovenox Inj) 30 mg Q24H SQ 08/05/16 06:00 08/10/16 05:44 Miscellaneous Information 1 [id number] XX 08/04/16 21:45 08/04/16 21:45 Chlorhexidine Gluconate (Chlorhexidine 2% Cloth) Taper DAILY@04 TOP 08/05/16 04:00 08/01/17 03:59 08/09/16 23:16 Chlorhexidine Gluconate (Chlorhexidine 2% Cloth) 3 pack UNSCH PRN TOP HYGIENIC CARE 08/04/16 21:45 Fentanyl Citrate 100 mcg 100 mcg Q1H PRN SLOW IVP any pain 08/04/16 22:45 Fentanyl Citrate 250 ml @ 0 mls/hr TITRATE IV 08/04/16 22:45 08/10/16 11:27 Amiodarone HCl 450 mg/Dextrose 259 ml @ 0 mls/hr CONTINUOUS IV 08/05/16 16:00 08/10/16 02:28 Levofloxacin/ Dextrose 50 ml @ 50 mls/hr Q24H IV 08/05/16 17:00 08/09/16 16:19 Cisatracurium Besylate/Sodium Chloride (Nimbex Inj/NS 250 ml Inj) 250 ml @ 0 mls/hr TITRATE IV 08/05/16 16:30 08/10/16 12:21 Terbutaline Sulfate 1 mg 1 mg UNSCH PRN SQ FOR EXTRAVASATION PROTOCOL 08/05/16 20:30 Phenylephrine HCl 80 mg/Dextrose 500 ml @ 0 mls/hr TITRATE IV 08/06/16 08:30 Vasopressin 40 units/Dextrose 100 ml @ 4.5 mls/hr [id number] IV 08/06/16 08:50 08/09/16 16:14 Midazolam HCl (Versed Inj) 100 ml @ 0 mls/hr TITRATE IV 08/06/16 09:00 08/10/16 12:21 Insulin Aspart (NovoLOG SUPPLEMENTAL SCALE) 1 Q6HR SQ 08/08/16 18:00 08/08/16 17:55 Dextrose (D50w (Vial) Inj) 25 ml UNSCH PRN IV HYPOGLYCEMIA-SEE COMMENTS 08/08/16 13:30 08/09/16 12:17 Glucagon (Glucagon Inj) 1 mg UNSCH PRN IM/SQ HYPOGLYCEMIA-SEE COMMENTS 08/08/16 13:30 Hydrocortisone Sodium Succinate 50 mg 50 mg Q8HR IV PUSH 4/30/17 14:00 08/10/16 05:44 Dextrose (D5W 1000 ml Inj) 1,000 ml @ 60 mls/hr [id number] IV 08/10/16 06:30 08/10/16 06:30 Family History unable to obtain Social History ETOH marijuana 2 x joints daily (Per EMR) (Jia Ruiz) GI Exam Vitals I&O Vital Signs Date Time Temp Pulse Resp B/P Pulse Ox O2 Delivery O2 Flow Rate FiO2 08/10/16 12:00 50 08/10/16 12:00 97.8 66 18 126/75 94 138/80 08/10/16 12:00 66 08/10/16 10:45 92 50 08/10/16 10:20 92 50 08/10/16 10:00 92 50 08/10/16 10:00 64 08/10/16 08:00 97.4 71 18 139/84 93 131/70 08/10/16 08:00 71 08/10/16 08:00 50 08/10/16 07:50 92 50 08/10/16 06:00 71 08/10/16 04:02 93 60 08/10/16 04:00 75 08/10/16 04:00 98.6 75 18 139/77 96 120/68 08/10/16 04:00 50 08/10/16 02:00 76 08/10/16 00:41 100 60 08/10/16 00:00 78 08/10/16 00:00 50 08/10/16 00:00 98.0 78 18 132/70 99 131/72 08/09/16 22:30 92 100 08/09/16 22:00 65 08/09/16 20:00 70 08/09/16 20:00 97.4 70 18 137/86 95 114/68 08/09/16 20:00 50 08/09/16 19:53 92 50 08/09/16 18:00 72 08/09/16 16:00 77 08/09/16 16:00 98.2 77 18 137/81 90 124/68 08/09/16 16:00 50 08/09/16 14:35 91 50 08/09/16 14:00 94 I/O 4/30/17 408/09/16 08/10/16 08/10/16 08/10/16 07:00 15:00 23:00 07:00 15:00 23:00 Intake Total 814 ml 1089 ml 1010 ml 810 ml Output Total 1200 ml 2725 ml 1000 ml 1150 ml Balance -386 ml -1636 ml 10 ml -340 ml Intake IV Total 814 ml 1089 ml 1010 ml 810 ml Output Urine Total 1200 ml 2725 ml 1000 ml 1150 ml Imaging Last Impressions Chest X-Ray 08/09/16 0000 Signed Impressions: Service Date/Time: Tuesday, August 09, 2016 07:51 - CONCLUSION: Endotracheal tube tip now 2 cm above the long. No change in patchy bilateral pulmonary parenchymal opacity. Julio Grove MD ADDENDUM: There is an NG tube in place overlapping the nasogastric tube on the image. The tip of the NG tube is at the level of the aortic arch in the proximal to mid thoracic esophagus. Side-port 3 cm below the thoracic inlet. Endotracheal tube tip is 9 cm above the long and 3 cm below the thoracic inlet. Julio Grove MD Abdomen X-Ray 08/09/16 0000 Signed Impressions: Service Date/Time: Tuesday, August 09, 2016 10:18 - CONCLUSION: Nonspecific bowel gas pattern. Julio Grove MD Renal Ultrasound 08/05/16 1504 Signed Impressions: Service Date/Time: Friday, August 05, 2016 21:01 - CONCLUSION: 1. No evidence of obstruction or other acute renal abnormality. 2. Small, benign appearing cyst of the right kidney. 3. Wtit catheter present. Efrain Syed MD Laboratory Test 08/10/16 04:30 White Blood Count 17.6 TH/MM3 Red Blood Count 3.59 MIL/MM3 Hemoglobin 11.5 GM/DL Hematocrit 34.1 % Mean Corpuscular Volume 94.9 FL Mean Corpuscular Hemoglobin 31.9 PG Mean Corpuscular Hemoglobin 33.6 % Concent Red Cell Distribution Width 14.5 % Platelet Count 211 TH/MM3 Mean Platelet Volume 8.6 FL Neutrophils (%) (Auto) 92.6 % Lymphocytes (%) (Auto) 2.5 % Monocytes (%) (Auto) 3.7 % Eosinophils (%) (Auto) 1.1 % Basophils (%) (Auto) 0.1 % Neutrophils # (Auto) 16.3 TH/MM3 Lymphocytes # (Auto) 0.4 TH/MM3 Monocytes # (Auto) 0.6 TH/MM3 Eosinophils # (Auto) 0.2 TH/MM3 Basophils # (Auto) 0.0 TH/MM3 CBC Comment AUTO DIFF Differential Total Cells 100 Counted Neutrophils % (Manual) 74 % Band Neutrophils % 7 % Lymphocytes % 3 % Monocytes % 7 % Neutrophils # (Manual) 15.8 TH/MM3 Metamyelocytes 2 % Myelocytes 7 % Differential Comment FINAL DIFF MANUAL Platelet Estimate NORMAL Platelet Morphology Comment NORMAL Sodium Level 156 MEQ/L Potassium Level 5.5 MEQ/L Chloride Level 119 MEQ/L Carbon Dioxide Level 33.2 MEQ/L Anion Gap 4 MEQ/L Blood Urea Nitrogen 100 MG/DL Creatinine 2.17 MG/DL Estimat Glomerular Filtration 31 ML/MIN Rate Random Glucose 135 MG/DL Calcium Level 8.4 MG/DL Phosphorus Level 4.9 MG/DL Total Bilirubin 1.0 MG/DL Aspartate Amino Transf 34 U/L (AST/SGOT) Alanine Aminotransferase 59 U/L (ALT/SGPT) Alkaline Phosphatase 67 U/L Total Protein 6.1 GM/DL Albumin 1.6 GM/DL Physical Examination HEENT: on vent, paralyzed, normocephalic; atraumatic; no jaundice. CHEST: congested CARDIAC: Pulse +1, regular rate ABDOMEN: unable to assess EXTREMITIES: No clubbing, cyanosis SKIN: unable to fully assess THREAD SINGER: paralyzed, on prone vent (Jia Ruiz) Assessment and Plan Plan ASSESSMENT - dysphagia/FEN - multiple failed attempts to place NGT, dobhoff PLAN: - EGD with OGT placement in am (bedside) - obtain consents This pt seen by myself and Dr Sharp and this note is written on his behalf ( Jia Ruiz) Physician Comments Seen and examined with TRISTAN, Gi consulted for OG tube placement with endoscopy. Consents obtained form family, plan for tomorrow. Discussed with the nurse. Thank you (Jimi Sharp MD) Jia Ruiz August 10, 2016 13:46 Jimi Sharp MD August 10, 2016 18:21
[2016-08-10 16:24] LABS: BLOOD GAS BASE EXCESS 5.6 mmol/L (-2-2); BLOOD GAS CARBOXYHEMOGLOBIN 1.1 % (0-4); BLOOD GAS HCO3 32 mmol/L (22-26); BLOOD GAS METHEMOGLOBIN 1.5 % (0-2); BLOOD GAS O2 HGB SATURATION 94 % (90-100); BLOOD GAS OXYGEN CONTENT 16.3 Vol % (12.0-20.0); BLOOD GAS PCO2 68 mmHg (38-42); BLOOD GAS PO2 100 mmHg (61-120); BLOOD GAS TOTAL HGB 12.3 G/DL (12.0-16.0); TEMP CORR TO 98.6
[2016-08-10 16:25] LABS: CRITICAL VALUE YES; OXYGEN DEVICE VENTILATOR; VENT SETTINGS SEE COMMENTS
[2016-08-10 16:26] LABS: DRAW SITE ART LINE; FIO2 60 %; STAT NO
--- NOTE | 2016-08-10 16:34 | RADRPT ---
EXAM DATE/TIME: 08/10/2016 15:39 [facility] COMPARISON: CHEST SINGLE AP, August 09, 2016, 7:51. INDICATIONS : Respiratory failure, evaluate for pneumothorax MEDICAL HISTORY : Hypertension. asthma SURGICAL HISTORY : right shoulder ENCOUNTER: Subsequent ACUITY: 1 week PAIN SCORE: Non-responsive. LOCATION: Bilateral chest FINDINGS: Endotracheal tube is present with tip 6-7 cm above the long. Left subclavian central line is stable in good position. There is been slight increase in confluence of bilateral infiltrates. Cardiac cont ours are grossly stable. CONCLUSION: Slight worsening in aeration Efrain Deng MD on August 10, 2016 at 16:30 Board Certified Radiologist. This report was verified electronically.
[2016-08-10] MEDS: LEVOFLOXACIN 250 MG PREMIX INJ 50 ML IV SCH (16:59)
[2016-08-10] MEDS: RESP: ALBUTEROL 2.5 MG/IPRATROPIUM 0.5 MG NEB (PRN) NEB ×2 (17:30→20:04)
[2016-08-10] MEDS ORDERED: DEXTROSE 50% IN WATER 50 ML VIAL(D50) IV STA (17:34)
--- NOTE | 2016-08-10 17:53 | HHI.CCPN ---
Subjective Remarks/Hospital Course 08/04: 60 y/o man with several week history of weakness, fatigue; fevers and sweats over past week. Today with severe SOB, arrived by EMS with hypoxemia. CO2 retention as well in ED. Required intubation in ED. Creatinine > 3.0 and severely dehydrated. 08/05: Remains sedated, orally intubated on mechanical ventilation. He remains at PEEP+14, FiO2 decreased to 80%. Urine positive for Legionella Ag. Went into A. fib with RVR. 08/06: Remains sedated, orally intubated on mechanical ventilation. On neuromuscular blockade with Nimbex. Initiated on prone ventilation today. Switched to pressure control mode with positive inspiratory pressure +20, PEEP + 15, respiratory rate 20, I time 1.82 seconds, FiO2 70%.. On propofol/fentanyl/ Versed/Nimbex/amiodarone/ vasopressin drips. Jose-Synephrine titrated off following switching from APRV to pressure control mode mechanical ventilation and initiating proning. 08/07: Remains sedated, on neuromuscular blockade, orally intubated on prone ventilation. FiO2 decreased to 50%, PEEP remains at +15. On fentanyl/versed/ Nimbex/amiodarone/vasopressin drips. Jose-Synephrine on transiently today. Diuresed well with Bumex. 08/08: Remains sedated, on neuromuscular blockade, orally intubated on prone ventilation. FiO2 decreased to 45%, PEEP remains at +15. Attempting to place Dobbhoff to initiate tube feeds. Off Jose-Synephrine. Vasopressin being titrated down. 08/09: Remains sedated, orally intubated on prone ventilation. Remains on Nimbex for neuromuscular blockade. PEEP +15, FiO2 50%. Have been unable to place OG tube despite multiple attempts. 08/10: Remains sedated, orally intubated on neuromuscular blockade on prone ventilation. Attempts at keeping supine today however had progressively increasing FiO2 requirement. He was restarted on prone ventilation. He had a sudden episode of desaturation with dropping O2 sats to the 80s despite 100% FiO2. I time increased from 1.2 seconds to 1.8 seconds. He was immediately supined and a stat chest x-ray obtained which did not reveal any pneumothorax and essentially unchanged compared to previous chest x-ray with bilateral infiltrates. He was restarted on prone ventilation. Question of PE. We will initiate full anticoagulation with heparin. Will also check troponins and EKG when supine unless troponin elevated in which case we will get a stat EKG. Objective Vital Signs Date Time Temp Pulse Resp B/P Pulse Ox O2 Delivery O2 Flow Rate FiO2 08/10/16 16:00 84 08/10/16 13:50 88 60 08/10/16 12:00 97.8 18 126/75 138/80 Intake and Output 08/09/16 08/09/16 08/10/16 08:00 16:00 00:00 Intake Total 814 ml 1089 ml 1010 ml Output Total 1200 ml 2725 ml 1000 ml Balance -386 ml -1636 ml 10 ml Result Diagram: 08/10/16 0430 08/10/16 0430 Other Results Laboratory Tests Test 08/10/16 16:18 Blood Gas Puncture Site ART LINE Blood Gas Patient Temperature 98.6 Blood Gas HCO3 32 mmol/L (22-26) Blood Gas Base Excess 5.6 mmol/L (-2-2) Blood Gas Oxygen Saturation 94 % (90-100) Arterial Blood pH 7.29 (7.380-7.420) Arterial Blood Partial 68 mmHg (38-42) Pressure CO2 Arterial Blood Partial 100 mmHg Pressure O2 (61-120) Arterial Blood Oxygen Content 16.3 Vol % (12.0-20.0) Arterial Blood 1.1 % (0-4) Carboxyhemoglobin Arterial Blood Methemoglobin 1.5 % (0-2) Blood Gas Hemoglobin 12.3 G/DL (12.0-16.0) Oxygen Delivery Device VENTILATOR Blood Gas Ventilator Setting SEE COMMENTS Blood Gas Inspired Oxygen 60 % Imaging Last 24 hours Impressions Chest X-Ray 08/08/16 1000 Signed Impressions: Service Date/Time: Monday, August 08, 2016 10:38 - CONCLUSION: Improved aeration. Murali Perdomo MD Abdomen X-Ray 08/08/16 0000 Signed Impressions: Service Date/Time: Monday, August 08, 2016 10:38 - CONCLUSION: No evidence of obstruction. Murali Perdomo MD Last 24 hours Impressions Chest X-Ray 08/07/16 0600 Signed Impressions: Service Date/Time: Sunday, August 07, 2016 04:57 - CONCLUSION: No significant change. Extensive bilateral infiltrates persist. Efrain Syed MD Last 24 hours Impressions Chest X-Ray 08/06/16 0400 Signed Impressions: Service Date/Time: July 03:00 - CONCLUSION: No significant interval change with bilateral pulmonary infiltrates. Ronny Joshi MD Last Impressions Chest X-Ray 08/04/16 1832 Signed Impressions: Service Date/Time: Thursday, August 04, 2016 18:50 - CONCLUSION: Extensive bilateral airspace disease greater in the left lung. There may be pneumomediastinum. Perico Wahl MD Objective Remarks Gen: Elderly male, sedated, orally intubated on mechanical ventilation and neuromuscular blockade. On Rotaprone bed HEENT: Positive pallor, no icterus. Orally intubated. Mucosa moist. Neck: Supple, orally intubated. Lungs: Orally intubated on mechanical ventilation, air entry decreased bilaterally at bases, bilateral rhonchi Heart: NL S1S2 regularly regular, no JVD. Abdomen: Soft, NT, ND, no guarding. Extremities: Warm bilaterally, no edema Neuro: Sedated, on neuromuscular blockade, orally intubated on mechanical ventilation. Urinary Catheter: Yes Assessment to: Continue Vascular Central Line Catheter: Yes Assessment to: Continue A/P Assessment and Plan Assessment: 1. Septic shock 2. Acute Respiratory Failure on mechanical ventilation 3. Legionella Pneumonia 4. ARDS 5. CKD with CHAN 6. A. fib with RVR (converted to RSR) 7. Hx depression with recent ECT 2017 8. Suspected PE Neuro: Continue sedation with Versed/fentanyl gtt. on Nimbex for neuromuscular blockade No sedation vacation. Cardiovascular: Continue amiodarone drip for A. fib. Jose-Synephrine titrated off. Decrease vasopressin gtt gradually. IV fluids decreased to KVO. Stop diuresis Pulmonary: Continue mechanical ventilation, adjusted following ABG to AC/PC PIP +20, PEEP +15, respiratory rate 20, FiO2 100%, inspiratory time 1.8 seconds Vent bundle, bronchodilators, pulmonary toilet. On prone ventilation. On neuromuscular blockade. Worsening hypoxia noted on 08/10. Lung mechanics unchanged essentially. Question of PE. We'll initiate full anticoagulation with heparin and obtain 2- D echo. GI/liver: Unable to place OG tube despite multiple attempts. consulted GI to assist with Dobbhoff placement. Renal/: KVO IVF, strict intake output, monitor and replete electrolytes, follow BUN/creatinine. Nephrology following for CHAN/CKD. Given glucose/ insulin for hyperkalemia. Heme: Follow CBC. Starting full anticoagulation with heparin for suspected PE. ID: Continue antibiotic coverage with IV Levaquin Zithromax. Cefepime stopped on 08/07 per ID. ID following. Urine positive for Legionella antigen. Endocrine: SSI for glycemic control. Tapering stress dose hydrocortisone. Prophylaxis: PPI/SCDs/stop Lovenox and starting full anticoagulation with heparin on 08/10 for suspected PE. Remains critical with severe ARDS secondary to Legionella pneumonia and septic shock on prone ventilation and neuromuscular blockade. Critical Care time: 45 mins aside from procedures. Viet Duran MD August 10, 2016 17:53
[2016-08-10] MEDS ORDERED: HEPARIN SODIUM - IV 10,000 UNITS/10 ML VIAL IV ONE (18:00)
[2016-08-10] MEDS: HEPARIN-D5W INJ 250 ML IV SCH (18:08)
[2016-08-10 18:32] LABS: APTT (PATIENT) 24.5 SEC (24.3-30.1); INTERNATIONAL NORMALIZED RATIO 1.3 RATIO; PROTHROMBIN TIME - PATIENT 14.4 SEC (9.8-11.6)
[2016-08-10 18:48] LABS: ANION GAP 3 MEQ/L (5-15); BICARBONATE 34.3 MEQ/L (21.0-32.0); BLOOD UREA NITROGEN 94 MG/DL (7-18); CHLORIDE 119 MEQ/L (98-107); GLOMERULAR FILTRATION RATE 34 ML/MIN (>89); POTASSIUM 5.7 MEQ/L (3.5-5.1)
[2016-08-10 19:11] LABS: SODIUM (NA) 156 MEQ/L (136-145)
[2016-08-10] MEDS: AZITHROMYCIN INJ 500 MG in SODIUM CHLOR 0.9% 250 ML INJ 250 ML IV SCH (20:16)
[2016-08-10] MEDS ORDERED: HEPARIN SODIUM - IV 10,000 UNITS/10 ML VIAL IV PRN (23:30)
[2016-08-11] VITALS (21 sets, daily range): BP systolic 85–190; BP diastolic 52–95; PULSE 72–102; RESP 20; TEMP 97–98.8; O2SAT 90–99
[2016-08-11] MEDS: CHLORHEXIDINE GLUCONATE 2 % 1 PACK (2 CLOTHS) TOP SCH (00:40)
[2016-08-11 01:09] LABS: APTT (PATIENT) 28.7 SEC (24.3-30.1)
[2016-08-11] MEDS: RESP: ALBUTEROL 2.5 MG/IPRATROPIUM 0.5 MG NEB (PRN) NEB ×3 (03:30→14:50)
[2016-08-11] MEDS: PROPOFOL 1000 MG/100 ML INJ 100 ML IV SCH ×4 (03:49→22:43)
[2016-08-11] MEDS: VASOPRESSIN INJ 40 UNITS in DEXTROSE 5% IN WATER 100ML INJ 98 ML IV SCH ×4 (04:08→22:14)
[2016-08-11 04:58] LABS: BICARBONATE 30.9 MEQ/L (21.0-32.0); POTASSIUM 5.7 MEQ/L (3.5-5.1)
[2016-08-11] MEDS: INSULIN ASPART SUPPLEMENTAL SCALE SQ SCH ×4 (05:33→17:28)
[2016-08-11] MEDS: CISATRACURIUM INJ 100 MG in SODIUM CHLOR 0.9% 250 ML INJ 240 ML IV SCH ×2 (05:39→18:24)
[2016-08-11] MEDS ORDERED: ENOXAPARIN SODIUM 40 MG/0.4 ML SYRINGE SQ SCH (06:00)
[2016-08-11] MEDS ORDERED: INSULIN HUMAN REGULAR 1,000 UNITS/10 ML VIAL IV PUSH ONE (08:00)
[2016-08-11] MEDS ORDERED: DEXTROSE 50% IN WATER 50 ML VIAL(D50) IV ONE (08:00)
[2016-08-11 08:17] LABS: APTT (PATIENT) 29.2 SEC (24.3-30.1)
[2016-08-11] MEDS: HYDROCORTISONE SOD SUCCINATE 100 MG VIAL IV PUSH SCH ×2 (08:21→21:06)
[2016-08-11] MEDS: PANTOPRAZOLE SODIUM 40 MG VIAL IV SCH (08:21)
[2016-08-11] MEDS: LACTULOSE SYRUP 20 GM/30 ML CUP PO SCH (08:21)
[2016-08-11] MEDS: MIDAZOLAM 100 MG/ML INJ 100 ML IV SCH ×2 (08:22→17:27)
[2016-08-11] MEDS: CHLORHEXIDINE 0.12% (ORAL KIT) 15 ML CUP MT SCH ×2 (08:22→19:34)
[2016-08-11] MEDS: fentaNYL DRIP 250 ML IV SCH ×2 (08:52→17:27)
--- NOTE | 2016-08-11 08:55 | RADRPT ---
EXAM DATE/TIME: 08/11/2016 08:00 [facility] COMPARISON: No previous studies available for comparison. INDICATIONS : Bilateral leg swelling. MEDICAL HISTORY : Hypertension. Asthma. Sputum production. Dyspnea. Depression. Anxiety. Substance use. SURGICAL HISTORY : Right shoulder. ENCOUNTER: Initial ACUITY: 1 day PAIN SCORE: Non-responsive LOCATION: Bilateral leg. TECHNIQUE: Venous ultrasound of the left and right leg was performed from the inguinal ligament to the proximal calf. Real-time, color Doppler and spectral tracing, compression and augmentation techniques were us ed. FINDINGS: RIGHT LEG: There is normal compressibility of the deep venous system from the inguinal region to the proximal ca lf. No echogenic clot is seen in the lumen of the common femoral, femoral, popliteal, and posterior tibial veins. There is a normal response of the venous system to proximal and distal augmentation an d respiration. LEFT LEG: There is normal compressibility of the deep venous system from the inguinal region to the proximal ca lf. No echogenic clot is seen in the lumen of the common femoral, femoral, popliteal, and posterior tibial veins. There is a normal response of the venous system to proximal and distal augmentation an d respiration. CONCLUSION: Normal examination. Efrain Deng MD on August 11, 2016 at 8:52 Board Certified Radiologist. This report was verified electronically.
[2016-08-11 09:19] LABS: BLOOD GAS BASE EXCESS -3.9 mmol/L (-2-2); BLOOD GAS CARBOXYHEMOGLOBIN 0.5 % (0-4); BLOOD GAS HCO3 21 mmol/L (22-26); BLOOD GAS METHEMOGLOBIN 0.8 % (0-2); BLOOD GAS O2 HGB SATURATION 97 % (90-100); BLOOD GAS OXYGEN CONTENT 16.8 Vol % (12.0-20.0); BLOOD GAS PCO2 39 mmHg (38-42); BLOOD GAS PO2 120 mmHG (61-120); BLOOD GAS TOTAL HGB 12.2 G/DL (12.0-16.0); CRITICAL VALUE NO; OXYGEN DEVICE VENTILATOR; TEMP CORR TO 98.6
[2016-08-11 09:20] LABS: DRAW SITE ART LINE; FIO2 65 %; STAT NO; ULNAR PULSE PRESENT
--- NOTE | 2016-08-11 09:48 | HHI.IDPN ---
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 Vital Signs Date Time Temp Pulse Resp B/P Pulse Ox O2 Delivery O2 Flow Rate FiO2 08/11/16 07:16 97 65 08/11/16 06:00 84 08/11/16 04:48 65 08/11/16 04:41 98 65 08/11/16 04:00 75 08/11/16 04:00 98.7 86 20 118/65 97 111/58 08/11/16 04:00 86 08/11/16 02:33 98 85 08/11/16 02:15 85 08/11/16 02:00 78 08/11/16 01:10 90 08/11/16 01:04 97 90 08/11/16 00:00 95 08/11/16 00:00 77 08/11/16 00:00 98.6 77 20 85/52 99 120/76 08/10/16 22:15 95 08/10/16 22:00 85 08/10/16 20:05 95 100 08/10/16 20:00 100 08/10/16 20:00 99.1 102 20 139/66 97 130/68 08/10/16 20:00 102 08/10/16 18:00 74 08/10/16 17:29 80 08/10/16 17:25 91 100 08/10/16 16:00 84 08/10/16 16:00 80 08/10/16 16:00 99.0 84 20 155/78 98 153/72 08/10/16 14:50 84 100 08/10/16 14:00 81 08/10/16 13:50 88 60 08/10/16 12:00 50 08/10/16 12:00 97.8 66 18 126/75 94 138/80 5/1/17 12:00 66 08/10/16 10:45 92 50 08/10/16 10:20 92 50 08/10/16 10:00 92 50 08/10/16 10:00 64 08/10/16 08/10/16 08/11/16 15:00 23:00 07:00 Intake Total 1554 ml 1671 ml 1496 ml Output Total 1600 ml 1000 ml 850 ml Balance -46 ml 671 ml 646 ml Intake IV Total 1554 ml 1671 ml 1496 ml Output Urine Total 1600 ml 1000 ml 850 ml Stool Total 0 ml 0 ml . Laboratory Tests Test 08/10/16 04:30 White Blood Count 17.6 TH/MM3 Red Blood Count 3.59 MIL/MM3 Hemoglobin 11.5 GM/DL Hematocrit 34.1 % Mean Corpuscular Volume 94.9 FL Mean Corpuscular Hemoglobin 31.9 PG Mean Corpuscular Hemoglobin 33.6 % Concent Red Cell Distribution Width 14.5 % Platelet Count 211 TH/MM3 Mean Platelet Volume 8.6 FL Neutrophils (%) (Auto) 92.6 % Lymphocytes (%) (Auto) 2.5 % Monocytes (%) (Auto) 3.7 % Eosinophils (%) (Auto) 1.1 % Basophils (%) (Auto) 0.1 % Neutrophils # (Auto) 16.3 TH/MM3 Lymphocytes # (Auto) 0.4 TH/MM3 Monocytes # (Auto) 0.6 TH/MM3 Eosinophils # (Auto) 0.2 TH/MM3 Basophils # (Auto) 0.0 TH/MM3 CBC Comment AUTO DIFF Differential Total Cells 100 Counted Neutrophils % (Manual) 74 % Band Neutrophils % 7 % Lymphocytes % 3 % Monocytes % 7 % Neutrophils # (Manual) 15.8 TH/MM3 Metamyelocytes 2 % Myelocytes 7 % Differential Comment FINAL DIFF MANUAL Platelet Estimate NORMAL Platelet Morphology Comment NORMAL Laboratory Tests Test 08/10/16 08/10/16 08/11/16 04:30 17:40 03:40 Sodium Level 156 MEQ/L 156 MEQ/L 156 MEQ/L Potassium Level 5.5 MEQ/L 5.7 MEQ/L 5.7 MEQ/L Chloride Level 119 MEQ/L 119 MEQ/L 119 MEQ/L Carbon Dioxide Level 33.2 MEQ/L 34.3 MEQ/L 30.9 MEQ/L Anion Gap 4 MEQ/L 3 MEQ/L 6 MEQ/L Blood Urea Nitrogen 100 MG/DL 94 MG/DL 93 MG/DL Creatinine 2.17 MG/DL 2.03 MG/DL 2.14 MG/DL Estimat Glomerular Filtration 31 ML/MIN 34 ML/MIN 32 ML/MIN Rate Random Glucose 135 MG/DL 153 MG/DL 180 MG/DL Calcium Level 8.4 MG/DL 8.4 MG/DL 8.1 MG/DL Phosphorus Level 4.9 MG/DL 4.4 MG/DL Total Bilirubin 1.0 MG/DL Aspartate Amino Transf 34 U/L (AST/SGOT) Alanine Aminotransferase 59 U/L (ALT/SGPT) Alkaline Phosphatase 67 U/L Total Protein 6.1 GM/DL Albumin 1.6 GM/DL 1.6 GM/DL Troponin I LESS THAN 0.02 NG/ML Imaging Lower Extremity Ultrasound 08/11/16 0000 Signed Impressions: Service Date/Time: Thursday, August 11, 2016 08:00 - CONCLUSION: Normal examination. Efrain Deng MD Chest X-Ray 08/10/16 0000 Signed Impressions: Service Date/Time: Wednesday, August 10, 2016 15:39 - CONCLUSION: Slight worsening in aeration Efrain Deng MD Chest X-Ray 08/09/16 0000 Signed Impressions: Service Date/Time: Tuesday, August 09, 2016 07:51 - CONCLUSION: Endotracheal tube tip now 2 cm above the long. No change in patchy bilateral pulmonary parenchymal opacity. Julio Grove MD ADDENDUM: There is an NG tube in place overlapping the nasogastric tube on the image. The tip of the NG tube is at the level of the aortic arch in the proximal to mid thoracic esophagus. Side-port 3 cm below the thoracic inlet. Endotracheal tube tip is 9 cm above the long and 3 cm below the thoracic inlet. Julio Grove MD Abdomen X-Ray 08/09/16 0000 Signed Impressions: Service Date/Time: Tuesday, August 09, 2016 10:18 - CONCLUSION: Nonspecific bowel gas pattern. Julio Grove MD Chest X-Ray 08/08/16 1000 Signed Impressions: Service Date/Time: Monday, August 08, 2016 10:38 - CONCLUSION: Improved aeration. Murali Perdomo MD Chest X-Ray 08/07/16 0600 Signed Impressions: Service Date/Time: Sunday, August 07, 2016 04:57 - CONCLUSION: No significant change. Extensive bilateral infiltrates persist. Efrain Syed MD Chest X-Ray 08/06/16 0400 Signed Impressions: Service Date/Time: July 03:00 - CONCLUSION: No significant interval change with bilateral pulmonary infiltrates. Ronny Joshi MD Renal Ultrasound 08/05/16 1504 Signed Impressions: Service Date/Time: Friday, August 05, 2016 21:01 - CONCLUSION: 1. No evidence of obstruction or other acute renal abnormality. 2. Small, benign appearing cyst of the right kidney. 3. Witt catheter present. Efrain Syed MD Last Impressions Chest X-Ray 08/06/16 0400 Signed Impressions: Service Date/Time: July 03:00 - CONCLUSION: No significant interval change with bilateral pulmonary infiltrates. Ronny Joshi MD Renal Ultrasound 08/05/16 1504 Signed Impressions: Service Date/Time: Friday, August 05, 2016 21:01 - CONCLUSION: 1. No evidence of obstruction or other acute renal abnormality. 2. Small, benign appearing cyst of the right kidney. 3. Witt catheter present. Efrain Syed MD Physical Exam GENERAL: On the vent, on sedation and paralytics, on rotaprone bed, currently supine. SKIN: Cool and moist. No rash, or ecchymosis in back. CARDIOVASCULAR: irregular rate and rhythm without murmurs, gallops, or rubs. RESPIRATORY: Diffuse rhonchi GASTROINTESTINAL: Abdomen soft, BS (+) MUSCULOSKELETAL: Extremities without edema. NEUROLOGICAL: Sedated, on paralytics PSYCH: Unable to fully assess LINE: LSC TLC with no evidence of infection : Witt cath in place, urine looks clear Assessment & Plan Remarks IMPRESSION Severe bilateral pneumonia, (+) Legionella Respiratory failure, with significant hypoxemia Hx anxiety/depression Leukocytosis, infection, reactive, ?solucortef adding to it RECOMMENDATION Continue Zithromax Continue Levaquin Monitor progress Monitor temps On rotaprone bed D/W Kyleigh Duarte MD August 11, 2016 09:48
--- NOTE | 2016-08-11 10:32 | HHI.NPPN ---
Subjective Renal Failure: Chronic, Acute Interval History Remains on rotaprone bed. Had an episode of hypoxia overnight. Now on PEEP 14. Creatinine is slightly worse. Hyperkalemia was treated with IV insulin and dextrose this morning. He is due for EGD today with feeding tube placement. (Marium Diana) Review of Systems General General Remarks unable to evaluate (Marium Diana) Objective Data Data 08/10/16 08/11/16 19:00 07:00 Intake Total 1554 ml 3167 ml Output Total 1600 ml 1850 ml Balance -46 ml 1317 ml Intake IV Total 1554 ml 3167 ml Output Urine Total 1600 ml 1850 ml Stool Total 0 ml Vital Signs Date Time Temp Pulse Resp B/P Pulse Ox O2 Delivery O2 Flow Rate FiO2 08/11/16 09:53 92 65 08/11/16 08:00 65 08/11/16 07:16 97 65 08/11/16 06:00 84 08/11/16 04:48 65 08/11/16 04:41 98 65 08/11/16 04:00 75 08/11/16 04:00 98.7 86 20 118/65 97 111/58 08/11/16 04:00 86 08/11/16 02:33 98 85 08/11/16 02:15 85 08/11/16 02:00 78 08/11/16 01:10 90 08/11/16 01:04 97 90 08/11/16 00:00 95 08/11/16 00:00 77 08/11/16 00:00 98.6 77 20 85/52 99 120/76 08/10/16 22:15 95 08/10/16 22:00 85 08/10/16 20:05 95 100 08/10/16 20:00 100 08/10/16 20:00 99.1 102 20 139/66 97 130/68 08/10/16 20:00 102 08/10/16 18:00 74 08/10/16 17:29 80 08/10/16 17:25 91 100 08/10/16 16:00 84 08/10/16 16:00 80 08/10/16 16:00 99.0 84 20 155/78 98 153/72 08/10/16 14:50 84 100 08/10/16 14:00 81 08/10/16 13:50 88 60 08/10/16 12:00 50 08/10/16 12:00 97.8 66 18 126/75 94 138/80 08/10/16 12:00 66 08/10/16 10:45 92 50 (Marium Diana) -: 08/10/16 0430 08/11/16 0340 Imaging Last 72 hours Impressions Lower Extremity Ultrasound 08/11/16 0000 Signed Impressions: Service Date/Time: Thursday, August 11, 2016 08:00 - CONCLUSION: Normal examination. Efrain Deng MD Chest X-Ray 08/10/16 0000 Signed Impressions: Service Date/Time: Wednesday, August 10, 2016 15:39 - CONCLUSION: Slight worsening in aeration Efrain Deng MD Chest X-Ray 08/09/16 0000 Signed Impressions: Service Date/Time: Tuesday, August 09, 2016 07:51 - CONCLUSION: Endotracheal tube tip now 2 cm above the long. No change in patchy bilateral pulmonary parenchymal opacity. Julio Grove MD ADDENDUM: There is an NG tube in place overlapping the nasogastric tube on the image. The tip of the NG tube is at the level of the aortic arch in the proximal to mid thoracic esophagus. Side-port 3 cm below the thoracic inlet. Endotracheal tube tip is 9 cm above the long and 3 cm below the thoracic inlet. Julio Grove MD Abdomen X-Ray 08/09/16 0000 Signed Impressions: Service Date/Time: Tuesday, August 09, 2016 10:18 - CONCLUSION: Nonspecific bowel gas pattern. Julio Grove MD Tubes & Lines: Witt Tubes & Lines Comment TLC Drip Comment fentanyl, propofol, nimbex, amiodarone, vasopressin (Marium Diana) Physical Exam General Appearance: Well Developed, Well Nourished, No Acute Distress Appearance Remarks difficult to examine in rotaprone bed (Marium Diana) Throat Throat Remarks ETT (Marium Diana) Pulmonary Resp Exam: Breath Sounds Equal, Crackles Resp Remarks some expiratory wheezing (Marium Diana) Cardiology CV Exam: Good Perfusion, Irregular (Marium Diana) Genitourinary Exam: Clear Urine (Marium Diana) Extremeties Extremities Exam: Pedal Pulses Palpable, Trace Edema (Marium Diana) Neurologic Neuro Exam: Unresponsive, Sedated (Marium Diana) Assessment/Plan Assessment Summary: CHAN/Acute Renal Failure, Fluid/Volume Overload Electrolyte Assessment: Hyperkalemia, Hypernatremia Problem List: (1) Acute renal failure superimposed on stage 3 chronic kidney disease Plan: baseline creatinine 1.94, GFR 35 renal failure from sepsis and hypotension, possible dehydration; may have progressed to ATN fluctuant renal function, creatinine is slightly worse today excellent urine output, has negative fluid balance diuretics have been stopped hyperkalemic, K 5.7 and was treated with IV insulin, dextrose; avoid Kayexalate given hypernatremia\ repeat potassium level this afternoon he is on D5W @ 60 cc/hr pressors to maintain MAP > 65mmHg daily renal panel avoid nephrotoxic medications (2) Acute respiratory failure Plan: vent management by jewelry setter settings are 20/550/65/14 (3) Pneumonia Plan: Blood culture negative to date + legionella in urine, sputum negative, taken off isolation Abx include Levaquin and Zithromax. (4) Hyperglycemia Plan: may be due to steroid use monitor glucose insulin if needed (5) A-fib Plan: on amiodarone gtt, rate controlled (6) Hypernatremia Plan: begin free water with tube feeding when EGD done and feeding tube placed continue D5W (Marium Diana) Plan patient was seen and examined. Creatinine is slightly worse. Persistent hyperkalemia, likely is due to ongoing respiratory acidosis. Start Diuril 250 mg IV Q12 hours. May need to start dialysis. (Kevin Hernandez MD) Problem Qualifiers (1) Acute respiratory failure: Qualified Code: J96.01 - Acute respiratory failure with hypoxia and hypercapnia (2) Pneumonia: Qualified Code: J18.9 - Pneumonia of both lungs due to infectious organism, unspecified part of lung Marium Diana August 11, 2016 10:32 Kevin Hernandez MD August 11, 2016 11:17
[2016-08-11 12:51] LABS: BICARBONATE 28.8 MEQ/L (21.0-32.0); POTASSIUM 5.2 MEQ/L (3.5-5.1)
--- NOTE | 2016-08-11 13:19 | RADRPT ---
EXAM DATE/TIME: 08/11/2016 12:25 [facility] COMPARISON: CHEST SINGLE AP, August 10, 2016, 15:39. INDICATIONS : Respiratory distress. MEDICAL HISTORY : Hypertension. Asthma. Sputum production. Dyspnea. Depression. Anxiety. Substance use. SURGICAL HISTORY : Right shoulder. ENCOUNTER: Subsequent ACUITY: 2 weeks PAIN SCORE: Non-responsive. LOCATION: chest FINDINGS: An endotracheal tube has its tip approximately 6 cm above the long. A left subclavian central line has its tip in the brachiocephalic vein. Patchy infiltrates are noted bilaterally and are unchanged . No pneumothorax is noted. Tiny bilateral pleural effusions are noted. CONCLUSION: 1. Stable patchy infiltrates bilaterally consistent with pneumonia and/or pulmonary edema. Clinical correlation is recommended. 2. Tiny bilateral pleural effusions. Franck Betancourt MD on August 11, 2016 at 13:13 Board Certified Radiologist. This report was verified electronically.
[2016-08-11] MEDS: CHLOROTHIAZIDE SOD 500 MG VIAL IV SCH ×2 (13:36→22:13)
--- NOTE | 2016-08-11 14:09 | RADRPT ---
EXAM DATE/TIME: 08/11/2016 13:14 [facility] COMPARISON: CHEST SINGLE AP, August 11, 2016, 12:25. INDICATIONS : Reposition of endotracheal tube. MEDICAL HISTORY : None. SURGICAL HISTORY : None. ENCOUNTER: Subsequent ACUITY: 2 weeks PAIN SCORE: Non-responsive. LOCATION: chest FINDINGS: Endotracheal tube tip is 8 cm above the long. Left subclavian central catheter is again noted. Patc hy bilateral infiltrates are grossly unchanged. Cardiac contours are stable. CONCLUSION: Stable chest appearance. Efrain Deng MD on August 11, 2016 at 14:01 Board Certified Radiologist. This report was verified electronically.
[2016-08-11] MEDS: LEVOFLOXACIN 250 MG PREMIX INJ 50 ML IV SCH (16:22)
[2016-08-11] MEDS: AMIODARONE INJ 450 MG in DEXTROSE 5% IN WATE(EXCEL) INJ 250 ML IV SCH ×2 (16:23)
[2016-08-11] MEDS: DEXTROSE 5% IN WATE 1000ML INJ 1,000 ML IV SCH (16:24)
--- NOTE | 2016-08-11 17:43 | EC ---
Study Study Date:08/11/2016 STUDY CONCLUSIONS SUMMARY - Left ventricle: The cavity size was normal. Wall thickness was increased in a pattern of mild LVH. There was concentric hypertrophy. Systolic function was mildly reduced. The estimated ejection fraction was in the range of 45% to 50%. - Tricuspid valve: Mild regurgitation. - Pulmonary arteries: PA peak pressure: 40mm Hg (S). If LV function is below 40, please consider prescribing an ACEI or ARB or document rationale for non-use. PROCEDURE DATA STUDY STATUS: Elective. Procedure: Transthoracic echocardiography. Image quality was good. Scanning was performed from the parasternal, apical, and subcostal acoustic windows. Study completion: The patient tolerated the procedure well. Transthoracic echocardiography. M-mode, complete 2D, complete spectral Doppler, and color Doppler. Height: Height: 74in. Weight: Weight: 244.5lb. Body mass index: BMI: 31.5kg/m^2. Body surface area: BSA: 2.37m^2. Patient status: Inpatient. CARDIAC ANATOMY LEFT VENTRICLE: The cavity size was normal. Wall thickness was increased in a pattern of mild LVH. There was concentric hypertrophy. Systolic function was mildly reduced. The estimated ejection fraction was in the range of 45% to 50%. Images were inadequate for LV wall motion assessment. AORTIC VALVE: The valve appears to be grossly normal. Doppler: There was no stenosis. No significant regurgitation. Valve area: 1.41cm^2 (Vmax). Indexed valve area: 0.59cm^2/m^2 (Vmax). MITRAL VALVE: The valve appears to be grossly normal. Doppler: There was no evidence for stenosis. No significant regurgitation. RIGHT VENTRICLE: The cavity size was mildly dilated. PULMONIC VALVE: Not visualized. TRICUSPID VALVE: The valve appears to be grossly normal. Doppler: There was no evidence for stenosis. Mild regurgitation. PERICARDIUM: There was no pericardial effusion. Patient weight: 244.5lb _Ejection fraction:_ 65-75% _Fractional shortening:_ 32% up to 5Kg 5-11.5Kg 11.6-22.9Kg 23-45Kg 45-57Kg Aortic Root 7-13 <17 13-22 17-27 17-27 LA diam 6-13 <23 24-38 33-47 37-40 RVID 10-17 7-15 7-15 7-18 8-17 LVIDd 12-22 <32 24-38 33-47 37-40 LVPW 2-4 3-6 5-7 6-8 7-8 IVS 2-4 3-6 5-7 6-8 7-8 BASIC MEASUREMENTS ADULT NORMAL Left ventricle LV internal dimension, ED, chordal *42.1 mm 43-52 level, PLAX LV internal dimension, ES, chordal 33.8 mm 23-38 level, PLAX Fractional shortening, chordal level, *20 % >29 PLAX LV posterior wall thickness, ED 11.9 mm IVS/LVPW ratio, ED 1.03 <1.3 Ventricular septum Septal thickness, ED 12.3 mm Aortic valve Leaflet separation 19 mm 15-26 Left atrium Anterior-posterior dimension 33 mm Anterior-posterior dimension index 1.39 cm/m^2 <2.2 Right ventricle RV internal dimension, ED, PLAX 28.4 mm 19-38 BASIC MEASUREMENTS ADULT NORMAL Aortic valve Leaflet separation 19 mm 15-26 Aorta Root diameter, ED 23 mm 20-37 DOPPLER MEASUREMENTS ADULT NORMAL Main pulmonary artery Pressure, S *40 mm Hg =30 Aortic valve Peak velocity, S 122 cm/s Valve area, Vmax 1.41 cm^2 Valve area index, Vmax 0.59 cm^2/m^2 Mitral valve Peak E-wave velocity 63.2 cm/s Peak A-wave velocity 50.3 cm/s Deceleration time 190 ms 150-230 Peak E/A ratio 1.3 Tricuspid valve Regurgitant peak velocity 225 cm/s Peak RV-RA gradient, S 20 mm Hg Maximal regurgitant velocity 225 cm/s Systemic veins Estimated CVP 10 mm Hg Right ventricle RV pressure, S *40 mm Hg <30 LEGEND: Mean values are shown as u=mean value. Asterisk (*) dumont values outside specified normal range. Prepared and signed by Wero Ortega [id number]
[2016-08-11] MEDS: HEPARIN-D5W INJ 250 ML IV SCH (18:25)
--- NOTE | 2016-08-11 18:50 | HHI.CCPN ---
Subjective Remarks/Hospital Course 08/04: 60 y/o man with several week history of weakness, fatigue; fevers and sweats over past week. Today with severe SOB, arrived by EMS with hypoxemia. CO2 retention as well in ED. Required intubation in ED. Creatinine > 3.0 and severely dehydrated. 08/05: Remains sedated, orally intubated on mechanical ventilation. He remains at PEEP+14, FiO2 decreased to 80%. Urine positive for Legionella Ag. Went into A. fib with RVR. 08/06: Remains sedated, orally intubated on mechanical ventilation. On neuromuscular blockade with Nimbex. Initiated on prone ventilation today. Switched to pressure control mode with positive inspiratory pressure +20, PEEP + 15, respiratory rate 20, I time 1.82 seconds, FiO2 70%.. On propofol/fentanyl/ Versed/Nimbex/amiodarone/ vasopressin drips. Jose-Synephrine titrated off following switching from APRV to pressure control mode mechanical ventilation and initiating proning. 08/07: Remains sedated, on neuromuscular blockade, orally intubated on prone ventilation. FiO2 decreased to 50%, PEEP remains at +15. On fentanyl/versed/ Nimbex/amiodarone/vasopressin drips. Jose-Synephrine on transiently today. Diuresed well with Bumex. 08/08: Remains sedated, on neuromuscular blockade, orally intubated on prone ventilation. FiO2 decreased to 45%, PEEP remains at +15. Attempting to place Dobbhoff to initiate tube feeds. Off Jose-Synephrine. Vasopressin being titrated down. 08/09: Remains sedated, orally intubated on prone ventilation. Remains on Nimbex for neuromuscular blockade. PEEP +15, FiO2 50%. Have been unable to place OG tube despite multiple attempts. 08/10: Remains sedated, orally intubated on neuromuscular blockade on prone ventilation. Attempts at keeping supine today however had progressively increasing FiO2 requirement. He was restarted on prone ventilation. He had a sudden episode of desaturation with dropping O2 sats to the 80s despite 100% FiO2. I time increased from 1.2 seconds to 1.8 seconds. He was immediately supined and a stat chest x-ray obtained which did not reveal any pneumothorax and essentially unchanged compared to previous chest x-ray with bilateral infiltrates. He was restarted on prone ventilation. Question of PE. We will initiate full anticoagulation with heparin. Will also check troponins and EKG when supine unless troponin elevated in which case we will get a stat EKG. 08/11: Remains sedated, orally intubated on neuromuscular blockade in prone ventilation. Had episode of loss of lung volumes with desaturation. Chest x- ray did not reveal any pneumothorax or atelectasis. Thick mucus suctioned out of the ET tube. Difficult to bag at times. ET tube was changed over a tube exchanger following which he had return of good volumes. ( It is possible that the pre-existing ET tube was getting occluded by debris or secretions which were somewhat cleared out by suctioning earlier.) GI postponed with G-tube placement due to unstable respiratory status until tomorrow and they will plan on doing a PEG tube if respiratory status permits. Objective Vital Signs Date Time Temp Pulse Resp B/P Pulse Ox O2 Delivery O2 Flow Rate FiO2 08/11/16 17:17 95 100 08/11/16 16:00 80 08/11/16 12:00 98.2 20 152/71 190/95 Intake and Output 08/10/16 08/10/16 08/11/16 08:00 16:00 00:00 Intake Total 810 ml 1554 ml 1671 ml Output Total 1150 ml 1600 ml 1000 ml Balance -340 ml -46 ml 671 ml Result Diagram: 08/10/16 0430 08/11/16 1130 Other Results Laboratory Tests Test 08/11/16 09:10 Blood Gas Puncture Site ART LINE Blood Gas Patient Temperature 98.6 Blood Gas HCO3 21 mmol/L (22-26) Blood Gas Base Excess -3.9 mmol/L (-2-2) Blood Gas Oxygen Saturation 97 % (90-100) Arterial Blood pH 7.35 (7.380-7.420) Arterial Blood Partial 39 mmHg (38-42) Pressure CO2 Arterial Blood Partial 120 mmHG Pressure O2 (61-120) Arterial Blood Oxygen Content 16.8 Vol % (12.0-20.0) Arterial Blood 0.5 % (0-4) Carboxyhemoglobin Arterial Blood Methemoglobin 0.8 % (0-2) Blood Gas Hemoglobin 12.2 G/DL (12.0-16.0) Oxygen Delivery Device VENTILATOR Blood Gas Ventilator Setting Blood Gas Inspired Oxygen 65 % Imaging Last 24 hours Impressions Chest X-Ray 08/08/16 1000 Signed Impressions: Service Date/Time: Monday, August 08, 2016 10:38 - CONCLUSION: Improved aeration. Murali Perdomo MD Abdomen X-Ray 08/08/16 0000 Signed Impressions: Service Date/Time: Monday, August 08, 2016 10:38 - CONCLUSION: No evidence of obstruction. Murali Perdomo MD Last 24 hours Impressions Chest X-Ray 08/07/16 0600 Signed Impressions: Service Date/Time: Sunday, August 07, 2016 04:57 - CONCLUSION: No significant change. Extensive bilateral infiltrates persist. Efrain Syed MD Last 24 hours Impressions Chest X-Ray 08/06/16 0400 Signed Impressions: Service Date/Time: July 03:00 - CONCLUSION: No significant interval change with bilateral pulmonary infiltrates. Ronny Joshi MD Last Impressions Chest X-Ray 08/04/16 1832 Signed Impressions: Service Date/Time: Thursday, August 04, 2016 18:50 - CONCLUSION: Extensive bilateral airspace disease greater in the left lung. There may be pneumomediastinum. Perico Wahl MD Objective Remarks Gen: Elderly male, sedated, orally intubated on mechanical ventilation and neuromuscular blockade. On Rotaprone bed HEENT: Positive pallor, no icterus. Orally intubated. Mucosa moist. Neck: Supple, orally intubated. Lungs: Orally intubated on mechanical ventilation, air entry decreased bilaterally at bases, bilateral rhonchi Heart: NL S1S2 regularly regular, no JVD. Abdomen: Soft, NT, ND, no guarding. Extremities: Warm bilaterally, no edema Neuro: Sedated, on neuromuscular blockade, orally intubated on mechanical ventilation. Urinary Catheter: Yes Assessment to: Continue Vascular Central Line Catheter: Yes Assessment to: Continue Line: Central Venous Catheter A/P Assessment and Plan Assessment: 1. Septic shock 2. Acute Respiratory Failure on mechanical ventilation 3. Legionella Pneumonia 4. ARDS 5. CKD with CHAN 6. A. fib with RVR (converted to RSR) 7. Hx depression with recent ECT 2016 8. Suspected PE Neuro: Continue sedation with Versed/fentanyl gtt. on Nimbex for neuromuscular blockade No sedation vacation. Cardiovascular: Continue amiodarone drip for A. fib. Jose-Synephrine titrated off. Decrease vasopressin gtt gradually. 2-D echo with minimally depressed LV and RV function. Pulmonary: Continue mechanical ventilation, AC/PC PIP +20, PEEP +15, respiratory rate 20, FiO2 70%, inspiratory time 1.8 seconds Vent bundle, bronchodilators, pulmonary toilet. On prone ventilation. On neuromuscular blockade. Worsening hypoxia noted on 08/10. Lung mechanics unchanged essentially. Question of PE. Full anticoagulation with heparin. GI/liver: Unable to place OG tube despite multiple attempts. consulted GI. GI is planning PEG tube placement for 08/12 Renal/: Changed IVF to D5 water at 60 cc an hour for hypernatremia, strict intake output, monitor and replete electrolytes, follow BUN/creatinine. Nephrology following for CHAN/CKD. Given glucose/insulin for hyperkalemia. Started on Diuril by nephrology. Heme: Follow CBC. Full anticoagulation with heparin for suspected PE. ID: Continue antibiotic coverage with IV Levaquin Zithromax. Cefepime stopped on 08/07 per ID. ID following. Urine positive for Legionella antigen. Endocrine: SSI for glycemic control. Tapering stress dose hydrocortisone. Prophylaxis: PPI/SCDs/stop Lovenox and started full anticoagulation with heparin on 08/10 for suspected PE. Remains critical with severe ARDS secondary to Legionella pneumonia and septic shock on prone ventilation and neuromuscular blockade. Critical Care time: 60 mins Viet Duran MD August 11, 2016 18:50
[2016-08-11] MEDS: AZITHROMYCIN INJ 500 MG in SODIUM CHLOR 0.9% 250 ML INJ 250 ML IV SCH (19:35)
[2016-08-11 20:03] LABS: APTT (PATIENT) 30.5 SEC (24.3-30.1)
[2016-08-11] MEDS: RESP: ALBUTEROL 2.5 MG/IPRATROPIUM 0.5 MG NEB (SCH) NEB (20:18)
[2016-08-12] VITALS (36 sets, daily range): BP systolic 81–153; BP diastolic 40–89; PULSE 74–136; RESP 20; TEMP 97.3–98.6; O2SAT 86–100
[2016-08-12] MEDS: RESP: ALBUTEROL 2.5 MG/IPRATROPIUM 0.5 MG NEB (SCH) NEB ×7 (00:04→23:12)
[2016-08-12] MEDS: CHLORHEXIDINE GLUCONATE 2 % 1 PACK (2 CLOTHS) TOP SCH (00:25)
[2016-08-12] MEDS: MIDAZOLAM 100 MG/ML INJ 100 ML IV SCH ×2 (03:11→22:20)
[2016-08-12] MEDS: fentaNYL DRIP 250 ML IV SCH (03:11)
[2016-08-12] MEDS ORDERED: AMIODARONE 150 MG/D5W 97 ML BOLUS 10 MINUTES IV ONE ×2 (04:00)
[2016-08-12] MEDS: AMIODARONE INJ 450 MG in DEXTROSE 5% IN WATE(EXCEL) INJ 250 ML IV SCH ×4 (04:54→22:21)
[2016-08-12] MEDS: INSULIN ASPART SUPPLEMENTAL SCALE SQ SCH ×5 (05:57→23:44)
[2016-08-12] MEDS: PROPOFOL 1000 MG/100 ML INJ 100 ML IV SCH ×3 (06:02→21:06)
[2016-08-12 07:16] LABS: AUTOMATED NEUTROPHIL # 13.6 TH/MM3 (1.8-7.7); BASOPHIL % 0.2 % (0.0-2.0); EOSINOPHIL % 0.1 % (0.0-4.0); HEMATOCRIT 32.6 % (39.0-51.0); LYMPHOCYTE # 0.4 TH/MM3 (1.0-4.8); MEAN CELL VOLUME 96.5 FL (80.0-100.0); MEAN CORPUSCULAR HEMOGLOBIN 31.1 PG (27.0-34.0); MEAN CORPUSCULAR HGB CONC 32.2 % (32.0-36.0); MONO % 4.4 % (0.0-8.0); NEUT % 92.3 % (16.0-70.0); PLATELET COUNT 161 TH/MM3 (150-450); RED BLOOD COUNT 3.38 MIL/MM3 (4.50-5.90); RED CELL DISTRIBUTION WIDTH 14.4 % (11.6-17.2); WHITE BLOOD COUNT 14.7 TH/MM3 (4.0-11.0)
[2016-08-12 07:17] LABS: HEMO FLAGS AUTO DIFF
[2016-08-12 07:50] LABS: ALT (GPT) 42 U/L (12-78); ANION GAP 11 MEQ/L (5-15); AST (GOT) 20 U/L (15-37); BICARBONATE 29.1 MEQ/L (21.0-32.0); BLOOD UREA NITROGEN 74 MG/DL (7-18); CHLORIDE 114 MEQ/L (98-107); GLOMERULAR FILTRATION RATE 34 ML/MIN (>89); MAGNESIUM 2.9 MG/DL (1.5-2.5); POTASSIUM 4.4 MEQ/L (3.5-5.1); SODIUM (NA) 154 MEQ/L (136-145)
[2016-08-12 07:51] LABS: BANDS 9 % (0-6); METAMYELOCYTES 2 % (0-1); MYELOCYTES 1 % (0-0); NEUTROPHIL # MANUAL DIFF 13.8 TH/MM3 (1.8-7.7); POLYS (SEG NEUTROPHILS) 82 % (16-70); WBC DIFF SAMPLE 100
[2016-08-12 07:52] LABS: ALKALINE PHOSPHATASE 57 U/L (45-117); PLATELET ESTIMATE SMEAR NORMAL (NORMAL); PLATELET MORPHOLOGY NORMAL (NORMAL); SCAN/DIFF FINAL DIFF MANUAL; TOTAL BILIRUBIN ADULT 0.8 MG/DL (0.2-1.0)
[2016-08-12] MEDS: CHLOROTHIAZIDE SOD 500 MG VIAL IV SCH ×2 (07:53→21:15)
[2016-08-12] MEDS: CISATRACURIUM INJ 100 MG in SODIUM CHLOR 0.9% 250 ML INJ 240 ML IV SCH (07:53)
[2016-08-12] MEDS: SODIUM CHLORIDE 0.9% FLUSH 10 ML FLUSH IVF PRN (07:54)
[2016-08-12] MEDS: CHLORHEXIDINE 0.12% (ORAL KIT) 15 ML CUP MT SCH ×2 (07:54→20:15)
[2016-08-12] MEDS: HYDROCORTISONE SOD SUCCINATE 100 MG VIAL IV PUSH SCH ×2 (07:54→21:06)
[2016-08-12] MEDS: PANTOPRAZOLE SODIUM 40 MG VIAL IV SCH (07:54)
[2016-08-12] MEDS: LACTULOSE SYRUP 20 GM/30 ML CUP PO SCH (07:55)
[2016-08-12] MEDS: DEXTROSE 5% IN WATE 1000ML INJ 1,000 ML IV SCH (07:55)
[2016-08-12 10:00] LABS: APTT (PATIENT) 35.7 SEC (24.3-30.1)
--- NOTE | 2016-08-12 10:55 | HHI.NPPN ---
Subjective Renal Failure: Chronic, Acute Interval History Had another episode of hypoxia and tachycardia, now on 80% Fi02. On rotaprone bed. Excellent urine output. Due for EGD with PEG placement. Review of Systems General General Remarks unable to evaluate Objective Data Data 08/11/16 08/12/16 19:00 07:00 Intake Total 1779 ml 2849 ml Output Total 1050 ml 2000 ml Balance 729 ml 849 ml Intake IV Total 1779 ml 2849 ml Output Urine Total 1050 ml 2000 ml Stool Total 0 ml 0 ml Vital Signs Date Time Temp Pulse Resp B/P Pulse Ox O2 Delivery O2 Flow Rate FiO2 08/12/16 10:00 78 08/12/16 08:00 87 08/12/16 08:00 50 08/12/16 08:00 97.8 87 20 135/80 91 129/72 08/12/16 07:31 95 75 08/12/16 06:00 90 08/12/16 06:00 80 08/12/16 05:41 98 80 08/12/16 04:51 98 100 08/12/16 04:00 98.6 136 20 103/56 99 110/72 08/12/16 04:00 100 08/12/16 04:00 136 08/12/16 02:00 81 08/12/16 01:12 97 70 08/12/16 00:00 74 08/12/16 00:00 98.4 74 20 153/89 96 112/68 08/12/16 00:00 80 08/11/16 22:00 74 08/11/16 20:20 96 80 08/11/16 20:00 80 08/11/16 20:00 98.8 72 20 137/80 97 118/74 08/11/16 20:00 72 08/11/16 18:00 79 08/11/16 17:17 95 100 08/11/16 16:26 96 70 08/11/16 16:00 70 08/11/16 16:00 80 08/11/16 16:00 98.3 80 20 125/72 90 122/72 08/11/16 14:00 78 08/11/16 13:18 97 70 08/11/16 13:05 100 08/11/16 12:00 102 08/11/16 12:00 98.2 102 20 152/71 95 190/95 08/11/16 12:00 65 08/11/16 12:00 95 65 -: 08/12/16 0700 08/12/16 0700 Microbiology 08/11/16 Gram Stain - Final, Resulted 08/11/16 Sputum Culture, Resulted Pending Imaging Last 72 hours Impressions Lower Extremity Ultrasound 08/11/16 0000 Signed Impressions: Service Date/Time: Thursday, August 11, 2016 08:00 - CONCLUSION: Normal examination. Efrain Deng MD Chest X-Ray 08/11/16 0000 Signed Impressions: Service Date/Time: Thursday, August 11, 2016 13:14 - CONCLUSION: Stable chest appearance. Efrain Deng MD Chest X-Ray 08/11/16 0000 Signed Impressions: Service Date/Time: Thursday, August 11, 2016 12:25 - CONCLUSION: 1. Stable patchy infiltrates bilaterally consistent with pneumonia and/or pulmonary edema. Clinical correlation is recommended. 2. Tiny bilateral pleural effusions. Franck Betancourt MD Chest X-Ray 08/10/16 0000 Signed Impressions: Service Date/Time: Wednesday, August 10, 2016 15:39 - CONCLUSION: Slight worsening in aeration Efrain Deng MD Tubes & Lines: Witt Tubes & Lines Comment TLC Drip Comment fentanyl, propofol, nimbex, amiodarone, vasopressin Physical Exam General Appearance: Well Developed, Well Nourished, No Acute Distress Appearance Remarks difficult to examine in rotaprone bed Throat Throat Remarks ETT Pulmonary Resp Exam: Breath Sounds Equal, Crackles Resp Remarks some expiratory wheezing Cardiology CV Exam: Good Perfusion, Irregular Genitourinary Exam: Clear Urine Extremeties Extremities Exam: Pedal Pulses Palpable, Trace Edema Neurologic Neuro Exam: Unresponsive, Sedated Assessment/Plan Assessment Summary: CHAN/Acute Renal Failure, Fluid/Volume Overload Electrolyte Assessment: Hyperkalemia, Hypernatremia Problem List: (1) Acute renal failure superimposed on stage 3 chronic kidney disease Plan: baseline creatinine 1.94, GFR 35 renal failure from sepsis and hypotension, possible dehydration; may have progressed to ATN renal function is stable, improved as of yesterday, now near baseline excellent urine output continue Diuril BID persistent hyperkalemia thought to be due to respiratory acidosis, today's potassium is normal he is on D5W, reduce to 30 cc/hr pressors to maintain MAP > 65mmHg daily renal panel avoid nephrotoxic medications (2) Acute respiratory failure Plan: vent management by manager export settings are 20/550/80/15 (3) Pneumonia Plan: Blood culture negative to date + legionella in urine, sputum negative, taken off isolation Abx include Levaquin and Zithromax. (4) Hyperglycemia Plan: may be due to steroid use monitor glucose insulin if needed (5) A-fib Plan: on amiodarone gtt, rate controlled (6) Hypernatremia Plan: begin free water with tube feeding when EGD done and feeding tube placed continue D5W Problem Qualifiers (1) Acute respiratory failure: Qualified Code: J96.01 - Acute respiratory failure with hypoxia and hypercapnia (2) Pneumonia: Qualified Code: J18.9 - Pneumonia of both lungs due to infectious organism, unspecified part of lung Marium Diana PIT OPERATOR August 12, 2016 10:55
[2016-08-12] MEDS ORDERED: ceFAZolin INJ 1,000 MG VIAL IV ONE (12:13)
[2016-08-12] MEDS ORDERED: ceFAZolin 1,000 MG/NS 100 ML IV ONE ×2 (12:15)
--- NOTE | 2016-08-12 12:20 | GIPROC ---
[facility] [address] [facility]. [facility], [address] EGD PROCEDURE REPORT EXAM DATE: 08/12/2016 PATIENT NAME: Stephan Gomez MR #: [id number] BIRTHDATE: 1955 ATTENDING: Jimi Sharp MD ORDER #: [id number] JOB TRAINING SPECIALIST: Colt Cee and Valente Blevins STATUS: inpatient INDICATIONS: The patient is a 60 yr old male here for an EGD due to dysphagia PROCEDURE PERFORMED: EGD w/ percutaneous gastrostomy tube placement MEDICATIONS: None and Per Anesthesia. TOPICAL ANESTHETIC: CONSENT: The patient understands the risks and benefits of the procedure and understands that these risks include, but are not limited to: sedation, allergic reaction, infection, perforation and/or bleeding. Alternative means of evaluation and treatment include, among others: physical exam, x-rays, and/or surgical intervention. The patient elects to proceed with this endoscopic procedure. medical equipment was checked for proper function. Hand hygiene and appropriate measures for infection prevention was taken. After the risks, benefits and alternatives of the procedure were thoroughly explained, Informed consent was verified, confirmed and timeout was successfully executed by the treatment team. The patient was anesthetized with topical anesthesia and the Pentax EG-[id number] endoscope was introduced through the mouth and advanced to the second portion of the duodenum. Retroflexed views revealed no abnormalities The gastroscope was then slowly withdrawn and removed. ESOPHAGUS: The mucosa of the esophagus appeared normal. STOMACH: 20 FR G tube placed. DUODENUM: The duodenal mucosa appeared normal. ADVERSE EVENTS: There were no complications. IMPRESSIONS: 1. The esophagus appeared normal 2. 20 FR G tube placed 3. Normal duodenal mucosa 4. Retroflexed views revealed no abnormalities RECOMMENDATIONS: PEG recomendations: 1- NPO for 6 hours except for meds 2- Flush PEG tube every 6 hours with water and after each PEG feeding 3- May resume regular diet in the morning 4- May use Ensure or Boost etc. for PEG tube feeding PATIENT CONDITION: stable DISPOSITION: Inpatient REPEAT EXAM: NONE Jimi Sharp MD eSigned: Jimi Sharp MD 08/12/2016 12:19 PM cc: PATIENT NAME: Stephan Gomez MR#: [id number]
[2016-08-12 13:09] LABS: BLOOD GAS BASE EXCESS 3.4 mmol/L (-2-2); BLOOD GAS CARBOXYHEMOGLOBIN 0.9 % (0-4); BLOOD GAS HCO3 29 mmol/L (22-26); BLOOD GAS METHEMOGLOBIN 1.3 % (0-2); BLOOD GAS O2 HGB SATURATION 87 % (90-100); BLOOD GAS OXYGEN CONTENT 15.6 Vol % (12.0-20.0); BLOOD GAS PCO2 58 mmHg (38-42); BLOOD GAS PO2 67 mmHg (61-120); BLOOD GAS TOTAL HGB 12.8 G/DL (12.0-16.0); CRITICAL VALUE YES; OXYGEN DEVICE VENTILATOR; TEMP CORR TO 98.6
[2016-08-12 13:10] LABS: DRAW SITE ART LINE; FIO2 80 %; STAT NO
[2016-08-12] MEDS: HEPARIN-D5W INJ 250 ML IV SCH (13:12)
[2016-08-12] MEDS: VASOPRESSIN INJ 40 UNITS in DEXTROSE 5% IN WATER 100ML INJ 98 ML IV SCH ×2 (14:46)
--- NOTE | 2016-08-12 15:17 | HHI.IDPN ---
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 Vital Signs Date Time Temp Pulse Resp B/P Pulse Ox O2 Delivery O2 Flow Rate FiO2 08/12/16 13:00 82 114/57 88 139/80 08/12/16 12:30 85 127/64 98 143/85 08/12/16 12:04 81 127/65 98 131/63 08/12/16 12:00 97.3 79 87/40 97 139/76 08/12/16 12:00 100 08/12/16 11:42 97 100 08/12/16 11:35 74 101/57 98 130/72 08/12/16 11:30 74 81/40 97 136/75 08/12/16 11:00 75 94 131/74 08/12/16 10:30 77 148/80 90 138/79 08/12/16 10:00 78 08/12/16 10:00 77 149/80 96 138/78 08/12/16 09:30 80 125/62 86 128/70 08/12/16 09:00 83 136/74 90 119/72 08/12/16 08:30 83 135/80 89 126/73 08/12/16 08:00 87 08/12/16 08:00 50 08/12/16 08:00 97.8 87 20 135/80 91 129/72 08/12/16 07:31 95 75 08/12/16 06:00 90 08/12/16 06:00 80 08/12/16 05:41 98 80 08/12/16 04:51 98 100 08/12/16 04:00 98.6 136 20 103/56 99 110/72 08/12/16 04:00 100 08/12/16 04:00 136 08/12/16 02:00 81 08/12/16 01:12 97 70 08/12/16 00:00 74 08/12/16 00:00 98.4 74 20 153/89 96 112/68 08/12/16 00:00 80 08/11/16 22:00 74 08/11/16 20:20 96 80 08/11/16 20:00 80 08/11/16 20:00 98.8 72 20 137/80 97 118/74 08/11/16 20:00 72 08/11/16 18:00 79 08/11/16 17:17 95 100 08/11/16 16:26 96 70 08/11/16 16:00 70 08/11/16 16:00 80 08/11/16 16:00 98.3 80 20 125/72 90 122/72 08/11/16 08/11/16 08/12/16 15:00 23:00 07:00 Intake Total 1779 ml 1414 ml 1435 ml Output Total 1050 ml 1000 ml 1000 ml Balance 729 ml 414 ml 435 ml Intake IV Total 1779 ml 1414 ml 1435 ml Output Urine Total 1050 ml 1000 ml 1000 ml Stool Total 0 ml 0 ml 0 ml . Laboratory Tests Test 08/12/16 07:00 White Blood Count 14.7 TH/MM3 Red Blood Count 3.38 MIL/MM3 Hemoglobin 10.5 GM/DL Hematocrit 32.6 % Mean Corpuscular Volume 96.5 FL Mean Corpuscular Hemoglobin 31.1 PG Mean Corpuscular Hemoglobin 32.2 % Concent Red Cell Distribution Width 14.4 % Platelet Count 161 TH/MM3 Mean Platelet Volume 9.4 FL Neutrophils (%) (Auto) 92.3 % Lymphocytes (%) (Auto) 3.0 % Monocytes (%) (Auto) 4.4 % Eosinophils (%) (Auto) 0.1 % Basophils (%) (Auto) 0.2 % Neutrophils # (Auto) 13.6 TH/MM3 Lymphocytes # (Auto) 0.4 TH/MM3 Monocytes # (Auto) 0.6 TH/MM3 Eosinophils # (Auto) 0.0 TH/MM3 Basophils # (Auto) 0.0 TH/MM3 CBC Comment AUTO DIFF Differential Total Cells 100 Counted Neutrophils % (Manual) 82 % Band Neutrophils % 9 % Lymphocytes % 2 % Monocytes % 4 % Neutrophils # (Manual) 13.8 TH/MM3 Metamyelocytes 2 % Myelocytes 1 % Differential Comment FINAL DIFF MANUAL Platelet Estimate NORMAL Platelet Morphology Comment NORMAL Red Cell Morphology Comment NORMAL Laboratory Tests Test 08/10/16 08/11/16 08/11/16 08/12/16 17:40 03:40 11:30 07:00 Sodium Level 156 MEQ/L 156 MEQ/L 155 MEQ/L 154 MEQ/L Potassium Level 5.7 MEQ/L 5.7 MEQ/L 5.2 MEQ/L 4.4 MEQ/L Chloride Level 119 MEQ/L 119 MEQ/L 119 MEQ/L 114 MEQ/L Carbon Dioxide Level 34.3 MEQ/L 30.9 MEQ/L 28.8 MEQ/L 29.1 MEQ/L Anion Gap 3 MEQ/L 6 MEQ/L 7 MEQ/L 11 MEQ/L Blood Urea Nitrogen 94 MG/DL 93 MG/DL 82 MG/DL 74 MG/DL Creatinine 2.03 MG/DL 2.14 MG/DL 2.02 MG/DL 2.03 MG/DL Estimat Glomerular Filtration 34 ML/MIN 32 ML/MIN 34 ML/MIN 34 ML/MIN Rate Random Glucose 153 MG/DL 180 MG/DL 161 MG/DL 232 MG/DL Calcium Level 8.4 MG/DL 8.1 MG/DL 7.7 MG/DL 8.0 MG/DL Troponin I LESS THAN 0.02 NG/ML Phosphorus Level 4.4 MG/DL 3.9 MG/DL Albumin 1.6 GM/DL 1.6 GM/DL Lactic Acid Level 5.0 mmol/L Magnesium Level 2.9 MG/DL Total Bilirubin 0.8 MG/DL Aspartate Amino Transf 20 U/L (AST/SGOT) Alanine Aminotransferase 42 U/L (ALT/SGPT) Alkaline Phosphatase 57 U/L Total Protein 5.9 GM/DL Microbiology Date/Time Procedure Status Source Growth 08/11/16 11:55 Gram Stain - Final Resulted Sputum Endotracheal 08/11/16 11:55 Sputum Culture - Preliminary Resulted Sputum Endotracheal MODERATE GROWTH NORMAL RESPIRATORY FL... Imaging Lower Extremity Ultrasound 08/11/16 0000 Signed Impressions: Service Date/Time: Thursday, August 11, 2016 08:00 - CONCLUSION: Normal examination. Efrain Deng MD Chest X-Ray 08/10/16 0000 Signed Impressions: Service Date/Time: Wednesday, August 10, 2016 15:39 - CONCLUSION: Slight worsening in aeration Efrain Deng MD Chest X-Ray 08/09/16 0000 Signed Impressions: Service Date/Time: Tuesday, August 09, 2016 07:51 - CONCLUSION: Endotracheal tube tip now 2 cm above the long. No change in patchy bilateral pulmonary parenchymal opacity. Julio Grove MD ADDENDUM: There is an NG tube in place overlapping the nasogastric tube on the image. The tip of the NG tube is at the level of the aortic arch in the proximal to mid thoracic esophagus. Side-port 3 cm below the thoracic inlet. Endotracheal tube tip is 9 cm above the long and 3 cm below the thoracic inlet. Julio Groev MD Abdomen X-Ray 08/09/16 0000 Signed Impressions: Service Date/Time: Tuesday, August 09, 2016 10:18 - CONCLUSION: Nonspecific bowel gas pattern. Julio Grove MD Chest X-Ray 08/08/16 1000 Signed Impressions: Service Date/Time: Monday, August 08, 2016 10:38 - CONCLUSION: Improved aeration. Murali Perdomo MD Chest X-Ray 08/07/16 0600 Signed Impressions: Service Date/Time: Sunday, August 07, 2016 04:57 - CONCLUSION: No significant change. Extensive bilateral infiltrates persist. Efrain Syed MD Chest X-Ray 08/06/16 0400 Signed Impressions: Service Date/Time: July 03:00 - CONCLUSION: No significant interval change with bilateral pulmonary infiltrates. Ronny Joshi MD Renal Ultrasound 08/05/16 1504 Signed Impressions: Service Date/Time: Friday, August 05, 2016 21:01 - CONCLUSION: 1. No evidence of obstruction or other acute renal abnormality. 2. Small, benign appearing cyst of the right kidney. 3. Witt catheter present. Efrain Syed MD Last Impressions Chest X-Ray 08/06/16 0400 Signed Impressions: Service Date/Time: July 03:00 - CONCLUSION: No significant interval change with bilateral pulmonary infiltrates. Ronny Joshi MD Renal Ultrasound 08/05/16 1504 Signed Impressions: Service Date/Time: Friday, August 05, 2016 21:01 - CONCLUSION: 1. No evidence of obstruction or other acute renal abnormality. 2. Small, benign appearing cyst of the right kidney. 3. Witt catheter present. Efrain Syed MD Physical Exam GENERAL: On the vent, on sedation and paralytics, on rotaprone bed, currently supine. SKIN: Cool and moist. No rash, or ecchymosis in back. CARDIOVASCULAR: irregular rate and rhythm without murmurs, gallops, or rubs. RESPIRATORY: Decreased breath sounds bilaterally GASTROINTESTINAL: Abdomen soft, BS (+) PEG site with dry dressing MUSCULOSKELETAL: Extremities without edema. NEUROLOGICAL: Sedated, on paralytics PSYCH: Unable to fully assess LINE: LSC TLC with no evidence of infection : Witt cath in place, urine looks clear Assessment & Plan Remarks IMPRESSION Severe bilateral pneumonia, (+) Legionella Respiratory failure, with significant hypoxemia Hx anxiety/depression Leukocytosis, infection, reactive, ?solucortef adding to it - improving Renal failure, improving, good UO RECOMMENDATION Continue Zithromax Continue Levaquin Monitor progress Monitor temps On rotaprone bed D/W Kyleigh Duarte MD August 12, 2016 15:17
[2016-08-12] MEDS: LEVOFLOXACIN 250 MG PREMIX INJ 50 ML IV SCH (17:28)
[2016-08-12] MEDS: AZITHROMYCIN INJ 500 MG in SODIUM CHLOR 0.9% 250 ML INJ 250 ML IV SCH (20:15)
--- NOTE | 2016-08-12 20:33 | HHI.CCPN ---
Subjective Remarks/Hospital Course 08/04: 60 y/o man with several week history of weakness, fatigue; fevers and sweats over past week. Today with severe SOB, arrived by EMS with hypoxemia. CO2 retention as well in ED. Required intubation in ED. Creatinine > 3.0 and severely dehydrated. 08/05: Remains sedated, orally intubated on mechanical ventilation. He remains at PEEP+14, FiO2 decreased to 80%. Urine positive for Legionella Ag. Went into A. fib with RVR. 08/06: Remains sedated, orally intubated on mechanical ventilation. On neuromuscular blockade with Nimbex. Initiated on prone ventilation today. Switched to pressure control mode with positive inspiratory pressure +20, PEEP + 15, respiratory rate 20, I time 1.82 seconds, FiO2 70%.. On propofol/fentanyl/ Versed/Nimbex/amiodarone/ vasopressin drips. Jose-Synephrine titrated off following switching from APRV to pressure control mode mechanical ventilation and initiating proning. 08/07: Remains sedated, on neuromuscular blockade, orally intubated on prone ventilation. FiO2 decreased to 50%, PEEP remains at +15. On fentanyl/versed/ Nimbex/amiodarone/vasopressin drips. Jose-Synephrine on transiently today. Diuresed well with Bumex. 08/08: Remains sedated, on neuromuscular blockade, orally intubated on prone ventilation. FiO2 decreased to 45%, PEEP remains at +15. Attempting to place Dobbhoff to initiate tube feeds. Off Jose-Synephrine. Vasopressin being titrated down. 08/09: Remains sedated, orally intubated on prone ventilation. Remains on Nimbex for neuromuscular blockade. PEEP +15, FiO2 50%. Have been unable to place OG tube despite multiple attempts. 08/10: Remains sedated, orally intubated on neuromuscular blockade on prone ventilation. Attempts at keeping supine today however had progressively increasing FiO2 requirement. He was restarted on prone ventilation. He had a sudden episode of desaturation with dropping O2 sats to the 80s despite 100% FiO2. I time increased from 1.2 seconds to 1.8 seconds. He was immediately supined and a stat chest x-ray obtained which did not reveal any pneumothorax and essentially unchanged compared to previous chest x-ray with bilateral infiltrates. He was restarted on prone ventilation. Question of PE. We will initiate full anticoagulation with heparin. Will also check troponins and EKG when supine unless troponin elevated in which case we will get a stat EKG. 08/11: Remains sedated, orally intubated on neuromuscular blockade in prone ventilation. Had episode of loss of lung volumes with desaturation. Chest x- ray did not reveal any pneumothorax or atelectasis. Thick mucus suctioned out of the ET tube. Difficult to bag at times. ET tube was changed over a tube exchanger following which he had return of good volumes. ( It is possible that the pre-existing ET tube was getting occluded by debris or secretions which were somewhat cleared out by suctioning earlier.) GI postponed with G-tube placement due to unstable respiratory status until tomorrow and they will plan on doing a PEG tube if respiratory status permits. 08/12: Remains sedated, orally intubated on neuromuscular blockade on prone ventilation. Underwent PEG tube placement today. Start tube feeds in a.m. Objective Vital Signs Date Time Temp Pulse Resp B/P Pulse Ox O2 Delivery O2 Flow Rate FiO2 08/12/16 20:02 96 50 08/12/16 18:00 79 08/12/16 18:00 132/71 121/70 08/12/16 16:00 98.3 08/12/16 08:00 20 Intake and Output 08/11/16 08/11/16 08/12/16 08:00 16:00 00:00 Intake Total 1496 ml 1779 ml 1414 ml Output Total 850 ml 1050 ml 1000 ml Balance 646 ml 729 ml 414 ml Result Diagram: 08/12/16 0700 08/12/16 0700 Other Results Laboratory Tests Test 08/12/16 12:58 Blood Gas Puncture Site ART LINE Blood Gas Patient Temperature 98.6 Blood Gas HCO3 29 mmol/L (22-26) Blood Gas Base Excess 3.4 mmol/L (-2-2) Blood Gas Oxygen Saturation 87 % (90-100) Arterial Blood pH 7.32 (7.380-7.420) Arterial Blood Partial 58 mmHg (38-42) Pressure CO2 Arterial Blood Partial 67 mmHg Pressure O2 (61-120) Arterial Blood Oxygen Content 15.6 Vol % (12.0-20.0) Arterial Blood 0.9 % (0-4) Carboxyhemoglobin Arterial Blood Methemoglobin 1.3 % (0-2) Blood Gas Hemoglobin 12.8 G/DL (12.0-16.0) Oxygen Delivery Device VENTILATOR Blood Gas Ventilator Setting Blood Gas Inspired Oxygen 80 % Imaging Last 24 hours Impressions Chest X-Ray 08/08/16 1000 Signed Impressions: Service Date/Time: Monday, August 08, 2016 10:38 - CONCLUSION: Improved aeration. Murali Perdomo MD Abdomen X-Ray 08/08/16 0000 Signed Impressions: Service Date/Time: Monday, August 08, 2016 10:38 - CONCLUSION: No evidence of obstruction. Murali Perdomo MD Last 24 hours Impressions Chest X-Ray 08/07/16 0600 Signed Impressions: Service Date/Time: Sunday, August 07, 2016 04:57 - CONCLUSION: No significant change. Extensive bilateral infiltrates persist. Efrain Syed MD Last 24 hours Impressions Chest X-Ray 08/06/16 0400 Signed Impressions: Service Date/Time: July 03:00 - CONCLUSION: No significant interval change with bilateral pulmonary infiltrates. Ronny Joshi MD Last Impressions Chest X-Ray 08/04/16 1832 Signed Impressions: Service Date/Time: Thursday, August 04, 2016 18:50 - CONCLUSION: Extensive bilateral airspace disease greater in the left lung. There may be pneumomediastinum. Perico Wahl MD Objective Remarks Gen: Elderly male, sedated, orally intubated on mechanical ventilation and neuromuscular blockade. On Rotaprone bed HEENT: Positive pallor, no icterus. Orally intubated. Mucosa moist. Neck: Supple, orally intubated. Lungs: Orally intubated on mechanical ventilation, air entry decreased bilaterally at bases, bilateral rhonchi Heart: NL S1S2 regularly regular, no JVD. Abdomen: Soft, NT, ND, no guarding. PEG tube in place Extremities: Warm bilaterally, no edema Neuro: Sedated, on neuromuscular blockade, orally intubated on mechanical ventilation. Line: Central Venous Catheter A/P Assessment and Plan Assessment: 1. Septic shock 2. Acute Respiratory Failure on mechanical ventilation 3. Legionella Pneumonia 4. ARDS 5. CKD with CHAN 6. A. fib with RVR (converted to RSR) 7. Hx depression with recent ECT 2016 8. Suspected PE Neuro: Continue sedation with Versed/fentanyl gtt. on Nimbex for neuromuscular blockade No sedation vacation. Cardiovascular: Continue amiodarone drip for A. fib. Jose-Synephrine titrated off. Decrease vasopressin gtt gradually. 2-D echo with minimally depressed LV and RV function. Pulmonary: Continue mechanical ventilation, AC/PC PIP +20, PEEP +15, respiratory rate 20, FiO2 50%, inspiratory time 1.8 seconds Vent bundle, bronchodilators, pulmonary toilet. On prone ventilation. On neuromuscular blockade. Worsening hypoxia noted on 08/10. Lung mechanics unchanged essentially. Question of PE. Full anticoagulation with heparin. GI/liver: Unable to place OG tube despite multiple attempts. consulted GI. GI placed PEG on 08/12. Start tube feeds on 08/13. Renal/: D5 water at 60 cc an hour for hypernatremia, strict intake output, monitor and replete electrolytes, follow BUN/creatinine. Nephrology following for CHAN/CKD. Given glucose/insulin for hyperkalemia. Started on Diuril by nephrology. Heme: Follow CBC. Full anticoagulation with heparin for suspected PE. ID: Continue antibiotic coverage with IV Levaquin Zithromax. Cefepime stopped on 08/07 per ID. ID following. Urine positive for Legionella antigen. Endocrine: SSI for glycemic control. Tapering stress dose hydrocortisone. Prophylaxis: PPI/SCDs/stop Lovenox and started full anticoagulation with heparin on 08/10 for suspected PE. Remains critical with severe ARDS secondary to Legionella pneumonia and septic shock on prone ventilation and neuromuscular blockade. Critical Care time: 45 mins Viet Duran MD August 12, 2016 20:33
[2016-08-13] VITALS (18 sets, daily range): BP systolic 104–169; BP diastolic 45–83; PULSE 69–86; RESP 20; TEMP 97.5–98.9; O2SAT 93–100
[2016-08-13] MEDS: fentaNYL DRIP 250 ML IV SCH ×3 (02:08→22:11)
[2016-08-13] MEDS: CISATRACURIUM INJ 100 MG in SODIUM CHLOR 0.9% 250 ML INJ 240 ML IV SCH ×3 (03:20→22:11)
[2016-08-13] MEDS: CHLORHEXIDINE GLUCONATE 2 % 1 PACK (2 CLOTHS) TOP SCH (03:21)
[2016-08-13] MEDS: RESP: ALBUTEROL 2.5 MG/IPRATROPIUM 0.5 MG NEB (SCH) NEB ×6 (03:35→23:04)
[2016-08-13] MEDS: PROPOFOL 1000 MG/100 ML INJ 100 ML IV SCH ×3 (04:37→17:46)
[2016-08-13 05:37] LABS: BLOOD GAS BASE EXCESS 2.7 mmol/L (-2-2); BLOOD GAS CARBOXYHEMOGLOBIN 1.5 % (0-4); BLOOD GAS HCO3 26 mmol/L (22-26); BLOOD GAS METHEMOGLOBIN 0.7 % (0-2); BLOOD GAS O2 HGB SATURATION 97 % (90-100); BLOOD GAS OXYGEN CONTENT 13.6 Vol % (12.0-20.0); BLOOD GAS PCO2 39 mmHg (38-42); BLOOD GAS PO2 128 mmHg (61-120); BLOOD GAS TOTAL HGB 9.8 G/DL (12.0-16.0); TEMP CORR TO 98.6
[2016-08-13 05:38] LABS: CRITICAL VALUE NO
[2016-08-13 05:39] LABS: OXYGEN DEVICE PRVC / AC
[2016-08-13 05:40] LABS: DRAW SITE LT RADIAL; NUMBER OF ARTERIAL PUNCTURES 2; STAT NO; ULNAR PULSE PRESENT
[2016-08-13 05:44] LABS: AUTOMATED NEUTROPHIL # 10.3 TH/MM3 (1.8-7.7); BASOPHIL % 0.1 % (0.0-2.0); EOSINOPHIL % 0.2 % (0.0-4.0); HEMATOCRIT 31.9 % (39.0-51.0); LYMPH % 3.2 % (9.0-44.0); LYMPHOCYTE # 0.4 TH/MM3 (1.0-4.8); MEAN CELL VOLUME 95.6 FL (80.0-100.0); MEAN CORPUSCULAR HEMOGLOBIN 30.8 PG (27.0-34.0); MEAN CORPUSCULAR HGB CONC 32.2 % (32.0-36.0); NEUT % 93.5 % (16.0-70.0); PLATELET COUNT 177 TH/MM3 (150-450); RED BLOOD COUNT 3.34 MIL/MM3 (4.50-5.90); RED CELL DISTRIBUTION WIDTH 14.2 % (11.6-17.2)
[2016-08-13 05:50] LABS: APTT (PATIENT) 23.7 SEC (24.3-30.1)
[2016-08-13 05:54] LABS: HEMO FLAGS AUTO DIFF
[2016-08-13] MEDS: INSULIN ASPART SUPPLEMENTAL SCALE SQ SCH ×3 (06:00→17:49)
[2016-08-13 06:22] LABS: ALT (GPT) 38 U/L (12-78); ANION GAP 4 MEQ/L (5-15); AST (GOT) 25 U/L (15-37); BICARBONATE 34.1 MEQ/L (21.0-32.0); BLOOD UREA NITROGEN 59 MG/DL (7-18); CHLORIDE 117 MEQ/L (98-107); GLOMERULAR FILTRATION RATE 47 ML/MIN (>89); POTASSIUM 4.1 MEQ/L (3.5-5.1); SODIUM (NA) 155 MEQ/L (136-145)
[2016-08-13 06:24] LABS: ALKALINE PHOSPHATASE 58 U/L (45-117); TOTAL BILIRUBIN ADULT 0.8 MG/DL (0.2-1.0)
[2016-08-13] MEDS: HEPARIN-D5W INJ 250 ML IV SCH (06:35)
[2016-08-13] MEDS: MIDAZOLAM 100 MG/ML INJ 100 ML IV SCH ×2 (07:15→15:36)
[2016-08-13 07:35] LABS: SCAN/DIFF AUTO DIFF CONFIRMED
[2016-08-13] MEDS: LACTULOSE SYRUP 20 GM/30 ML CUP PO SCH (08:05)
[2016-08-13] MEDS: PANTOPRAZOLE SODIUM 40 MG VIAL IV SCH (08:05)
[2016-08-13] MEDS: DEXTROSE 5% IN WATE 1000ML INJ 1,000 ML IV SCH (08:06)
[2016-08-13] MEDS: HYDROCORTISONE SOD SUCCINATE 100 MG VIAL IV PUSH SCH ×2 (08:06→20:44)
[2016-08-13] MEDS: CHLORHEXIDINE 0.12% (ORAL KIT) 15 ML CUP MT SCH ×2 (08:07→19:32)
[2016-08-13] MEDS: CHLOROTHIAZIDE SOD 500 MG VIAL IV SCH ×2 (08:12→20:46)
--- NOTE | 2016-08-13 10:16 | HHI.IDPN ---
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 Vital Signs Date Time Temp Pulse Resp B/P Pulse Ox O2 Delivery O2 Flow Rate FiO2 08/13/16 08:00 60 08/13/16 08:00 72 08/13/16 08:00 97.9 72 20 116/61 98 112/53 08/13/16 07:16 93 50 08/13/16 06:47 50 08/13/16 06:00 77 08/13/16 06:00 50 08/13/16 04:02 93 50 08/13/16 04:00 50 08/13/16 04:00 98.9 78 20 128/63 93 132/80 08/13/16 04:00 78 08/13/16 02:00 72 08/13/16 00:13 94 50 08/13/16 00:00 50 08/13/16 00:00 77 08/13/16 00:00 98.6 77 20 139/80 93 129/74 08/12/16 22:00 79 08/12/16 20:02 96 50 08/12/16 20:00 98.4 76 20 106/59 90 126/69 08/12/16 20:00 50 08/12/16 20:00 76 08/12/16 18:00 79 08/12/16 18:00 79 132/71 95 121/70 08/12/16 17:44 96 55 08/12/16 17:30 77 135/73 98 127/72 08/12/16 17:06 79 115/56 94 116/83 08/12/16 16:30 78 117/66 94 08/12/16 16:00 60 08/12/16 16:00 80 08/12/16 16:00 98.3 80 122/58 98 135/69 08/12/16 15:30 79 128/70 100 140/84 08/12/16 15:00 78 120/58 98 152/89 08/12/16 14:30 78 123/60 99 143/86 08/12/16 14:00 80 124/69 90 141/82 08/12/16 14:00 80 08/12/16 13:30 80 122/68 94 138/81 08/12/16 13:00 82 114/57 88 139/80 08/12/16 12:30 85 127/64 98 143/85 08/12/16 12:04 81 127/65 98 131/63 08/12/16 12:00 97.3 79 87/40 97 139/76 08/12/16 12:00 100 08/12/16 12:00 79 08/12/16 11:42 97 100 08/12/16 11:35 74 101/57 98 130/72 08/12/16 11:30 74 81/40 97 136/75 08/12/16 11:00 75 94 131/74 08/12/16 10:30 77 148/80 90 138/79 08/12/16 08/12/16 08/13/16 15:00 23:00 07:00 Intake Total 1482 ml 1315 ml 1100 ml Output Total 1300 ml 1200 ml 1500 ml Balance 182 ml 115 ml -400 ml Intake IV Total 1362 ml 1215 ml 950 ml Other 120 ml 100 ml 150 ml Output Urine Total 1300 ml 1200 ml 1500 ml Stool Total 0 ml 0 ml 0 ml . Laboratory Tests Test 08/12/16 08/13/16 07:00 05:25 White Blood Count 14.7 TH/MM3 11.0 TH/MM3 Red Blood Count 3.38 MIL/MM3 3.34 MIL/MM3 Hemoglobin 10.5 GM/DL 10.3 GM/DL Hematocrit 32.6 % 31.9 % Mean Corpuscular Volume 96.5 FL 95.6 FL Mean Corpuscular Hemoglobin 31.1 PG 30.8 PG Mean Corpuscular Hemoglobin 32.2 % 32.2 % Concent Red Cell Distribution Width 14.4 % 14.2 % Platelet Count 161 TH/MM3 177 TH/MM3 Mean Platelet Volume 9.4 FL 8.9 FL Neutrophils (%) (Auto) 92.3 % 93.5 % Lymphocytes (%) (Auto) 3.0 % 3.2 % Monocytes (%) (Auto) 4.4 % 3.0 % Eosinophils (%) (Auto) 0.1 % 0.2 % Basophils (%) (Auto) 0.2 % 0.1 % Neutrophils # (Auto) 13.6 TH/MM3 10.3 TH/MM3 Lymphocytes # (Auto) 0.4 TH/MM3 0.4 TH/MM3 Monocytes # (Auto) 0.6 TH/MM3 0.3 TH/MM3 Eosinophils # (Auto) 0.0 TH/MM3 0.0 TH/MM3 Basophils # (Auto) 0.0 TH/MM3 0.0 TH/MM3 CBC Comment AUTO DIFF AUTO DIFF Differential Total Cells 100 Counted Neutrophils % (Manual) 82 % Band Neutrophils % 9 % Lymphocytes % 2 % Monocytes % 4 % Neutrophils # (Manual) 13.8 TH/MM3 Metamyelocytes 2 % Myelocytes 1 % Differential Comment FINAL DIFF AUTO DIFF MANUAL CONFIRMED Platelet Estimate NORMAL Platelet Morphology Comment NORMAL Red Cell Morphology Comment NORMAL Laboratory Tests Test 08/11/16 08/12/16 08/13/16 11:30 07:00 05:25 Sodium Level 155 MEQ/L 154 MEQ/L 155 MEQ/L Potassium Level 5.2 MEQ/L 4.4 MEQ/L 4.1 MEQ/L Chloride Level 119 MEQ/L 114 MEQ/L 117 MEQ/L Carbon Dioxide Level 28.8 MEQ/L 29.1 MEQ/L 34.1 MEQ/L Anion Gap 7 MEQ/L 11 MEQ/L 4 MEQ/L Blood Urea Nitrogen 82 MG/DL 74 MG/DL 59 MG/DL Creatinine 2.02 MG/DL 2.03 MG/DL 1.53 MG/DL Estimat Glomerular Filtration 34 ML/MIN 34 ML/MIN 47 ML/MIN Rate Random Glucose 161 MG/DL 232 MG/DL 109 MG/DL Calcium Level 7.7 MG/DL 8.0 MG/DL 8.0 MG/DL Lactic Acid Level 5.0 mmol/L Phosphorus Level 3.9 MG/DL Magnesium Level 2.9 MG/DL Total Bilirubin 0.8 MG/DL 0.8 MG/DL Aspartate Amino Transf 20 U/L 25 U/L (AST/SGOT) Alanine Aminotransferase 42 U/L 38 U/L (ALT/SGPT) Alkaline Phosphatase 57 U/L 58 U/L Total Protein 5.9 GM/DL 5.8 GM/DL Albumin 1.6 GM/DL 1.6 GM/DL Microbiology Date/Time Procedure Status Source Growth 08/11/16 11:55 Gram Stain - Final Complete Sputum Endotracheal 08/11/16 11:55 Sputum Culture - Final Complete Sputum Endotracheal MODERATE GROWTH NORMAL RESPIRATORY THANIA Imaging Lower Extremity Ultrasound 08/11/16 0000 Signed Impressions: Service Date/Time: Thursday, August 11, 2016 08:00 - CONCLUSION: Normal examination. Efrain Deng MD Chest X-Ray 08/11/16 0000 Signed Impressions: Service Date/Time: Thursday, August 11, 2016 13:14 - CONCLUSION: Stable chest appearance. Efrain Deng MD Chest X-Ray 08/11/16 0000 Signed Impressions: Service Date/Time: Thursday, August 11, 2016 12:25 - CONCLUSION: 1. Stable patchy infiltrates bilaterally consistent with pneumonia and/or pulmonary edema. Clinical correlation is recommended. 2. Tiny bilateral pleural effusions. Franck Betancourt MD Lower Extremity Ultrasound 08/11/16 0000 Signed Impressions: Service Date/Time: Thursday, August 11, 2016 08:00 - CONCLUSION: Normal examination. Efrain Deng MD Chest X-Ray 08/10/16 0000 Signed Impressions: Service Date/Time: Wednesday, August 10, 2016 15:39 - CONCLUSION: Slight worsening in aeration Efrain Deng MD Chest X-Ray 08/09/16 0000 Signed Impressions: Service Date/Time: Tuesday, August 09, 2016 07:51 - CONCLUSION: Endotracheal tube tip now 2 cm above the long. No change in patchy bilateral pulmonary parenchymal opacity. Julio Grove MD ADDENDUM: There is an NG tube in place overlapping the nasogastric tube on the image. The tip of the NG tube is at the level of the aortic arch in the proximal to mid thoracic esophagus. Side-port 3 cm below the thoracic inlet. Endotracheal tube tip is 9 cm above the long and 3 cm below the thoracic inlet. Julio Grove MD Abdomen X-Ray 08/09/16 0000 Signed Impressions: Service Date/Time: Tuesday, August 09, 2016 10:18 - CONCLUSION: Nonspecific bowel gas pattern. Julio Grove MD Chest X-Ray 08/08/16 1000 Signed Impressions: Service Date/Time: Monday, August 08, 2016 10:38 - CONCLUSION: Improved aeration. Murali Perdomo MD Chest X-Ray 08/07/16 0600 Signed Impressions: Service Date/Time: Sunday, August 07, 2016 04:57 - CONCLUSION: No significant change. Extensive bilateral infiltrates persist. Efrain Syed MD Chest X-Ray 08/06/16 0400 Signed Impressions: Service Date/Time: July 03:00 - CONCLUSION: No significant interval change with bilateral pulmonary infiltrates. Ronny Joshi MD Renal Ultrasound 08/05/16 1504 Signed Impressions: Service Date/Time: Friday, August 05, 2016 21:01 - CONCLUSION: 1. No evidence of obstruction or other acute renal abnormality. 2. Small, benign appearing cyst of the right kidney. 3. Witt catheter present. Efrain Syed MD Last Impressions Chest X-Ray 08/06/16 0400 Signed Impressions: Service Date/Time: July 03:00 - CONCLUSION: No significant interval change with bilateral pulmonary infiltrates. Ronny Joshi MD Renal Ultrasound 08/05/16 1504 Signed Impressions: Service Date/Time: Friday, August 05, 2016 21:01 - CONCLUSION: 1. No evidence of obstruction or other acute renal abnormality. 2. Small, benign appearing cyst of the right kidney. 3. Witt catheter present. Efrain Syed MD Physical Exam GENERAL: On the vent, on sedation and paralytics, on rotaprone bed, currently supine. SKIN: Cool and moist. No rash CARDIOVASCULAR: irregular rate and rhythm without murmurs, gallops, or rubs. RESPIRATORY: Some rhonchi on L side GASTROINTESTINAL: Abdomen soft, BS (+) PEG site with dry dressing MUSCULOSKELETAL: Extremities without edema. NEUROLOGICAL: Sedated, on paralytics PSYCH: Unable to fully assess LINE: LSC TLC with no evidence of infection : Witt cath in place, urine looks clear Assessment & Plan Remarks IMPRESSION Severe bilateral pneumonia, (+) Legionella Respiratory failure, with significant hypoxemia Hx anxiety/depression Leukocytosis - improving Renal failure, improving, good UO RECOMMENDATION Continue Zithromax Continue Levaquin Follow clinically Monitor temps On rotaprone bed D/W RN I will be off 5/5-08/16, Dr Palomo Duran covering in my absence Kyleigh Nichols MD August 13, 2016 10:16
[2016-08-13] MEDS: FREE WATER G-TUBE SCH ×2 (11:32→17:49)
[2016-08-13] MEDS: AMIODARONE INJ 450 MG in DEXTROSE 5% IN WATE(EXCEL) INJ 250 ML IV SCH ×2 (11:32)
--- NOTE | 2016-08-13 12:12 | HHI.CCPN ---
Subjective Remarks/Hospital Course 08/04: 60 y/o man with several week history of weakness, fatigue; fevers and sweats over past week. Today with severe SOB, arrived by EMS with hypoxemia. CO2 retention as well in ED. Required intubation in ED. Creatinine > 3.0 and severely dehydrated. 08/05: Remains sedated, orally intubated on mechanical ventilation. He remains at PEEP+14, FiO2 decreased to 80%. Urine positive for Legionella Ag. Went into A. fib with RVR. 08/06: Remains sedated, orally intubated on mechanical ventilation. On neuromuscular blockade with Nimbex. Initiated on prone ventilation today. Switched to pressure control mode with positive inspiratory pressure +20, PEEP + 15, respiratory rate 20, I time 1.82 seconds, FiO2 70%.. On propofol/fentanyl/ Versed/Nimbex/amiodarone/ vasopressin drips. Jose-Synephrine titrated off following switching from APRV to pressure control mode mechanical ventilation and initiating proning. 08/07: Remains sedated, on neuromuscular blockade, orally intubated on prone ventilation. FiO2 decreased to 50%, PEEP remains at +15. On fentanyl/versed/ Nimbex/amiodarone/vasopressin drips. Jose-Synephrine on transiently today. Diuresed well with Bumex. 08/08: Remains sedated, on neuromuscular blockade, orally intubated on prone ventilation. FiO2 decreased to 45%, PEEP remains at +15. Attempting to place Dobbhoff to initiate tube feeds. Off Jose-Synephrine. Vasopressin being titrated down. 08/09: Remains sedated, orally intubated on prone ventilation. Remains on Nimbex for neuromuscular blockade. PEEP +15, FiO2 50%. Have been unable to place OG tube despite multiple attempts. 08/10: Remains sedated, orally intubated on neuromuscular blockade on prone ventilation. Attempts at keeping supine today however had progressively increasing FiO2 requirement. He was restarted on prone ventilation. He had a sudden episode of desaturation with dropping O2 sats to the 80s despite 100% FiO2. I time increased from 1.2 seconds to 1.8 seconds. He was immediately supined and a stat chest x-ray obtained which did not reveal any pneumothorax and essentially unchanged compared to previous chest x-ray with bilateral infiltrates. He was restarted on prone ventilation. Question of PE. We will initiate full anticoagulation with heparin. Will also check troponins and EKG when supine unless troponin elevated in which case we will get a stat EKG. 08/11: Remains sedated, orally intubated on neuromuscular blockade in prone ventilation. Had episode of loss of lung volumes with desaturation. Chest x- ray did not reveal any pneumothorax or atelectasis. Thick mucus suctioned out of the ET tube. Difficult to bag at times. ET tube was changed over a tube exchanger following which he had return of good volumes. ( It is possible that the pre-existing ET tube was getting occluded by debris or secretions which were somewhat cleared out by suctioning earlier.) GI postponed with G-tube placement due to unstable respiratory status until tomorrow and they will plan on doing a PEG tube if respiratory status permits. 08/12: Remains sedated, orally intubated on neuromuscular blockade on prone ventilation. Underwent PEG tube placement today. Start tube feeds in a.m. 08/13: Tmax 98.9. Tube feeds initiated this a.m.. Sodium level 155, free water flushes initiated. Slight improvement in ventilatory status. Plan to remain supine today, an attempt to wean ventilation settings. Objective Vital Signs Date Time Temp Pulse Resp B/P Pulse Ox O2 Delivery O2 Flow Rate FiO2 08/13/16 10:42 98 50 08/13/16 10:00 73 08/13/16 08:00 97.9 20 116/61 112/53 Intake and Output 08/12/16 08/12/16 08/13/16 08:00 16:00 00:00 Intake Total 1435 ml 1482 ml 1315 ml Output Total 1000 ml 1300 ml 1200 ml Balance 435 ml 182 ml 115 ml Result Diagram: 08/13/16 0525 08/13/16 0525 Other Results Microbiology Date/Time Procedure Status Source Growth 08/11/16 11:55 Gram Stain - Final Complete Sputum Endotracheal 08/11/16 11:55 Sputum Culture - Final Complete Sputum Endotracheal MODERATE GROWTH NORMAL RESPIRATORY THANIA Laboratory Tests Test 08/12/16 08/13/16 12:58 05:22 Blood Gas Puncture Site ART LINE LT RADIAL Blood Gas Patient Temperature 98.6 98.6 Blood Gas HCO3 29 mmol/L 26 mmol/L (22-26) (22-26) Blood Gas Base Excess 3.4 mmol/L 2.7 mmol/L (-2-2) (-2-2) Blood Gas Oxygen Saturation 87 % (90-100) 97 % (90-100) Arterial Blood pH 7.32 7.45 (7.380-7.420) (7.380-7.420) Arterial Blood Partial 58 mmHg (38-42) 39 mmHg (38-42) Pressure CO2 Arterial Blood Partial 67 mmHg 128 mmHg Pressure O2 (61-120) (61-120) Arterial Blood Oxygen Content 15.6 Vol % 13.6 Vol % (12.0-20.0) (12.0-20.0) Arterial Blood 0.9 % (0-4) 1.5 % (0-4) Carboxyhemoglobin Arterial Blood Methemoglobin 1.3 % (0-2) 0.7 % (0-2) Blood Gas Hemoglobin 12.8 G/DL 9.8 G/DL (12.0-16.0) (12.0-16.0) Oxygen Delivery Device VENTILATOR PRVC / AC Blood Gas Ventilator Setting Blood Gas Inspired Oxygen 80 % Imaging Last Impressions Lower Extremity Ultrasound 08/11/16 0000 Signed Impressions: Service Date/Time: Thursday, August 11, 2016 08:00 - CONCLUSION: Normal examination. Efrain Deng MD Chest X-Ray 08/11/16 0000 Signed Impressions: Service Date/Time: Thursday, August 11, 2016 13:14 - CONCLUSION: Stable chest appearance. Efrain Deng MD Abdomen X-Ray 08/09/16 0000 Signed Impressions: Service Date/Time: Tuesday, August 09, 2016 10:18 - CONCLUSION: Nonspecific bowel gas pattern. Julio Grove MD Renal Ultrasound 08/05/16 1504 Signed Impressions: Service Date/Time: Friday, August 05, 2016 21:01 - CONCLUSION: 1. No evidence of obstruction or other acute renal abnormality. 2. Small, benign appearing cyst of the right kidney. 3. Witt catheter present. Efrain Syed MD Last 24 hours Impressions Chest X-Ray 08/08/16 1000 Signed Impressions: Service Date/Time: Monday, August 08, 2016 10:38 - CONCLUSION: Improved aeration. Murali Perdomo MD Abdomen X-Ray 08/08/16 0000 Signed Impressions: Service Date/Time: Monday, August 08, 2016 10:38 - CONCLUSION: No evidence of obstruction. Murali Perdomo MD Last 24 hours Impressions Chest X-Ray 08/07/16 0600 Signed Impressions: Service Date/Time: Sunday, August 07, 2016 04:57 - CONCLUSION: No significant change. Extensive bilateral infiltrates persist. Efrain Syed MD Last 24 hours Impressions Chest X-Ray 08/06/16 0400 Signed Impressions: Service Date/Time: July 03:00 - CONCLUSION: No significant interval change with bilateral pulmonary infiltrates. Ronny Joshi MD Last Impressions Chest X-Ray 08/04/16 1832 Signed Impressions: Service Date/Time: Thursday, August 04, 2016 18:50 - CONCLUSION: Extensive bilateral airspace disease greater in the left lung. There may be pneumomediastinum. Perico Wahl MD Objective Remarks Gen: Elderly male, sedated, orally intubated on mechanical ventilation and neuromuscular blockade. On Rotaprone bed HEENT: Positive pallor, no icterus. Orally intubated. Mucosa moist. Neck: Supple, orally intubated. Lungs: Orally intubated on mechanical ventilation, air entry decreased bilaterally at bases, scattered rhonchi Heart: NL S1S2 regularly regular, no JVD. Abdomen: Soft, NT, ND, no guarding. PEG tube in place Extremities: Warm bilaterally, no edema Neuro: Intubated and sedated, on neuromuscular blockade, orally intubated on mechanical ventilation. Urinary Catheter: Yes Line: Central Venous Catheter A/P Assessment and Plan Assessment: 1. Septic shock 2. Acute Respiratory Failure on mechanical ventilation 3. Legionella Pneumonia 4. ARDS 5. CKD with CHAN 6. A. fib with RVR (converted to RSR) 7. Hx depression with recent ECT 2016 8. Suspected PE Neuro: Continue sedation with Versed/fentanyl gtt. on Nimbex for neuromuscular blockade for ventilator synchrony. No sedation vacation indicated at this time, secondary to high ventilatory requirements Cardiovascular: Continue amiodarone drip for A. fib. Plan to transition to by mouth amiodarone. Phenylephrine off Vasopressin off . 08/10 - 2-D echo with minimally depressed LV and RV function. Pulmonary: Continue mechanical ventilation, AC/PC PIP +20, PEEP +15, respiratory rate 20, FiO2 50%, inspiratory time 1.8 seconds Vent bundle, bronchodilators, pulmonary toilet. On prone ventilation. On neuromuscular blockade, Cisatracurium Worsening hypoxia noted on 08/10. Lung mechanics unchanged essentially. Question of PE, continue full anticoagulation with heparin. GI/liver: Unable to place OG tube despite multiple attempts. consulted GI. GI placed PEG on 08/12. Start tube feeds on 08/13. Renal/: D5 water at 60 cc an hour for hypernatremia, strict intake output, monitor and replete electrolytes, follow BUN/creatinine. Nephrology following for CHAN/CKD. Given glucose/insulin for hyperkalemia. Started on Diuril by nephrology. 08/13: Free water flushes started 300 cc every 6 hours Heme: Follow CBC. Full anticoagulation with heparin for suspected PE. Monitor PTT ID: Continue antibiotic coverage with IV Levaquin Zithromax. Cefepime stopped on 08/07 per ID. ID following. Urine positive for Legionella antigen. Endocrine: SSI for glycemic control. Tapering stress dose hydrocortisone. Prophylaxis: PPI/SCDs/ Lovenox (held) and started full anticoagulation with heparin on 08/10 for suspected PE. This patient remains critically ill with one or more organ systems which are or may become a threat to life. I have spent in excess of 37minutes discontinuously in the care and management of this patient. This time is exclusive of procedures, and includes, but is not limited to, evaluation of the patient, review of the medical record, discussions with family, consultants, nursing staff, or respiratory therapy, and documentation in the medical record. Remains critical with severe ARDS secondary to Legionella pneumonia and septic shock on prone ventilation and neuromuscular blockade. Physician Danica Asif MD August 13, 2016 12:12
--- NOTE | 2016-08-13 12:21 | HHI.NPPN ---
Subjective Renal Failure: Chronic, Acute Interval History PEG placed. Renal function is better. (Marium Diana) Review of Systems General General Remarks unable to evaluate (Marium Diana) Objective Data Data 08/12/16 08/13/16 19:00 07:00 Intake Total 1482 ml 2415 ml Output Total 1300 ml 2700 ml Balance 182 ml -285 ml Intake IV Total 1362 ml 2165 ml Other 120 ml 250 ml Output Urine Total 1300 ml 2700 ml Stool Total 0 ml 0 ml Vital Signs Date Time Temp Pulse Resp B/P Pulse Ox O2 Delivery O2 Flow Rate FiO2 08/13/16 10:42 98 50 08/13/16 10:00 73 08/13/16 08:00 60 08/13/16 08:00 72 08/13/16 08:00 97.9 72 20 116/61 98 112/53 08/13/16 07:16 93 50 08/13/16 06:47 50 08/13/16 06:00 77 08/13/16 06:00 50 08/13/16 04:02 93 50 08/13/16 04:00 50 08/13/16 04:00 98.9 78 20 128/63 93 132/80 08/13/16 04:00 78 08/13/16 02:00 72 08/13/16 00:13 94 50 08/13/16 00:00 50 08/13/16 00:00 77 08/13/16 00:00 98.6 77 20 139/80 93 129/74 08/12/16 22:00 79 08/12/16 20:02 96 50 08/12/16 20:00 98.4 76 20 106/59 90 126/69 08/12/16 20:00 50 08/12/16 20:00 76 08/12/16 18:00 79 08/12/16 18:00 79 132/71 95 121/70 08/12/16 17:44 96 55 08/12/16 17:30 77 135/73 98 127/72 08/12/16 17:06 79 115/56 94 116/83 08/12/16 16:30 78 117/66 94 08/12/16 16:00 60 08/12/16 16:00 80 08/12/16 16:00 98.3 80 122/58 98 135/69 08/12/16 15:30 79 128/70 100 140/84 08/12/16 15:00 78 120/58 98 152/89 08/12/16 14:30 78 123/60 99 143/86 08/12/16 14:00 80 124/69 90 141/82 08/12/16 14:00 80 08/12/16 13:30 80 122/68 94 138/81 08/12/16 13:00 82 114/57 88 139/80 08/12/16 12:30 85 127/64 98 143/85 (Marium Diana) -: 08/13/16 0525 08/13/16 0525 Tubes & Lines: Witt Tubes & Lines Comment TLC PEG Drip Comment fentanyl, propofol, nimbex, amiodarone, vasopressin (Marium Diana) Physical Exam General Appearance: Well Developed, Well Nourished, No Acute Distress Appearance Remarks difficult to examine in rotaprone bed (Marium Diana) Throat Throat Remarks ETT (Marium Diana) Pulmonary Resp Exam: Breath Sounds Equal, Crackles Resp Remarks some expiratory wheezing (Marium Diana) Cardiology CV Exam: Good Perfusion, Irregular (Marium Diana) Genitourinary Exam: Clear Urine (Mraium Diana) Extremeties Extremities Exam: Pedal Pulses Palpable, Trace Edema (Marium Diana) Neurologic Neuro Exam: Unresponsive, Sedated (Marium Diana) Assessment/Plan Assessment Summary: CHAN/Acute Renal Failure, Fluid/Volume Overload Electrolyte Assessment: Hyperkalemia, Hypernatremia Problem List: (1) Acute renal failure superimposed on stage 3 chronic kidney disease Plan: baseline creatinine 1.94, GFR 35 renal failure from sepsis and hypotension, possible dehydration; may have progressed to ATN renal function improving excellent urine output, continue Diuril BID K is normal he is on D5W at 30 cc/hr pressors to maintain MAP > 65mmHg , he is not requiring continue Nepro tube feeding daily renal panel avoid nephrotoxic medications (2) Acute respiratory failure Plan: vent management by entry level civil engineer settings are 20/550/50/15 (3) Pneumonia Plan: Blood culture negative to date + legionella in urine, sputum negative, taken off isolation Abx include Levaquin and Zithromax. (4) Hyperglycemia Plan: may be due to steroid use monitor glucose insulin if needed (5) A-fib Plan: on amiodarone gtt, rate controlled (6) Hypernatremia Plan: continue free water with tube feeding continue D5W continue diuril (Marium Diana) Plan patient was seen and examined. Renal function continues to improve. s/p PEG tube. Start free water. Continue Diuril. (Kevin Hernandez MD) Problem Qualifiers (1) Acute respiratory failure: Qualified Code: J96.01 - Acute respiratory failure with hypoxia and hypercapnia (2) Pneumonia: Qualified Code: J18.9 - Pneumonia of both lungs due to infectious organism, unspecified part of lung Marium Diana August 13, 2016 12:21 Kevin Hernandez MD August 13, 2016 20:33
--- NOTE | 2016-08-13 14:08 | RADRPT ---
EXAM DATE/TIME: 08/13/2016 13:16 [facility] COMPARISON: CHEST SINGLE AP, August 11, 2016, 13:14. INDICATIONS : Respiratory status. MEDICAL HISTORY : Hypertension. asthma SURGICAL HISTORY : ENCOUNTER: Initial ACUITY: 1 day PAIN SCORE: Non-responsive. LOCATION: Bilateral upper chest FINDINGS: Right mid lung consolidation not significantly changed. There is worsening consolidation on the left, mainly base and upper lobe. Small left pleural effusion is developing as well. I don't see a pneumot horax on either side. Heart size within normal limits. Endotracheal tube tip is approximately 5 cm above the long, similar to before. There is a left subc lavian central venous catheter with tip in the superior vena cava. CONCLUSION: Worsening consolidation and effusion on the left as above. No significant change in the consolidation of the right mid lung. Efrain Syed MD on August 13, 2016 at 14:05 Board Certified Radiologist. This report was verified electronically.
[2016-08-13 14:12] LABS: APTT (PATIENT) 27.4 SEC (24.3-30.1)
[2016-08-13] MEDS: HEPARIN SODIUM - IV 10,000 UNITS/10 ML VIAL IV PRN (15:18)
--- NOTE | 2016-08-13 16:22 | HHI.GIFU ---
Subjective Remarks Pt on prone ventilation, s/p PEG insertion. Per RN pt not tolerating TF @ 30ml/ hr, is having 200cc redsidual. No BM (Jia Ruiz) Objective Vitals I&O Vital Signs Date Time Temp Pulse Resp B/P Pulse Ox O2 Delivery O2 Flow Rate FiO2 08/13/16 16:00 98.3 73 20 133/67 95 112/52 08/13/16 16:00 45 08/13/16 16:00 74 08/13/16 14:54 96 40 08/13/16 14:00 69 08/13/16 12:00 97.5 70 20 169/83 99 142/63 08/13/16 12:00 50 08/13/16 12:00 70 08/13/16 10:42 98 50 08/13/16 10:00 73 08/13/16 08:00 60 08/13/16 08:00 72 08/13/16 08:00 97.9 72 20 116/61 98 112/53 08/13/16 07:16 93 50 08/13/16 06:47 50 08/13/16 06:00 77 08/13/16 06:00 50 08/13/16 04:02 93 50 08/13/16 04:00 50 08/13/16 04:00 98.9 78 20 128/63 93 132/80 08/13/16 04:00 78 08/13/16 02:00 72 08/13/16 00:13 94 50 08/13/16 00:00 50 08/13/16 00:00 77 08/13/16 00:00 98.6 77 20 139/80 93 129/74 08/12/16 22:00 79 08/12/16 20:02 96 50 08/12/16 20:00 98.4 76 20 106/59 90 126/69 08/12/16 20:00 50 08/12/16 20:00 76 08/12/16 18:00 79 08/12/16 18:00 79 132/71 95 121/70 08/12/16 17:44 96 55 08/12/16 17:30 77 135/73 98 127/72 08/12/16 17:06 79 115/56 94 116/83 08/12/16 16:30 78 117/66 94 I/O 08/12/16 08/12/16 08/12/16 08/13/16 08/13/16 08/13/16 07:00 15:00 23:00 07:00 15:00 23:00 Intake Total 1435 ml 1482 ml 1315 ml 1100 ml 1268 ml Output Total 1000 ml 1300 ml 1200 ml 1500 ml 1350 ml Balance 435 ml 182 ml 115 ml -400 ml -82 ml Intake IV Total 1435 ml 1362 ml 1215 ml 950 ml 968 ml Tube Irrigant 0 ml Other 120 ml 100 ml 150 ml 300 ml Output Urine Total 1000 ml 1300 ml 1200 ml 1500 ml 1350 ml Stool Total 0 ml 0 ml 0 ml 0 ml 0 ml Laboratory Laboratory Tests Test 08/13/16 08/13/16 08/13/16 05:22 05:25 12:50 Blood Gas Puncture Site LT RADIAL Blood Gas Patient Temperature 98.6 Blood Gas HCO3 26 Blood Gas Base Excess 2.7 Blood Gas Oxygen Saturation 97 Arterial Blood pH 7.45 Arterial Blood Partial 39 Pressure CO2 Arterial Blood Partial 128 Pressure O2 Arterial Blood Oxygen Content 13.6 Arterial Blood 1.5 Carboxyhemoglobin Arterial Blood Methemoglobin 0.7 Blood Gas Hemoglobin 9.8 Oxygen Delivery Device PRVC / AC White Blood Count 11.0 Red Blood Count 3.34 Hemoglobin 10.3 Hematocrit 31.9 Mean Corpuscular Volume 95.6 Mean Corpuscular Hemoglobin 30.8 Mean Corpuscular Hemoglobin 32.2 Concent Red Cell Distribution Width 14.2 Platelet Count 177 Mean Platelet Volume 8.9 Neutrophils (%) (Auto) 93.5 Lymphocytes (%) (Auto) 3.2 Monocytes (%) (Auto) 3.0 Eosinophils (%) (Auto) 0.2 Basophils (%) (Auto) 0.1 Neutrophils # (Auto) 10.3 Lymphocytes # (Auto) 0.4 Monocytes # (Auto) 0.3 Eosinophils # (Auto) 0.0 Basophils # (Auto) 0.0 CBC Comment AUTO DIFF Differential Comment AUTO DIFF CONFIRMED Activated Partial 23.7 27.4 Thromboplast Time Sodium Level 155 Potassium Level 4.1 Chloride Level 117 Carbon Dioxide Level 34.1 Anion Gap 4 Blood Urea Nitrogen 59 Creatinine 1.53 Estimat Glomerular Filtration 47 Rate Random Glucose 109 Calcium Level 8.0 Total Bilirubin 0.8 Aspartate Amino Transf 25 (AST/SGOT) Alanine Aminotransferase 38 (ALT/SGPT) Alkaline Phosphatase 58 Total Protein 5.8 Albumin 1.6 Date/Time Procedure Status Source Growth 08/11/16 11:55 Gram Stain - Final Complete Sputum Endotracheal 08/11/16 11:55 Sputum Culture - Final Complete Sputum Endotracheal MODERATE GROWTH NORMAL RESPIRATORY THANIA Imaging Last Impressions Chest X-Ray 08/13/16 0000 Signed Impressions: Service Date/Time: August 13:16 - CONCLUSION: Worsening consolidation and effusion on the left as above. No significant change in the consolidation of the right mid lung. Efrain Syed MD Lower Extremity Ultrasound 08/11/16 0000 Signed Impressions: Service Date/Time: Thursday, August 11, 2016 08:00 - CONCLUSION: Normal examination. Efrain Deng MD Abdomen X-Ray 08/09/16 0000 Signed Impressions: Service Date/Time: Tuesday, August 09, 2016 10:18 - CONCLUSION: Nonspecific bowel gas pattern. Julio Grove MD Renal Ultrasound 08/05/16 1504 Signed Impressions: Service Date/Time: Friday, August 05, 2016 21:01 - CONCLUSION: 1. No evidence of obstruction or other acute renal abnormality. 2. Small, benign appearing cyst of the right kidney. 3. Witt catheter present. Efrain Syed MD Physical Exam HEENT: on vent CHEST: coarse lung sounds CARDIAC: RRR ABDOMEN: Soft, nondistended, bowel sounds are hypoactive EXTREMITIES: No clubbing, cyanosis, edema SKIN: Normal; no rash; no jaundice. SUPPLY CATALOGUER: on vent (Jia Ruiz) Assessment and Plan Plan ASSESSMENT - dysphagia/FEN - s/p EGD with PEG. Per RN not tolerating TF, 200cc residual with 30cc/hr. Wiill decrease & do KUB to r/o ileus, try reglan. Previously multiple failed attempts to place NGT, dobhoff PLAN: - decrease TF to 15cc/hr - KUB - reglan - supportive care - further recommendations based on results of above This pt seen by myself and Dr Sharp and this note is written on his behalf ( Jia Ruiz) Physician Comments Seen and examined, Trickle Tf recommended. Reglan, check residuals Q shift. ( Jimi Sharp MD) Jia Ruiz August 13, 2016 16:22 Jimi Sharp MD August 13, 2016 16:50
[2016-08-13] MEDS: LEVOFLOXACIN 250 MG PREMIX INJ 50 ML IV SCH (16:31)
[2016-08-13] MEDS: METOCLOPRAMIDE HCL 10 MG/2 ML VIAL IV PUSH SCH (16:31)
[2016-08-13] MEDS: VASOPRESSIN INJ 40 UNITS in DEXTROSE 5% IN WATER 100ML INJ 98 ML IV SCH ×2 (18:15)
[2016-08-13] MEDS: AZITHROMYCIN INJ 500 MG in SODIUM CHLOR 0.9% 250 ML INJ 250 ML IV SCH (19:32)
[2016-08-14] VITALS (61 sets, daily range): BP systolic 89–168; BP diastolic 38–81; PULSE 66–82; RESP 20; TEMP 98.1–99.1; O2SAT 91–99
[2016-08-14] MEDS: METOCLOPRAMIDE HCL 10 MG/2 ML VIAL IV PUSH SCH ×3 (00:07→16:24)
[2016-08-14] MEDS: MIDAZOLAM 100 MG/ML INJ 100 ML IV SCH ×4 (00:42→20:38)
[2016-08-14] MEDS: PROPOFOL 1000 MG/100 ML INJ 100 ML IV SCH ×3 (02:28→15:08)
[2016-08-14] MEDS: HEPARIN-D5W INJ 250 ML IV SCH ×2 (02:41→20:39)
[2016-08-14] MEDS: RESP: ALBUTEROL 2.5 MG/IPRATROPIUM 0.5 MG NEB (SCH) NEB ×6 (02:48→23:36)
[2016-08-14] MEDS: CHLORHEXIDINE GLUCONATE 2 % 1 PACK (2 CLOTHS) TOP SCH (04:00)
[2016-08-14 04:49] LABS: HEMATOCRIT 29.7 % (39.0-51.0); MEAN CELL VOLUME 94.8 FL (80.0-100.0); MEAN CORPUSCULAR HEMOGLOBIN 31.9 PG (27.0-34.0); MEAN CORPUSCULAR HGB CONC 33.7 % (32.0-36.0); PLATELET COUNT 163 TH/MM3 (150-450); RED BLOOD COUNT 3.13 MIL/MM3 (4.50-5.90); RED CELL DISTRIBUTION WIDTH 13.7 % (11.6-17.2); REVIEW FLAG FINAL; WHITE BLOOD COUNT 11.4 TH/MM3 (4.0-11.0)
[2016-08-14 05:00] LABS: APTT (PATIENT) 29.6 SEC (24.3-30.1)
[2016-08-14 05:13] LABS: BICARBONATE 34.4 MEQ/L (21.0-32.0); MAGNESIUM 2.3 MG/DL (1.5-2.5); POTASSIUM 3.3 MEQ/L (3.5-5.1)
[2016-08-14] MEDS: AMIODARONE INJ 450 MG in DEXTROSE 5% IN WATE(EXCEL) INJ 250 ML IV SCH ×4 (05:20→17:25)
[2016-08-14] MEDS: FREE WATER G-TUBE SCH ×4 (05:20→17:25)
[2016-08-14] MEDS: INSULIN ASPART SUPPLEMENTAL SCALE SQ SCH ×4 (05:20→17:26)
[2016-08-14 06:57] LABS: BLOOD GAS BASE EXCESS 5.5 mmol/L (-2-2); BLOOD GAS CARBOXYHEMOGLOBIN 1.4 % (0-4); BLOOD GAS HCO3 28 mmol/L (22-26); BLOOD GAS METHEMOGLOBIN 1.4 % (0-2); BLOOD GAS O2 HGB SATURATION 95 % (90-100); BLOOD GAS OXYGEN CONTENT 13.1 Vol % (12.0-20.0); BLOOD GAS PCO2 33 mmHg (38-42); BLOOD GAS PO2 90 mmHg (61-120); BLOOD GAS TOTAL HGB 9.7 G/DL (12.0-16.0); CRITICAL VALUE YES; OXYGEN DEVICE VENTILATOR; TEMP CORR TO 98.6
[2016-08-14 06:58] LABS: DRAW SITE ART LINE; FIO2 40 %; STAT YES
[2016-08-14] MEDS: CISATRACURIUM INJ 100 MG in SODIUM CHLOR 0.9% 250 ML INJ 240 ML IV SCH (07:13)
[2016-08-14] MEDS: DEXTROSE 5% IN WATE 1000ML INJ 1,000 ML IV SCH (07:37)
[2016-08-14] MEDS: CHLORHEXIDINE 0.12% (ORAL KIT) 15 ML CUP MT SCH ×2 (07:37→20:21)
[2016-08-14] MEDS: CHLOROTHIAZIDE SOD 500 MG VIAL IV SCH ×2 (07:46→20:20)
[2016-08-14] MEDS: LACTULOSE SYRUP 20 GM/30 ML CUP PO SCH (07:46)
[2016-08-14] MEDS: HYDROCORTISONE SOD SUCCINATE 100 MG VIAL IV PUSH SCH ×2 (07:46→20:20)
[2016-08-14] MEDS: PANTOPRAZOLE SODIUM 40 MG VIAL IV SCH (07:46)
[2016-08-14] MEDS: fentaNYL DRIP 250 ML IV SCH ×2 (09:13→20:21)
[2016-08-14] MEDS ORDERED: POTASSIUM CHLORIDE 20 MEQ PWD PACKET G-TUBE ONE (09:15)
--- NOTE | 2016-08-14 09:59 | HHI.NPPN ---
Subjective General Problems: Edema Renal Failure: Chronic, Acute Interval History Renal function is stable. Intubated with neuromuscular blockade on rotoprone bed. Had high tube feeing residuals overnight that has improved. Fi02 40%, PEEP 8. (Marium Diana) Review of Systems General General Remarks unable to evaluate (Marium Diana) Objective Data Data 08/13/16 08/14/16 19:00 07:00 Intake Total 1268 ml 3208 ml Output Total 1350 ml 2175 ml Balance -82 ml 1033 ml Intake IV Total 968 ml 2398 ml Tube Feeding 210 ml Tube Irrigant 0 ml Other 300 ml 600 ml Output Urine Total 1350 ml 1975 ml Stool Total 0 ml 200 ml Vital Signs Date Time Temp Pulse Resp B/P Pulse Ox O2 Delivery O2 Flow Rate FiO2 08/14/16 08:00 40 08/14/16 08:00 78 08/14/16 08:00 99.1 78 20 124/57 94 101/43 08/14/16 07:32 94 40 08/14/16 06:00 71 08/14/16 04:01 96 40 08/14/16 04:00 98.5 74 20 110/53 95 120/81 08/14/16 04:00 74 08/14/16 04:00 40 08/14/16 02:00 74 08/14/16 00:24 94 40 08/14/16 00:00 82 08/14/16 00:00 40 08/14/16 00:00 99.1 82 20 138/62 95 116/58 08/13/16 22:00 77 08/13/16 20:45 98 45 08/13/16 20:00 98.9 86 20 113/52 100 104/45 08/13/16 20:00 86 08/13/16 20:00 45 08/13/16 18:00 79 08/13/16 16:00 98.3 73 20 133/67 95 112/52 08/13/16 16:00 45 08/13/16 16:00 74 08/13/16 14:54 96 40 08/13/16 14:00 69 08/13/16 12:00 97.5 70 20 169/83 99 142/63 08/13/16 12:00 50 08/13/16 12:00 70 08/13/16 10:42 98 50 08/13/16 10:00 73 (Marium Diana) -: 08/14/16 0430 08/14/16 0430 Imaging Last 72 hours Impressions Chest X-Ray 08/13/16 0000 Signed Impressions: Service Date/Time: August 13:16 - CONCLUSION: Worsening consolidation and effusion on the left as above. No significant change in the consolidation of the right mid lung. Efrain Syed MD Tubes & Lines: Wtit Tubes & Lines Comment TLC PEG Drip Comment fentanyl, propofol, nimbex, amiodarone, vasopressin , heparin (Marium Diana) Physical Exam General Appearance: Well Developed, Well Nourished, No Acute Distress Appearance Remarks difficult to examine in rotaprone bed (Marium Diana) Throat Throat Remarks ETT (Marium Diana) Pulmonary Resp Exam: Breath Sounds Equal, Crackles Resp Remarks some expiratory wheezing (Marium Diana) Cardiology CV Exam: Good Perfusion, Irregular (Marium Diana) Gastrointestinal/Abdomen GI Exam: Soft, Non-Tender GI Remarks + PEG (Marium Diana) Genitourinary Exam: Clear Urine (Marium DianaP) Musculoskeletal MS Exam: Joints Intact, Normal Tone (Marium Diana) Integumentary Skin Exam: Warm, Dry (Marium Diana) Extremeties Extremities Exam: Pedal Pulses Palpable, Trace Edema (Marium DianaP) Neurologic Neuro Exam: Unresponsive, Sedated (Marium Diana) Assessment/Plan Assessment Summary: CHAN/Acute Renal Failure, Fluid/Volume Overload Electrolyte Assessment: Hyperkalemia, Hypernatremia Problem List: (1) Acute renal failure superimposed on stage 3 chronic kidney disease Plan: renal failure from sepsis and hypotension, possible dehydration; may have progressed to ATN renal function stable, this may be his baseline excellent urine output, continue Diuril BID K was replaced he is on D5W at 30 cc/hr pressors to maintain MAP > 65mmHg , he is not requiring continue Nepro tube feeding with free water daily renal panel , replace electrolytes as needed avoid nephrotoxic medications (2) Acute respiratory failure Plan: vent management by personnel monitor settings are 20/550/40/8 (3) Pneumonia Plan: Blood culture negative to date + legionella in urine, sputum negative, taken off isolation Abx include Levaquin and Zithromax. (4) Hyperglycemia Plan: may be due to steroid use monitor glucose insulin if needed (5) A-fib Plan: on amiodarone gtt, rate controlled (6) Hypernatremia Plan: continue free water with tube feeding continue D5W continue diuril (Marium Diana) Plan patient was seen and examined. Hypernatremia is better. Renal function is better. Avoid nephrotoxic agents. (Kevin Hernandez MD) Problem Qualifiers (1) Acute respiratory failure: Qualified Code: J96.01 - Acute respiratory failure with hypoxia and hypercapnia (2) Pneumonia: Qualified Code: J18.9 - Pneumonia of both lungs due to infectious organism, unspecified part of lung Marium Diana August 14, 2016 09:59 Kevin Hernandez MD August 14, 2016 13:55
[2016-08-14 10:27] LABS: BLOOD GAS CARBOXYHEMOGLOBIN 1.6 % (0-4); BLOOD GAS HCO3 29 mmol/L (22-26); BLOOD GAS METHEMOGLOBIN 1.5 % (0-2); BLOOD GAS O2 HGB SATURATION 93 % (90-100); BLOOD GAS OXYGEN CONTENT 13.2 Vol % (12.0-20.0); BLOOD GAS PCO2 34 mmHg (38-42); BLOOD GAS PO2 83 mmHg (61-120); CRITICAL VALUE YES; OXYGEN DEVICE VENTILATOR; TEMP CORR TO 98.6
[2016-08-14 10:29] LABS: DRAW SITE ART LINE; FIO2 40 %; STAT NO; VENT SETTINGS PR/AC
[2016-08-14 11:23] LABS: APTT (PATIENT) 30.8 SEC (24.3-30.1)
[2016-08-14] MEDS: HEPARIN SODIUM - IV 10,000 UNITS/10 ML VIAL IV PRN (11:33)
--- NOTE | 2016-08-14 11:33 | HHI.GIFU ---
Subjective Remarks Pt on vent. TF @ 15/hr and per RN 80-160cc residual but today pt also getting fluids through PEG. There is some liquid stool in rectal bag, less clear than yesterday. (Jia Ruiz) Objective Vitals I&O Vital Signs Date Time Temp Pulse Resp B/P Pulse Ox O2 Delivery O2 Flow Rate FiO2 08/14/16 10:33 95 40 08/14/16 10:00 74 08/14/16 08:00 40 08/14/16 08:00 78 08/14/16 08:00 99.1 78 20 124/57 94 101/43 08/14/16 07:32 94 40 08/14/16 06:00 71 08/14/16 04:01 96 40 08/14/16 04:00 98.5 74 20 110/53 95 120/81 08/14/16 04:00 74 08/14/16 04:00 40 08/14/16 02:00 74 08/14/16 00:24 94 40 08/14/16 00:00 82 08/14/16 00:00 40 08/14/16 00:00 99.1 82 20 138/62 95 116/58 08/13/16 22:00 77 08/13/16 20:45 98 45 08/13/16 20:00 98.9 86 20 113/52 100 104/45 08/13/16 20:00 86 08/13/16 20:00 45 08/13/16 18:00 79 08/13/16 16:00 98.3 73 20 133/67 95 112/52 08/13/16 16:00 45 08/13/16 16:00 74 08/13/16 14:54 96 40 08/13/16 14:00 69 08/13/16 12:00 97.5 70 20 169/83 99 142/63 08/13/16 12:00 50 08/13/16 12:00 70 I/O 08/13/16 08/13/16 08/13/16 08/14/16 08/14/16 08/14/16 07:00 15:00 23:00 07:00 15:00 23:00 Intake Total 1100 ml 1268 ml 1620 ml 1588 ml Output Total 1500 ml 1350 ml 1100 ml 1075 ml Balance -400 ml -82 ml 520 ml 513 ml Intake IV Total 950 ml 968 ml 1430 ml 968 ml Tube Feeding 90 ml 120 ml Tube Irrigant 0 ml Other 150 ml 300 ml 100 ml 500 ml Output Urine Total 1500 ml 1350 ml 1000 ml 975 ml Stool Total 0 ml 0 ml 100 ml 100 ml Laboratory Laboratory Tests Test 08/13/16 08/13/16 08/14/16 08/14/16 12:50 20:38 04:30 06:45 Activated Partial 27.4 28.0 29.6 Thromboplast Time White Blood Count 11.4 Red Blood Count 3.13 Hemoglobin 10.0 Hematocrit 29.7 Mean Corpuscular Volume 94.8 Mean Corpuscular Hemoglobin 31.9 Mean Corpuscular Hemoglobin 33.7 Concent Red Cell Distribution Width 13.7 Platelet Count 163 Mean Platelet Volume 8.9 Sodium Level 150 Potassium Level 3.3 Chloride Level 111 Carbon Dioxide Level 34.4 Anion Gap 5 Blood Urea Nitrogen 49 Creatinine 1.51 Estimat Glomerular Filtration 47 Rate Random Glucose 142 Calcium Level 7.6 Phosphorus Level 3.0 Magnesium Level 2.3 Blood Gas Puncture Site ART LINE Blood Gas Patient Temperature 98.6 Blood Gas HCO3 28 Blood Gas Base Excess 5.5 Blood Gas Oxygen Saturation 95 Arterial Blood pH 7.55 Arterial Blood Partial 33 Pressure CO2 Arterial Blood Partial 90 Pressure O2 Arterial Blood Oxygen Content 13.1 Arterial Blood 1.4 Carboxyhemoglobin Arterial Blood Methemoglobin 1.4 Blood Gas Hemoglobin 9.7 Oxygen Delivery Device VENTILATOR Blood Gas Ventilator Setting COMMENT Blood Gas Inspired Oxygen 40 Test 08/14/16 08/14/16 10:21 10:25 Blood Gas Puncture Site ART LINE Blood Gas Patient Temperature 98.6 Blood Gas HCO3 29 Blood Gas Base Excess 6.0 Blood Gas Oxygen Saturation 93 Arterial Blood pH 7.54 Arterial Blood Partial 34 Pressure CO2 Arterial Blood Partial 83 Pressure O2 Arterial Blood Oxygen Content 13.2 Arterial Blood 1.6 Carboxyhemoglobin Arterial Blood Methemoglobin 1.5 Blood Gas Hemoglobin 10.0 Oxygen Delivery Device VENTILATOR Blood Gas Ventilator Setting MT/AC Blood Gas Inspired Oxygen 40 Activated Partial 30.8 Thromboplast Time Date/Time Procedure Status Source Growth 08/11/16 11:55 Gram Stain - Final Complete Sputum Endotracheal 08/11/16 11:55 Sputum Culture - Final Complete Sputum Endotracheal MODERATE GROWTH NORMAL RESPIRATORY THANIA Imaging Last Impressions Chest X-Ray 08/13/16 0000 Signed Impressions: Service Date/Time: August 13:16 - CONCLUSION: Worsening consolidation and effusion on the left as above. No significant change in the consolidation of the right mid lung. Efrian Syed MD Lower Extremity Ultrasound 08/11/16 0000 Signed Impressions: Service Date/Time: Thursday, August 11, 2016 08:00 - CONCLUSION: Normal examination. Efrain Deng MD Abdomen X-Ray 08/09/16 0000 Signed Impressions: Service Date/Time: Tuesday, August 09, 2016 10:18 - CONCLUSION: Nonspecific bowel gas pattern. Julio Grove MD Renal Ultrasound 08/05/16 1504 Signed Impressions: Service Date/Time: Friday, August 05, 2016 21:01 - CONCLUSION: 1. No evidence of obstruction or other acute renal abnormality. 2. Small, benign appearing cyst of the right kidney. 3. Witt catheter present. Efrain Syed MD Physical Exam HEENT: on vent CHEST: coarse lung sounds CARDIAC: RRR ABDOMEN: Soft, nondistended, bowel sounds are hypoactive . PEG dressing clean and dry. EXTREMITIES: No clubbing, cyanosis, edema SKIN: Normal; no rash; no jaundice. BAG TESTER: on vent (Jia Ruiz) Assessment and Plan Plan ASSESSMENT - dysphagia/FEN - s/p EGD with PEG. TF 15cc/hr, Per RN 80-160cc residual, pt getting fluids through PEG today as well. Reglan. Previouslyy multiple failed attempts to place NGT, dobhoff PLAN: - continue TF at 15cc/hr - continue reglan - supportive care This pt seen by myself and Dr Sharp and this note is written on his behalf ( Jia Ruiz) Physician Comments Seen and examined with PHYSICIAN OFFICE [facility], doing much better. Tolerating low dose TF. On reglan. Increase TF slowly as tolerated. Discussed with nurse, will sign off, reconsult as needed. Thankyou (Jimi Sharp MD) Jia Ruiz August 14, 2016 11:33 Jimi Sharp MD August 14, 2016 15:26
[2016-08-14] MEDS: ARTIFICIAL TEARS OPTH SOLN 15 ML BTL EACH EYE SCH ×2 (13:00→17:25)
[2016-08-14] MEDS: LEVOFLOXACIN 250 MG PREMIX INJ 50 ML IV SCH (16:24)
--- NOTE | 2016-08-14 17:13 | HHI.CCPN ---
Subjective Remarks/Hospital Course 08/04: 60 y/o man with several week history of weakness, fatigue; fevers and sweats over past week. Today with severe SOB, arrived by EMS with hypoxemia. CO2 retention as well in ED. Required intubation in ED. Creatinine > 3.0 and severely dehydrated. 08/05: Remains sedated, orally intubated on mechanical ventilation. He remains at PEEP+14, FiO2 decreased to 80%. Urine positive for Legionella Ag. Went into A. fib with RVR. 08/06: Remains sedated, orally intubated on mechanical ventilation. On neuromuscular blockade with Nimbex. Initiated on prone ventilation today. Switched to pressure control mode with positive inspiratory pressure +20, PEEP + 15, respiratory rate 20, I time 1.82 seconds, FiO2 70%.. On propofol/fentanyl/ Versed/Nimbex/amiodarone/ vasopressin drips. Jose-Synephrine titrated off following switching from APRV to pressure control mode mechanical ventilation and initiating proning. 08/07: Remains sedated, on neuromuscular blockade, orally intubated on prone ventilation. FiO2 decreased to 50%, PEEP remains at +15. On fentanyl/versed/ Nimbex/amiodarone/vasopressin drips. Jose-Synephrine on transiently today. Diuresed well with Bumex. 08/08: Remains sedated, on neuromuscular blockade, orally intubated on prone ventilation. FiO2 decreased to 45%, PEEP remains at +15. Attempting to place Dobbhoff to initiate tube feeds. Off Jose-Synephrine. Vasopressin being titrated down. 08/09: Remains sedated, orally intubated on prone ventilation. Remains on Nimbex for neuromuscular blockade. PEEP +15, FiO2 50%. Have been unable to place OG tube despite multiple attempts. 08/10: Remains sedated, orally intubated on neuromuscular blockade on prone ventilation. Attempts at keeping supine today however had progressively increasing FiO2 requirement. He was restarted on prone ventilation. He had a sudden episode of desaturation with dropping O2 sats to the 80s despite 100% FiO2. I time increased from 1.2 seconds to 1.8 seconds. He was immediately supined and a stat chest x-ray obtained which did not reveal any pneumothorax and essentially unchanged compared to previous chest x-ray with bilateral infiltrates. He was restarted on prone ventilation. Question of PE. We will initiate full anticoagulation with heparin. Will also check troponins and EKG when supine unless troponin elevated in which case we will get a stat EKG. 5: Remains sedated, orally intubated on neuromuscular blockade in prone ventilation. Had episode of loss of lung volumes with desaturation. Chest x- ray did not reveal any pneumothorax or atelectasis. Thick mucus suctioned out of the ET tube. Difficult to bag at times. ET tube was changed over a tube exchanger following which he had return of good volumes. ( It is possible that the pre-existing ET tube was getting occluded by debris or secretions which were somewhat cleared out by suctioning earlier.) GI postponed with G-tube placement due to unstable respiratory status until tomorrow and they will plan on doing a PEG tube if respiratory status permits. 08/12: Remains sedated, orally intubated on neuromuscular blockade on prone ventilation. Underwent PEG tube placement today. Start tube feeds in a.m. 08/13: Tmax 98.9. Tube feeds initiated this a.m.. Sodium level 155, free water flushes initiated. Slight improvement in ventilatory status. Plan to remain supine today, an attempt to wean ventilation settings. 08/14: The patient was transitioned off of the R[place] prone bed. Neuromuscular blockade has been discontinued. FiO2 has been decreased to 40%. The patient has been transitioned to by mouth amiodarone. Patient continues on Nepro at 15 cc an hour with moderate residuals noted. Objective Vital Signs Date Time Temp Pulse Resp B/P Pulse Ox O2 Delivery O2 Flow Rate FiO2 08/14/16 16:06 95 40 08/14/16 16:00 72 08/14/16 13:45 119/56 118/53 08/14/16 12:00 98.8 20 Intake and Output 08/13/16 08/13/16 08/14/16 08:00 16:00 00:00 Intake Total 1100 ml 1268 ml 1620 ml Output Total 1500 ml 1350 ml 1100 ml Balance -400 ml -82 ml 520 ml Result Diagram: 08/14/16 0430 08/14/16 0430 Other Results Laboratory Tests Test 08/14/16 08/14/16 06:45 10:21 Blood Gas Puncture Site ART LINE ART LINE Blood Gas Patient Temperature 98.6 98.6 Blood Gas HCO3 28 mmol/L 29 mmol/L (22-26) (22-26) Blood Gas Base Excess 5.5 mmol/L 6.0 mmol/L (-2-2) (-2-2) Blood Gas Oxygen Saturation 95 % (90-100) 93 % (90-100) Arterial Blood pH 7.55 7.54 (7.380-7.420) (7.380-7.420) Arterial Blood Partial 33 mmHg (38-42) 34 mmHg (38-42) Pressure CO2 Arterial Blood Partial 90 mmHg 83 mmHg Pressure O2 (61-120) (61-120) Arterial Blood Oxygen Content 13.1 Vol % 13.2 Vol % (12.0-20.0) (12.0-20.0) Arterial Blood 1.4 % (0-4) 1.6 % (0-4) Carboxyhemoglobin Arterial Blood Methemoglobin 1.4 % (0-2) 1.5 % (0-2) Blood Gas Hemoglobin 9.7 G/DL 10.0 G/DL (12.0-16.0) (12.0-16.0) Oxygen Delivery Device VENTILATOR VENTILATOR Blood Gas Ventilator Setting COMMENT AZ/AC Blood Gas Inspired Oxygen 40 % 40 % Imaging Last Impressions Lower Extremity Ultrasound 08/11/16 0000 Signed Impressions: Service Date/Time: Thursday, August 11, 2016 08:00 - CONCLUSION: Normal examination. Efrain Deng MD Chest X-Ray 08/11/16 0000 Signed Impressions: Service Date/Time: Thursday, August 11, 2016 13:14 - CONCLUSION: Stable chest appearance. Efrain Deng MD Abdomen X-Ray 08/09/16 0000 Signed Impressions: Service Date/Time: Tuesday, August 09, 2016 10:18 - CONCLUSION: Nonspecific bowel gas pattern. Julio Grove MD Renal Ultrasound 08/05/16 1504 Signed Impressions: Service Date/Time: Friday, August 05, 2016 21:01 - CONCLUSION: 1. No evidence of obstruction or other acute renal abnormality. 2. Small, benign appearing cyst of the right kidney. 3. Witt catheter present. Efrain Syed MD Last 24 hours Impressions Chest X-Ray 08/08/16 1000 Signed Impressions: Service Date/Time: Monday, August 08, 2016 10:38 - CONCLUSION: Improved aeration. Murali Perdomo MD Abdomen X-Ray 08/08/16 0000 Signed Impressions: Service Date/Time: Monday, August 08, 2016 10:38 - CONCLUSION: No evidence of obstruction. Murali Perdomo MD Last 24 hours Impressions Chest X-Ray 08/07/16 0600 Signed Impressions: Service Date/Time: Sunday, August 07, 2016 04:57 - CONCLUSION: No significant change. Extensive bilateral infiltrates persist. Efrain Syed MD Last 24 hours Impressions Chest X-Ray 08/06/16 0400 Signed Impressions: Service Date/Time: July 03:00 - CONCLUSION: No significant interval change with bilateral pulmonary infiltrates. Ronny Joshi MD Last Impressions Chest X-Ray 08/04/16 1832 Signed Impressions: Service Date/Time: Thursday, August 04, 2016 18:50 - CONCLUSION: Extensive bilateral airspace disease greater in the left lung. There may be pneumomediastinum. Perico Wahl MD Objective Remarks Gen: Elderly male, sedated, orally intubated on mechanical ventilation and neuromuscular blockade. On Rotaprone bed HEENT: Positive pallor, no icterus. Orally intubated. Mucosa moist. Neck: Supple, orally intubated. Lungs: Orally intubated on mechanical ventilation, air entry decreased bilaterally at bases, scattered rhonchi Heart: NL S1S2 regularly regular, no JVD. Abdomen: Soft, NT, ND, no guarding. PEG tube in place Extremities: Warm bilaterally, no edema Neuro: Intubated and sedated, on neuromuscular blockade, orally intubated on mechanical ventilation. Urinary Catheter: Yes Witt insert reason: Measure Accurate Output Line: Central Venous Catheter A/P Assessment and Plan Assessment: 1. Septic shock 2. Acute Respiratory Failure on mechanical ventilation 3. Legionella Pneumonia 4. ARDS 5. CKD with CHAN 6. A. fib with RVR (converted to RSR) 7. Hx depression with recent ECT 2016 8. Suspected PE Neuro: Continue sedation with Versed/fentanyl gtt. on Nimbex for neuromuscular blockade for ventilator synchrony. No sedation vacation indicated at this time, secondary to high ventilatory requirements Cardiovascular: Continue amiodarone drip for A. fib. Plan to transition to by mouth amiodarone. Phenylephrine off Vasopressin off . 5/1 - 2-D echo with minimally depressed LV and RV function. Pulmonary: Continue mechanical ventilation, AC/PC PIP +20, PEEP +8, respiratory rate 20, FiO2 50%, inspiratory time 1.8 seconds Vent bundle, bronchodilators, pulmonary toilet. On prone ventilation. On neuromuscular blockade, Cisatracurium Worsening hypoxia noted on 08/10. Lung mechanics unchanged essentially. Question of PE, continue full anticoagulation with heparin. 08/14 Rotaprone discontinued GI/liver: Unable to place OG tube despite multiple attempts. consulted GI. GI placed PEG on 08/12. Start tube feeds on 08/13. Renal/: D5 water at 60 cc an hour for hypernatremia, strict intake output, monitor and replete electrolytes, follow BUN/creatinine. Nephrology following for CHAN/CKD. Given glucose/insulin for hyperkalemia. Started on Diuril by nephrology. 08/13: Free water flushes started 300 cc every 6 hours Heme: Follow CBC. Full anticoagulation with heparin for suspected PE. Monitor PTT ID: Continue antibiotic coverage with IV Levaquin Zithromax. Cefepime stopped on 08/07 per ID. ID following. Urine positive for Legionella antigen. Endocrine: SSI for glycemic control. Tapering stress dose hydrocortisone. Prophylaxis: PPI/SCDs/ Lovenox (held) and started full anticoagulation with heparin on 08/10 for suspected PE. This patient remains critically ill with one or more organ systems which are or may become a threat to life. I have spent in excess of 35 minutes discontinuously in the care and management of this patient. This time is exclusive of procedures, and includes, but is not limited to, evaluation of the patient, review of the medical record, discussions with family, consultants, nursing staff, or respiratory therapy, and documentation in the medical record. Remains critical with severe ARDS secondary to Legionella pneumonia and septic shock . Physician Danica Asif MD August 14, 2016 17:13
[2016-08-14 17:41] LABS: BLOOD GAS BASE EXCESS 5.5 mmol/L (-2-2); BLOOD GAS CARBOXYHEMOGLOBIN 1.6 % (0-4); BLOOD GAS HCO3 29 mmol/L (22-26); BLOOD GAS METHEMOGLOBIN 1.4 % (0-2); BLOOD GAS O2 HGB SATURATION 92 % (90-100); BLOOD GAS OXYGEN CONTENT 12.7 Vol % (12.0-20.0); BLOOD GAS PCO2 38 mmHg (38-42); BLOOD GAS PO2 78 mmHg (61-120); BLOOD GAS TOTAL HGB 9.7 G/DL (12.0-16.0); CRITICAL VALUE NO; OXYGEN DEVICE VENTILATOR; TEMP CORR TO 98.6
[2016-08-14 17:42] LABS: DRAW SITE ART LINE; FIO2 40 %; STAT NO; VENT SETTINGS PC/AC
--- NOTE | 2016-08-14 18:35 | HHI.IDPN ---
Subjective Subjective Remarks is a 60 y/o Male with h/o Asthma, admitted with severe sepsis, Legionella pneumonia s/p Rotabed. Notes reviewed Overnight events reviewed with RN. Just got off Rotabed 2 hours back. Still on vent, sedated and paralyzed. 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 Vital Signs Date Time Temp Pulse Resp B/P Pulse Ox O2 Delivery O2 Flow Rate FiO2 08/14/16 18:15 70 132/67 94 137/61 08/14/16 18:00 73 08/14/16 18:00 70 135/68 94 140/62 08/14/16 17:45 71 129/64 94 133/59 08/14/16 17:30 72 129/62 93 131/59 08/14/16 17:15 72 129/62 92 132/59 08/14/16 17:00 72 128/63 92 135/59 08/14/16 16:45 74 125/63 93 128/57 08/14/16 16:30 72 129/65 92 133/60 08/14/16 16:15 71 121/61 91 123/57 08/14/16 16:06 95 40 08/14/16 16:00 72 08/14/16 16:00 98.8 66 123/64 95 129/59 08/14/16 16:00 40 08/14/16 15:45 67 123/62 94 127/58 08/14/16 15:30 68 125/60 94 130/60 08/14/16 15:15 68 124/60 94 122/55 08/14/16 15:00 71 129/64 94 132/61 08/14/16 14:45 68 114/55 94 114/51 08/14/16 14:30 69 112/59 93 112/51 08/14/16 14:15 70 111/59 94 112/51 08/14/16 14:00 70 123/58 94 120/54 5/5/17 14:00 69 5/5/17 13:45 72 119/56 93 118/53 5/5/17 13:30 77 134/64 91 145/71 5/5/17 13:22 78 130/61 91 5/5/17 13:00 80 131/57 95 5/5/17 12:45 75 136/61 95 128/62 5/5/17 12:30 75 145/65 95 115/51 5/5/17 12:15 74 137/63 95 120/51 5/5/17 12:00 40 5/5/17 12:00 75 5/5/17 12:00 98.8 75 20 145/65 95 112/49 5/5/17 11:55 96 40 5/5/17 11:45 71 117/56 96 110/47 5/5/17 11:30 74 124/61 96 103/46 5/5/17 11:15 73 141/73 96 117/53 5/5/17 11:00 73 133/67 95 112/50 5/5/17 11:00 73 133/67 95 112/50 5/5/17 10:45 72 134/70 95 116/52 5/5/17 10:33 95 40 5/5/17 10:30 73 127/68 95 109/49 5/5/17 10:15 74 118/57 94 105/46 5/5/17 10:00 76 131/62 93 102/44 5/5/17 10:00 74 5/5/17 09:45 78 130/58 91 105/45 5/5/17 09:30 82 143/67 94 123/50 5/5/17 09:15 78 117/58 95 107/42 5/5/17 09:00 74 120/60 96 114/46 5/5/17 08:45 74 137/65 96 114/49 5/5/17 08:30 75 115/56 95 111/47 5/5/17 08:15 77 109/56 96 101/41 5/5/17 08:07 77 124/57 95 89/38 5/5/17 08:00 40 5/5/17 08:00 78 5/5/17 08:00 99.1 78 20 124/57 94 101/43 5/5/17 08:00 75 136/61 94 101/43 08/14/16 07:45 73 116/56 94 98/42 08/14/16 07:38 71 122/63 91 96/42 08/14/16 07:32 94 40 08/14/16 07:30 70 115/56 94 99/44 08/14/16 07:15 69 126/63 94 104/50 08/14/16 07:00 69 126/62 94 135/80 08/14/16 06:00 71 08/14/16 04:01 96 40 08/14/16 04:00 98.5 74 20 110/53 95 120/81 08/14/16 04:00 74 08/14/16 04:00 40 08/14/16 02:00 74 08/14/16 00:24 94 40 08/14/16 00:00 82 08/14/16 00:00 40 08/14/16 00:00 99.1 82 20 138/62 95 116/58 08/13/16 22:00 77 08/13/16 20:45 98 45 08/13/16 20:00 98.9 86 20 113/52 100 104/45 08/13/16 20:00 86 08/13/16 20:00 45 08/13/16 08/13/16 08/14/16 15:00 23:00 07:00 Intake Total 1268 ml 1620 ml 1588 ml Output Total 1350 ml 1100 ml 1075 ml Balance -82 ml 520 ml 513 ml Intake IV Total 968 ml 1430 ml 968 ml Tube Feeding 90 ml 120 ml Tube Irrigant 0 ml Other 300 ml 100 ml 500 ml Output Urine Total 1350 ml 1000 ml 975 ml Stool Total 0 ml 100 ml 100 ml . Laboratory Tests Test 08/13/16 08/14/16 05:25 04:30 White Blood Count 11.0 TH/MM3 11.4 TH/MM3 Red Blood Count 3.34 MIL/MM3 3.13 MIL/MM3 Hemoglobin 10.3 GM/DL 10.0 GM/DL Hematocrit 31.9 % 29.7 % Mean Corpuscular Volume 95.6 FL 94.8 FL Mean Corpuscular Hemoglobin 30.8 PG 31.9 PG Mean Corpuscular Hemoglobin 32.2 % 33.7 % Concent Red Cell Distribution Width 14.2 % 13.7 % Platelet Count 177 TH/MM3 163 TH/MM3 Mean Platelet Volume 8.9 FL 8.9 FL Neutrophils (%) (Auto) 93.5 % Lymphocytes (%) (Auto) 3.2 % Monocytes (%) (Auto) 3.0 % Eosinophils (%) (Auto) 0.2 % Basophils (%) (Auto) 0.1 % Neutrophils # (Auto) 10.3 TH/MM3 Lymphocytes # (Auto) 0.4 TH/MM3 Monocytes # (Auto) 0.3 TH/MM3 Eosinophils # (Auto) 0.0 TH/MM3 Basophils # (Auto) 0.0 TH/MM3 CBC Comment AUTO DIFF Differential Comment AUTO DIFF CONFIRMED Laboratory Tests Test 08/13/16 08/14/16 05:25 04:30 Sodium Level 155 MEQ/L 150 MEQ/L Potassium Level 4.1 MEQ/L 3.3 MEQ/L Chloride Level 117 MEQ/L 111 MEQ/L Carbon Dioxide Level 34.1 MEQ/L 34.4 MEQ/L Anion Gap 4 MEQ/L 5 MEQ/L Blood Urea Nitrogen 59 MG/DL 49 MG/DL Creatinine 1.53 MG/DL 1.51 MG/DL Estimat Glomerular Filtration 47 ML/MIN 47 ML/MIN Rate Random Glucose 109 MG/DL 142 MG/DL Calcium Level 8.0 MG/DL 7.6 MG/DL Total Bilirubin 0.8 MG/DL Aspartate Amino Transf 25 U/L (AST/SGOT) Alanine Aminotransferase 38 U/L (ALT/SGPT) Alkaline Phosphatase 58 U/L Total Protein 5.8 GM/DL Albumin 1.6 GM/DL Phosphorus Level 3.0 MG/DL Magnesium Level 2.3 MG/DL Imaging Lower Extremity Ultrasound 08/11/16 Signed Impressions: Service Date/Time: Thursday, August 11, 2016 08:00 - CONCLUSION: Normal examination. Efrain Deng MD Chest X-Ray 08/11/16 Signed Impressions: Service Date/Time: Thursday, August 11, 2016 13:14 - CONCLUSION: Stable chest appearance. Efrain Deng MD Chest X-Ray 08/11/16 Signed Impressions: Service Date/Time: Thursday, August 11, 2016 12:25 - CONCLUSION: 1. Stable patchy infiltrates bilaterally consistent with pneumonia and/or pulmonary edema. Clinical correlation is recommended. 2. Tiny bilateral pleural effusions. Franck Betancourt MD Lower Extremity Ultrasound 08/11/16 0000 Signed Impressions: Service Date/Time: Thursday, August 11, 2016 08:00 - CONCLUSION: Normal examination. Efrain Deng MD Chest X-Ray 08/10/16 0000 Signed Impressions: Service Date/Time: Wednesday, August 10, 2016 15:39 - CONCLUSION: Slight worsening in aeration Efrain Deng MD Chest X-Ray 08/09/16 0000 Signed Impressions: Service Date/Time: Tuesday, August 09, 2016 07:51 - CONCLUSION: Endotracheal tube tip now 2 cm above the long. No change in patchy bilateral pulmonary parenchymal opacity. Julio Grove MD ADDENDUM: There is an NG tube in place overlapping the nasogastric tube on the image. The tip of the NG tube is at the level of the aortic arch in the proximal to mid thoracic esophagus. Side-port 3 cm below the thoracic inlet. Endotracheal tube tip is 9 cm above the long and 3 cm below the thoracic inlet. Julio Grove MD Abdomen X-Ray 08/09/16 0000 Signed Impressions: Service Date/Time: Tuesday, August 09, 2016 10:18 - CONCLUSION: Nonspecific bowel gas pattern. Julio Grove MD Chest X-Ray 08/08/16 1000 Signed Impressions: Service Date/Time: Monday, August 08, 2016 10:38 - CONCLUSION: Improved aeration. Murali Perdomo MD Chest X-Ray 08/07/16 0600 Signed Impressions: Service Date/Time: Sunday, August 07, 2016 04:57 - CONCLUSION: No significant change. Extensive bilateral infiltrates persist. Efrain Syed MD Chest X-Ray 08/06/16 0400 Signed Impressions: Service Date/Time: July 03:00 - CONCLUSION: No significant interval change with bilateral pulmonary infiltrates. Ronny Joshi MD Renal Ultrasound 08/05/16 1504 Signed Impressions: Service Date/Time: Friday, August 05, 2016 21:01 - CONCLUSION: 1. No evidence of obstruction or other acute renal abnormality. 2. Small, benign appearing cyst of the right kidney. 3. Witt catheter present. Efrain Syed MD Last Impressions Chest X-Ray 08/06/16 0400 Signed Impressions: Service Date/Time: July 03:00 - CONCLUSION: No significant interval change with bilateral pulmonary infiltrates. Ronny Joshi MD Renal Ultrasound 08/05/16 1504 Signed Impressions: Service Date/Time: Friday, August 05, 2016 21:01 - CONCLUSION: 1. No evidence of obstruction or other acute renal abnormality. 2. Small, benign appearing cyst of the right kidney. 3. Witt catheter present. Efrain Syed MD Physical Exam GENERAL: On the vent, on sedation and paralytics. SKIN: Cool and moist. No rash CARDIOVASCULAR: irregular rate and rhythm without murmurs, gallops, or rubs. RESPIRATORY: Some rhonchi on L side GASTROINTESTINAL: Abdomen soft, BS (+) PEG site with dry dressing MUSCULOSKELETAL: Extremities without edema. NEUROLOGICAL: Sedated, on paralytics PSYCH: Unable to fully assess LINE: LSC TLC with no evidence of infection : Witt cath in place, urine looks clear Assessment & Plan Remarks IMPRESSION Severe bilateral pneumonia, (+) Legionella Acute Respiratory failure, with significant hypoxemia. On vent. Hx anxiety/depression Leukocytosis - improving Renal failure, improving, good UO RECOMMENDATION Continue Zithromax Continue Levaquin Follow clinically Monitor temps Hopefully can stop one of the two legionella agents on Wednesday depending on resp mechanics. Monitor QT interval while on Azithro and Levaquin combo. Will follow prn over the weekend. If any change in clinical condition please call sooner. to resume care on 08/17/16. Valentina Duran MD August 14, 2016 18:35
[2016-08-14 20:05] LABS: APTT (PATIENT) 32.9 SEC (24.3-30.1)
[2016-08-14] MEDS: AMIODARONE 200 MG TAB PO SCH (20:20)
[2016-08-14] MEDS: AZITHROMYCIN INJ 500 MG in SODIUM CHLOR 0.9% 250 ML INJ 250 ML IV SCH (20:20)
[2016-08-15] VITALS (27 sets, daily range): BP systolic 117–221; BP diastolic 53–102; PULSE 80–126; RESP 16–20; TEMP 97.9–99.5; O2SAT 89–97
[2016-08-15] MEDS: METOCLOPRAMIDE HCL 10 MG/2 ML VIAL IV PUSH SCH ×4 (00:03→23:28)
[2016-08-15 02:00] LABS: APTT (PATIENT) 33.8 SEC (24.3-30.1)
[2016-08-15] MEDS: RESP: ALBUTEROL 2.5 MG/IPRATROPIUM 0.5 MG NEB (SCH) NEB ×4 (02:57→14:59)
[2016-08-15] MEDS: CHLORHEXIDINE GLUCONATE 2 % 1 PACK (2 CLOTHS) TOP SCH ×2 (03:40→23:29)
[2016-08-15] MEDS: PROPOFOL 1000 MG/100 ML INJ 100 ML IV SCH ×4 (03:40→23:37)
[2016-08-15] MEDS: INSULIN ASPART SUPPLEMENTAL SCALE SQ SCH ×5 (06:00→23:28)
[2016-08-15] MEDS: FREE WATER G-TUBE SCH ×5 (06:00→23:28)
[2016-08-15 06:06] LABS: HEMATOCRIT 28.9 % (39.0-51.0); MEAN CELL VOLUME 94.3 FL (80.0-100.0); MEAN CORPUSCULAR HEMOGLOBIN 32.2 PG (27.0-34.0); MEAN CORPUSCULAR HGB CONC 34.2 % (32.0-36.0); PLATELET COUNT 175 TH/MM3 (150-450); RED BLOOD COUNT 3.07 MIL/MM3 (4.50-5.90); RED CELL DISTRIBUTION WIDTH 13.9 % (11.6-17.2); REVIEW FLAG FINAL; WHITE BLOOD COUNT 11.1 TH/MM3 (4.0-11.0)
--- NOTE | 2016-08-15 06:07 | RADRPT ---
EXAM DATE/TIME: 08/15/2016 03:34 [facility] COMPARISON: CHEST SINGLE AP, August 13, 2016, 13:16. INDICATIONS : Shortness of breath, possible pulmonary disease. MEDICAL HISTORY : Hypertension. Asthma SURGICAL HISTORY : None. ENCOUNTER: Subsequent ACUITY: 3 days PAIN SCORE: Non-responsive. LOCATION: Bilateral chest FINDINGS: A single view of the chest demonstrates diffuse airspace disease more prominent in the lower lobes wh en compared to previous study. Heart mildly enlarged. Endotracheal tube and left subclavian central l ine in stable position. Osseous structures are intact. CONCLUSION: Diffuse airspace disease with worsening disease in the lower lobes on current study. Perico Walh MD on August 15, 2016 at 6:02 Board Certified Radiologist. This report was verified electronically.
[2016-08-15 06:29] LABS: MAGNESIUM 2.1 MG/DL (1.5-2.5); POTASSIUM 3.1 MEQ/L (3.5-5.1)
[2016-08-15 07:54] LABS: BLOOD GAS BASE EXCESS 5.5 mmol/L (-2-2); BLOOD GAS CARBOXYHEMOGLOBIN 1.5 % (0-4); BLOOD GAS HCO3 29 mmol/L (22-26); BLOOD GAS METHEMOGLOBIN 1.5 % (0-2); BLOOD GAS O2 HGB SATURATION 92 % (90-100); BLOOD GAS OXYGEN CONTENT 12.9 Vol % (12.0-20.0); BLOOD GAS PCO2 38 mmHg (38-42); BLOOD GAS PO2 77 mmHg (61-120); BLOOD GAS TOTAL HGB 9.9 G/DL (12.0-16.0); TEMP CORR TO 98.6
[2016-08-15 07:55] LABS: CRITICAL VALUE NO; OXYGEN DEVICE VENTILATOR
[2016-08-15 07:56] LABS: DRAW SITE ART LINE; FIO2 40 %; STAT NO; ULNAR PULSE PRESENT
[2016-08-15] MEDS: CHLOROTHIAZIDE SOD 500 MG VIAL IV SCH ×2 (08:19→20:31)
[2016-08-15] MEDS: PANTOPRAZOLE SODIUM 40 MG VIAL IV SCH (08:19)
[2016-08-15] MEDS: ARTIFICIAL TEARS OPTH SOLN 15 ML BTL EACH EYE SCH ×3 (08:20→17:01)
[2016-08-15] MEDS: HYDROCORTISONE SOD SUCCINATE 100 MG VIAL IV PUSH SCH ×2 (08:21→20:29)
[2016-08-15] MEDS: AMIODARONE 200 MG TAB PO SCH ×2 (08:21→20:29)
[2016-08-15] MEDS: LACTULOSE SYRUP 20 GM/30 ML CUP PO SCH (08:22)
[2016-08-15] MEDS: DEXTROSE 5% IN WATE 1000ML INJ 1,000 ML IV SCH (08:22)
[2016-08-15] MEDS: CHLORHEXIDINE 0.12% (ORAL KIT) 15 ML CUP MT SCH ×2 (08:23→19:42)
[2016-08-15] MEDS ORDERED: POTASSIUM CHLORIDE 25 MEQ EFFERVESCENT TAB PO ONE (10:15)
[2016-08-15 10:21] LABS: APTT (PATIENT) 29.6 SEC (24.3-30.1)
[2016-08-15] MEDS: hydrALAZINE HCL 20 MG/ML VIAL IV PUSH PRN ×3 (10:31→23:28)
[2016-08-15] MEDS: HEPARIN SODIUM - IV 10,000 UNITS/10 ML VIAL IV PRN ×2 (11:14→18:23)
[2016-08-15 12:25] LABS: BLOOD GAS BASE EXCESS 4.2 mmol/L (-2-2); BLOOD GAS CARBOXYHEMOGLOBIN 1.4 % (0-4); BLOOD GAS HCO3 28 mmol/L (22-26); BLOOD GAS METHEMOGLOBIN 1.6 % (0-2); BLOOD GAS O2 HGB SATURATION 95 % (90-100); BLOOD GAS OXYGEN CONTENT 14.9 Vol % (12.0-20.0); BLOOD GAS PCO2 40 mmHg (38-42); BLOOD GAS PO2 114 mmHg (61-120); TEMP CORR TO 98.6
[2016-08-15 12:26] LABS: CRITICAL VALUE NO; DRAW SITE ART LINE; FIO2 60 %; OXYGEN DEVICE VENTILATOR; STAT NO; ULNAR PULSE PRESENT
--- NOTE | 2016-08-15 12:26 | HHI.NPPN ---
Subjective General Problems: Edema Renal Failure: Chronic, Acute Additional Remarks Patient remain intubated and sedated. Review of Systems General General Remarks unable to evaluate Objective Data Data 08/14/16 08/15/16 19:00 07:00 Intake Total 1703 ml 2552 ml Output Total 1050 ml 2500 ml Balance 653 ml 52 ml Intake IV Total 1116 ml 1737 ml Tube Feeding 87 ml 215 ml Other 500 ml 600 ml Output Urine Total 1000 ml 2200 ml Stool Total 50 ml 300 ml Vital Signs Date Time Temp Pulse Resp B/P Pulse Ox O2 Delivery O2 Flow Rate FiO2 08/15/16 10:22 92 60 08/15/16 07:59 93 40 08/15/16 06:00 92 08/15/16 04:34 96 40 08/15/16 04:00 97.9 82 129/65 93 146/64 08/15/16 04:00 40 08/15/16 04:00 82 08/15/16 02:00 81 08/15/16 00:21 97 40 08/15/16 00:00 40 08/15/16 00:00 80 08/15/16 00:00 98.4 80 20 144/68 94 163/70 08/14/16 22:00 72 08/14/16 21:00 99 40 08/14/16 20:00 40 08/14/16 20:00 98.1 76 20 160/75 96 168/74 08/14/16 20:00 76 08/14/16 18:15 70 132/67 94 137/61 08/14/16 18:00 73 08/14/16 18:00 70 135/68 94 140/62 08/14/16 17:45 71 129/64 94 133/59 08/14/16 17:30 72 129/62 93 131/59 08/14/16 17:15 72 129/62 92 132/59 08/14/16 17:00 72 128/63 92 135/59 08/14/16 16:45 74 125/63 93 128/57 08/14/16 16:30 72 129/65 92 133/60 08/14/16 16:15 71 121/61 91 123/57 08/14/16 16:06 95 40 08/14/16 16:00 72 08/14/16 16:00 98.8 66 123/64 95 129/59 08/14/16 16:00 40 08/14/16 15:45 67 123/62 94 127/58 08/14/16 15:30 68 125/60 94 130/60 08/14/16 15:15 68 124/60 94 122/55 08/14/16 15:00 71 129/64 94 132/61 08/14/16 14:45 68 114/55 94 114/51 08/14/16 14:30 69 112/59 93 112/51 08/14/16 14:15 70 111/59 94 112/51 08/14/16 14:00 70 123/58 94 120/54 08/14/16 14:00 69 08/14/16 13:45 72 119/56 93 118/53 08/14/16 13:30 77 134/64 91 145/71 08/14/16 13:22 78 130/61 91 08/14/16 13:00 80 131/57 95 08/14/16 12:45 75 136/61 95 128/62 08/14/16 12:30 75 145/65 95 115/51 -: 08/15/16 0520 08/15/16 0520 Tubes & Lines: Witt Tubes & Lines Comment TLC PEG Drip Comment fentanyl, propofol, nimbex, amiodarone, vasopressin , heparin Physical Exam General Appearance Remarks Sedated and intubated. Pulmonary Resp Exam: Breath Sounds Equal, Crackles, Rhonchi, Decreased Bases Cardiology CV Exam: Good Perfusion, Irregular Gastrointestinal/Abdomen GI Exam: Soft, Non-Tender Genitourinary Exam: Clear Urine Extremeties Extremities Exam: Trace Edema Neurologic Neuro Exam: Unresponsive, Sedated Assessment/Plan Assessment Summary: CHAN/Acute Renal Failure, Fluid/Volume Overload Electrolyte Assessment: Hyperkalemia, Hypernatremia Problem List: (1) Acute renal failure superimposed on stage 3 chronic kidney disease Plan: renal failure from sepsis and hypotension, possible dehydration; may have progressed to ATN renal function stable, this may be his baseline excellent urine output, continue Diuril BID K was replaced he is on D5W at 30 cc/hr pressors to maintain MAP > 65mmHg , he is not requiring continue Nepro tube feeding with free water daily renal panel , replace electrolytes as needed avoid nephrotoxic medications. Creatinine is better, Na. is 150, on D5W. (2) Acute respiratory failure Plan: vent management by invoice coder settings are 20/550/40/8 (3) Pneumonia Plan: Blood culture negative to date + legionella in urine, sputum negative, taken off isolation Abx include Levaquin and Zithromax. (4) Hyperglycemia Plan: may be due to steroid use monitor glucose insulin if needed (5) A-fib Plan: on amiodarone gtt, rate controlled (6) Hypernatremia Plan: continue free water with tube feeding continue D5W continue diuril Problem Qualifiers (1) Acute respiratory failure: Qualified Code: J96.01 - Acute respiratory failure with hypoxia and hypercapnia (2) Pneumonia: Qualified Code: J18.9 - Pneumonia of both lungs due to infectious organism, unspecified part of lung Maty Perez MD August 15, 2016 12:26
[2016-08-15] MEDS ORDERED: METOPROLOL TARTRATE 5 MG/5 ML VIAL IV PUSH ONE (14:15)
--- NOTE | 2016-08-15 14:32 | HHI.CCPN ---
Subjective Remarks/Hospital Course 08/04: 60 y/o man with several week history of weakness, fatigue; fevers and sweats over past week. Today with severe SOB, arrived by EMS with hypoxemia. CO2 retention as well in ED. Required intubation in ED. Creatinine > 3.0 and severely dehydrated. 08/05: Remains sedated, orally intubated on mechanical ventilation. He remains at PEEP+14, FiO2 decreased to 80%. Urine positive for Legionella Ag. Went into A. fib with RVR. 08/06: Remains sedated, orally intubated on mechanical ventilation. On neuromuscular blockade with Nimbex. Initiated on prone ventilation today. Switched to pressure control mode with positive inspiratory pressure +20, PEEP + 15, respiratory rate 20, I time 1.82 seconds, FiO2 70%.. On propofol/fentanyl/ Versed/Nimbex/amiodarone/ vasopressin drips. Jose-Synephrine titrated off following switching from APRV to pressure control mode mechanical ventilation and initiating proning. 08/07: Remains sedated, on neuromuscular blockade, orally intubated on prone ventilation. FiO2 decreased to 50%, PEEP remains at +15. On fentanyl/versed/ Nimbex/amiodarone/vasopressin drips. Jose-Synephrine on transiently today. Diuresed well with Bumex. 08/08: Remains sedated, on neuromuscular blockade, orally intubated on prone ventilation. FiO2 decreased to 45%, PEEP remains at +15. Attempting to place Dobbhoff to initiate tube feeds. Off Jose-Synephrine. Vasopressin being titrated down. 08/09: Remains sedated, orally intubated on prone ventilation. Remains on Nimbex for neuromuscular blockade. PEEP +15, FiO2 50%. Have been unable to place OG tube despite multiple attempts. 08/10: Remains sedated, orally intubated on neuromuscular blockade on prone ventilation. Attempts at keeping supine today however had progressively increasing FiO2 requirement. He was restarted on prone ventilation. He had a sudden episode of desaturation with dropping O2 sats to the 80s despite 100% FiO2. I time increased from 1.2 seconds to 1.8 seconds. He was immediately supined and a stat chest x-ray obtained which did not reveal any pneumothorax and essentially unchanged compared to previous chest x-ray with bilateral infiltrates. He was restarted on prone ventilation. Question of PE. We will initiate full anticoagulation with heparin. Will also check troponins and EKG when supine unless troponin elevated in which case we will get a stat EKG. 5/2: Remains sedated, orally intubated on neuromuscular blockade in prone ventilation. Had episode of loss of lung volumes with desaturation. Chest x- ray did not reveal any pneumothorax or atelectasis. Thick mucus suctioned out of the ET tube. Difficult to bag at times. ET tube was changed over a tube exchanger following which he had return of good volumes. ( It is possible that the pre-existing ET tube was getting occluded by debris or secretions which were somewhat cleared out by suctioning earlier.) GI postponed with G-tube placement due to unstable respiratory status until tomorrow and they will plan on doing a PEG tube if respiratory status permits. 5: Remains sedated, orally intubated on neuromuscular blockade on prone ventilation. Underwent PEG tube placement today. Start tube feeds in a.m. 08/13: Tmax 98.9. Tube feeds initiated this a.m.. Sodium level 155, free water flushes initiated. Slight improvement in ventilatory status. Plan to remain supine today, an attempt to wean ventilation settings. 08/14: The patient was transitioned off of the Rota prone bed. Neuromuscular blockade has been discontinued. FiO2 has been decreased to 40%. The patient has been transitioned to by mouth amiodarone. Patient continues on Nepro at 15 cc an hour with moderate residuals noted. 08/15: Patient's O2 requirements decreasing, PEEP now 7, FiO2 60%. Patient was transitioned to amiodarone PO yesterday, noted tachycardia HR 109. Metoprolol added to medication regimen. Patient was also noted to be hypertensive, when necessary antihypertensive medications added. Objective Vital Signs Date Time Temp Pulse Resp B/P Pulse Ox O2 Delivery O2 Flow Rate FiO2 08/15/16 13:21 93 55 08/15/16 06:00 92 08/15/16 04:00 97.9 129/65 146/64 08/15/16 00:00 20 Intake and Output 08/14/16 08/14/16 08/15/16 08:00 16:00 00:00 Intake Total 1588 ml 1703 ml 1330 ml Output Total 1075 ml 1050 ml 1250 ml Balance 513 ml 653 ml 80 ml Result Diagram: 08/15/16 0520 08/15/16 0520 Other Results Laboratory Tests Test 08/15/16 08/15/16 07:49 12:16 Blood Gas Puncture Site ART LINE ART LINE Blood Gas Patient Temperature 98.6 98.6 Blood Gas HCO3 29 mmol/L 28 mmol/L (22-26) (22-26) Blood Gas Base Excess 5.5 mmol/L 4.2 mmol/L (-2-2) (-2-2) Blood Gas Oxygen Saturation 92 % (90-100) 95 % (90-100) Arterial Blood pH 7.49 7.46 (7.380-7.420) (7.380-7.420) Arterial Blood Partial 38 mmHg (38-42) 40 mmHg (38-42) Pressure CO2 Arterial Blood Partial 77 mmHg 114 mmHg Pressure O2 (61-120) (61-120) Arterial Blood Oxygen Content 12.9 Vol % 14.9 Vol % (12.0-20.0) (12.0-20.0) Arterial Blood 1.5 % (0-4) 1.4 % (0-4) Carboxyhemoglobin Arterial Blood Methemoglobin 1.5 % (0-2) 1.6 % (0-2) Blood Gas Hemoglobin 9.9 G/DL 11.0 G/DL (12.0-16.0) (12.0-16.0) Oxygen Delivery Device VENTILATOR VENTILATOR Blood Gas Ventilator Setting Blood Gas Inspired Oxygen 40 % 60 % Imaging Last Impressions Lower Extremity Ultrasound 08/11/16 0000 Signed Impressions: Service Date/Time: Thursday, August 11, 2016 08:00 - CONCLUSION: Normal examination. Efrain Deng MD Chest X-Ray 08/11/16 0000 Signed Impressions: Service Date/Time: Thursday, August 11, 2016 13:14 - CONCLUSION: Stable chest appearance. Efrain Deng MD Abdomen X-Ray 08/09/16 0000 Signed Impressions: Service Date/Time: Tuesday, August 09, 2016 10:18 - CONCLUSION: Nonspecific bowel gas pattern. Julio Grove MD Renal Ultrasound 08/05/16 1504 Signed Impressions: Service Date/Time: Friday, August 05, 2016 21:01 - CONCLUSION: 1. No evidence of obstruction or other acute renal abnormality. 2. Small, benign appearing cyst of the right kidney. 3. Witt catheter present. Efrain Syed MD Last 24 hours Impressions Chest X-Ray 08/08/16 1000 Signed Impressions: Service Date/Time: Monday, August 08, 2016 10:38 - CONCLUSION: Improved aeration. Murali Perdomo MD Abdomen X-Ray 08/08/16 0000 Signed Impressions: Service Date/Time: Monday, August 08, 2016 10:38 - CONCLUSION: No evidence of obstruction. Murali Perdomo MD Last 24 hours Impressions Chest X-Ray 08/07/16 0600 Signed Impressions: Service Date/Time: Sunday, August 07, 2016 04:57 - CONCLUSION: No significant change. Extensive bilateral infiltrates persist. Efrain Syed MD Last 24 hours Impressions Chest X-Ray 08/06/16 0400 Signed Impressions: Service Date/Time: July 03:00 - CONCLUSION: No significant interval change with bilateral pulmonary infiltrates. Ronny Joshi MD Last Impressions Chest X-Ray 08/04/16 1832 Signed Impressions: Service Date/Time: Thursday, August 04, 2016 18:50 - CONCLUSION: Extensive bilateral airspace disease greater in the left lung. There may be pneumomediastinum. Perico Wahl MD Objective Remarks BP 146/87 P 109 O2 sat 93% Infusions Versed 1 mg Propofol 22 mcgs Fentanyl 50 mcgs Heparin 1700u Gen: Elderly male, sedated for ventilator synchrony orally intubated on mechanical ventilation. HEENT: Positive pallor, no icterus. Orally intubated. Mucosa moist. Neck: Supple, orally intubated. Lungs: Orally intubated on mechanical ventilation, clear to auscultation bilaterally Heart: NL S1S2 regularly regular, no JVD. Abdomen: Soft, NT, ND, no guarding. PEG tube in place Extremities: Warm bilaterally, no edema Neuro: Intubated and sedated, orally intubated on mechanical ventilation. Urinary Catheter: Yes Line: Central Venous Catheter A/P Assessment and Plan Assessment: 1. Septic shock 2. Acute Respiratory Failure on mechanical ventilation 3. Legionella Pneumonia 4. ARDS 5. CKD with CHAN 6. A. fib with RVR (converted to RSR) 7. Hx depression with recent ECT 2017 8. Suspected PE Neuro: Continue sedation with Versed,fentanyl, and propofol for ventilator synchrony. Plan to wean Versed off Begin daily sedation vacation 08/15 Cardiovascular: Transitioned to Amiodarone, PO 08/14. Phenylephrine discontinued . Vasopressin discontinued 08/13 08/10 - 2-D echo with minimally depressed LV and RV function, ejection fraction 4550%, tricuspid valve mild regurgitation Pulmonary: Continue mechanical ventilation, AC/PC PIP +20, PEEP +7, respiratory rate 20, FiO2 60%, inspiratory time 1.8 seconds Vent bundle, bronchodilators, pulmonary toilet.Neuromuscular Blockade discontinued 08/14 Worsening hypoxia noted on 08/10. Lung mechanics unchanged essentially. Question of PE, continue full anticoagulation with heparin. 08/14 Rotaprone discontinued GI/liver: Unable to place OG tube despite multiple attempts. consulted GI. GI placed PEG on 08/12. Start tube feeds on 08/13. Renal/: D5 water at 60 cc an hour for hypernatremia, strict intake output, monitor and replete electrolytes, follow BUN/creatinine. Nephrology following for CHAN/CKD. Given glucose/insulin for hyperkalemia. Started on Diuril by nephrology. 08/13: Free water flushes started 300 cc every 6 hours Heme: Follow CBC. Full anticoagulation with heparin for suspected PE. Monitor PTT ID: Continue antibiotic coverage with IV Levaquin Zithromax. Cefepime stopped on 08/07 per ID. ID following. Urine positive for Legionella antigen. Endocrine: SSI for glycemic control. Tapering stress dose hydrocortisone. Prophylaxis: PPI/SCDs/ Lovenox (held) and started full anticoagulation with heparin on 08/10 for suspected PE. Repeat ultrasound bilateral upper and lower extremities 08/17 This patient remains critically ill with one or more organ systems which are or may become a threat to life. I have spent in excess of 33 minutes discontinuously in the care and management of this patient. This time is exclusive of procedures, and includes, but is not limited to, evaluation of the patient, review of the medical record, discussions with family, consultants, nursing staff, or respiratory therapy, and documentation in the medical record. Remains critical with severe ARDS secondary to Legionella pneumonia and septic shock . Physician Danica Asif MD August 15, 2016 14:32
[2016-08-15] MEDS: ACETAMINOPHEN 325 MG TAB PO PRN (15:12)
[2016-08-15] MEDS: HEPARIN-D5W INJ 250 ML IV SCH (15:13)
[2016-08-15] MEDS: LEVOFLOXACIN 250 MG PREMIX INJ 50 ML IV SCH (16:00)
[2016-08-15 18:16] LABS: APTT (PATIENT) 29.7 SEC (24.3-30.1)
[2016-08-15] MEDS: AZITHROMYCIN INJ 500 MG in SODIUM CHLOR 0.9% 250 ML INJ 250 ML IV SCH (19:42)
[2016-08-15] MEDS: METOPROLOL TARTRATE 25 MG TAB PO SCH (20:29)
[2016-08-15] MEDS: fentaNYL DRIP 250 ML IV SCH (20:32)
[2016-08-16] VITALS (24 sets, daily range): BP systolic 125–212; BP diastolic 56–86; PULSE 84–104; RESP 16–17; TEMP 98.4–100.1; O2SAT 91–96
[2016-08-16 00:55] LABS: APTT (PATIENT) 34.4 SEC (24.3-30.1)
[2016-08-16] MEDS: HEPARIN SODIUM - IV 10,000 UNITS/10 ML VIAL IV PRN ×4 (03:25→21:14)
[2016-08-16] MEDS: PROPOFOL 1000 MG/100 ML INJ 100 ML IV SCH ×6 (03:52→22:39)
[2016-08-16] MEDS: HEPARIN-D5W INJ 250 ML IV SCH ×2 (03:54→14:42)
[2016-08-16] MEDS: hydrALAZINE HCL 20 MG/ML VIAL IV PUSH PRN ×3 (04:37→18:48)
[2016-08-16 05:00] LABS: HEMATOCRIT 32.8 % (39.0-51.0); MEAN CELL VOLUME 94.9 FL (80.0-100.0); MEAN CORPUSCULAR HEMOGLOBIN 31.2 PG (27.0-34.0); MEAN CORPUSCULAR HGB CONC 32.9 % (32.0-36.0); PLATELET COUNT 192 TH/MM3 (150-450); RED BLOOD COUNT 3.46 MIL/MM3 (4.50-5.90); RED CELL DISTRIBUTION WIDTH 14.4 % (11.6-17.2); REVIEW FLAG FINAL; WHITE BLOOD COUNT 13.1 TH/MM3 (4.0-11.0)
[2016-08-16] MEDS ORDERED: METOPROLOL TARTRATE 5 MG/5 ML VIAL IV PUSH ONE ×2 (05:30→12:00)
[2016-08-16] MEDS: FREE WATER G-TUBE SCH ×3 (05:33→17:53)
[2016-08-16] MEDS: INSULIN ASPART SUPPLEMENTAL SCALE SQ SCH ×3 (05:33→17:49)
[2016-08-16 06:54] LABS: APTT (PATIENT) 37.1 SEC (24.3-30.1)
[2016-08-16] MEDS: PANTOPRAZOLE SODIUM 40 MG VIAL IV SCH (07:59)
[2016-08-16] MEDS: METOPROLOL TARTRATE 25 MG TAB PO SCH ×2 (08:00→21:14)
[2016-08-16] MEDS: METOCLOPRAMIDE HCL 10 MG/2 ML VIAL IV PUSH SCH ×2 (08:00→17:53)
[2016-08-16] MEDS: HYDROCORTISONE SOD SUCCINATE 100 MG VIAL IV PUSH SCH ×2 (08:00→21:14)
[2016-08-16] MEDS: AMIODARONE 200 MG TAB PO SCH ×2 (08:00→21:14)
[2016-08-16] MEDS: ARTIFICIAL TEARS OPTH SOLN 15 ML BTL EACH EYE SCH ×3 (08:01→17:54)
[2016-08-16] MEDS: CHLORHEXIDINE 0.12% (ORAL KIT) 15 ML CUP MT SCH ×2 (08:01→19:59)
[2016-08-16] MEDS: DEXTROSE 5% IN WATE 1000ML INJ 1,000 ML IV SCH (08:01)
[2016-08-16] MEDS: CHLOROTHIAZIDE SOD 500 MG VIAL IV SCH ×2 (08:01→21:16)
[2016-08-16] MEDS: LACTULOSE SYRUP 20 GM/30 ML CUP PO SCH (08:02)
[2016-08-16] MEDS ORDERED: AMIODARONE 200 MG TAB PO ONE (12:00)
[2016-08-16] MEDS: ACETAMINOPHEN 325 MG TAB PO PRN (12:32)
--- NOTE | 2016-08-16 12:36 | HHI.NPPN ---
Subjective General Problems: Edema Renal Failure: Chronic, Acute Additional Remarks Patient remain intubated and sedated, clinically same. Review of Systems General General Remarks unable to evaluate Objective Data Data 08/15/16 08/16/16 19:00 07:00 Intake Total 1505 ml 2211 ml Output Total 1100 ml 2250 ml Balance 405 ml -39 ml Intake IV Total 525 ml 1297 ml Tube Feeding 280 ml 314 ml Tube Irrigant 100 ml Other 600 ml 600 ml Output Urine Total 1100 ml 2100 ml Stool Total 150 ml Tube Feeding Residual Discard 0 ml Vital Signs Date Time Temp Pulse Resp B/P Pulse Ox O2 Delivery O2 Flow Rate FiO2 08/16/16 11:11 94 55 08/16/16 09:00 90 157/67 93 08/16/16 08:00 99.0 84 125/60 92 131/56 08/16/16 08:00 55 08/16/16 07:49 93 55 08/16/16 06:00 89 08/16/16 04:11 94 55 08/16/16 04:00 88 08/16/16 04:00 99.8 88 16 141/77 94 175/68 08/16/16 04:00 55 08/16/16 02:00 96 08/16/16 01:11 93 55 08/16/16 00:00 55 08/16/16 00:00 101 08/16/16 00:00 99.9 101 17 126/60 93 139/57 08/15/16 22:12 95 55 08/15/16 22:00 86 08/15/16 20:00 55 08/15/16 20:00 99.2 89 16 123/62 94 117/53 08/15/16 20:00 89 08/15/16 19:12 95 55 08/15/16 16:32 93 55 08/15/16 16:00 55 08/15/16 16:00 99.2 100 145/73 94 157/67 08/15/16 15:00 104 171/75 94 08/15/16 14:00 107 148/66 93 08/15/16 13:21 93 55 08/15/16 13:00 102 128/59 93 -: 08/16/16 0403 08/15/16 0520 Tubes & Lines: Witt Tubes & Lines Comment TLC PEG Drip Comment fentanyl, propofol, nimbex, amiodarone, vasopressin , heparin Physical Exam General Appearance Remarks Sedated and intubated. Pulmonary Resp Exam: Breath Sounds Equal, Crackles, Rhonchi, Decreased Bases Cardiology CV Exam: Good Perfusion, Irregular Gastrointestinal/Abdomen GI Exam: Soft, Non-Tender Genitourinary Exam: Clear Urine Extremeties Extremities Exam: Trace Edema Neurologic Neuro Exam: Unresponsive, Sedated Assessment/Plan Assessment Summary: CHAN/Acute Renal Failure, Fluid/Volume Overload Electrolyte Assessment: Hyperkalemia, Hypernatremia Problem List: (1) Acute renal failure superimposed on stage 3 chronic kidney disease Plan: renal failure from sepsis and hypotension, possible dehydration; may have progressed to ATN renal function stable, this may be his baseline excellent urine output, continue Diuril BID K was replaced he is on D5W at 30 cc/hr pressors to maintain MAP > 65mmHg , he is not requiring continue Nepro tube feeding with free water daily renal panel , replace electrolytes as needed avoid nephrotoxic medications. Creatinine is better, Na. remain 150, on D5W, will increase to 50 ml/hr. Follow the BMP. (2) Acute respiratory failure Plan: vent management by security compliance engineer settings are 20/550/40/8 (3) Pneumonia Plan: Blood culture negative to date + legionella in urine, sputum negative, taken off isolation Abx include Levaquin and Zithromax. (4) Hyperglycemia Plan: may be due to steroid use monitor glucose insulin if needed (5) A-fib Plan: on amiodarone gtt, rate controlled (6) Hypernatremia Plan: continue free water with tube feeding continue D5W continue diuril Problem Qualifiers (1) Acute respiratory failure: Qualified Code: J96.01 - Acute respiratory failure with hypoxia and hypercapnia (2) Pneumonia: Qualified Code: J18.9 - Pneumonia of both lungs due to infectious organism, unspecified part of lung Maty Perez MD August 16, 2016 12:36
[2016-08-16 13:37] LABS: APTT (PATIENT) 37.2 SEC (24.3-30.1)
--- NOTE | 2016-08-16 14:49 | HHI.CCPN ---
Subjective Remarks/Hospital Course 08/04: 60 y/o man with several week history of weakness, fatigue; fevers and sweats over past week. Today with severe SOB, arrived by EMS with hypoxemia. CO2 retention as well in ED. Required intubation in ED. Creatinine > 3.0 and severely dehydrated. 08/05: Remains sedated, orally intubated on mechanical ventilation. He remains at PEEP+14, FiO2 decreased to 80%. Urine positive for Legionella Ag. Went into A. fib with RVR. 08/06: Remains sedated, orally intubated on mechanical ventilation. On neuromuscular blockade with Nimbex. Initiated on prone ventilation today. Switched to pressure control mode with positive inspiratory pressure +20, PEEP + 15, respiratory rate 20, I time 1.82 seconds, FiO2 70%.. On propofol/fentanyl/ Versed/Nimbex/amiodarone/ vasopressin drips. Jose-Synephrine titrated off following switching from APRV to pressure control mode mechanical ventilation and initiating proning. 08/07: Remains sedated, on neuromuscular blockade, orally intubated on prone ventilation. FiO2 decreased to 50%, PEEP remains at +15. On fentanyl/versed/ Nimbex/amiodarone/vasopressin drips. Joes-Synephrine on transiently today. Diuresed well with Bumex. 08/08: Remains sedated, on neuromuscular blockade, orally intubated on prone ventilation. FiO2 decreased to 45%, PEEP remains at +15. Attempting to place Dobbhoff to initiate tube feeds. Off Jose-Synephrine. Vasopressin being titrated down. 08/09: Remains sedated, orally intubated on prone ventilation. Remains on Nimbex for neuromuscular blockade. PEEP +15, FiO2 50%. Have been unable to place OG tube despite multiple attempts. 08/10: Remains sedated, orally intubated on neuromuscular blockade on prone ventilation. Attempts at keeping supine today however had progressively increasing FiO2 requirement. He was restarted on prone ventilation. He had a sudden episode of desaturation with dropping O2 sats to the 80s despite 100% FiO2. I time increased from 1.2 seconds to 1.8 seconds. He was immediately supined and a stat chest x-ray obtained which did not reveal any pneumothorax and essentially unchanged compared to previous chest x-ray with bilateral infiltrates. He was restarted on prone ventilation. Question of PE. We will initiate full anticoagulation with heparin. Will also check troponins and EKG when supine unless troponin elevated in which case we will get a stat EKG. 52: Remains sedated, orally intubated on neuromuscular blockade in prone ventilation. Had episode of loss of lung volumes with desaturation. Chest x- ray did not reveal any pneumothorax or atelectasis. Thick mucus suctioned out of the ET tube. Difficult to bag at times. ET tube was changed over a tube exchanger following which he had return of good volumes. ( It is possible that the pre-existing ET tube was getting occluded by debris or secretions which were somewhat cleared out by suctioning earlier.) GI postponed with G-tube placement due to unstable respiratory status until tomorrow and they will plan on doing a PEG tube if respiratory status permits. 08/12: Remains sedated, orally intubated on neuromuscular blockade on prone ventilation. Underwent PEG tube placement today. Start tube feeds in a.m. 08/13: Tmax 98.9. Tube feeds initiated this a.m.. Sodium level 155, free water flushes initiated. Slight improvement in ventilatory status. Plan to remain supine today, an attempt to wean ventilation settings. 08/14: The patient was transitioned off of the Rota prone bed. Neuromuscular blockade has been discontinued. FiO2 has been decreased to 40%. The patient has been transitioned to by mouth amiodarone. Patient continues on Nepro at 15 cc an hour with moderate residuals noted. 08/15: Patient's O2 requirements decreasing, PEEP now 7, FiO2 60%. Patient was transitioned to amiodarone PO yesterday, noted tachycardia HR 109. Metoprolol added to medication regimen. Patient was also noted to be hypertensive, when necessary antihypertensive medications added. 08/16: Tmax 101.2 . The patient has been febrile today, receiving Tylenol. Chest x-ray slightly worsened today bilateral lower lobes, placed on pressure control mode via mechanical ventilation The patient had 2 episodes of SVT last night with the rate in the 140s. The patient received beta blockers 2 doses with immediate resolution. Amiodarone was increased to 400 mg twice a day today. Versed was completely discontinued CPAP trials have been initiated. Objective Vital Signs Date Time Temp Pulse Resp B/P Pulse Ox O2 Delivery O2 Flow Rate FiO2 08/16/16 13:15 92 55 08/16/16 09:00 90 157/67 08/16/16 08:00 99.0 08/16/16 04:00 16 Intake and Output 08/15/16 08/15/16 08/16/16 08:00 16:00 00:00 Intake Total 1222 ml 1205 ml 1509 ml Output Total 1250 ml 1100 ml 1200 ml Balance -28 ml 105 ml 309 ml Result Diagram: 08/16/16 0403 08/15/16 0520 Imaging Last Impressions Lower Extremity Ultrasound 08/11/16 0000 Signed Impressions: Service Date/Time: Thursday, August 11, 2016 08:00 - CONCLUSION: Normal examination. Efrain Deng MD Chest X-Ray 08/11/16 0000 Signed Impressions: Service Date/Time: Thursday, August 11, 2016 13:14 - CONCLUSION: Stable chest appearance. Efrain Deng MD Abdomen X-Ray 08/09/16 0000 Signed Impressions: Service Date/Time: Tuesday, August 09, 2016 10:18 - CONCLUSION: Nonspecific bowel gas pattern. Julio Grove MD Renal Ultrasound 08/05/16 1504 Signed Impressions: Service Date/Time: Friday, August 05, 2016 21:01 - CONCLUSION: 1. No evidence of obstruction or other acute renal abnormality. 2. Small, benign appearing cyst of the right kidney. 3. Witt catheter present. Efrain Syed MD Last 24 hours Impressions Chest X-Ray 08/08/16 1000 Signed Impressions: Service Date/Time: Monday, August 08, 2016 10:38 - CONCLUSION: Improved aeration. Murali Perdomo MD Abdomen X-Ray 08/08/16 0000 Signed Impressions: Service Date/Time: Monday, August 08, 2016 10:38 - CONCLUSION: No evidence of obstruction. Murali Perdomo MD Last 24 hours Impressions Chest X-Ray 08/07/16 0600 Signed Impressions: Service Date/Time: Sunday, August 07, 2016 04:57 - CONCLUSION: No significant change. Extensive bilateral infiltrates persist. Efrain Syed MD Last 24 hours Impressions Chest X-Ray 08/06/16 0400 Signed Impressions: Service Date/Time: July 03:00 - CONCLUSION: No significant interval change with bilateral pulmonary infiltrates. Ronny J. Siragusa, MD Last Impressions Chest X-Ray 08/04/16 1832 Signed Impressions: Service Date/Time: Thursday, August 04, 2016 18:50 - CONCLUSION: Extensive bilateral airspace disease greater in the left lung. There may be pneumomediastinum. Perico Wahl MD Objective Remarks BP 152/64 P 86 O2 sat 93% Infusions: Propofol 22 mcgs Fentanyl 50 mcgs Heparin 2000u Gen: Elderly male, sedated for ventilator synchrony orally intubated on mechanical ventilation. HEENT: Positive pallor, no icterus. Orally intubated. Mucosa moist. Neck: Supple, orally intubated. Lungs: Orally intubated on mechanical ventilation, clear to auscultation bilaterally Heart: NL S1S2 regularly regular, no JVD. Abdomen: Soft, NT, ND, no guarding. PEG tube in place Extremities: Warm bilaterally, no edema Neuro: Intubated and sedated, orally intubated on mechanical ventilation. Line: Central Venous Catheter A/P Assessment and Plan Assessment: 1. Septic shock 2. Acute Respiratory Failure on mechanical ventilation 3. Legionella Pneumonia 4. ARDS 5. CKD with CHAN 6. A. fib with RVR (converted to RSR) 7. Hx depression with recent ECT 2016 8. Suspected PE Neuro: Continue sedation with Versed,fentanyl, and propofol 4 for ventilator synchrony. Plan to wean Versed off Begin daily sedation vacation 08/15 Cardiovascular: Transitioned to Amiodarone, PO 08/14. Phenylephrine discontinued . Vasopressin discontinued 08/13 08/10 - 2-D echo with minimally depressed LV and RV function, ejection fraction 4550%, tricuspid valve mild regurgitation Pulmonary: Continue mechanical ventilation, AC/PC PIP +20, PEEP +7, respiratory rate 20, FiO2 60%, inspiratory time 1.8 seconds Vent bundle, bronchodilators, pulmonary toilet.Neuromuscular Blockade discontinued 08/14 Worsening hypoxia noted on 08/10. Lung mechanics unchanged essentially. Question of PE, continue full anticoagulation with heparin. 08/14 Rotaprone discontinued GI/liver: Unable to place OG tube despite multiple attempts. consulted GI. GI placed PEG on 08/12. Start tube feeds on 08/13. Renal/: D5 water at 60 cc an hour for hypernatremia, strict intake output, monitor and replete electrolytes, follow BUN/creatinine. Nephrology following for CHAN/CKD. Given glucose/insulin for hyperkalemia. Started on Diuril by nephrology. 08/13: Free water flushes started 300 cc every 6 hours Heme: Follow CBC. Full anticoagulation with heparin for suspected PE. Monitor PTT ID: Continue antibiotic coverage with IV Levaquin Zithromax. Cefepime stopped on 08/07 per ID. ID following. Urine positive for Legionella antigen. Endocrine: SSI for glycemic control. Tapering stress dose hydrocortisone. Prophylaxis: PPI/SCDs/ Lovenox (held) and started full anticoagulation with heparin on 08/10 for suspected PE. Repeat ultrasound bilateral upper and lower extremities 08/17 This patient remains critically ill with one or more organ systems which are or may become a threat to life. I have spent in excess of 35 minutes discontinuously in the care and management of this patient. This time is exclusive of procedures, and includes, but is not limited to, evaluation of the patient, review of the medical record, discussions with family, consultants, nursing staff, or respiratory therapy, and documentation in the medical record. Remains critical with severe ARDS secondary to Legionella pneumonia and septic shock . Physician Danica Asif MD August 16, 2016 14:49
[2016-08-16] MEDS: LEVOFLOXACIN 250 MG PREMIX INJ 50 ML IV SCH (17:53)
[2016-08-16] MEDS: AZITHROMYCIN INJ 500 MG in SODIUM CHLOR 0.9% 250 ML INJ 250 ML IV SCH (19:59)
[2016-08-16 21:05] LABS: APTT (PATIENT) 36.5 SEC (24.3-30.1)
[2016-08-16] MEDS: fentaNYL DRIP 250 ML IV SCH (21:14)
[2016-08-17] VITALS (17 sets, daily range): BP systolic 106–190; BP diastolic 57–82; PULSE 66–104; RESP 16–17; TEMP 98.4–100.3; O2SAT 90–97
[2016-08-17] MEDS: METOCLOPRAMIDE HCL 10 MG/2 ML VIAL IV PUSH SCH ×3 (00:04→17:36)
[2016-08-17] MEDS: CHLORHEXIDINE GLUCONATE 2 % 1 PACK (2 CLOTHS) TOP SCH (00:05)
[2016-08-17] MEDS: INSULIN ASPART SUPPLEMENTAL SCALE SQ SCH ×4 (00:05→17:35)
[2016-08-17] MEDS: PROPOFOL 1000 MG/100 ML INJ 100 ML IV SCH ×5 (01:26→22:00)
[2016-08-17 03:01] LABS: BASOPHIL % 0.3 % (0.0-2.0); EOSINOPHIL % 0.4 % (0.0-4.0); HEMO FLAGS DIFF FINAL; LYMPH % 3.7 % (9.0-44.0); LYMPHOCYTE # 0.4 TH/MM3 (1.0-4.8); MEAN CELL VOLUME 94.7 FL (80.0-100.0); MEAN CORPUSCULAR HEMOGLOBIN 30.9 PG (27.0-34.0); MEAN CORPUSCULAR HGB CONC 32.6 % (32.0-36.0); MONO % 6.3 % (0.0-8.0); NEUT % 89.3 % (16.0-70.0); PLATELET COUNT 187 TH/MM3 (150-450); RED BLOOD COUNT 3.27 MIL/MM3 (4.50-5.90); RED CELL DISTRIBUTION WIDTH 14.3 % (11.6-17.2); WHITE BLOOD COUNT 11.2 TH/MM3 (4.0-11.0)
[2016-08-17 03:13] LABS: APTT (PATIENT) 45.8 SEC (24.3-30.1)
[2016-08-17 03:23] LABS: BICARBONATE 33.2 MEQ/L (21.0-32.0)
[2016-08-17 03:25] LABS: POTASSIUM 2.9 MEQ/L (3.5-5.1)
[2016-08-17] MEDS: POTASSIUM CHLOR 40 MEQ PREMIX 100 ML IV SCH ×3 (03:52→09:36)
[2016-08-17] MEDS: HEPARIN-D5W INJ 250 ML IV SCH ×2 (04:58→17:44)
[2016-08-17] MEDS: FREE WATER G-TUBE SCH ×4 (05:44→20:00)
--- NOTE | 2016-08-17 05:59 | RADRPT ---
EXAM DATE/TIME: 08/17/2016 04:54 [facility] COMPARISON: CHEST SINGLE AP, August 15, 2016, 3:34. INDICATIONS : Shortness of breath, possible pulmonary disease. MEDICAL HISTORY : Hypertension. Asthma. SURGICAL HISTORY : None. ENCOUNTER: Subsequent ACUITY: 2 weeks PAIN SCORE: Non-responsive. LOCATION: Bilateral chest FINDINGS: A single portable frontal view the chest shows endotracheal tube with the tip 5 cm from the long. L eft subclavian central line. Bilateral pulmonary consolidations are unchanged. No effusions. Heart is normal in size. CONCLUSION: Unchanged bilateral pulmonary infiltrates. Robin Wray Jr., MD on August 17, 2016 at 5:57 Board Certified Radiologist. This report was verified electronically.
[2016-08-17] MEDS: LACTULOSE SYRUP 20 GM/30 ML CUP PO SCH (08:29)
[2016-08-17] MEDS: AMIODARONE 200 MG TAB PO SCH ×2 (08:30→22:00)
[2016-08-17] MEDS: CHLOROTHIAZIDE SOD 500 MG VIAL IV SCH ×2 (08:30→22:01)
[2016-08-17] MEDS: METOPROLOL TARTRATE 25 MG TAB PO SCH ×2 (08:30→22:01)
[2016-08-17] MEDS: PANTOPRAZOLE SODIUM 40 MG VIAL IV SCH (08:31)
[2016-08-17] MEDS: SODIUM CHLORIDE 0.9% FLUSH 10 ML FLUSH IVF PRN (08:31)
[2016-08-17] MEDS: HYDROCORTISONE SOD SUCCINATE 100 MG VIAL IV PUSH SCH ×2 (08:31→22:00)
[2016-08-17] MEDS: DEXTROSE 5% IN WATE 1000ML INJ 1,000 ML IV SCH (08:32)
[2016-08-17] MEDS: CHLORHEXIDINE 0.12% (ORAL KIT) 15 ML CUP MT SCH ×2 (08:44→22:01)
[2016-08-17] MEDS: hydrALAZINE HCL 20 MG/ML VIAL IV PUSH PRN ×2 (08:44→13:27)
[2016-08-17] MEDS: ARTIFICIAL TEARS OPTH SOLN 15 ML BTL EACH EYE SCH ×3 (08:44→17:36)
[2016-08-17] MEDS: METOPROLOL TARTRATE 5 MG/5 ML VIAL IV PUSH PRN (08:54)
[2016-08-17] MEDS: MORPHINE SULFATE 4 MG/ML INJ IV PRN ×2 (09:33→13:40)
[2016-08-17] MEDS: fentaNYL DRIP 250 ML IV SCH ×2 (09:33→22:00)
[2016-08-17 09:34] LABS: APTT (PATIENT) 45.1 SEC (24.3-30.1)
--- NOTE | 2016-08-17 10:17 | HHI.IDPN ---
Subjective Subjective Remarks is a 60 y/o Male with h/o Asthma, admitted with severe sepsis, Legionella pneumonia s/p Rotabed. 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 Vital Signs Date Time Temp Pulse Resp B/P Pulse Ox O2 Delivery O2 Flow Rate FiO2 08/17/16 09:06 90 55 08/17/16 06:00 66 08/17/16 05:04 94 55 08/17/16 04:00 55 08/17/16 04:00 79 08/17/16 04:00 98.9 79 16 144/69 94 162/69 08/17/16 02:00 79 08/17/16 01:00 94 55 08/17/16 00:00 55 08/17/16 00:00 79 08/17/16 00:00 100.0 79 17 106/58 97 124/57 08/16/16 22:00 98 08/16/16 20:00 98.4 104 16 138/63 95 138/57 08/16/16 20:00 104 08/16/16 20:00 55 08/16/16 19:33 95 55 08/16/16 18:00 103 147/64 96 08/16/16 17:00 99 147/57 92 08/16/16 16:13 91 55 08/16/16 16:00 55 08/16/16 16:00 100 159/75 92 159/63 08/16/16 15:00 100.0 99 138/56 93 08/16/16 14:00 84 141/57 93 08/16/16 13:15 92 55 08/16/16 13:00 92 172/67 94 08/16/16 12:00 100.1 92 147/66 94 148/62 08/16/16 12:00 55 08/16/16 11:11 94 55 08/16/16 11:00 93 168/65 93 08/16/16 08/16/16 08/17/16 15:00 23:00 07:00 Intake Total 1550 ml 1752 ml 1672 ml Output Total 1950 ml 1100 ml 1200 ml Balance -400 ml 652 ml 472 ml Intake IV Total 810 ml 1082 ml 783 ml Tube Feeding 340 ml 370 ml 289 ml Other 400 ml 300 ml 600 ml Output Urine Total 1350 ml 1000 ml 1000 ml Stool Total 600 ml 100 ml 200 ml Tube Feeding Residual Discard 0 ml . Laboratory Tests Test 08/16/16 08/17/16 04:03 02:40 White Blood Count 13.1 TH/MM3 11.2 TH/MM3 Red Blood Count 3.46 MIL/MM3 3.27 MIL/MM3 Hemoglobin 10.8 GM/DL 10.1 GM/DL Hematocrit 32.8 % 31.0 % Mean Corpuscular Volume 94.9 FL 94.7 FL Mean Corpuscular Hemoglobin 31.2 PG 30.9 PG Mean Corpuscular Hemoglobin 32.9 % 32.6 % Concent Red Cell Distribution Width 14.4 % 14.3 % Platelet Count 192 TH/MM3 187 TH/MM3 Mean Platelet Volume 8.8 FL 8.7 FL Neutrophils (%) (Auto) 89.3 % Lymphocytes (%) (Auto) 3.7 % Monocytes (%) (Auto) 6.3 % Eosinophils (%) (Auto) 0.4 % Basophils (%) (Auto) 0.3 % Neutrophils # (Auto) 10.0 TH/MM3 Lymphocytes # (Auto) 0.4 TH/MM3 Monocytes # (Auto) 0.7 TH/MM3 Eosinophils # (Auto) 0.0 TH/MM3 Basophils # (Auto) 0.0 TH/MM3 CBC Comment DIFF FINAL Differential Comment Laboratory Tests Test 08/16/16 08/17/16 15:40 02:40 Magnesium Level 1.9 MG/DL Sodium Level 143 MEQ/L Potassium Level 2.9 MEQ/L Chloride Level 104 MEQ/L Carbon Dioxide Level 33.2 MEQ/L Anion Gap 6 MEQ/L Blood Urea Nitrogen 30 MG/DL Creatinine 1.24 MG/DL Estimat Glomerular Filtration 59 ML/MIN Rate Random Glucose 148 MG/DL Calcium Level 8.0 MG/DL Phosphorus Level 3.0 MG/DL Imaging Chest X-Ray 08/17/16 0600 Signed Impressions: Service Date/Time: Wednesday, August 17, 2016 04:54 - CONCLUSION: Unchanged bilateral pulmonary infiltrates. Robin Wray Jr., MD Chest X-Ray 08/15/16 0600 Signed Impressions: Service Date/Time: Monday, August 15, 2016 03:34 - CONCLUSION: Diffuse airspace disease with worsening disease in the lower lobes on current study. Perico Wahl MD Lower Extremity Ultrasound 08/11/16 0000 Signed Impressions: Service Date/Time: Thursday, August 11, 2016 08:00 - CONCLUSION: Normal examination. Efrain Deng MD Chest X-Ray 08/11/16 0000 Signed Impressions: Service Date/Time: Thursday, August 11, 2016 13:14 - CONCLUSION: Stable chest appearance. Efrain Deng MD Chest X-Ray 08/11/16 0000 Signed Impressions: Service Date/Time: Thursday, August 11, 2016 12:25 - CONCLUSION: 1. Stable patchy infiltrates bilaterally consistent with pneumonia and/or pulmonary edema. Clinical correlation is recommended. 2. Tiny bilateral pleural effusions. Franck Betancourt MD Lower Extremity Ultrasound 08/11/16 0000 Signed Impressions: Service Date/Time: Thursday, August 11, 2016 08:00 - CONCLUSION: Normal examination. Efrain Deng MD Chest X-Ray 08/10/16 0000 Signed Impressions: Service Date/Time: Wednesday, August 10, 2016 15:39 - CONCLUSION: Slight worsening in aeration Efrain Deng MD Chest X-Ray 08/09/16 0000 Signed Impressions: Service Date/Time: Tuesday, August 09, 2016 07:51 - CONCLUSION: Endotracheal tube tip now 2 cm above the long. No change in patchy bilateral pulmonary parenchymal opacity. Julio Grove MD ADDENDUM: There is an NG tube in place overlapping the nasogastric tube on the image. The tip of the NG tube is at the level of the aortic arch in the proximal to mid thoracic esophagus. Side-port 3 cm below the thoracic inlet. Endotracheal tube tip is 9 cm above the long and 3 cm below the thoracic inlet. Julio Grove MD Abdomen X-Ray 08/09/16 0000 Signed Impressions: Service Date/Time: Tuesday, August 09, 2016 10:18 - CONCLUSION: Nonspecific bowel gas pattern. Julio Grove MD Chest X-Ray 08/08/16 1000 Signed Impressions: Service Date/Time: Monday, August 08, 2016 10:38 - CONCLUSION: Improved aeration. Murali Perdomo MD Chest X-Ray 08/07/16 0600 Signed Impressions: Service Date/Time: Sunday, August 07, 2016 04:57 - CONCLUSION: No significant change. Extensive bilateral infiltrates persist. Efrain Syed MD Chest X-Ray 08/06/16 0400 Signed Impressions: Service Date/Time: July 03:00 - CONCLUSION: No significant interval change with bilateral pulmonary infiltrates. Ronny Joshi MD Renal Ultrasound 08/05/16 1504 Signed Impressions: Service Date/Time: Friday, August 05, 2016 21:01 - CONCLUSION: 1. No evidence of obstruction or other acute renal abnormality. 2. Small, benign appearing cyst of the right kidney. 3. Witt catheter present. Efrain Syed MD Last Impressions Chest X-Ray 08/06/16 0400 Signed Impressions: Service Date/Time: July 03:00 - CONCLUSION: No significant interval change with bilateral pulmonary infiltrates. Ronny Joshi MD Renal Ultrasound 08/05/16 1504 Signed Impressions: Service Date/Time: Friday, August 05, 2016 21:01 - CONCLUSION: 1. No evidence of obstruction or other acute renal abnormality. 2. Small, benign appearing cyst of the right kidney. 3. Witt catheter present. Efrain Syed MD Physical Exam GENERAL: On the vent, on CPAP setting, awakens when stimulated, NAD SKIN: Cool and moist. No rash HEENT: [place] conjunctiva, no injection, no icterus. No nasal drainage. ET in mouth NECK: Trcahea midline, supple, not tender CARDIOVASCULAR: regular rate and rhythm without murmurs, gallops, or rubs. RESPIRATORY: Coarse BS delma GASTROINTESTINAL: Abdomen soft, BS (+) PEG site with dry dressing MUSCULOSKELETAL: Extremities without edema. NEUROLOGICAL: Sedated, on the vent PSYCH: Unable to fully assess LINE: LSC TLC with no evidence of infection : Witt cath in place, urine looks clear Assessment & Plan Remarks IMPRESSION Severe bilateral pneumonia, (+) Legionella Acute Respiratory failure, with significant hypoxemia. On vent. Hx anxiety/depression Leukocytosis - stable Renal failure, improving, good UO RECOMMENDATION Stop Zithromax Continue Levaquin, increase dose Follow clinically Monitor temps UA and C/S Weaning per CCM Kyleigh Nichols MD August 17, 2016 10:17
--- NOTE | 2016-08-17 10:35 | HHI.NPPN ---
Subjective General Problems: Edema Renal Failure: Chronic, Acute Interval History Off rotaprone bed. He is still intubated on CPAP trial, awake and follows commands intermittently. Hypokalemic this morning. (Marium Diana) Review of Systems General General Remarks unable to evaluate (Marium Diana) Objective Data Data 08/16/16 08/17/16 18:59 06:59 Intake Total 1850 ml 3124 ml Output Total 1950 ml 2300 ml Balance -100 ml 824 ml Intake IV Total 810 ml 1865 ml Tube Feeding 340 ml 659 ml Other 700 ml 600 ml Output Urine Total 1350 ml 2000 ml Stool Total 600 ml 300 ml Tube Feeding Residual Discard 0 ml Vital Signs Date Time Temp Pulse Resp B/P Pulse Ox O2 Delivery O2 Flow Rate FiO2 08/17/16 09:06 90 55 08/17/16 06:00 66 08/17/16 05:04 94 55 08/17/16 04:00 55 08/17/16 04:00 79 08/17/16 04:00 98.9 79 16 144/69 94 162/69 08/17/16 02:00 79 08/17/16 01:00 94 55 08/17/16 00:00 55 08/17/16 00:00 79 08/17/16 00:00 100.0 79 17 106/58 97 124/57 08/16/16 22:00 98 08/16/16 20:00 98.4 104 16 138/63 95 138/57 08/16/16 20:00 104 08/16/16 20:00 55 08/16/16 19:33 95 55 08/16/16 18:00 103 147/64 96 08/16/16 17:00 99 147/57 92 08/16/16 16:13 91 55 08/16/16 16:00 55 08/16/16 16:00 100 159/75 92 159/63 08/16/16 15:00 100.0 99 138/56 93 08/16/16 14:00 84 141/57 93 08/16/16 13:15 92 55 08/16/16 13:00 92 172/67 94 08/16/16 12:00 100.1 92 147/66 94 148/62 08/16/16 12:00 55 08/16/16 11:11 94 55 08/16/16 11:00 93 168/65 93 (Marium Diana) -: 08/17/16 0240 08/17/16 0240 Imaging Last 72 hours Impressions Chest X-Ray 08/17/16 0600 Signed Impressions: Service Date/Time: Wednesday, August 17, 2016 04:54 - CONCLUSION: Unchanged bilateral pulmonary infiltrates. Robin Wray Jr., MD Chest X-Ray 08/15/16 06 Signed Impressions: Service Date/Time: Monday, August 15, 2016 03:34 - CONCLUSION: Diffuse airspace disease with worsening disease in the lower lobes on current study. Perico Wahl MD Tubes & Lines: Witt Tubes & Lines Comment TLC PEG Drip Comment fentanyl, propofol, heparin (Marium Diana) Physical Exam General Appearance: No Acute Distress, Comfortable Appearance Remarks intubated, eyes open (Marium Diana) Throat Throat Remarks ETT (Marium Diana) Pulmonary Resp Exam: Breath Sounds Equal, Crackles, Rhonchi, Decreased Bases Resp Remarks vented lung sounds (Marium Diana) Cardiology CV Exam: Good Perfusion, Irregular (Marium Diana) Gastrointestinal/Abdomen GI Exam: Soft, Non-Tender GI Remarks + PEG (Marium Diana) Genitourinary Exam: Clear Urine, Flank Non-Tender (Marium Diana) Musculoskeletal MS Exam: Joints Intact, Normal Tone, Unable to Ambulate (Marium Diana) Integumentary Skin Exam: Warm, Dry (Marium Diana) Extremeties Extremities Exam: Pedal Pulses Palpable, Moderate Edema (Marium Diana) Neurologic Neuro Exam: Awake, Moving All Extremities (Marium Diana) VTE Prophylaxis Meds: Heparin (Marium Diana) Assessment/Plan Assessment Summary: CHAN/Acute Renal Failure, Fluid/Volume Overload Electrolyte Assessment: Hypokalemia Problem List: (1) Acute renal failure superimposed on stage 3 chronic kidney disease Plan: renal failure from sepsis and hypotension, possible dehydration; may have progressed to ATN renal function improved excellent urine output hypokalemic today, IV replacement ordered, follow up labs sodium has normalized, stop IVF (D5W) he is edematous, continue diuresis with Diuril BID continue Nepro tube feeding daily renal panel, avoid nephrotoxic medications. we will continue to follow (2) Acute respiratory failure Plan: vent management by wheel buffer, on CPAP trial extubate when able on 55% Fi02, PEEP 7 (3) Pneumonia Plan: Blood culture negative to date + legionella in urine, sputum negative, taken off isolation Abx include Levaquin and Zithromax. ID following (4) Hyperglycemia Plan: may be due to steroid use monitor glucose insulin if needed (5) A-fib Plan: on oral amiodarone and oral Lopressor had episode of SVT overnight (6) Hypernatremia Plan: corrected, stop IVF reduce free water with tube feeds 200 Q8H on diuril (Marium Diana) Plan patient was seen and examined. Renal function has improved. Hypernatremia has improved as well. Remains on the ventilator. He is more responsive. Agree with above assessment and plan. (Kevin Hernandez MD) Problem Qualifiers (1) Acute respiratory failure: Qualified Code: J96.01 - Acute respiratory failure with hypoxia and hypercapnia (2) Pneumonia: Qualified Code: J18.9 - Pneumonia of both lungs due to infectious organism, unspecified part of lung Marium Diana August 17, 2016 10:35 Kevin Hernandez MD August 17, 2016 16:27
[2016-08-17 12:19] LABS: BLOOD, URINE MOD (NEG); GLUCOSE,URINE NEG (NEG); KETONE, URINE NEG (NEG); MUCUS URINE FEW /lpf (OCC); NITRITE,URINE NEG (NEG); URINE COLOR YELLOW (YELLW/STRAW)
[2016-08-17 12:20] LABS: COMMENT (UR) CATH-CULT NOT IND; CULTURE IF INDICATED CATH CULTURE NOT IND
--- NOTE | 2016-08-17 13:34 | RADRPT ---
EXAM DATE/TIME: 08/17/2016 10:40 [facility] COMPARISON: No previous studies available for comparison. INDICATIONS : Bilateral arm swelling. MEDICAL HISTORY : Hypertension. Asthma. Sputum production. Dyspnea. Depression. Anxiety. Substance use. SURGICAL HISTORY : Right shoulder. ENCOUNTER: Initial ACUITY: 1 week PAIN SCORE: Non-responsive LOCATION: Bilateral arms. TECH NOTE: FINDINGS: RIGHT UPPER EXTREMITY: There is spontaneous flow documented in the brachial, basilic, cephalic, axillary, and subclavian vei ns. The vessels are compressible and augmentation response is documented. No filling defects are se en. The flow is phasic with respiration. Direction of flow in the jugular vein is caudal. LEFT UPPER EXTREMITY: There is spontaneous flow documented in the brachial, basilic, cephalic, axillary, and subclavian vei ns. The vessels are compressible and augmentation response is documented. No filling defects are se en. The flow is phasic with respiration. Direction of flow in the jugular vein is caudal. CONCLUSION: No DVT in either upper extremity Perico Wahl MD on August 17, 2016 at 13:22 Board Certified Radiologist. This report was verified electronically.
--- NOTE | 2016-08-17 13:36 | RADRPT ---
EXAM DATE/TIME: 08/17/2016 10:40 [facility] COMPARISON: US LEG BILATERAL VENOUS DOPPLER, August 11, 2016, 8:00. INDICATIONS : Bilateral leg swelling. MEDICAL HISTORY : Hypertension. Asthma. Sputum production. Dyspnea. Depression. Anxiety. Substance use. SURGICAL HISTORY : Right shoulder. ENCOUNTER: Initial ACUITY: 1 week PAIN SCORE: Non-responsive LOCATION: Bilateral leg. TECHNIQUE: Venous ultrasound of the left and right leg was performed from the inguinal ligament to the proximal calf. Real-time, color Doppler and spectral tracing, compression and augmentation techniques were us ed. FINDINGS: RIGHT LEG: Deep venous thrombosis is identified from the popliteal vein into mid femoral vein. LEFT LEG: There is normal compressibility of the deep venous system from the inguinal region to the proximal ca lf. No echogenic clot is seen in the lumen of the common femoral, femoral, popliteal, and posterior tibial veins. There is a normal response of the venous system to proximal and distal augmentation an d respiration. CONCLUSION: DVT on the right as described above. Jamie Blackwood MD FACR on August 17, 2016 at 13:21 Board Certified Radiologist. This report was verified electronically.
[2016-08-17] MEDS: LEVOFLOXACIN 500 MG IV SCH (17:36)
--- NOTE | 2016-08-17 19:11 | HHI.CCPN ---
Subjective Remarks/Hospital Course 08/04: 60 y/o man with several week history of weakness, fatigue; fevers and sweats over past week. Today with severe SOB, arrived by EMS with hypoxemia. CO2 retention as well in ED. Required intubation in ED. Creatinine > 3.0 and severely dehydrated. 08/05: Remains sedated, orally intubated on mechanical ventilation. He remains at PEEP+14, FiO2 decreased to 80%. Urine positive for Legionella Ag. Went into A. fib with RVR. 08/06: Remains sedated, orally intubated on mechanical ventilation. On neuromuscular blockade with Nimbex. Initiated on prone ventilation today. Switched to pressure control mode with positive inspiratory pressure +20, PEEP + 15, respiratory rate 20, I time 1.82 seconds, FiO2 70%.. On propofol/fentanyl/ Versed/Nimbex/amiodarone/ vasopressin drips. Jose-Synephrine titrated off following switching from APRV to pressure control mode mechanical ventilation and initiating proning. 08/07: Remains sedated, on neuromuscular blockade, orally intubated on prone ventilation. FiO2 decreased to 50%, PEEP remains at +15. On fentanyl/versed/ Nimbex/amiodarone/vasopressin drips. Jose-Synephrine on transiently today. Diuresed well with Bumex. 08/08: Remains sedated, on neuromuscular blockade, orally intubated on prone ventilation. FiO2 decreased to 45%, PEEP remains at +15. Attempting to place Dobb[place] to initiate tube feeds. Off Jose-Synephrine. Vasopressin being titrated down. 08/09: Remains sedated, orally intubated on prone ventilation. Remains on Nimbex for neuromuscular blockade. PEEP +15, FiO2 50%. Have been unable to place OG tube despite multiple attempts. 08/10: Remains sedated, orally intubated on neuromuscular blockade on prone ventilation. Attempts at keeping supine today however had progressively increasing FiO2 requirement. He was restarted on prone ventilation. He had a sudden episode of desaturation with dropping O2 sats to the 80s despite 100% FiO2. I time increased from 1.2 seconds to 1.8 seconds. He was immediately supined and a stat chest x-ray obtained which did not reveal any pneumothorax and essentially unchanged compared to previous chest x-ray with bilateral infiltrates. He was restarted on prone ventilation. Question of PE. We will initiate full anticoagulation with heparin. Will also check troponins and EKG when supine unless troponin elevated in which case we will get a stat EKG. 52: Remains sedated, orally intubated on neuromuscular blockade in prone ventilation. Had episode of loss of lung volumes with desaturation. Chest x- ray did not reveal any pneumothorax or atelectasis. Thick mucus suctioned out of the ET tube. Difficult to bag at times. ET tube was changed over a tube exchanger following which he had return of good volumes. ( It is possible that the pre-existing ET tube was getting occluded by debris or secretions which were somewhat cleared out by suctioning earlier.) GI postponed with G-tube placement due to unstable respiratory status until tomorrow and they will plan on doing a PEG tube if respiratory status permits. 08/12: Remains sedated, orally intubated on neuromuscular blockade on prone ventilation. Underwent PEG tube placement today. Start tube feeds in a.m. 08/13: Tmax 98.9. Tube feeds initiated this a.m.. Sodium level 155, free water flushes initiated. Slight improvement in ventilatory status. Plan to remain supine today, an attempt to wean ventilation settings. 08/14: The patient was transitioned off of the [place] prone bed. Neuromuscular blockade has been discontinued. FiO2 has been decreased to 40%. The patient has been transitioned to by mouth amiodarone. Patient continues on Nepro at 15 cc an hour with moderate residuals noted. 08/15: Patient's O2 requirements decreasing, PEEP now 7, FiO2 60%. Patient was transitioned to amiodarone PO yesterday, noted tachycardia HR 109. Metoprolol added to medication regimen. Patient was also noted to be hypertensive, when necessary antihypertensive medications added. 08/16: Tmax 101.2 . The patient has been febrile today, receiving Tylenol. Chest x-ray slightly worsened today bilateral lower lobes, placed on pressure control mode via mechanical ventilation The patient had 2 episodes of SVT last night with the rate in the 140s. The patient received beta blockers 2 doses with immediate resolution. Amiodarone was increased to 400 mg twice a day today. Versed was completely discontinued CPAP trials have been initiated. 08/17: The patient tolerated CPAP trials for over 4 hours yesterday. The patient is alert oriented responding by nodding to yes and no questions, following commands. The patient was noted to be hypokalemic potassium level 2.9, and was repleted. PT/OT initiated. Objective Vital Signs Date Time Temp Pulse Resp B/P Pulse Ox O2 Delivery O2 Flow Rate FiO2 08/17/16 18:00 104 08/17/16 16:30 93 55 08/17/16 16:00 99.2 16 155/73 160/66 Intake and Output 08/16/16 08/16/16 08/17/16 08:00 16:00 00:00 Intake Total 1002 ml 1550 ml 1752 ml Output Total 1050 ml 1950 ml 1100 ml Balance -48 ml -400 ml 652 ml Result Diagram: 08/17/16 0240 08/17/16 0240 Imaging Last Impressions Lower Extremity Ultrasound 08/11/16 0000 Signed Impressions: Service Date/Time: Thursday, August 11, 2016 08:00 - CONCLUSION: Normal examination. Efrain Deng MD Chest X-Ray 08/11/16 0000 Signed Impressions: Service Date/Time: Thursday, August 11, 2016 13:14 - CONCLUSION: Stable chest appearance. Efrain Deng MD Abdomen X-Ray 08/09/16 0000 Signed Impressions: Service Date/Time: Tuesday, August 09, 2016 10:18 - CONCLUSION: Nonspecific bowel gas pattern. Julio Grove MD Renal Ultrasound 08/05/16 1504 Signed Impressions: Service Date/Time: Friday, August 05, 2016 21:01 - CONCLUSION: 1. No evidence of obstruction or other acute renal abnormality. 2. Small, benign appearing cyst of the right kidney. 3. Witt catheter present. Efrain Syed MD Last 24 hours Impressions Chest X-Ray 08/08/16 1000 Signed Impressions: Service Date/Time: Monday, August 08, 2016 10:38 - CONCLUSION: Improved aeration. Murali Perdomo MD Abdomen X-Ray 08/08/16 0000 Signed Impressions: Service Date/Time: Monday, August 08, 2016 10:38 - CONCLUSION: No evidence of obstruction. Murali Perdomo MD Last 24 hours Impressions Chest X-Ray 08/07/16 0600 Signed Impressions: Service Date/Time: Sunday, August 07, 2016 04:57 - CONCLUSION: No significant change. Extensive bilateral infiltrates persist. Efrain Syed MD Last 24 hours Impressions Chest X-Ray 08/06/16 0400 Signed Impressions: Service Date/Time: July 03:00 - CONCLUSION: No significant interval change with bilateral pulmonary infiltrates. Ronny Joshi MD Last Impressions Chest X-Ray 08/04/16 1832 Signed Impressions: Service Date/Time: Thursday, August 04, 2016 18:50 - CONCLUSION: Extensive bilateral airspace disease greater in the left lung. There may be pneumomediastinum. Perico Wahl MD Objective Remarks BP 164/92 P 92 O2 sat 93% Infusions: Propofol 22 mcgs Fentanyl 50 mcgs Heparin 2000u Gen: Elderly male, sedated for ventilator synchrony orally intubated on mechanical ventilation, responsive HEENT: Positive pallor, no icterus. Orally intubated. Mucosa moist. Neck: Supple, orally intubated. Lungs: Orally intubated on mechanical ventilation, clear to auscultation bilaterally Heart: NL S1S2 regularly regular, no JVD. Abdomen: Soft, NT, ND, no guarding. PEG tube in place Extremities: Warm bilaterally, no edema Neuro: RASS -1, GCS 11T on mechanical ventilation. Line: Central Venous Catheter A/P Assessment and Plan Assessment: 1. Septic shock 2. Acute Respiratory Failure on mechanical ventilation 3. Legionella Pneumonia 4. ARDS 5. CKD with CHAN 6. A. fib with RVR (converted to RSR) 7. Hx depression with recent ECT 2016 8. Suspected PE Neuro: Continue sedation with Versed,fentanyl, and propofol 4 for ventilator synchrony. Plan to wean Versed off Begin daily sedation vacation 08/15 Cardiovascular: Transitioned to Amiodarone, PO 08/14. Phenylephrine discontinued . Vasopressin discontinued 08/13 Metoprolol increased to 25 mg twice a day 08/10 - 2-D echo with minimally depressed LV and RV function, ejection fraction 4550%, tricuspid valve mild regurgitation Pulmonary: Continue mechanical ventilation, AC/PC PIP +20, PEEP +7, respiratory rate 20, FiO2 60%, inspiratory time 1.8 seconds Vent bundle, bronchodilators, pulmonary toilet.Neuromuscular Blockade discontinued 08/14 Worsening hypoxia noted on 08/10. Lung mechanics unchanged essentially. Question of PE, continue full anticoagulation with heparin. Follow-up repeat venous ultrasound Doppler of lower extremities 08/14 Rotaprone discontinued GI/liver: Unable to place OG tube despite multiple attempts. consulted GI. GI placed PEG on 08/12. Start tube feeds on 08/13. Renal/: D5 water at 60 cc an hour for hypernatremia, strict intake output, monitor and replete electrolytes, follow BUN/creatinine. Nephrology following for CHAN/CKD. Given glucose/insulin for hyperkalemia. Started on Diuril by nephrology. 08/13: Free water flushes started 300 cc every 6 hours Heme: Follow CBC. Full anticoagulation with heparin for suspected PE. Monitor PTT ID: Continue antibiotic coverage with IV Levaquin Zithromax. Cefepime stopped on 08/07 per ID. ID following. Urine positive for Legionella antigen. Endocrine: SSI for glycemic control. Tapering stress dose hydrocortisone. Prophylaxis: PPI/SCDs/ Lovenox (held) and started full anticoagulation with heparin on 08/10 for suspected PE. Repeat ultrasound bilateral upper and lower extremities 08/17 follow-up results This patient remains critically ill with one or more organ systems which are or may become a threat to life. I have spent in excess of 33 minutes discontinuously in the care and management of this patient. This time is exclusive of procedures, and includes, but is not limited to, evaluation of the patient, review of the medical record, discussions with family, consultants, nursing staff, or respiratory therapy, and documentation in the medical record. Remains critical with severe ARDS secondary to Legionella pneumonia and approximately respiratory failure Physician Danica Asif MD August 17, 2016 19:11
[2016-08-17 21:37] LABS: BLOOD GAS BASE EXCESS 6.3 mmol/L (-2-2); BLOOD GAS CARBOXYHEMOGLOBIN 0.9 % (0-4); BLOOD GAS HCO3 31 mmol/L (22-26); BLOOD GAS METHEMOGLOBIN 1.5 % (0-2); BLOOD GAS O2 HGB SATURATION 96 % (90-100); BLOOD GAS OXYGEN CONTENT 20.4 Vol % (12.0-20.0); BLOOD GAS PCO2 47 mmHg (38-42); BLOOD GAS PO2 118 mmHg (61-120); BLOOD GAS TOTAL HGB 15.1 G/DL (12.0-16.0); TEMP CORR TO 98.6
[2016-08-17 21:38] LABS: CRITICAL VALUE NO; OXYGEN DEVICE VENT
[2016-08-17 21:39] LABS: DRAW SITE ALINE; FIO2 55 %; STAT NO; ULNAR PULSE PRESENT
[2016-08-18] VITALS (26 sets, daily range): BP systolic 96–191; BP diastolic 39–80; PULSE 77–115; RESP 16–22; TEMP 98.7–100.1; O2SAT 90–96
[2016-08-18] MEDS: CHLORHEXIDINE GLUCONATE 2 % 1 PACK (2 CLOTHS) TOP SCH (01:00)
[2016-08-18] MEDS: METOCLOPRAMIDE HCL 10 MG/2 ML VIAL IV PUSH SCH ×4 (01:00→23:34)
[2016-08-18] MEDS: PROPOFOL 1000 MG/100 ML INJ 100 ML IV SCH ×5 (01:39→23:08)
[2016-08-18] MEDS: METOPROLOL TARTRATE 5 MG/5 ML VIAL IV PUSH PRN ×2 (02:02→07:49)
[2016-08-18] MEDS: hydrALAZINE HCL 20 MG/ML VIAL IV PUSH PRN ×2 (03:26→14:00)
[2016-08-18] MEDS: FREE WATER G-TUBE SCH ×3 (03:27→20:00)
[2016-08-18 04:08] LABS: APTT (PATIENT) 43.9 SEC (24.3-30.1)
[2016-08-18 04:16] LABS: HEMATOCRIT 28.4 % (39.0-51.0); MEAN CELL VOLUME 94.8 FL (80.0-100.0); MEAN CORPUSCULAR HEMOGLOBIN 32.7 PG (27.0-34.0); MEAN CORPUSCULAR HGB CONC 34.5 % (32.0-36.0); PLATELET COUNT 185 TH/MM3 (150-450); RED BLOOD COUNT 2.99 MIL/MM3 (4.50-5.90); RED CELL DISTRIBUTION WIDTH 14.4 % (11.6-17.2); REVIEW FLAG FINAL; WHITE BLOOD COUNT 10.4 TH/MM3 (4.0-11.0)
[2016-08-18 04:31] LABS: MAGNESIUM 2.1 MG/DL (1.5-2.5)
[2016-08-18] MEDS: HEPARIN-D5W INJ 250 ML IV SCH ×2 (05:07→16:14)
[2016-08-18] MEDS: fentaNYL DRIP 250 ML IV SCH ×2 (05:08→23:34)
[2016-08-18] MEDS: INSULIN ASPART SUPPLEMENTAL SCALE SQ SCH ×5 (05:58→23:08)
--- NOTE | 2016-08-18 06:57 | RADRPT ---
EXAM DATE/TIME: 08/18/2016 06:03 [facility] COMPARISON: CHEST SINGLE AP, August 17, 2016, 4:54. INDICATIONS : Shortness of breath. MEDICAL HISTORY : None. SURGICAL HISTORY : None. ENCOUNTER: Subsequent ACUITY: 2 weeks PAIN SCORE: 0/10 LOCATION: Bilateral chest FINDINGS: A single portable frontal view of the chest shows some improvement in the bilateral pulmonary consoli dations. Tip of the endotracheal tube 5 cm from the long. Left subclavian central line. Mild cardio megaly. CONCLUSION: Some improvement in the bilateral pulmonary infiltrates. Robin Wray Jr., MD on August 18, 2016 at 6:55 Board Certified Radiologist. This report was verified electronically.
[2016-08-18] MEDS: CHLORHEXIDINE 0.12% (ORAL KIT) 15 ML CUP MT SCH ×2 (07:49→21:31)
[2016-08-18] MEDS: PANTOPRAZOLE SODIUM 40 MG VIAL IV SCH (07:49)
[2016-08-18] MEDS: LACTULOSE SYRUP 20 GM/30 ML CUP PO SCH (07:49)
[2016-08-18] MEDS: METOPROLOL TARTRATE 25 MG TAB PO SCH ×2 (07:50→21:32)
[2016-08-18] MEDS: AMIODARONE 200 MG TAB PO SCH ×2 (07:50→21:31)
[2016-08-18] MEDS: HYDROCORTISONE SOD SUCCINATE 100 MG VIAL IV PUSH SCH ×2 (07:50→21:31)
[2016-08-18] MEDS: ARTIFICIAL TEARS OPTH SOLN 15 ML BTL EACH EYE SCH ×3 (07:50→16:15)
[2016-08-18 08:03] LABS: ALKALINE PHOSPHATASE 76 U/L (45-117); ALT (GPT) 70 U/L (12-78); ANION GAP 9 MEQ/L (5-15); AST (GOT) 45 U/L (15-37); BICARBONATE 32.2 MEQ/L (21.0-32.0); BLOOD UREA NITROGEN 29 MG/DL (7-18); CHLORIDE 103 MEQ/L (98-107); GLOMERULAR FILTRATION RATE 54 ML/MIN (>89); POTASSIUM 3.3 MEQ/L (3.5-5.1); SODIUM (NA) 144 MEQ/L (136-145); TOTAL BILIRUBIN ADULT 0.4 MG/DL (0.2-1.0)
[2016-08-18] MEDS: CHLOROTHIAZIDE SOD 500 MG VIAL IV SCH ×2 (09:00→23:12)
--- NOTE | 2016-08-18 09:44 | HHI.NPPN ---
Subjective General Problems: Edema Renal Failure: Chronic, Acute Interval History Remains intubated, follows some commands. Demonstrating fluid overload. Excellent urine output. (Marium Diana) Review of Systems General General Remarks unable to evaluate (Marium Diana) Objective Data Data 08/17/16 08/18/16 19:00 07:00 Intake Total 2087 ml 2332 ml Output Total 1525 ml 1700 ml Balance 562 ml 632 ml Intake IV Total 1190 ml 1209 ml Tube Feeding 497 ml 623 ml Other 400 ml 500 ml Output Urine Total 1425 ml 1650 ml Stool Total 100 ml 50 ml Tube Feeding Residual Discard 0 ml 0 ml Vital Signs Date Time Temp Pulse Resp B/P Pulse Ox O2 Delivery O2 Flow Rate FiO2 08/18/16 08:52 55 08/18/16 08:47 95 55 08/18/16 06:00 83 08/18/16 04:51 93 55 08/18/16 04:00 78 08/18/16 04:00 55 08/18/16 04:00 100.1 78 16 106/51 93 96/39 08/18/16 02:00 91 08/18/16 01:21 94 55 08/18/16 00:06 94 55 08/18/16 00:00 55 08/18/16 00:00 99.2 85 16 140/69 94 162/63 08/18/16 00:00 85 08/17/16 22:00 94 08/17/16 20:00 96 08/17/16 20:00 55 08/17/16 20:00 100.3 96 16 133/61 94 135/57 08/17/16 18:00 104 08/17/16 16:30 93 55 08/17/16 16:00 55 08/17/16 16:00 99.2 98 16 155/73 93 160/66 08/17/16 16:00 98 08/17/16 14:00 104 08/17/16 12:43 92 55 08/17/16 12:00 98.7 103 16 170/82 91 190/75 08/17/16 12:00 103 08/17/16 12:00 55 08/17/16 10:00 93 (Marium Diana) -: 08/18/16 0255 08/18/16 0255 Imaging Last 72 hours Impressions Chest X-Ray 08/18/16599 Signed Impressions: Service Date/Time: Thursday, August 18, 2016 06:03 - CONCLUSION: Some improvement in the bilateral pulmonary infiltrates. Robin Wray Jr., MD Upper Extremity Ultrasound 08/17/16899 Signed Impressions: Service Date/Time: Wednesday, August 17, 2016 10:40 - CONCLUSION: No DVT in either upper extremity Perico Wahl MD Lower Extremity Ultrasound 08/17/16899 Signed Impressions: Service Date/Time: Wednesday, August 17, 2016 10:40 - CONCLUSION: DVT on the right as described above. Jamie Blackwood MD FACR Chest X-Ray 08/17/16599 Signed Impressions: Service Date/Time: Wednesday, August 17, 2016 04:54 - CONCLUSION: Unchanged bilateral pulmonary infiltrates. Robin Wray Jr., MD Tubes & Lines: Witt Tubes & Lines Comment TLC L subclavian , A line right radial, PEG Drip Comment fentanyl, propofol, heparin (Marium Diana) Physical Exam General Appearance: No Acute Distress, Comfortable Appearance Remarks intubated, eyes open (Marium Diana BJackie HUDSON) Eyes Eye Exam: Pupils Equal, Pupils Reactive (Marium Diana BJackie HUDSON) Throat Throat Remarks ETT (Marium Diana BJackie HUDSON) Pulmonary Resp Exam: Breath Sounds Equal, Crackles, Rhonchi, Decreased Bases Resp Remarks vented lung sounds , wheezing throughout (Marium Diana BJackie HUDSON) Cardiology CV Exam: Good Perfusion, Irregular (Marium Diana BJackie HUDSON) Gastrointestinal/Abdomen GI Exam: Soft, Non-Tender GI Remarks + PEG (Marium Diana B. GROUP SALES REPRESENTATIVE) Genitourinary Exam: Clear Urine, Flank Non-Tender (Marium Diana BJackie HUDSON) Musculoskeletal MS Exam: Joints Intact, Normal Tone, Unable to Ambulate (Marium Diana BJackie HUDSON) Integumentary Skin Exam: Warm, Dry (Marium Diana) Extremeties Extremities Exam: Pedal Pulses Palpable, Moderate Edema (Marium Diana) Neurologic Neuro Exam: Awake, Moving All Extremities (Marium Diana) VTE Prophylaxis Device: SCDs Meds: Heparin (Marium Diana) Assessment/Plan Assessment Summary: CHAN/Acute Renal Failure, Fluid/Volume Overload Electrolyte Assessment: Hypokalemia Problem List: (1) Acute renal failure superimposed on stage 3 chronic kidney disease Plan: renal failure from sepsis and hypotension, possible dehydration; may have progressed to ATN renal function relatively stable excellent urine output improving hypokalemia, continue IV replacement and follow up labs off IVF he is edematous, continue diuresis with Diuril, also given a dose of Bumex, monitor response continue Nepro tube feeding daily renal panel, avoid nephrotoxic medications. we will continue to follow (2) Acute respiratory failure Plan: vent management by full stack php developer, tolerated CPAP trial yesterday extubate when able on A/C 16/500/55/7 (3) Pneumonia Plan: Blood culture negative to date + legionella in urine, sputum negative, taken off isolation Abx include Levaquin ID following (4) Hyperglycemia Plan: may be due to steroid use monitor glucose insulin if needed (5) A-fib Plan: on oral amiodarone and oral Lopressor (6) Hypernatremia Plan: corrected, stop IVF on reduced rate of free water with tube feeds, 200 Q8H on diuril (Marium Diana) Plan patient was seen and examined. Renal function is stable. One dose of Bumex today. Continue Diuril. Avoid nephrotoxic agents. (Kevin Hernandez MD) Problem Qualifiers (1) Acute respiratory failure: Qualified Code: J96.01 - Acute respiratory failure with hypoxia and hypercapnia (2) Pneumonia: Qualified Code: J18.9 - Pneumonia of both lungs due to infectious organism, unspecified part of lung Marium Diana August 18, 2016 09:44 Kevin Hernandez MD August 18, 2016 14:02
[2016-08-18] MEDS ORDERED: BUMETANIDE INJ 1 MG/4 ML VIAL IV PUSH ONE (10:15)
[2016-08-18] MEDS ORDERED: POTASSIUM CHLORIDE 25 MEQ EFFERVESCENT TAB PO ONE (11:15)
--- NOTE | 2016-08-18 13:33 | HHI.IDPN ---
Subjective Subjective Remarks is a 60 y/o Male with h/o Asthma, admitted with severe sepsis, Legionella pneumonia s/p Rotabed. 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 Vital Signs Date Time Temp Pulse Resp B/P Pulse Ox O2 Delivery O2 Flow Rate FiO2 08/18/16 13:07 55 08/18/16 11:30 95 55 08/18/16 10:00 78 08/18/16 08:52 55 08/18/16 08:47 95 55 08/18/16 08:00 99.0 77 16 145/71 96 172/67 08/18/16 08:00 55 08/18/16 08:00 77 08/18/16 06:00 83 08/18/16 04:51 93 55 08/18/16 04:00 78 08/18/16 04:00 55 08/18/16 04:00 100.1 78 16 106/51 93 96/39 08/18/16 02:00 91 08/18/16 01:21 94 55 08/18/16 00:06 94 55 08/18/16 00:00 55 08/18/16 00:00 99.2 85 16 140/69 94 162/63 08/18/16 00:00 85 08/17/16 22:00 94 08/17/16 20:00 96 08/17/16 20:00 55 08/17/16 20:00 100.3 96 16 133/61 94 135/57 08/17/16 18:00 104 08/17/16 16:30 93 55 08/17/16 16:00 55 08/17/16 16:00 99.2 98 16 155/73 93 160/66 08/17/16 16:00 98 08/17/16 14:00 104 08/17/16 08/17/16 08/18/16 14:59 22:59 06:59 Intake Total 2087 ml 1267 ml 1065 ml Output Total 1525 ml 700 ml 1000 ml Balance 562 ml 567 ml 65 ml Intake IV Total 1190 ml 659 ml 550 ml Tube Feeding 497 ml 308 ml 315 ml Other 400 ml 300 ml 200 ml Output Urine Total 1425 ml 700 ml 950 ml Stool Total 100 ml 50 ml Tube Feeding Residual Discard 0 ml 0 ml . Laboratory Tests Test 08/17/16 08/18/16 02:40 02:55 White Blood Count 11.2 TH/MM3 10.4 TH/MM3 Red Blood Count 3.27 MIL/MM3 2.99 MIL/MM3 Hemoglobin 10.1 GM/DL 9.8 GM/DL Hematocrit 31.0 % 28.4 % Mean Corpuscular Volume 94.7 FL 94.8 FL Mean Corpuscular Hemoglobin 30.9 PG 32.7 PG Mean Corpuscular Hemoglobin 32.6 % 34.5 % Concent Red Cell Distribution Width 14.3 % 14.4 % Platelet Count 187 TH/MM3 185 TH/MM3 Mean Platelet Volume 8.7 FL 8.8 FL Neutrophils (%) (Auto) 89.3 % Lymphocytes (%) (Auto) 3.7 % Monocytes (%) (Auto) 6.3 % Eosinophils (%) (Auto) 0.4 % Basophils (%) (Auto) 0.3 % Neutrophils # (Auto) 10.0 TH/MM3 Lymphocytes # (Auto) 0.4 TH/MM3 Monocytes # (Auto) 0.7 TH/MM3 Eosinophils # (Auto) 0.0 TH/MM3 Basophils # (Auto) 0.0 TH/MM3 CBC Comment DIFF FINAL Differential Comment Laboratory Tests Test 08/16/16 08/17/16 08/18/16 15:40 02:40 02:55 Magnesium Level 1.9 MG/DL 2.1 MG/DL Sodium Level 143 MEQ/L 144 MEQ/L Potassium Level 2.9 MEQ/L 3.3 MEQ/L Chloride Level 104 MEQ/L 103 MEQ/L Carbon Dioxide Level 33.2 MEQ/L 32.2 MEQ/L Anion Gap 6 MEQ/L 9 MEQ/L Blood Urea Nitrogen 30 MG/DL 29 MG/DL Creatinine 1.24 MG/DL 1.34 MG/DL Estimat Glomerular Filtration 59 ML/MIN 54 ML/MIN Rate Random Glucose 148 MG/DL 133 MG/DL Calcium Level 8.0 MG/DL 7.9 MG/DL Phosphorus Level 3.0 MG/DL 3.5 MG/DL Total Bilirubin 0.4 MG/DL Aspartate Amino Transf 45 U/L (AST/SGOT) Alanine Aminotransferase 70 U/L (ALT/SGPT) Alkaline Phosphatase 76 U/L Total Protein 5.7 GM/DL Albumin 1.5 GM/DL Imaging Chest X-Ray 08/17/16 0600 Signed Impressions: Service Date/Time: Wednesday, August 17, 2016 04:54 - CONCLUSION: Unchanged bilateral pulmonary infiltrates. Robin Wray Jr., MD Chest X-Ray 08/15/16 0600 Signed Impressions: Service Date/Time: Monday, August 15, 2016 03:34 - CONCLUSION: Diffuse airspace disease with worsening disease in the lower lobes on current study. Perico Wahl MD Lower Extremity Ultrasound 08/11/16 0000 Signed Impressions: Service Date/Time: Thursday, August 11, 2016 08:00 - CONCLUSION: Normal examination. Efrain Deng MD Chest X-Ray 08/11/16 0000 Signed Impressions: Service Date/Time: Thursday, August 11, 2016 13:14 - CONCLUSION: Stable chest appearance. Efrain Deng MD Chest X-Ray 08/11/16 0000 Signed Impressions: Service Date/Time: Thursday, August 11, 2016 12:25 - CONCLUSION: 1. Stable patchy infiltrates bilaterally consistent with pneumonia and/or pulmonary edema. Clinical correlation is recommended. 2. Tiny bilateral pleural effusions. Franck Betancourt MD Lower Extremity Ultrasound 08/11/16 0000 Signed Impressions: Service Date/Time: Thursday, August 11, 2016 08:00 - CONCLUSION: Normal examination. Efrain Deng MD Chest X-Ray 08/10/16 0000 Signed Impressions: Service Date/Time: Wednesday, August 10, 2016 15:39 - CONCLUSION: Slight worsening in aeration Efrain Deng MD Chest X-Ray 08/09/16 0000 Signed Impressions: Service Date/Time: Tuesday, August 09, 2016 07:51 - CONCLUSION: Endotracheal tube tip now 2 cm above the long. No change in patchy bilateral pulmonary parenchymal opacity. Julio Grove MD ADDENDUM: There is an NG tube in place overlapping the nasogastric tube on the image. The tip of the NG tube is at the level of the aortic arch in the proximal to mid thoracic esophagus. Side-port 3 cm below the thoracic inlet. Endotracheal tube tip is 9 cm above the long and 3 cm below the thoracic inlet. Julio Grove MD Abdomen X-Ray 08/09/16 0000 Signed Impressions: Service Date/Time: Tuesday, August 09, 2016 10:18 - CONCLUSION: Nonspecific bowel gas pattern. Julio Grove MD Chest X-Ray 08/08/16 1000 Signed Impressions: Service Date/Time: Monday, August 08, 2016 10:38 - CONCLUSION: Improved aeration. Murali Perdomo MD Chest X-Ray 08/07/16 0600 Signed Impressions: Service Date/Time: Sunday, August 07, 2016 04:57 - CONCLUSION: No significant change. Extensive bilateral infiltrates persist. Efrain Syed MD Chest X-Ray 08/06/16 0400 Signed Impressions: Service Date/Time: July 03:00 - CONCLUSION: No significant interval change with bilateral pulmonary infiltrates. Ronny Joshi MD Renal Ultrasound 08/05/16 1504 Signed Impressions: Service Date/Time: Friday, August 05, 2016 21:01 - CONCLUSION: 1. No evidence of obstruction or other acute renal abnormality. 2. Small, benign appearing cyst of the right kidney. 3. Witt catheter present. Efrain Syed MD Last Impressions Chest X-Ray 08/06/16 0400 Signed Impressions: Service Date/Time: July 03:00 - CONCLUSION: No significant interval change with bilateral pulmonary infiltrates. Ronny Joshi MD Renal Ultrasound 08/05/16 1504 Signed Impressions: Service Date/Time: Friday, August 05, 2016 21:01 - CONCLUSION: 1. No evidence of obstruction or other acute renal abnormality. 2. Small, benign appearing cyst of the right kidney. 3. Witt catheter present. Efrain Syed MD Physical Exam GENERAL: On the vent, NAD SKIN: Cool and moist. No rash HEENT: [place] conjunctiva, no injection, no icterus. MOist mucosa. ET in mouth NECK: Supple, not tender. Trachea midline CARDIOVASCULAR: regular rate and rhythm without murmurs, gallops, or rubs. RESPIRATORY: Bilateral rhonchi GASTROINTESTINAL: Abdomen soft, BS (+) PEG site with dry dressing MUSCULOSKELETAL: Extremities without edema. NEUROLOGICAL: Sedated, on the vent PSYCH: Unable to fully assess LINE: LSC TLC with no evidence of infection : Witt cath in place, urine looks clear Assessment & Plan Remarks IMPRESSION Severe bilateral pneumonia, (+) Legionella Acute Respiratory failure, with significant hypoxemia. On vent. Hx anxiety/depression Leukocytosis - stable Renal failure, improving, good UO RECOMMENDATION Continue Levaquin repeat sputum G/S C/S Follow clinically Monitor temps Weaning per CCM Kyleigh Nichols MD August 18, 2016 13:32
--- NOTE | 2016-08-18 15:35 | HHI.CCPN ---
Subjective Remarks/Hospital Course 08/04: 60 y/o man with several week history of weakness, fatigue; fevers and sweats over past week. Today with severe SOB, arrived by EMS with hypoxemia. CO2 retention as well in ED. Required intubation in ED. Creatinine > 3.0 and severely dehydrated. 08/05: Remains sedated, orally intubated on mechanical ventilation. He remains at PEEP+14, FiO2 decreased to 80%. Urine positive for Legionella Ag. Went into A. fib with RVR. 08/06: Remains sedated, orally intubated on mechanical ventilation. On neuromuscular blockade with Nimbex. Initiated on prone ventilation today. Switched to pressure control mode with positive inspiratory pressure +20, PEEP + 15, respiratory rate 20, I time 1.82 seconds, FiO2 70%.. On propofol/fentanyl/ Versed/Nimbex/amiodarone/ vasopressin drips. Jose-Synephrine titrated off following switching from APRV to pressure control mode mechanical ventilation and initiating proning. 08/07: Remains sedated, on neuromuscular blockade, orally intubated on prone ventilation. FiO2 decreased to 50%, PEEP remains at +15. On fentanyl/versed/ Nimbex/amiodarone/vasopressin drips. Jose-Synephrine on transiently today. Diuresed well with Bumex. 08/08: Remains sedated, on neuromuscular blockade, orally intubated on prone ventilation. FiO2 decreased to 45%, PEEP remains at +15. Attempting to place Dobbhoff to initiate tube feeds. Off Jose-Synephrine. Vasopressin being titrated down. 08/09: Remains sedated, orally intubated on prone ventilation. Remains on Nimbex for neuromuscular blockade. PEEP +15, FiO2 50%. Have been unable to place OG tube despite multiple attempts. 08/10: Remains sedated, orally intubated on neuromuscular blockade on prone ventilation. Attempts at keeping supine today however had progressively increasing FiO2 requirement. He was restarted on prone ventilation. He had a sudden episode of desaturation with dropping O2 sats to the 80s despite 100% FiO2. I time increased from 1.2 seconds to 1.8 seconds. He was immediately supined and a stat chest x-ray obtained which did not reveal any pneumothorax and essentially unchanged compared to previous chest x-ray with bilateral infiltrates. He was restarted on prone ventilation. Question of PE. We will initiate full anticoagulation with heparin. Will also check troponins and EKG when supine unless troponin elevated in which case we will get a stat EKG. 52: Remains sedated, orally intubated on neuromuscular blockade in prone ventilation. Had episode of loss of lung volumes with desaturation. Chest x- ray did not reveal any pneumothorax or atelectasis. Thick mucus suctioned out of the ET tube. Difficult to bag at times. ET tube was changed over a tube exchanger following which he had return of good volumes. ( It is possible that the pre-existing ET tube was getting occluded by debris or secretions which were somewhat cleared out by suctioning earlier.) GI postponed with G-tube placement due to unstable respiratory status until tomorrow and they will plan on doing a PEG tube if respiratory status permits. 08/12: Remains sedated, orally intubated on neuromuscular blockade on prone ventilation. Underwent PEG tube placement today. Start tube feeds in a.m. 08/13: Tmax 98.9. Tube feeds initiated this a.m.. Sodium level 155, free water flushes initiated. Slight improvement in ventilatory status. Plan to remain supine today, an attempt to wean ventilation settings. 08/14: The patient was transitioned off of the [place] prone bed. Neuromuscular blockade has been discontinued. FiO2 has been decreased to 40%. The patient has been transitioned to by mouth amiodarone. Patient continues on Nepro at 15 cc an hour with moderate residuals noted. 08/15: Patient's O2 requirements decreasing, PEEP now 7, FiO2 60%. Patient was transitioned to amiodarone PO yesterday, noted tachycardia HR 109. Metoprolol added to medication regimen. Patient was also noted to be hypertensive, when necessary antihypertensive medications added. 08/16: Tmax 101.2 . The patient has been febrile today, receiving Tylenol. Chest x-ray slightly worsened today bilateral lower lobes, placed on pressure control mode via mechanical ventilation The patient had 2 episodes of SVT last night with the rate in the 140s. The patient received beta blockers 2 doses with immediate resolution. Amiodarone was increased to 400 mg twice a day today. Versed was completely discontinued CPAP trials have been initiated. 08/17: The patient tolerated CPAP trials for over 4 hours yesterday. The patient is alert oriented responding by nodding to yes and no questions, following commands. The patient was noted to be hypokalemic potassium level 2.9, and was repleted. PT/OT initiated. 08/18: The patient unable to tolerate CPAP trial today. The patient was noted to be hypertensive despite metoprolol dosage being increased, will increase frequency. Chest x-ray showed improvement. Objective Vital Signs Date Time Temp Pulse Resp B/P Pulse Ox O2 Delivery O2 Flow Rate FiO2 08/18/16 14:00 97 08/18/16 14:00 172/80 93 191/75 08/18/16 13:07 55 08/18/16 12:00 98.7 08/18/16 08:00 16 Intake and Output 08/17/16 08/17/16 08/18/16 08:00 16:00 00:00 Intake Total 1672 ml 2087 ml 1267 ml Output Total 1200.0 ml 1525 ml 700 ml Balance 472.0 ml 562 ml 567 ml Result Diagram: 08/18/16 0255 08/18/16 0255 Other Results Laboratory Tests Test 08/17/16 21:27 Blood Gas Puncture Site GURMEET Blood Gas Patient Temperature 98.6 Blood Gas HCO3 31 mmol/L (22-26) Blood Gas Base Excess 6.3 mmol/L (-2-2) Blood Gas Oxygen Saturation 96 % (90-100) Arterial Blood pH 7.43 (7.380-7.420) Arterial Blood Partial 47 mmHg (38-42) Pressure CO2 Arterial Blood Partial 118 mmHg Pressure O2 (61-120) Arterial Blood Oxygen Content 20.4 Vol % (12.0-20.0) Arterial Blood 0.9 % (0-4) Carboxyhemoglobin Arterial Blood Methemoglobin 1.5 % (0-2) Blood Gas Hemoglobin 15.1 G/DL (12.0-16.0) Oxygen Delivery Device VENT Blood Gas Ventilator Setting Blood Gas Inspired Oxygen 55 % Imaging Last Impressions Lower Extremity Ultrasound 08/11/16 0000 Signed Impressions: Service Date/Time: Thursday, August 11, 2016 08:00 - CONCLUSION: Normal examination. Efrain Deng MD Chest X-Ray 08/11/16 0000 Signed Impressions: Service Date/Time: Thursday, August 11, 2016 13:14 - CONCLUSION: Stable chest appearance. Efrain Deng MD Abdomen X-Ray 08/09/16 0000 Signed Impressions: Service Date/Time: Tuesday, August 09, 2016 10:18 - CONCLUSION: Nonspecific bowel gas pattern. Julio Grove MD Renal Ultrasound 08/05/16 1504 Signed Impressions: Service Date/Time: Friday, August 05, 2016 21:01 - CONCLUSION: 1. No evidence of obstruction or other acute renal abnormality. 2. Small, benign appearing cyst of the right kidney. 3. Witt catheter present. Efrain Syed MD Last 24 hours Impressions Chest X-Ray 08/08/16 1000 Signed Impressions: Service Date/Time: Monday, August 08, 2016 10:38 - CONCLUSION: Improved aeration. Murali Perdomo MD Abdomen X-Ray 08/08/16 0000 Signed Impressions: Service Date/Time: Monday, August 08, 2016 10:38 - CONCLUSION: No evidence of obstruction. Murali Perdomo MD Last 24 hours Impressions Chest X-Ray 08/07/16 0600 Signed Impressions: Service Date/Time: Sunday, August 07, 2016 04:57 - CONCLUSION: No significant change. Extensive bilateral infiltrates persist. Efrain Syed MD Last 24 hours Impressions Chest X-Ray 08/06/16 0400 Signed Impressions: Service Date/Time: July 03:00 - CONCLUSION: No significant interval change with bilateral pulmonary infiltrates. Ronny Joshi MD Last Impressions Chest X-Ray 08/04/16 1832 Signed Impressions: Service Date/Time: Thursday, August 04, 2016 18:50 - CONCLUSION: Extensive bilateral airspace disease greater in the left lung. There may be pneumomediastinum. Perico Wahl MD Objective Remarks BP 172/80 P 92 O2 sat 93% Infusions: Propofol 22 mcgs Fentanyl 250 mcgs Heparin 2000u Gen: Elderly male, sedated for ventilator synchrony orally intubated on mechanical ventilation, responsive HEENT: Positive pallor, no icterus. Orally intubated. Mucosa moist. Neck: Supple, orally intubated. Lungs: Orally intubated on mechanical ventilation, clear to auscultation bilaterally Heart: NL S1S2 regularly regular, no JVD. Abdomen: Soft, NT, ND, no guarding. PEG tube in place Extremities: Warm bilaterally, no edema Neuro: RASS -1, GCS 11T on mechanical ventilation. Line: Central Venous Catheter A/P Assessment and Plan Assessment: 1. Septic shock 2. Acute Respiratory Failure on mechanical ventilation 3. Legionella Pneumonia 4. ARDS 5. CKD with CHAN 6. A. fib with RVR (converted to RSR) 7. Hx depression with recent ECT 2016 8. Suspected PE Neuro: Continue sedation with Versed,fentanyl, and propofol 4 for ventilator synchrony. Plan to wean Versed off Begin daily sedation vacation 08/15 Cardiovascular: Transitioned to Amiodarone, PO 08/14. Phenylephrine discontinued . Vasopressin discontinued 08/13 Metoprolol increased to 25 mg twice a day 08/10 - 2-D echo with minimally depressed LV and RV function, ejection fraction 4550%, tricuspid valve mild regurgitation Pulmonary: Continue mechanical ventilation, AC/PC PIP +20, PEEP +7, respiratory rate 20, FiO2 60%, inspiratory time 1.8 seconds Vent bundle, bronchodilators, pulmonary toilet.Neuromuscular Blockade discontinued 08/14 Worsening hypoxia noted on 08/10. Lung mechanics unchanged essentially. Question of PE, continue full anticoagulation with heparin. General surgery consult for tracheostomy 08/14 Rotaprone discontinued GI/liver: Unable to place OG tube despite multiple attempts. consulted GI. GI placed PEG on 08/12. Start tube feeds on 08/13. Renal/: D5 water at 60 cc an hour for hypernatremia, strict intake output, monitor and replete electrolytes, follow BUN/creatinine. Nephrology following for CHAN/CKD. Given glucose/insulin for hyperkalemia. Started on Diuril by nephrology. 08/13: Free water flushes started 300 cc every 6 hours Heme: Follow CBC. Full anticoagulation with heparin for suspected PE. Monitor PTT 08/18 repeat ultrasounds bilateral upper and lower extremities-no DVT in either upper extremities. DVT right popliteal into mid femoral. ID: Continue antibiotic coverage with IV Levaquin Zithromax. Cefepime stopped on 08/07 per ID. ID following. Urine positive for Legionella antigen. Endocrine: SSI for glycemic control. Tapering stress dose hydrocortisone. Prophylaxis: PPI/SCDs/ Lovenox (held) and started full anticoagulation with heparin on 08/10 for suspected PE. Dispo: Discussed with [employer] and updated son Jae Gomez of patient's medical status and plan for tracheostomy in near future This patient remains critically ill with one or more organ systems which are or may become a threat to life. I have spent in excess of 37 minutes discontinuously in the care and management of this patient. This time is exclusive of procedures, and includes, but is not limited to, evaluation of the patient, review of the medical record, discussions with family, consultants, nursing staff, or respiratory therapy, and documentation in the medical record. Remains critical with severe ARDS secondary to Legionella pneumonia and approximately respiratory failure Physician Danica Asif MD August 18, 2016 15:35
[2016-08-18] MEDS: LEVOFLOXACIN 500 MG IV SCH (16:14)
[2016-08-18] MEDS: RESP: ALBUTEROL 2.5 MG/IPRATROPIUM 0.5 MG NEB (PRN) NEB (20:43)
--- NOTE | 2016-08-18 22:10 | MB ---
cc: VELASQUEZ MA MD DATE OF CONSULTATION: 08/18/2016 REASON FOR CONSULTATION: Need for tracheostomy. HISTORY OF PRESENT ILLNESS This is a 60-year-old male who was admitted to the hospital on 08/04 at which time he required intubation for respiratory failure. He was noted to have severe sepsis and was then found to have Legionella pneumonia. He developed ARDS. He has been intubated and looks like since his admission. He was not able to be weaned from the ventilator. I was asked to perform tracheostomy. PAST MEDICAL HISTORY: Obtained from the chart: Depression. Hypertension. PAST SURGICAL HISTORY Right shoulder surgery. ALLERGIES: No known allergies. HOME MEDICATIONS: Zofran, Prozac, trazodone, Ventolin inhaler, 81 mg aspirin. Of note, he is currently fully anticoagulated with heparin for possible PE. FAMILY HISTORY Noncontributory. SOCIAL HISTORY According to the chart he smokes marijuana and drinks alcohol. He does not smoke tobacco. REVIEW OF SYSTEMS: Unobtainable. PHYSICAL EXAMINATION: General: Obese male, ventilated, intubated and sedated. Vital signs: Temperature is 99.5, heart rate is 114, blood pressure 147/55. Head: Normocephalic, atraumatic. Eyes: No scleral icterus. Neck: Supple and the trachea is easily palpable in the midline. Lungs: Ventilated 55% FIO2. Cardiovascular: Sinus tachycardia. Abdomen: Soft, PEG tube in place and tolerating enteral feeding. Skin: Warm, dry, nonjaundice. LABORATORY DATA: Hemoglobin 9.8, hematocrit 28, platelet count 185, recently PTT was 44. ASSESSMENT AND PLAN: The patient is a 60 year-old male with prolonged respiratory failure in need of a tracheostomy. I will coordinate tracheostomy with intensive care and plan to perform this in the next day or two at the bedside. Will have to hold his heparin prior to and after the procedure. MD ABRIL Solorio/EMIL /7:39 PM /9:55 PM
[2016-08-18] MEDS: ACETAMINOPHEN 325 MG TAB PO PRN (23:34)
[2016-08-19] VITALS (24 sets, daily range): BP systolic 95–197; BP diastolic 40–76; PULSE 78–109; RESP 12–17; TEMP 99.5–101.2; O2SAT 90–94
[2016-08-19] MEDS: PROPOFOL 1000 MG/100 ML INJ 100 ML IV SCH ×5 (00:44→20:16)
[2016-08-19] MEDS: RESP: ALBUTEROL 2.5 MG/IPRATROPIUM 0.5 MG NEB (PRN) NEB ×3 (02:48→19:28)
[2016-08-19] MEDS: CHLORHEXIDINE GLUCONATE 2 % 1 PACK (2 CLOTHS) TOP SCH ×2 (04:00→20:22)
[2016-08-19] MEDS: FREE WATER G-TUBE SCH ×3 (04:00→19:44)
[2016-08-19] MEDS: METOPROLOL TARTRATE 25 MG TAB PO SCH ×3 (04:30→20:18)
[2016-08-19] MEDS: INSULIN ASPART SUPPLEMENTAL SCALE SQ SCH ×3 (04:33→17:07)
[2016-08-19 05:10] LABS: MEAN CELL VOLUME 94.3 FL (80.0-100.0); MEAN CORPUSCULAR HEMOGLOBIN 32.1 PG (27.0-34.0); PLATELET COUNT 180 TH/MM3 (150-450); RED BLOOD COUNT 2.97 MIL/MM3 (4.50-5.90); RED CELL DISTRIBUTION WIDTH 14.4 % (11.6-17.2); REVIEW FLAG FINAL; WHITE BLOOD COUNT 10.2 TH/MM3 (4.0-11.0)
[2016-08-19 05:42] LABS: POTASSIUM 3.1 MEQ/L (3.5-5.1)
[2016-08-19] MEDS: HEPARIN-D5W INJ 250 ML IV SCH (06:04)
[2016-08-19 07:53] LABS: APTT (PATIENT) 42.8 SEC (24.3-30.1)
[2016-08-19] MEDS: CHLORHEXIDINE 0.12% (ORAL KIT) 15 ML CUP MT SCH ×2 (08:00→19:44)
[2016-08-19] MEDS ORDERED: ICU - CALL ORDERING PHYSICIAN PRN (08:15)
[2016-08-19] MEDS ORDERED: ICU - MAGNESIUM OXIDE 400 MG TAB PO PRN (08:15)
[2016-08-19] MEDS ORDERED: ICU - SODIUM PHOSPHATE 30 MMOL/NS 250 ML IV PRN ×2 (08:15)
[2016-08-19] MEDS ORDERED: ICU - MAGNESIUM SULFATE 2 GM/NS 100 ML IV PRN ×2 (08:15)
[2016-08-19] MEDS ORDERED: ICU - POTASSIUM PHOSPHATE MONOBASIC 500 MG TAB PO PRN (08:15)
[2016-08-19] MEDS ORDERED: ICU - MAGNESIUM SULFATE 4 GM/NS 100 ML IV PRN ×2 (08:15)
[2016-08-19] MEDS: ICU - POTASSIUM CHLORIDE/AQUEOUS SOLN 40 MEQ/100 ML IVPB IV PRN ×2 (08:42→13:00)
[2016-08-19] MEDS: ARTIFICIAL TEARS OPTH SOLN 15 ML BTL EACH EYE SCH ×3 (08:43→17:07)
[2016-08-19] MEDS: AMIODARONE 200 MG TAB PO SCH ×2 (08:43→20:18)
[2016-08-19] MEDS: PANTOPRAZOLE SODIUM 40 MG VIAL IV SCH (08:43)
[2016-08-19] MEDS: LACTULOSE SYRUP 20 GM/30 ML CUP PO SCH (08:43)
[2016-08-19] MEDS: METOCLOPRAMIDE HCL 10 MG/2 ML VIAL IV PUSH SCH ×2 (08:43→17:08)
[2016-08-19] MEDS: HYDROCORTISONE SOD SUCCINATE 100 MG VIAL IV PUSH SCH ×2 (08:43→20:18)
[2016-08-19] MEDS: CHLOROTHIAZIDE SOD 500 MG VIAL IV SCH ×2 (09:28→20:18)
--- NOTE | 2016-08-19 10:08 | HHI.IDPN ---
Subjective Subjective Remarks is a 60 y/o Male with h/o Asthma, admitted with severe sepsis, Legionella pneumonia s/p Rotabed. Notes reviewed D/W RN On CPAP Tracheostomy being discussed Has low grade temps intermittently Good UO Has loose stool - not a lot of volume Repeat sputum pending UA ok Has LSC TLC Has DVT RLE Antibiotics Levaquin Lines LSC TLC Past Medical History Reviewed Allergies: Coded Allergies: No Known Allergies (Unverified , 07/31/16) Objective . Vital Signs Date Time Temp Pulse Resp B/P Pulse Ox O2 Delivery O2 Flow Rate FiO2 08/19/16 08:00 55 08/19/16 08:00 100.2 81 12 97/46 92 106/42 08/19/16 08:00 81 08/19/16 07:34 92 55 08/19/16 06:00 78 08/19/16 04:25 93 55 08/19/16 04:00 55 08/19/16 04:00 99.5 80 16 108/53 91 100/40 08/19/16 04:00 80 08/19/16 02:00 93 08/19/16 01:30 93 55 08/19/16 00:00 100.9 92 16 134/62 92 140/53 08/19/16 00:00 55 08/19/16 00:00 92 08/18/16 22:44 90 55 08/18/16 22:00 94 131/60 93 132/51 08/18/16 22:00 94 08/18/16 21:00 101 118/45 91 08/18/16 20:42 92 55 08/18/16 20:00 55 08/18/16 20:00 115 08/18/16 20:00 100.0 115 139/67 91 163/59 08/18/16 18:00 114 08/18/16 17:00 115 22 147/55 91 08/18/16 16:00 55 08/18/16 16:00 111 08/18/16 16:00 99.5 111 18 162/70 91 164/65 08/18/16 15:37 92 55 08/18/16 15:00 102 16 148/61 93 08/18/16 14:00 97 08/18/16 14:00 97 172/80 93 191/75 08/18/16 13:07 55 08/18/16 13:00 94 166/61 93 08/18/16 12:00 98.7 87 166/77 94 178/63 08/18/16 12:00 55 08/18/16 12:00 87 08/18/16 11:30 95 55 08/18/16 11:00 80 155/54 95 08/18/16 08/18/16 08/19/16 14:59 22:59 06:59 Intake Total 1231 ml 1419 ml 1068 ml Output Total 1825 ml 1005 ml 1000 ml Balance -594 ml 414 ml 68 ml Intake IV Total 471 ml 719 ml 517 ml Tube Feeding 360 ml 500 ml 351 ml Other 400 ml 200 ml 200 ml Output Urine Total 1725 ml 955 ml 950 ml Stool Total 100 ml 50 ml 50 ml Tube Feeding Residual Discard 0 ml . Laboratory Tests Test 08/18/16 08/19/16 02:55 03:47 White Blood Count 10.4 TH/MM3 10.2 TH/MM3 Red Blood Count 2.99 MIL/MM3 2.97 MIL/MM3 Hemoglobin 9.8 GM/DL 9.5 GM/DL Hematocrit 28.4 % 28.0 % Mean Corpuscular Volume 94.8 FL 94.3 FL Mean Corpuscular Hemoglobin 32.7 PG 32.1 PG Mean Corpuscular Hemoglobin 34.5 % 34.0 % Concent Red Cell Distribution Width 14.4 % 14.4 % Platelet Count 185 TH/MM3 180 TH/MM3 Mean Platelet Volume 8.8 FL 8.4 FL Laboratory Tests Test 08/18/16 08/19/16 02:55 03:47 Sodium Level 144 MEQ/L 143 MEQ/L Potassium Level 3.3 MEQ/L 3.1 MEQ/L Chloride Level 103 MEQ/L 100 MEQ/L Carbon Dioxide Level 32.2 MEQ/L 35.0 MEQ/L Anion Gap 9 MEQ/L 8 MEQ/L Blood Urea Nitrogen 29 MG/DL 31 MG/DL Creatinine 1.34 MG/DL 1.39 MG/DL Estimat Glomerular Filtration 54 ML/MIN 52 ML/MIN Rate Random Glucose 133 MG/DL 168 MG/DL Calcium Level 7.9 MG/DL 8.0 MG/DL Phosphorus Level 3.5 MG/DL 3.6 MG/DL Magnesium Level 2.1 MG/DL 2.0 MG/DL Total Bilirubin 0.4 MG/DL Aspartate Amino Transf 45 U/L (AST/SGOT) Alanine Aminotransferase 70 U/L (ALT/SGPT) Alkaline Phosphatase 76 U/L Total Protein 5.7 GM/DL Albumin 1.5 GM/DL Microbiology Date/Time Procedure Status Source Growth 08/19/16 03:20 Gram Stain - Final Resulted Sputum Endotracheal 08/19/16 03:20 Sputum Culture Resulted Sputum Endotracheal Pending Imaging Chest X-Ray 08/17/16 0600 Signed Impressions: Service Date/Time: Wednesday, August 17, 2016 04:54 - CONCLUSION: Unchanged bilateral pulmonary infiltrates. Robin Wray Jr., MD Chest X-Ray 08/15/16 0600 Signed Impressions: Service Date/Time: Monday, August 15, 2016 03:34 - CONCLUSION: Diffuse airspace disease with worsening disease in the lower lobes on current study. Perico Wahl MD Lower Extremity Ultrasound 08/11/16 0000 Signed Impressions: Service Date/Time: Thursday, August 11, 2016 08:00 - CONCLUSION: Normal examination. Efrain Deng MD Chest X-Ray 08/11/16 0000 Signed Impressions: Service Date/Time: Thursday, August 11, 2016 13:14 - CONCLUSION: Stable chest appearance. Efrain Deng MD Chest X-Ray 08/11/16 0000 Signed Impressions: Service Date/Time: Thursday, August 11, 2016 12:25 - CONCLUSION: 1. Stable patchy infiltrates bilaterally consistent with pneumonia and/or pulmonary edema. Clinical correlation is recommended. 2. Tiny bilateral pleural effusions. Franck Betancourt MD Lower Extremity Ultrasound 08/11/16 0000 Signed Impressions: Service Date/Time: Thursday, August 11, 2016 08:00 - CONCLUSION: Normal examination. Efrain Deng MD Chest X-Ray 08/10/16 0000 Signed Impressions: Service Date/Time: Wednesday, August 10, 2016 15:39 - CONCLUSION: Slight worsening in aeration Efrain Deng MD Chest X-Ray 08/09/16 0000 Signed Impressions: Service Date/Time: Tuesday, August 09, 2016 07:51 - CONCLUSION: Endotracheal tube tip now 2 cm above the long. No change in patchy bilateral pulmonary parenchymal opacity. Julio Grove MD ADDENDUM: There is an NG tube in place overlapping the nasogastric tube on the image. The tip of the NG tube is at the level of the aortic arch in the proximal to mid thoracic esophagus. Side-port 3 cm below the thoracic inlet. Endotracheal tube tip is 9 cm above the long and 3 cm below the thoracic inlet. Julio Grove MD Abdomen X-Ray 08/09/16 0000 Signed Impressions: Service Date/Time: Tuesday, August 09, 2016 10:18 - CONCLUSION: Nonspecific bowel gas pattern. Julio Grove MD Chest X-Ray 08/08/16 1000 Signed Impressions: Service Date/Time: Monday, August 08, 2016 10:38 - CONCLUSION: Improved aeration. Murali Perdomo MD Chest X-Ray 08/07/16 0600 Signed Impressions: Service Date/Time: Sunday, August 07, 2016 04:57 - CONCLUSION: No significant change. Extensive bilateral infiltrates persist. Efrain Syed MD Chest X-Ray 08/06/16 0400 Signed Impressions: Service Date/Time: July 03:00 - CONCLUSION: No significant interval change with bilateral pulmonary infiltrates. Ronny Joshi MD Renal Ultrasound 08/05/16 1504 Signed Impressions: Service Date/Time: Friday, August 05, 2016 21:01 - CONCLUSION: 1. No evidence of obstruction or other acute renal abnormality. 2. Small, benign appearing cyst of the right kidney. 3. Witt catheter present. Efrain Syed MD Last Impressions Chest X-Ray 08/06/16 0400 Signed Impressions: Service Date/Time: July 03:00 - CONCLUSION: No significant interval change with bilateral pulmonary infiltrates. Ronny Joshi MD Renal Ultrasound 08/05/16 1504 Signed Impressions: Service Date/Time: Friday, August 05, 2016 21:01 - CONCLUSION: 1. No evidence of obstruction or other acute renal abnormality. 2. Small, benign appearing cyst of the right kidney. 3. Witt catheter present. Efrain Syed MD Physical Exam GENERAL: On the vent, NAD. Awake, focusing SKIN: Cool and moist. No rash HEENT: [place] conjunctiva, no icterus, moist mucosa. ET in mouth NECK: Supple, not tender CARDIOVASCULAR: regular rate and rhythm without murmurs, gallops, or rubs. RESPIRATORY: Bilateral diffuse coarse rhonchi GASTROINTESTINAL: Abdomen soft, BS (+) PEG site with dry dressing MUSCULOSKELETAL: Extremities without edema. NEUROLOGICAL: Awake, fosucing PSYCH: Unable to fully assess LINE: LSC TLC with no evidence of infection : Witt cath in place, urine looks clear Assessment & Plan Remarks IMPRESSION Severe bilateral pneumonia, (+) Legionella Acute Respiratory failure, with significant hypoxemia. On vent. Hx anxiety/depression Leukocytosis - resolved Renal failure, improving, good UO Low grade temps, possibly due to DVT RLE DVT RECOMMENDATION Continue Levaquin Follow new C/S Follow clinically Monitor temps Trach being discussed Weaning per CCM D/W Kyleigh Duarte MD August 19, 2016 10:08
--- NOTE | 2016-08-19 10:17 | HHI.NPPN ---
Subjective General Problems: Edema Renal Failure: Chronic, Acute Interval History Remains intubated, awake but minimally responsive. Febrile overnight. Demonstrating fluid overload. (Marium Diana) Review of Systems General General Remarks unable to evaluate (Marium Diana) Objective Data Data 08/18/16 08/19/16 18:59 06:59 Intake Total 1231 ml 2487 ml Output Total 1825 ml 2005 ml Balance -594 ml 482 ml Intake IV Total 471 ml 1236 ml Tube Feeding 360 ml 851 ml Other 400 ml 400 ml Output Urine Total 1725 ml 1905 ml Stool Total 100 ml 100 ml Tube Feeding Residual Discard 0 ml Vital Signs Date Time Temp Pulse Resp B/P Pulse Ox O2 Delivery O2 Flow Rate FiO2 08/19/16 08:00 55 08/19/16 08:00 100.2 81 12 97/46 92 106/42 08/19/16 08:00 81 08/19/16 07:34 92 55 08/19/16 06:00 78 08/19/16 04:25 93 55 08/19/16 04:00 55 08/19/16 04:00 99.5 80 16 108/53 91 100/40 08/19/16 04:00 80 08/19/16 02:00 93 08/19/16 01:30 93 55 08/19/16 00:00 100.9 92 16 134/62 92 140/53 08/19/16 00:00 55 08/19/16 00:00 92 08/18/16 22:44 90 55 08/18/16 22:00 94 131/60 93 132/51 08/18/16 22:00 94 08/18/16 21:00 101 118/45 91 08/18/16 20:42 92 55 08/18/16 20:00 55 08/18/16 20:00 115 08/18/16 20:00 100.0 115 139/67 91 163/59 08/18/16 18:00 114 08/18/16 17:00 115 22 147/55 91 08/18/16 16:00 55 08/18/16 16:00 111 08/18/16 16:00 99.5 111 18 162/70 91 164/65 08/18/16 15:37 92 55 08/18/16 15:00 102 16 148/61 93 5/9/17 14:00 97 08/18/16 14:00 97 172/80 93 191/75 08/18/16 13:07 55 08/18/16 13:00 94 166/61 93 08/18/16 12:00 98.7 87 166/77 94 178/63 08/18/16 12:00 55 08/18/16 12:00 87 08/18/16 11:30 95 55 08/18/16 11:00 80 155/54 95 (Marium Diana) -: 08/19/16 0347 08/19/16 0347 Microbiology 08/19/16 Gram Stain - Final, Resulted 08/19/16 Sputum Culture, Resulted Pending Imaging Last 72 hours Impressions Chest X-Ray 08/18/16599 Signed Impressions: Service Date/Time: Thursday, August 18, 2016 06:03 - CONCLUSION: Some improvement in the bilateral pulmonary infiltrates. Robin Wray Jr., MD Upper Extremity Ultrasound 08/17/16899 Signed Impressions: Service Date/Time: Wednesday, August 17, 2016 10:40 - CONCLUSION: No DVT in either upper extremity Perico Wahl MD Lower Extremity Ultrasound 08/17/16899 Signed Impressions: Service Date/Time: Wednesday, August 17, 2016 10:40 - CONCLUSION: DVT on the right as described above. Jamie Blackwood MD FACR Chest X-Ray 08/17/16599 Signed Impressions: Service Date/Time: Wednesday, August 17, 2016 04:54 - CONCLUSION: Unchanged bilateral pulmonary infiltrates. Robin Wray Jr., MD Tubes & Lines: Witt Tubes & Lines Comment TLC L subclavian , A line right radial, PEG Drip Comment fentanyl, propofol, heparin (Marium Diana) Physical Exam General Appearance: No Acute Distress, Comfortable Appearance Remarks intubated, eyes open (Marium Diana) Eyes Eye Exam: Pupils Equal, Pupils Reactive (Marium Diana) Throat Throat Remarks ETT (Marium Diana) Pulmonary Resp Exam: Breath Sounds Equal, Crackles, Rhonchi, Decreased Bases Resp Remarks vented lung sounds , course lung sounds with rhonchi and wheezing throughout ( Marium Diana B. [employer]AY[employer]) Cardiology CV Exam: Good Perfusion, Irregular (Marium Diana B. [employer]) Gastrointestinal/Abdomen GI Exam: Soft, Non-Tender GI Remarks + PEG (Marium Diana B. [employer]) Genitourinary Exam: Clear Urine, Flank Non-Tender (Marium Diana B. [employer]) Musculoskeletal MS Exam: Joints Intact, Normal Tone, Unable to Ambulate (Marium Diana B. [employer]) Integumentary Skin Exam: Warm, Dry (Marium Diana B. [employer]) Extremeties Extremities Exam: Pedal Pulses Palpable, Moderate Edema Extremeties Remarks upper extremity edema (Marium Diana B. [employer]) Neurologic Neuro Exam: Awake, Moving All Extremities (Marium Diana B. [employer]) VTE Prophylaxis Device: SCDs Meds: Heparin (Marium Diana B. [employer]) Assessment/Plan Assessment Summary: CHAN/Acute Renal Failure, Fluid/Volume Overload Electrolyte Assessment: Hypokalemia Problem List: (1) Acute renal failure superimposed on stage 3 chronic kidney disease Plan: CHAN form sepsis and hypotension, possible dehydration; may have progressed to ATN renal function is stable, nonoliguric with excellent urine output K is being replaced demonstrating fluid overload, on Diuril BID, give another dose of Bumex today off IVF continue Nepro tube feeding daily renal panel, avoid nephrotoxic medications. 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 [employer]) Plan patient was seen and examined. Renal function is stable. Continue diuresis. ( Kevin Hernandez MD) Problem Qualifiers (1) Acute respiratory failure: Qualified Code: J96.01 - Acute respiratory failure with hypoxia and hypercapnia (2) Pneumonia: Qualified Code: J18.9 - Pneumonia of both lungs due to infectious organism, unspecified part of lung Marium Diana August 19, 2016 10:17 Kevin Hernandez MD August 20, 2016 11:08
[2016-08-19] MEDS ORDERED: BUMETANIDE INJ 1 MG/4 ML VIAL IV PUSH ONE (10:30)
[2016-08-19] MEDS: fentaNYL DRIP 250 ML IV SCH ×2 (11:36→20:17)
[2016-08-19] MEDS: METOPROLOL TARTRATE 5 MG/5 ML VIAL IV PUSH PRN (12:16)
[2016-08-19] MEDS: LEVOFLOXACIN 500 MG IV SCH (17:08)
--- NOTE | 2016-08-19 17:16 | HHI.CCPN ---
Subjective Remarks/Hospital Course 08/04: 60 y/o man with several week history of weakness, fatigue; fevers and sweats over past week. Today with severe SOB, arrived by EMS with hypoxemia. CO2 retention as well in ED. Required intubation in ED. Creatinine > 3.0 and severely dehydrated. 08/05: Remains sedated, orally intubated on mechanical ventilation. He remains at PEEP+14, FiO2 decreased to 80%. Urine positive for Legionella Ag. Went into A. fib with RVR. 08/06: Remains sedated, orally intubated on mechanical ventilation. On neuromuscular blockade with Nimbex. Initiated on prone ventilation today. Switched to pressure control mode with positive inspiratory pressure +20, PEEP + 15, respiratory rate 20, I time 1.82 seconds, FiO2 70%.. On propofol/fentanyl/ Versed/Nimbex/amiodarone/ vasopressin drips. Jose-Synephrine titrated off following switching from APRV to pressure control mode mechanical ventilation and initiating proning. 08/07: Remains sedated, on neuromuscular blockade, orally intubated on prone ventilation. FiO2 decreased to 50%, PEEP remains at +15. On fentanyl/versed/ Nimbex/amiodarone/vasopressin drips. Jose-Synephrine on transiently today. Diuresed well with Bumex. 08/08: Remains sedated, on neuromuscular blockade, orally intubated on prone ventilation. FiO2 decreased to 45%, PEEP remains at +15. Attempting to place Dobbhoff to initiate tube feeds. Off Jose-Synephrine. Vasopressin being titrated down. 08/09: Remains sedated, orally intubated on prone ventilation. Remains on Nimbex for neuromuscular blockade. PEEP +15, FiO2 50%. Have been unable to place OG tube despite multiple attempts. 08/10: Remains sedated, orally intubated on neuromuscular blockade on prone ventilation. Attempts at keeping supine today however had progressively increasing FiO2 requirement. He was restarted on prone ventilation. He had a sudden episode of desaturation with dropping O2 sats to the 80s despite 100% FiO2. I time increased from 1.2 seconds to 1.8 seconds. He was immediately supined and a stat chest x-ray obtained which did not reveal any pneumothorax and essentially unchanged compared to previous chest x-ray with bilateral infiltrates. He was restarted on prone ventilation. Question of PE. We will initiate full anticoagulation with heparin. Will also check troponins and EKG when supine unless troponin elevated in which case we will get a stat EKG. 52: Remains sedated, orally intubated on neuromuscular blockade in prone ventilation. Had episode of loss of lung volumes with desaturation. Chest x- ray did not reveal any pneumothorax or atelectasis. Thick mucus suctioned out of the ET tube. Difficult to bag at times. ET tube was changed over a tube exchanger following which he had return of good volumes. ( It is possible that the pre-existing ET tube was getting occluded by debris or secretions which were somewhat cleared out by suctioning earlier.) GI postponed with G-tube placement due to unstable respiratory status until tomorrow and they will plan on doing a PEG tube if respiratory status permits. 08/12: Remains sedated, orally intubated on neuromuscular blockade on prone ventilation. Underwent PEG tube placement today. Start tube feeds in a.m. 08/13: Tmax 98.9. Tube feeds initiated this a.m.. Sodium level 155, free water flushes initiated. Slight improvement in ventilatory status. Plan to remain supine today, an attempt to wean ventilation settings. 08/14: The patient was transitioned off of the [place] prone bed. Neuromuscular blockade has been discontinued. FiO2 has been decreased to 40%. The patient has been transitioned to by mouth amiodarone. Patient continues on Nepro at 15 cc an hour with moderate residuals noted. 08/15: Patient's O2 requirements decreasing, PEEP now 7, FiO2 60%. Patient was transitioned to amiodarone PO yesterday, noted tachycardia HR 109. Metoprolol added to medication regimen. Patient was also noted to be hypertensive, when necessary antihypertensive medications added. 08/16: Tmax 101.2 . The patient has been febrile today, receiving Tylenol. Chest x-ray slightly worsened today bilateral lower lobes, placed on pressure control mode via mechanical ventilation The patient had 2 episodes of SVT last night with the rate in the 140s. The patient received beta blockers 2 doses with immediate resolution. Amiodarone was increased to 400 mg twice a day today. Versed was completely discontinued CPAP trials have been initiated. 08/17: The patient tolerated CPAP trials for over 4 hours yesterday. The patient is alert oriented responding by nodding to yes and no questions, following commands. The patient was noted to be hypokalemic potassium level 2.9, and was repleted. PT/OT initiated. 08/18: The patient unable to tolerate CPAP trial today. The patient was noted to be hypertensive despite metoprolol dosage being increased, will increase frequency. Chest x-ray showed improvement. 08/19: Afebrile. Multiple attempts at CPAP trials today unsuccessful, and very to patient becoming agitated. Haldol medication instituted. Plans for tracheostomy this week by general surgery. Wound care consulted for left foot drainage. Objective Vital Signs Date Time Temp Pulse Resp B/P Pulse Ox O2 Delivery O2 Flow Rate FiO2 08/19/16 16:00 55 08/19/16 16:00 84 08/19/16 16:00 100.8 17 158/67 94 141/55 Intake and Output 08/18/16 08/18/16 08/19/16 08:00 16:00 00:00 Intake Total 1065 ml 1231 ml 1419 ml Output Total 1000.0 ml 1825 ml 1005 ml Balance 65.0 ml -594 ml 414 ml Result Diagram: 08/19/16 0347 08/19/16 0347 Imaging Last Impressions Lower Extremity Ultrasound 08/11/16 0000 Signed Impressions: Service Date/Time: Thursday, August 11, 2016 08:00 - CONCLUSION: Normal examination. Efrain Deng MD Chest X-Ray 08/11/16 0000 Signed Impressions: Service Date/Time: Thursday, August 11, 2016 13:14 - CONCLUSION: Stable chest appearance. Efrain Deng MD Abdomen X-Ray 08/09/16 0000 Signed Impressions: Service Date/Time: Tuesday, August 09, 2016 10:18 - CONCLUSION: Nonspecific bowel gas pattern. Julio Grove MD Renal Ultrasound 08/05/16 1504 Signed Impressions: Service Date/Time: Friday, August 05, 2016 21:01 - CONCLUSION: 1. No evidence of obstruction or other acute renal abnormality. 2. Small, benign appearing cyst of the right kidney. 3. Witt catheter present. Efrain Syed MD Last 24 hours Impressions Chest X-Ray 08/08/16 1000 Signed Impressions: Service Date/Time: Monday, August 08, 2016 10:38 - CONCLUSION: Improved aeration. Murali Perdomo MD Abdomen X-Ray 08/08/16 0000 Signed Impressions: Service Date/Time: Monday, August 08, 2016 10:38 - CONCLUSION: No evidence of obstruction. Murali Perdomo MD Last 24 hours Impressions Chest X-Ray 08/07/16 0600 Signed Impressions: Service Date/Time: Sunday, August 07, 2016 04:57 - CONCLUSION: No significant change. Extensive bilateral infiltrates persist. Efrain Syed MD Last 24 hours Impressions Chest X-Ray 08/06/16 0400 Signed Impressions: Service Date/Time: July 03:00 - CONCLUSION: No significant interval change with bilateral pulmonary infiltrates. Ronny Joshi MD Last Impressions Chest X-Ray 08/04/16 1832 Signed Impressions: Service Date/Time: Thursday, August 04, 2016 18:50 - CONCLUSION: Extensive bilateral airspace disease greater in the left lung. There may be pneumomediastinum. Perico Wahl MD Objective Remarks BP 158/ 67 P 79 O2 sat 93% Infusions: Propofol 20 mcgs Fentanyl 250 mcgs Heparin 2000u Gen: Elderly male, sedated for ventilator synchrony orally intubated on mechanical ventilation, responsive HEENT: Positive pallor, no icterus. Orally intubated. Mucosa moist. Neck: Supple, orally intubated. Lungs: Orally intubated on mechanical ventilation, clear to auscultation bilaterally Heart: NL S1S2 regularly regular, no JVD. Abdomen: Soft, NT, ND, no guarding. PEG tube in place Extremities: Warm bilaterally, no edema. Left foot/heel resting applied Neuro: RASS -1, GCS 11T on mechanical ventilation. Line: Central Venous Catheter A/P Assessment and Plan Assessment: 1. Septic shock 2. Acute Respiratory Failure on mechanical ventilation 3. Legionella Pneumonia 4. ARDS 5. CKD with CHAN 6. A. fib with RVR (converted to RSR) 7. Hx depression with recent ECT 2016 8. Suspected PE 9. Left heel wound Neuro: Continue sedation with fentanyl, and propofol 4 for ventilator synchrony. Haldol 5 mg daily scheduled agitation Begin daily sedation vacation 08/15 Cardiovascular: Transitioned to Amiodarone, PO 08/14. Phenylephrine discontinued . Vasopressin discontinued 5/4 Metoprolol 50 mg twice a day 08/10 - 2-D echo with minimally depressed LV and RV function, ejection fraction 4550%, tricuspid valve mild regurgitation Pulmonary: Continue mechanical ventilation, AC/PC PIP +20, PEEP +7, respiratory rate 20, FiO2 60%, inspiratory time 1.8 seconds Vent bundle, bronchodilators, pulmonary toilet.Neuromuscular Blockade discontinued 08/14 Worsening hypoxia noted on 08/10. Lung mechanics unchanged essentially. Question of PE, continue full anticoagulation with heparin. General surgery consult for tracheostomy-plan for trach this week 08/14 Rotaprone discontinued GI/liver: Unable to place OG tube despite multiple attempts. consulted GI. GI placed PEG on 08/12. Start tube feeds on 08/13. Renal/: D5 water at 60 cc an hour for hypernatremia, strict intake output, monitor and replete electrolytes, follow BUN/creatinine. Nephrology following for CHAN/CKD. Given glucose/insulin for hyperkalemia. Started on Diuril by nephrology. 08/13: Free water flushes started 300 cc every 6 hours Heme: Follow CBC. Full anticoagulation with heparin for suspected PE. Monitor PTT 08/18 repeat ultrasounds bilateral upper and lower extremities-no DVT in either upper extremities. DVT right popliteal into mid femoral. ID: Continue antibiotic coverage with IV Levaquin Zithromax. Cefepime stopped on 08/07 per ID. ID following. Urine positive for Legionella antigen. Endocrine: SSI for glycemic control. Tapering stress dose hydrocortisone. Prophylaxis: PPI/SCDs/ Lovenox (held) and started full anticoagulation with heparin on 08/10 for suspected PE. Dispo: Discussed with CLINICAL SOCIOLOGIST . This patient remains critically ill with one or more organ systems which are or may become a threat to life. I have spent in excess of 30 minutes discontinuously in the care and management of this patient. This time is exclusive of procedures, and includes, but is not limited to, evaluation of the patient, review of the medical record, discussions with family, consultants, nursing staff, or respiratory therapy, and documentation in the medical record. Remains critical with severe ARDS secondary to Legionella pneumonia and approximately respiratory failure Physician Danica Asif MD August 19, 2016 17:16
[2016-08-19 17:58] LABS: BLOOD GAS BASE EXCESS 8.2 mmol/L (-2-2); BLOOD GAS CARBOXYHEMOGLOBIN 1.4 % (0-4); BLOOD GAS HCO3 33 mmol/L (22-26); BLOOD GAS METHEMOGLOBIN 1.7 % (0-2); BLOOD GAS O2 HGB SATURATION 95 % (90-100); BLOOD GAS OXYGEN CONTENT 12.3 Vol % (12.0-20.0); BLOOD GAS PCO2 48 mmHg (38-42); BLOOD GAS PO2 107 mmHg (61-120); BLOOD GAS TOTAL HGB 9.1 G/DL (12.0-16.0); TEMP CORR TO 98.6
[2016-08-19 17:59] LABS: CRITICAL VALUE NO; FIO2 55 %; OXYGEN DEVICE VENTILATOR
[2016-08-19 18:00] LABS: DRAW SITE ART LINE; STAT NO
[2016-08-19] MEDS: ACETAMINOPHEN 325 MG TAB PO PRN (20:18)
[2016-08-20] VITALS (27 sets, daily range): BP systolic 95–198; BP diastolic 40–80; PULSE 71–106; RESP 16–17; TEMP 99–101.2; O2SAT 91–97
[2016-08-20] MEDS: PROPOFOL 1000 MG/100 ML INJ 100 ML IV SCH ×7 (01:54→21:35)
[2016-08-20] MEDS: fentaNYL DRIP 250 ML IV SCH ×3 (01:54→21:17)
[2016-08-20] MEDS: METOCLOPRAMIDE HCL 10 MG/2 ML VIAL IV PUSH SCH ×3 (01:55→18:12)
[2016-08-20] MEDS: FREE WATER G-TUBE SCH ×3 (01:55→20:00)
[2016-08-20 02:47] LABS: HEMATOCRIT 27.6 % (39.0-51.0); MEAN CELL VOLUME 94.8 FL (80.0-100.0); MEAN CORPUSCULAR HEMOGLOBIN 32.4 PG (27.0-34.0); MEAN CORPUSCULAR HGB CONC 34.1 % (32.0-36.0); PLATELET COUNT 170 TH/MM3 (150-450); RED BLOOD COUNT 2.91 MIL/MM3 (4.50-5.90); RED CELL DISTRIBUTION WIDTH 14.3 % (11.6-17.2); REVIEW FLAG FINAL; WHITE BLOOD COUNT 7.3 TH/MM3 (4.0-11.0)
[2016-08-20 03:01] LABS: BICARBONATE 37.1 MEQ/L (21.0-32.0); POTASSIUM 3.3 MEQ/L (3.5-5.1)
[2016-08-20 03:06] LABS: APTT (PATIENT) 43.3 SEC (24.3-30.1)
--- NOTE | 2016-08-20 03:11 | RADRPT ---
EXAM DATE/TIME: 08/20/2016 02:14 [facility] COMPARISON: CHEST SINGLE AP, August 18, 2016, 6:03. INDICATIONS : Shortness of breath, possible pulmonary disease. MEDICAL HISTORY : None. SURGICAL HISTORY : None. ENCOUNTER: Subsequent ACUITY: 2 weeks PAIN SCORE: Non-responsive. LOCATION: Bilateral chest FINDINGS: A single portable frontal view the chest shows no interval change. Bilateral pulmonary infiltrates la rgely mid and basilar in nature. No effusions. Heart is normal in size. Left subclavian central line. Tip of the endotracheal tube 5 cm from the long. CONCLUSION: Unchanged bilateral pulmonary infiltrates. Robin Wray Jr., MD on August 20, 2016 at 3:09 Board Certified Radiologist. This report was verified electronically.
[2016-08-20] MEDS: POTASSIUM CHLORIDE 25 MEQ EFFERVESCENT TAB PO PRN (04:42)
[2016-08-20] MEDS: METOPROLOL TARTRATE 25 MG TAB PO SCH ×3 (04:43→21:18)
[2016-08-20] MEDS: INSULIN ASPART SUPPLEMENTAL SCALE SQ SCH ×4 (06:00→18:00)
[2016-08-20] MEDS: AMIODARONE 200 MG TAB PO SCH ×2 (08:15→21:18)
[2016-08-20] MEDS: LACTULOSE SYRUP 20 GM/30 ML CUP PO SCH (08:16)
[2016-08-20] MEDS: PANTOPRAZOLE SODIUM 40 MG VIAL IV SCH (08:16)
[2016-08-20] MEDS: HYDROCORTISONE SOD SUCCINATE 100 MG VIAL IV PUSH SCH ×2 (08:16→21:18)
[2016-08-20] MEDS: CHLORHEXIDINE 0.12% (ORAL KIT) 15 ML CUP MT SCH ×2 (08:17→20:00)
[2016-08-20] MEDS: HALOPERIDOL LACTATE ORAL CONC 10 MG/5 ML CUP PO SCH (08:17)
[2016-08-20] MEDS: CHLOROTHIAZIDE SOD 500 MG VIAL IV SCH (08:17)
[2016-08-20] MEDS: ARTIFICIAL TEARS OPTH SOLN 15 ML BTL EACH EYE SCH ×3 (08:17→18:13)
[2016-08-20] MEDS: ICU - POTASSIUM CHLORIDE/AQUEOUS SOLN 40 MEQ/100 ML IVPB IV PRN ×2 (08:19→10:25)
[2016-08-20] MEDS: METOPROLOL TARTRATE 5 MG/5 ML VIAL IV PUSH PRN (09:25)
--- NOTE | 2016-08-20 10:17 | HHI.NPPN ---
Subjective General Problems: Edema Renal Failure: Chronic, Acute Interval History Remains intubated, sedated, febrile. Renal function has improved. He is off heparin gtt. (Marium Diana) Review of Systems General General Remarks unable to evaluate (Marium Diana) Objective Data Data 08/19/16 08/20/16 19:00 07:00 Intake Total 1450 ml 1431 ml Output Total 2700 ml 2050 ml Balance -1250 ml -619 ml Intake IV Total 703 ml 721 ml Tube Feeding 427 ml 510 ml Tube Irrigant 120 ml Other 200 ml 200 ml Output Urine Total 2500 ml 1800 ml Stool Total 200 ml 250 ml Vital Signs Date Time Temp Pulse Resp B/P Pulse Ox O2 Delivery O2 Flow Rate FiO2 08/20/16 10:00 97 08/20/16 08:00 100.0 98 17 161/70 94 173/69 08/20/16 08:00 65 08/20/16 08:00 98 08/20/16 07:28 94 55 08/20/16 06:00 90 08/20/16 05:37 94 55 08/20/16 04:00 99.5 93 97/40 94 166/69 08/20/16 04:00 93 08/20/16 04:00 55 08/20/16 02:20 95 55 08/20/16 02:00 85 08/20/16 00:00 55 08/20/16 00:00 77 08/20/16 00:00 100.1 77 95/49 92 110/48 08/19/16 22:00 80 08/19/16 21:57 90 55 08/19/16 20:00 92 08/19/16 20:00 55 08/19/16 20:00 101.2 92 95/51 92 109/50 08/19/16 19:26 93 55 08/19/16 18:00 83 08/19/16 18:00 83 100/43 93 08/19/16 17:00 78 104/42 93 08/19/16 16:00 55 08/19/16 16:00 84 158/67 94 141/55 08/19/16 16:00 84 08/19/16 16:00 100.8 84 17 158/67 94 141/55 08/19/16 15:12 93 55 08/19/16 15:00 81 103/40 94 08/19/16 14:00 109 08/19/16 14:00 109 170/73 93 186/69 08/19/16 13:00 98 155/56 93 08/19/16 12:05 55 08/19/16 12:00 109 08/19/16 12:00 100.8 109 13 168/76 93 197/73 08/19/16 12:00 109 168/76 93 197/73 08/19/16 11:00 106 193/69 92 (Marium Diana) -: 08/20/16 0200 08/20/16 0710 Imaging Last 72 hours Impressions Chest X-Ray 08/20/16 0600 Signed Impressions: Service Date/Time: August 02:14 - CONCLUSION: Unchanged bilateral pulmonary infiltrates. Robin Wray Jr., MD Chest X-Ray 08/18/16 0600 Signed Impressions: Service Date/Time: Thursday, August 18, 2016 06:03 - CONCLUSION: Some improvement in the bilateral pulmonary infiltrates. Robin Wray Jr., MD Tubes & Lines: Witt Tubes & Lines Comment TLC L subclavian , A line right radial, PEG Drip Comment fentanyl, propofol (Marium Diana) Physical Exam General Appearance: No Acute Distress, Comfortable Appearance Remarks intubated, eyes open (Marium Diana) Eyes Eye Exam: Pupils Equal, Pupils Reactive (Marium Diana) Throat Throat Remarks ETT (Marium Diana) Pulmonary Resp Exam: Breath Sounds Equal, Crackles, Rhonchi, Decreased Bases Resp Remarks vented lung sounds , course lung sounds with rhonchi and wheezing throughout ( Marium Diana) Cardiology CV Exam: Good Perfusion, Irregular (Marium Diana) Gastrointestinal/Abdomen GI Exam: Soft, Non-Tender GI Remarks + PEG (Marium Diana) Genitourinary Exam: Clear Urine, Flank Non-Tender (Marium Diana) Musculoskeletal MS Exam: Joints Intact, Normal Tone, Unable to Ambulate (Marium Diana) Integumentary Skin Exam: Warm, Dry (Marium Diana) Extremeties Extremities Exam: Pedal Pulses Palpable, Moderate Edema Extremeties Remarks upper extremity edema (Marium Diana) Neurologic Neuro Exam: Awake, Moving All Extremities (Marium Diana) VTE Prophylaxis Device: SCDs (Marium Diana) Assessment/Plan Assessment Summary: CHAN/Acute Renal Failure, Fluid/Volume Overload Electrolyte Assessment: Hypokalemia Problem List: (1) Acute renal failure superimposed on stage 3 chronic kidney disease Plan: nonoliguric renal failure renal function improved, he has excellent urine output continue to replace K edema persists, change Diuril to Bumex IV avoid IVF continue Nepro tube feeding daily renal panel, avoid nephrotoxic medications. we will sign off at this time. 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 Renal function has improved. Hypernatremia has resolved. We will sign off at this time. (Kevin Hernandez MD) Problem Qualifiers (1) Acute respiratory failure: Qualified Code: J96.01 - Acute respiratory failure with hypoxia and hypercapnia (2) Pneumonia: Qualified Code: J18.9 - Pneumonia of both lungs due to infectious organism, unspecified part of lung Marium Diana August 20, 2016 10:17 Kevin Hernandez MD August 20, 2016 11:30
[2016-08-20] MEDS ORDERED: MIDAZOLAM HCL 5 MG/ML VIAL (1 ML) ONE ×2 (11:31)
[2016-08-20] MEDS ORDERED: ROCURONIUM INJ 50 MG/5 ML VIAL ONE (11:33)
--- NOTE | 2016-08-20 12:03 | PD.PROCEDR ---
Procedure Note Procedure Procedure: Fiberoptic Bronchoscopy Diagnosis: Respiratory failure/failure to wean Indications: Percutaneous Tracheostomy Consent: Obtained from son Anesthesia: see MAR Description of the Procedure: The patient was sedated and mechanically ventilated. The patient was placed on 100% FIO2 and a volume control mode of ventilation. The fiberoptic bronchoscopy was inserted via 8.0 ETT. The trachea, right and left mainstem bronchi, and sub-segmental bronchi were evaluated. The endobronchial anatomy was normal. Findings: Normal anatomy BAL samples: 0 The patient tolerated the procedure well with no hemodynamic instability or hypoxia. There were no immediate complications noted. At the conclusion of the procedure, the patient was placed back on their pre-procedure ventilatory settings. There was minimal EBL. A chest x-ray has been ordered. I personally performed the procedure. Danica Kessler MD August 20, 2016 12:03
--- NOTE | 2016-08-20 13:05 | RADRPT ---
EXAM DATE/TIME: 08/20/2016 12:11 [facility] COMPARISON: CHEST SINGLE AP, August 20, 2016, 2:14. INDICATIONS : Post trachesotomy placement MEDICAL HISTORY : Hypertension. asthma, infiltrates SURGICAL HISTORY : tracheostomy ENCOUNTER: Subsequent ACUITY: 2 weeks PAIN SCORE: Non-responsive. LOCATION: Bilateral chest FINDINGS: Single view of the chest demonstrates interval placement of a tracheostomy tube. Left subclavian cent ral venous catheter is in stable position. Extensive air space disease remains evident in both lungs. Heart and mediastinal structures are stable. CONCLUSION: Status post placement of a tracheostomy tube. Significant bilateral airspace disease without significant improvement. Basil Portillo MD on August 20, 2016 at 13:02 Board Certified Radiologist. This report was verified electronically.
--- NOTE | 2016-08-20 13:24 | HHI.IDPN ---
Subjective Subjective Remarks is a 60 y/o Male with h/o Asthma, admitted with severe sepsis, Legionella pneumonia s/p Rotabed. Notes reviewed D/W RN S/P trach this morning Has low grade temps intermittently Good UO Has loose stool - not a lot of volume Repeat sputum normal resp rabia UA ok Has LSC TLC Has DVT RLE Antibiotics Levaquin Lines LSC TLC Past Medical History Reviewed Allergies: Coded Allergies: No Known Allergies (Unverified , 07/31/16) Objective . Vital Signs Date Time Temp Pulse Resp B/P Pulse Ox O2 Delivery O2 Flow Rate FiO2 08/20/16 12:10 96 100 08/20/16 12:00 81 08/20/16 12:00 65 08/20/16 10:00 97 08/20/16 08:00 100.0 98 17 161/70 94 173/69 08/20/16 08:00 65 08/20/16 08:00 98 08/20/16 07:28 94 55 08/20/16 06:00 90 08/20/16 05:37 94 55 08/20/16 04:00 99.5 93 97/40 94 166/69 08/20/16 04:00 93 08/20/16 04:00 55 08/20/16 02:20 95 55 08/20/16 02:00 85 08/20/16 00:00 55 08/20/16 00:00 77 08/20/16 00:00 100.1 77 95/49 92 110/48 08/19/16 22:00 80 08/19/16 21:57 90 55 08/19/16 20:00 92 08/19/16 20:00 55 08/19/16 20:00 101.2 92 95/51 92 109/50 08/19/16 19:26 93 55 08/19/16 18:00 83 08/19/16 18:00 83 100/43 93 08/19/16 17:00 78 104/42 93 08/19/16 16:00 55 08/19/16 16:00 84 158/67 94 141/55 08/19/16 16:00 84 08/19/16 16:00 100.8 84 17 158/67 94 141/55 08/19/16 15:12 93 55 08/19/16 15:00 81 103/40 94 5/10/17 14:00 109 08/19/16 14:00 109 170/73 93 186/69 08/19/16 08/19/16 08/20/16 15:00 23:00 07:00 Intake Total 1450 ml 1026 ml 405 ml Output Total 2700 ml 1000 ml 1050 ml Balance -1250 ml 26 ml -645 ml Intake IV Total 703 ml 411 ml 310 ml Tube Feeding 427 ml 415 ml 95 ml Tube Irrigant 120 ml Other 200 ml 200 ml Output Urine Total 2500 ml 900 ml 900 ml Stool Total 200 ml 100 ml 150 ml . Laboratory Tests Test 08/19/16 08/20/16 03:47 02:00 White Blood Count 10.2 TH/MM3 7.3 TH/MM3 Red Blood Count 2.97 MIL/MM3 2.91 MIL/MM3 Hemoglobin 9.5 GM/DL 9.4 GM/DL Hematocrit 28.0 % 27.6 % Mean Corpuscular Volume 94.3 FL 94.8 FL Mean Corpuscular Hemoglobin 32.1 PG 32.4 PG Mean Corpuscular Hemoglobin 34.0 % 34.1 % Concent Red Cell Distribution Width 14.4 % 14.3 % Platelet Count 180 TH/MM3 170 TH/MM3 Mean Platelet Volume 8.4 FL 8.6 FL Laboratory Tests Test 08/19/16 08/20/16 08/20/16 03:47 02:00 07:10 Sodium Level 143 MEQ/L 142 MEQ/L Potassium Level 3.1 MEQ/L 3.3 MEQ/L 3.1 MEQ/L Chloride Level 100 MEQ/L 100 MEQ/L Carbon Dioxide Level 35.0 MEQ/L 37.1 MEQ/L Anion Gap 8 MEQ/L 5 MEQ/L Blood Urea Nitrogen 31 MG/DL 31 MG/DL Creatinine 1.39 MG/DL 1.24 MG/DL Estimat Glomerular Filtration 52 ML/MIN 59 ML/MIN Rate Random Glucose 168 MG/DL 121 MG/DL Calcium Level 8.0 MG/DL 8.3 MG/DL Phosphorus Level 3.6 MG/DL 3.4 MG/DL Magnesium Level 2.0 MG/DL Albumin 1.6 GM/DL Microbiology Date/Time Procedure Status Source Growth 08/19/16 03:20 Gram Stain - Final Resulted Sputum Endotracheal 08/19/16 03:20 Sputum Culture - Preliminary Resulted Sputum Endotracheal HEAVY GROWTH NORMAL RESPIRATORY RABIA... Imaging Chest X-Ray 08/17/16 0600 Signed Impressions: Service Date/Time: Wednesday, August 17, 2016 04:54 - CONCLUSION: Unchanged bilateral pulmonary infiltrates. Robin Wray Jr., MD Chest X-Ray 08/15/16 0600 Signed Impressions: Service Date/Time: Monday, August 15, 2016 03:34 - CONCLUSION: Diffuse airspace disease with worsening disease in the lower lobes on current study. Perico Wahl MD Lower Extremity Ultrasound 08/11/16 Signed Impressions: Service Date/Time: Thursday, August 11, 2016 08:00 - CONCLUSION: Normal examination. Efrain Deng MD Chest X-Ray 08/11/16 0000 Signed Impressions: Service Date/Time: Thursday, August 11, 2016 13:14 - CONCLUSION: Stable chest appearance. Efrain Deng MD Chest X-Ray 08/11/16 0000 Signed Impressions: Service Date/Time: Thursday, August 11, 2016 12:25 - CONCLUSION: 1. Stable patchy infiltrates bilaterally consistent with pneumonia and/or pulmonary edema. Clinical correlation is recommended. 2. Tiny bilateral pleural effusions. Franck Betancourt MD Lower Extremity Ultrasound 08/11/16 Signed Impressions: Service Date/Time: Thursday, August 11, 2016 08:00 - CONCLUSION: Normal examination. Efrain Deng MD Chest X-Ray 08/10/16 0000 Signed Impressions: Service Date/Time: Wednesday, August 10, 2016 15:39 - CONCLUSION: Slight worsening in aeration Efrain Deng MD Chest X-Ray 08/09/16 0000 Signed Impressions: Service Date/Time: Tuesday, August 09, 2016 07:51 - CONCLUSION: Endotracheal tube tip now 2 cm above the long. No change in patchy bilateral pulmonary parenchymal opacity. Julio Grove MD ADDENDUM: There is an NG tube in place overlapping the nasogastric tube on the image. The tip of the NG tube is at the level of the aortic arch in the proximal to mid thoracic esophagus. Side-port 3 cm below the thoracic inlet. Endotracheal tube tip is 9 cm above the long and 3 cm below the thoracic inlet. Julio Grove MD Abdomen X-Ray 08/09/16 0000 Signed Impressions: Service Date/Time: Tuesday, August 09, 2016 10:18 - CONCLUSION: Nonspecific bowel gas pattern. Julio Grove MD Chest X-Ray 08/08/16 1000 Signed Impressions: Service Date/Time: Monday, August 08, 2016 10:38 - CONCLUSION: Improved aeration. Murali Perdomo MD Chest X-Ray 08/07/16 0600 Signed Impressions: Service Date/Time: Sunday, August 07, 2016 04:57 - CONCLUSION: No significant change. Extensive bilateral infiltrates persist. Efrain Syed MD Chest X-Ray 08/06/16 0400 Signed Impressions: Service Date/Time: July 03:00 - CONCLUSION: No significant interval change with bilateral pulmonary infiltrates. Ronny Joshi MD Renal Ultrasound 08/05/16 1504 Signed Impressions: Service Date/Time: Friday, August 05, 2016 21:01 - CONCLUSION: 1. No evidence of obstruction or other acute renal abnormality. 2. Small, benign appearing cyst of the right kidney. 3. Witt catheter present. Efrain Syed MD Last Impressions Chest X-Ray 08/06/16 0400 Signed Impressions: Service Date/Time: July 03:00 - CONCLUSION: No significant interval change with bilateral pulmonary infiltrates. Ronny Joshi MD Renal Ultrasound 08/05/16 1504 Signed Impressions: Service Date/Time: Friday, August 05, 2016 21:01 - CONCLUSION: 1. No evidence of obstruction or other acute renal abnormality. 2. Small, benign appearing cyst of the right kidney. 3. Witt catheter present. Efrain Syed MD Physical Exam GENERAL: On the vent, NAD SKIN: Cool and moist. No rash HEENT: [place] conjunctivam no icterus. MOist muocsa NECK: S/P trach CARDIOVASCULAR: regular rate and rhythm without murmurs, gallops, or rubs. RESPIRATORY: Bilateral rhonchi GASTROINTESTINAL: Abdomen soft, BS (+) PEG site with dry dressing MUSCULOSKELETAL: Extremities without edema. NEUROLOGICAL: Sedated, on the vent PSYCH: Unable to fully assess LINE: LSC TLC with no evidence of infection : Witt cath in place, urine looks clear Assessment & Plan Remarks IMPRESSION Severe bilateral pneumonia, (+) Legionella Acute Respiratory failure, with significant hypoxemia. On vent. Hx anxiety/depression Leukocytosis - resolved Renal failure, improving, good UO Low grade temps, possibly due to DVT RLE DVT RECOMMENDATION Stop Levaquin after today"s dose 2 BC Follow clinically Monitor temps Looking at transfer to [facility] per CCM D/W RN D/W Dr Kessler ([facility]) Kyleigh Nichols MD August 20, 2016 13:24
[2016-08-20] MEDS: BUMETANIDE INJ 1 MG/4 ML VIAL IV PUSH SCH (13:43)
--- NOTE | 2016-08-20 15:52 | HHI.CCPN ---
Subjective Remarks/Hospital Course 08/04: 60 y/o man with several week history of weakness, fatigue; fevers and sweats over past week. Today with severe SOB, arrived by EMS with hypoxemia. CO2 retention as well in ED. Required intubation in ED. Creatinine > 3.0 and severely dehydrated. 08/05: Remains sedated, orally intubated on mechanical ventilation. He remains at PEEP+14, FiO2 decreased to 80%. Urine positive for Legionella Ag. Went into A. fib with RVR. 08/06: Remains sedated, orally intubated on mechanical ventilation. On neuromuscular blockade with Nimbex. Initiated on prone ventilation today. Switched to pressure control mode with positive inspiratory pressure +20, PEEP + 15, respiratory rate 20, I time 1.82 seconds, FiO2 70%.. On propofol/fentanyl/ Versed/Nimbex/amiodarone/ vasopressin drips. Jose-Synephrine titrated off following switching from APRV to pressure control mode mechanical ventilation and initiating proning. 08/07: Remains sedated, on neuromuscular blockade, orally intubated on prone ventilation. FiO2 decreased to 50%, PEEP remains at +15. On fentanyl/versed/ Nimbex/amiodarone/vasopressin drips. Jose-Synephrine on transiently today. Diuresed well with Bumex. 08/08: Remains sedated, on neuromuscular blockade, orally intubated on prone ventilation. FiO2 decreased to 45%, PEEP remains at +15. Attempting to place Dobbhoff to initiate tube feeds. Off Jose-Synephrine. Vasopressin being titrated down. 08/09: Remains sedated, orally intubated on prone ventilation. Remains on Nimbex for neuromuscular blockade. PEEP +15, FiO2 50%. Have been unable to place OG tube despite multiple attempts. 08/10: Remains sedated, orally intubated on neuromuscular blockade on prone ventilation. Attempts at keeping supine today however had progressively increasing FiO2 requirement. He was restarted on prone ventilation. He had a sudden episode of desaturation with dropping O2 sats to the 80s despite 100% FiO2. I time increased from 1.2 seconds to 1.8 seconds. He was immediately supined and a stat chest x-ray obtained which did not reveal any pneumothorax and essentially unchanged compared to previous chest x-ray with bilateral infiltrates. He was restarted on prone ventilation. Question of PE. We will initiate full anticoagulation with heparin. Will also check troponins and EKG when supine unless troponin elevated in which case we will get a stat EKG. 52: Remains sedated, orally intubated on neuromuscular blockade in prone ventilation. Had episode of loss of lung volumes with desaturation. Chest x- ray did not reveal any pneumothorax or atelectasis. Thick mucus suctioned out of the ET tube. Difficult to bag at times. ET tube was changed over a tube exchanger following which he had return of good volumes. ( It is possible that the pre-existing ET tube was getting occluded by debris or secretions which were somewhat cleared out by suctioning earlier.) GI postponed with G-tube placement due to unstable respiratory status until tomorrow and they will plan on doing a PEG tube if respiratory status permits. 08/12: Remains sedated, orally intubated on neuromuscular blockade on prone ventilation. Underwent PEG tube placement today. Start tube feeds in a.m. 08/13: Tmax 98.9. Tube feeds initiated this a.m.. Sodium level 155, free water flushes initiated. Slight improvement in ventilatory status. Plan to remain supine today, an attempt to wean ventilation settings. 08/14: The patient was transitioned off of the [place] prone bed. Neuromuscular blockade has been discontinued. FiO2 has been decreased to 40%. The patient has been transitioned to by mouth amiodarone. Patient continues on Nepro at 15 cc an hour with moderate residuals noted. 08/15: Patient's O2 requirements decreasing, PEEP now 7, FiO2 60%. Patient was transitioned to amiodarone PO yesterday, noted tachycardia HR 109. Metoprolol added to medication regimen. Patient was also noted to be hypertensive, when necessary antihypertensive medications added. 08/16: Tmax 101.2 . The patient has been febrile today, receiving Tylenol. Chest x-ray slightly worsened today bilateral lower lobes, placed on pressure control mode via mechanical ventilation The patient had 2 episodes of SVT last night with the rate in the 140s. The patient received beta blockers 2 doses with immediate resolution. Amiodarone was increased to 400 mg twice a day today. Versed was completely discontinued CPAP trials have been initiated. 08/17: The patient tolerated CPAP trials for over 4 hours yesterday. The patient is alert oriented responding by nodding to yes and no questions, following commands. The patient was noted to be hypokalemic potassium level 2.9, and was repleted. PT/OT initiated. 08/18: The patient unable to tolerate CPAP trial today. The patient was noted to be hypertensive despite metoprolol dosage being increased, will increase frequency. Chest x-ray showed improvement. 08/19: Afebrile. Multiple attempts at CPAP trials today unsuccessful, and very to patient becoming agitated. Haldol medication instituted. Plans for tracheostomy this week by general surgery. Wound care consulted for left foot drainage. 08/20: Patient underwent uneventful percutaneous tracheostomy at the bedside. Upper and has been temporarily discontinued, will receive subcutaneous heparin tonight, with resumption of IV heparin infusion in the a.m.. Central line arterial line has been discontinued. Objective Vital Signs Date Time Temp Pulse Resp B/P Pulse Ox O2 Delivery O2 Flow Rate FiO2 08/20/16 15:39 95 90 08/20/16 14:00 74 08/20/16 12:00 100.9 16 105/50 113/47 Intake and Output 08/19/16 08/19/16 08/20/16 08:00 16:00 00:00 Intake Total 1068 ml 1450 ml 1026 ml Output Total 1000 ml 2700 ml 1000 ml Balance 68 ml -1250 ml 26 ml Result Diagram: 08/20/16 0200 08/20/16 0710 Other Results Laboratory Tests Test 08/19/16 17:50 Blood Gas Puncture Site ART LINE Blood Gas Patient Temperature 98.6 Blood Gas HCO3 33 mmol/L (22-26) Blood Gas Base Excess 8.2 mmol/L (-2-2) Blood Gas Oxygen Saturation 95 % (90-100) Arterial Blood pH 7.44 (7.380-7.420) Arterial Blood Partial 48 mmHg (38-42) Pressure CO2 Arterial Blood Partial 107 mmHg Pressure O2 (61-120) Arterial Blood Oxygen Content 12.3 Vol % (12.0-20.0) Arterial Blood 1.4 % (0-4) Carboxyhemoglobin Arterial Blood Methemoglobin 1.7 % (0-2) Blood Gas Hemoglobin 9.1 G/DL (12.0-16.0) Oxygen Delivery Device VENTILATOR Blood Gas Ventilator Setting Blood Gas Inspired Oxygen 55 % Imaging Last Impressions Lower Extremity Ultrasound 08/11/16 0000 Signed Impressions: Service Date/Time: Thursday, August 11, 2016 08:00 - CONCLUSION: Normal examination. Efrain Deng MD Chest X-Ray 08/11/16 0000 Signed Impressions: Service Date/Time: Thursday, August 11, 2016 13:14 - CONCLUSION: Stable chest appearance. Efrain Deng MD Abdomen X-Ray 08/09/16 0000 Signed Impressions: Service Date/Time: Tuesday, August 09, 2016 10:18 - CONCLUSION: Nonspecific bowel gas pattern. Julio Grove MD Renal Ultrasound 08/05/16 1504 Signed Impressions: Service Date/Time: Friday, August 05, 2016 21:01 - CONCLUSION: 1. No evidence of obstruction or other acute renal abnormality. 2. Small, benign appearing cyst of the right kidney. 3. Witt catheter present. Efrain Syed MD Last 24 hours Impressions Chest X-Ray 08/08/16 1000 Signed Impressions: Service Date/Time: Monday, August 08, 2016 10:38 - CONCLUSION: Improved aeration. Murali Perdomo MD Abdomen X-Ray 08/08/16 0000 Signed Impressions: Service Date/Time: Monday, August 08, 2016 10:38 - CONCLUSION: No evidence of obstruction. Murali Perdomo MD Last 24 hours Impressions Chest X-Ray 08/07/16 0600 Signed Impressions: Service Date/Time: Sunday, August 07, 2016 04:57 - CONCLUSION: No significant change. Extensive bilateral infiltrates persist. Efrain Syed MD Last 24 hours Impressions Chest X-Ray 08/06/16 0400 Signed Impressions: Service Date/Time: July 03:00 - CONCLUSION: No significant interval change with bilateral pulmonary infiltrates. Ronny Joshi MD Last Impressions Chest X-Ray 08/04/16 1832 Signed Impressions: Service Date/Time: Thursday, August 04, 2016 18:50 - CONCLUSION: Extensive bilateral airspace disease greater in the left lung. There may be pneumomediastinum. Perico Wahl MD Objective Remarks BP 177/70 P 100 O2 sat 93% Infusions: Propofol 20 mcgs Fentanyl 250 mcgs Gen: Elderly male, sedated for ventilator synchrony orally intubated on mechanical ventilation, responsive HEENT: Positive pallor, no icterus. Orally intubated. Mucosa moist. Neck: Supple, orally intubated. Lungs: Orally intubated on mechanical ventilation, clear to auscultation bilaterally Heart: NL S1S2 regularly regular, no JVD. Abdomen: Soft, NT, ND, no guarding. PEG tube in place Extremities: Warm bilaterally, no edema. Left foot/heel resting applied Neuro: RASS -1, GCS 11T on mechanical ventilation. Urinary Catheter: Yes Assessment to: Continue Witt insert reason: Measure Accurate Output Line: Central Venous Catheter A/P Assessment and Plan Assessment: 1. Septic shock 2. Acute Respiratory Failure on mechanical ventilation 3. Legionella Pneumonia 4. ARDS 5. CKD with CHAN 6. A. fib with RVR (converted to RSR) 7. Hx depression with recent ECT 2016 8. Suspected PE 9. Left heel wound 10 DVT-right popliteal to mid femoral Neuro: Continue sedation with fentanyl, and propofol 4 for ventilator synchrony. Haldol 5 mg daily scheduled agitation Begin daily sedation vacation 08/15 Cardiovascular: Transitioned to Amiodarone, PO 08/14. Phenylephrine discontinued . Vasopressin discontinued 08/13 Metoprolol 50 mg twice a day 08/10 - 2-D echo with minimally depressed LV and RV function, ejection fraction 4550%, tricuspid valve mild regurgitation Pulmonary: Continue mechanical ventilation, AC/PC PIP +20, PEEP +7, respiratory rate 20, FiO2 60%, inspiratory time 1.8 seconds Vent bundle, bronchodilators, pulmonary toilet.Neuromuscular Blockade discontinued 08/14 Worsening hypoxia noted on 08/10. Lung mechanics unchanged essentially. Question of PE, continue full anticoagulation with heparin. General surgery consult for tracheostomy-plan for trach this week 08/14 Rotaprone discontinued GI/liver: Unable to place OG tube despite multiple attempts. consulted GI. GI placed PEG on 08/12. Start tube feeds on 08/13. Renal/: D5 water at 60 cc an hour for hypernatremia, strict intake output, monitor and replete electrolytes, follow BUN/creatinine. Nephrology following for CHAN/CKD. Given glucose/insulin for hyperkalemia. Started on Diuril by nephrology. 08/13: Free water flushes started 300 cc every 6 hours Heme: Follow CBC. Full anticoagulation with heparin for suspected PE. Monitor PTT 08/18 repeat US bilateral upper and lower extremities-no DVT in either upper extremities. DVT right popliteal into mid femoral vein. We'll temporarily hold heparin infusion at this time, and initiate subcutaneous heparin overnight. Will resume heparin infusion and a.m. ID: Continue antibiotic coverage with IV Levaquin Zithromax. Cefepime stopped on 08/07 per ID. ID following. Urine positive for Legionella antigen. Endocrine: SSI for glycemic control. Tapering stress dose hydrocortisone. Prophylaxis: PPI/SCDs/ Lovenox (held) and started full anticoagulation with heparin on 08/10 for suspected PE. Dispo: Discussed with [employer] , and updated son Jae Gomez on patient's status. DC arterial line, and central line This patient remains critically ill with one or more organ systems which are or may become a threat to life. I have spent in excess of 33 minutes discontinuously in the care and management of this patient. This time is exclusive of procedures, and includes, but is not limited to, evaluation of the patient, review of the medical record, discussions with family, consultants, nursing staff, or respiratory therapy, and documentation in the medical record. Remains critical with severe ARDS secondary to Legionella pneumonia and hypoxemic respiratory failure Physician Danica Asif MD August 20, 2016 15:52
[2016-08-20 15:57] LABS: BLOOD GAS BASE EXCESS 8.4 mmol/L (-2-2); BLOOD GAS CARBOXYHEMOGLOBIN 1.4 % (0-4); BLOOD GAS HCO3 33 mmol/L (22-26); BLOOD GAS METHEMOGLOBIN 1.7 % (0-2); BLOOD GAS O2 HGB SATURATION 96 % (90-100); BLOOD GAS OXYGEN CONTENT 12.6 Vol % (12.0-20.0); BLOOD GAS PCO2 50 mmHg (38-42); BLOOD GAS PO2 161 mmHg (61-120); CRITICAL VALUE NO; DRAW SITE ART LINE; FIO2 90 %; OXYGEN DEVICE VENTILATOR; STAT YES; TEMP CORR TO 98.6; VENT SETTINGS PRVC/AC
[2016-08-20] MEDS: LEVOFLOXACIN 500 MG IV SCH (18:13)
[2016-08-20] MEDS: CHLORHEXIDINE GLUCONATE 2 % 1 PACK (2 CLOTHS) TOP SCH (20:15)
[2016-08-20] MEDS: ACETAMINOPHEN 325 MG TAB PO PRN (21:18)
[2016-08-20] MEDS: HEPARIN SODIUM - SQ 10,000 UNITS/ML VIAL SQ SCH (21:18)
[2016-08-20] MEDS: ICU - POTASSIUM CHLORIDE/AQUEOUS SOLN 20 MEQ/100 ML IVPB IV PRN (21:34)
[2016-08-21] VITALS (18 sets, daily range): BP systolic 138–181; BP diastolic 62–77; PULSE 71–108; RESP 16–18; TEMP 98.4–100.8; O2SAT 94–96
[2016-08-21] MEDS: PROPOFOL 1000 MG/100 ML INJ 100 ML IV SCH ×6 (00:16→23:06)
[2016-08-21] MEDS: METOCLOPRAMIDE HCL 10 MG/2 ML VIAL IV PUSH SCH ×4 (00:16→23:53)
[2016-08-21] MEDS: ICU - POTASSIUM CHLORIDE/AQUEOUS SOLN 20 MEQ/100 ML IVPB IV PRN ×3 (00:20→03:12)
[2016-08-21] MEDS: FREE WATER G-TUBE SCH ×3 (03:12→20:00)
[2016-08-21] MEDS: INSULIN ASPART SUPPLEMENTAL SCALE SQ SCH ×5 (04:57→23:56)
[2016-08-21] MEDS: METOPROLOL TARTRATE 25 MG TAB PO SCH ×3 (05:26→20:08)
[2016-08-21] MEDS: ARTIFICIAL TEARS OPTH SOLN 15 ML BTL EACH EYE SCH ×3 (08:06→17:25)
[2016-08-21] MEDS: CHLORHEXIDINE 0.12% (ORAL KIT) 15 ML CUP MT SCH ×2 (08:06→20:08)
[2016-08-21] MEDS: BUMETANIDE INJ 1 MG/4 ML VIAL IV PUSH SCH (08:07)
[2016-08-21] MEDS: PANTOPRAZOLE SODIUM 40 MG VIAL IV SCH (08:07)
[2016-08-21] MEDS: SODIUM CHLORIDE 0.9% FLUSH 10 ML FLUSH IVF PRN (08:08)
[2016-08-21] MEDS: HEPARIN SODIUM - SQ 10,000 UNITS/ML VIAL SQ SCH (08:08)
[2016-08-21] MEDS: LACTULOSE SYRUP 20 GM/30 ML CUP PO SCH (08:08)
[2016-08-21] MEDS: HALOPERIDOL LACTATE ORAL CONC 10 MG/5 ML CUP PO SCH (08:08)
[2016-08-21] MEDS: HYDROCORTISONE SOD SUCCINATE 100 MG VIAL IV PUSH SCH ×2 (08:08→20:08)
[2016-08-21] MEDS: AMIODARONE 200 MG TAB PO SCH ×2 (08:08→20:08)
--- NOTE | 2016-08-21 09:12 | HHI.CCPN ---
Subjective Remarks/Hospital Course 08/04: 60 y/o man with several week history of weakness, fatigue; fevers and sweats over past week. Today with severe SOB, arrived by EMS with hypoxemia. CO2 retention as well in ED. Required intubation in ED. Creatinine > 3.0 and severely dehydrated. 08/05: Remains sedated, orally intubated on mechanical ventilation. He remains at PEEP+14, FiO2 decreased to 80%. Urine positive for Legionella Ag. Went into A. fib with RVR. 08/06: Remains sedated, orally intubated on mechanical ventilation. On neuromuscular blockade with Nimbex. Initiated on prone ventilation today. Switched to pressure control mode with positive inspiratory pressure +20, PEEP + 15, respiratory rate 20, I time 1.82 seconds, FiO2 70%.. On propofol/fentanyl/ Versed/Nimbex/amiodarone/ vasopressin drips. Jose-Synephrine titrated off following switching from APRV to pressure control mode mechanical ventilation and initiating proning. 08/07: Remains sedated, on neuromuscular blockade, orally intubated on prone ventilation. FiO2 decreased to 50%, PEEP remains at +15. On fentanyl/versed/ Nimbex/amiodarone/vasopressin drips. Jose-Synephrine on transiently today. Diuresed well with Bumex. 08/08: Remains sedated, on neuromuscular blockade, orally intubated on prone ventilation. FiO2 decreased to 45%, PEEP remains at +15. Attempting to place Dobb[place] to initiate tube feeds. Off Jose-Synephrine. Vasopressin being titrated down. 08/09: Remains sedated, orally intubated on prone ventilation. Remains on Nimbex for neuromuscular blockade. PEEP +15, FiO2 50%. Have been unable to place OG tube despite multiple attempts. 08/10: Remains sedated, orally intubated on neuromuscular blockade on prone ventilation. Attempts at keeping supine today however had progressively increasing FiO2 requirement. He was restarted on prone ventilation. He had a sudden episode of desaturation with dropping O2 sats to the 80s despite 100% FiO2. I time increased from 1.2 seconds to 1.8 seconds. He was immediately supined and a stat chest x-ray obtained which did not reveal any pneumothorax and essentially unchanged compared to previous chest x-ray with bilateral infiltrates. He was restarted on prone ventilation. Question of PE. We will initiate full anticoagulation with heparin. Will also check troponins and EKG when supine unless troponin elevated in which case we will get a stat EKG. 52: Remains sedated, orally intubated on neuromuscular blockade in prone ventilation. Had episode of loss of lung volumes with desaturation. Chest x- ray did not reveal any pneumothorax or atelectasis. Thick mucus suctioned out of the ET tube. Difficult to bag at times. ET tube was changed over a tube exchanger following which he had return of good volumes. ( It is possible that the pre-existing ET tube was getting occluded by debris or secretions which were somewhat cleared out by suctioning earlier.) GI postponed with G-tube placement due to unstable respiratory status until tomorrow and they will plan on doing a PEG tube if respiratory status permits. 08/12: Remains sedated, orally intubated on neuromuscular blockade on prone ventilation. Underwent PEG tube placement today. Start tube feeds in a.m. 08/13: Tmax 98.9. Tube feeds initiated this a.m.. Sodium level 155, free water flushes initiated. Slight improvement in ventilatory status. Plan to remain supine today, an attempt to wean ventilation settings. 08/14: The patient was transitioned off of the [place] prone bed. Neuromuscular blockade has been discontinued. FiO2 has been decreased to 40%. The patient has been transitioned to by mouth amiodarone. Patient continues on Nepro at 15 cc an hour with moderate residuals noted. 08/15: Patient's O2 requirements decreasing, PEEP now 7, FiO2 60%. Patient was transitioned to amiodarone PO yesterday, noted tachycardia HR 109. Metoprolol added to medication regimen. Patient was also noted to be hypertensive, when necessary antihypertensive medications added. 08/16: Tmax 101.2 . The patient has been febrile today, receiving Tylenol. Chest x-ray slightly worsened today bilateral lower lobes, placed on pressure control mode via mechanical ventilation The patient had 2 episodes of SVT last night with the rate in the 140s. The patient received beta blockers 2 doses with immediate resolution. Amiodarone was increased to 400 mg twice a day today. Versed was completely discontinued CPAP trials have been initiated. 08/17: The patient tolerated CPAP trials for over 4 hours yesterday. The patient is alert oriented responding by nodding to yes and no questions, following commands. The patient was noted to be hypokalemic potassium level 2.9, and was repleted. PT/OT initiated. 08/18: The patient unable to tolerate CPAP trial today. The patient was noted to be hypertensive despite metoprolol dosage being increased, will increase frequency. Chest x-ray showed improvement. 08/19: Afebrile. Multiple attempts at CPAP trials today unsuccessful, and very to patient becoming agitated. Haldol medication instituted. Plans for tracheostomy this week by general surgery. Wound care consulted for left foot drainage. 08/20: Patient underwent uneventful percutaneous tracheostomy at the bedside. Upper and has been temporarily discontinued, will receive subcutaneous heparin tonight, with resumption of IV heparin infusion in the a.m.. Central line arterial line has been discontinued. 08/21 Patient s/p trach yesterday. Spiked fever with T: 101.2 last night, On PC/ AC with PEEP: 7 and FIO2 55% Objective Vital Signs Date Time Temp Pulse Resp B/P Pulse Ox O2 Delivery O2 Flow Rate FiO2 08/21/16 07:24 95 50 08/21/16 06:00 94 08/21/16 04:00 99.2 138/63 08/20/16 16:00 16 Intake and Output 08/20/16 08/20/16 08/20/16 07:59 15:59 23:59 Intake Total 405 ml 913 ml 1464 ml Output Total 1050 ml 2690 ml 1200 ml Balance -645 ml -1777 ml 264 ml Result Diagram: 08/20/16 0200 08/20/16 1733 Other Results Laboratory Tests Test 08/20/16 08/20/16 15:48 17:33 Blood Gas Puncture Site ART LINE Blood Gas Patient Temperature 98.6 Blood Gas HCO3 33 mmol/L Blood Gas Base Excess 8.4 mmol/L Blood Gas Oxygen Saturation 96 % Arterial Blood pH 7.44 Arterial Blood Partial 50 mmHg Pressure CO2 Arterial Blood Partial 161 mmHg Pressure O2 Arterial Blood Oxygen Content 12.6 Vol % Arterial Blood 1.4 % Carboxyhemoglobin Arterial Blood Methemoglobin 1.7 % Blood Gas Hemoglobin 9.0 G/DL Oxygen Delivery Device VENTILATOR Blood Gas Ventilator Setting PRVC/AC Blood Gas Inspired Oxygen 90 % Potassium Level 3.2 MEQ/L Imaging Last Impressions Chest X-Ray 08/20/16 0600 Signed Impressions: Service Date/Time: August 02:14 - CONCLUSION: Unchanged bilateral pulmonary infiltrates. Robin Wray Jr., MD Upper Extremity Ultrasound 08/17/16 0900 Signed Impressions: Service Date/Time: Wednesday, August 17, 2016 10:40 - CONCLUSION: No DVT in either upper extremity Perico Wahl MD Lower Extremity Ultrasound 08/17/16 0900 Signed Impressions: Service Date/Time: Wednesday, August 17, 2016 10:40 - CONCLUSION: DVT on the right as described above. Jamie Blackwood MD FACR Abdomen X-Ray 08/09/16 0000 Signed Impressions: Service Date/Time: Tuesday, August 09, 2016 10:18 - CONCLUSION: Nonspecific bowel gas pattern. Julio Grove MD Renal Ultrasound 08/05/16 1504 Signed Impressions: Service Date/Time: Friday, August 05, 2016 21:01 - CONCLUSION: 1. No evidence of obstruction or other acute renal abnormality. 2. Small, benign appearing cyst of the right kidney. 3. Witt catheter present. Efrain Syed MD Objective Remarks GENERAL: Patient is 60 yo on ventilator via trach SKIN: Warm and dry. HEAD: Normocephalic. EYES: No scleral icterus. No injection or drainage. NECK: Supple, trachea midline. No JVD or lymphadenopathy. CARDIOVASCULAR: Regular rate and rhythm without murmurs, gallops, or rubs. RESPIRATORY: Breath sounds equal bilaterally. No accessory muscle use. GASTROINTESTINAL: Abdomen soft, non-tender, nondistended. MUSCULOSKELETAL: No cyanosis, or edema. Neuro: On Ventilator vi atrach Line: Central Venous Catheter A/P Assessment and Plan 1. VDRF s/p trach 2. Legionella Pneumonia 3. CKD with CHAN 4. A. fib with RVR (converted to RSR) 5. Hx depression with recent ECT 2017 6 Left heel wound 7 DVT-right popliteal to mid femoral 8 CHAN-improving 9 Leukocytosis- trending down 10 Anemia Neuro: Continue sedation with fentanyl, and propofol. Daily sedation vacation CV: Monitor HR and BP keep MAP>65mmHg- On Metoprolol 25mg Q8, AMiodarone 400mg Q12 5/ - 2-D echo with minimally depressed LV and RV function, ejection fraction 45 50%, tricuspid valve mild regurgitation Pulmonary: Continue vent support keep sat >92%- s/p trach 08/20 Vent bundle, bronchodilators, pulmonary toilet. SBT daily as kanwal. taper IV steroids- decrease HC 25mg IV Q12 On PC/AC RR 16, IP:14, IT: 1.8, PEEP:7, FIO2 55%. Decrease FIO2 405 as kanwal. GI/liver: GI placed PEG on 08/12. Change tube feeds to Glucerna 1.5 with goal rate 50ml/hr Renal/:Monitor renal function, I/O's, electrolytes replacement per protocol. On Bumex 2mg IV daily , renal is following Heme:Monitor CBC. Start Full anticoagulation with heparin. Monitor PTT 08/18 repeat US bilateral upper and lower extremities-no DVT in either upper extremities. DVT right popliteal into mid femoral vein. ID: Off abx per ID monitor for signs of infections ( Fever, WBC) Follow up on BC from 08/20, check UA and sputum cx Endocrine: SSI for glycemic control. Tapering stress dose hydrocortisone. Prophylaxis: PPI/SCDs/ start heparin drip CCT 30 mins Palomo Little MD August 21, 2016 09:12 nursing staff, or respiratory therapy, and documentation in the medical record. Remains critical with severe ARDS secondary to Legionella pneumonia and hypoxemic respiratory failure Palomo Little MD August 21, 2016 09:12
[2016-08-21 11:29] LABS: BLOOD, URINE TRACE (NEG); GLUCOSE,URINE NEG (NEG); HYALINE CAST, URINE 1 /lpf (RARE); KETONE, URINE NEG (NEG); MUCUS URINE FEW /lpf (OCC); NITRITE,URINE NEG (NEG); PH, URINE 6.5 (5.0-8.5); URINE COLOR LIGHT-YELLOW (YELLW/STRAW)
[2016-08-21 11:30] LABS: COMMENT (UR) CATH-CULT NOT IND; CULTURE IF INDICATED CATH CULTURE NOT IND
[2016-08-21 12:22] LABS: HEMATOCRIT 29.6 % (39.0-51.0); MEAN CELL VOLUME 94.4 FL (80.0-100.0); MEAN CORPUSCULAR HEMOGLOBIN 32.2 PG (27.0-34.0); MEAN CORPUSCULAR HGB CONC 34.1 % (32.0-36.0); PLATELET COUNT 194 TH/MM3 (150-450); RED BLOOD COUNT 3.14 MIL/MM3 (4.50-5.90); RED CELL DISTRIBUTION WIDTH 14.2 % (11.6-17.2); REVIEW FLAG FINAL; WHITE BLOOD COUNT 8.5 TH/MM3 (4.0-11.0)
[2016-08-21 12:48] LABS: ANION GAP 6 MEQ/L (5-15); APTT (PATIENT) 25.2 SEC (24.3-30.1); AST (GOT) 59 U/L (15-37); BICARBONATE 38.3 MEQ/L (21.0-32.0); BLOOD UREA NITROGEN 28 MG/DL (7-18); CHLORIDE 99 MEQ/L (98-107); GLOMERULAR FILTRATION RATE 60 ML/MIN (>89); INTERNATIONAL NORMALIZED RATIO 1.2 RATIO; MAGNESIUM 2.1 MG/DL (1.5-2.5); POTASSIUM 3.4 MEQ/L (3.5-5.1); SODIUM (NA) 143 MEQ/L (136-145)
[2016-08-21 12:51] LABS: ALKALINE PHOSPHATASE 83 U/L (45-117); ALT (GPT) 109 U/L (12-78); TOTAL BILIRUBIN ADULT 0.6 MG/DL (0.2-1.0)
[2016-08-21] MEDS: POTASSIUM CHLORIDE 25 MEQ EFFERVESCENT TAB PO PRN (13:07)
--- NOTE | 2016-08-21 14:52 | HHI.IDPN ---
Subjective Subjective Remarks is a 60 y/o Male with h/o Asthma, admitted with severe sepsis, Legionella pneumonia s/p Rotabed. Notes reviewed D/W RN S/P trach 08/20 Central line remove Has liquid stool, volume not a lot Low grade temps UA ok BC negative so far 08/20 Sputum 08/19 ok Has DVT RLE Off Abx Antibiotics None Lines PIV Past Medical History Reviewed Allergies: Coded Allergies: No Known Allergies (Unverified , 07/31/16) Objective . Vital Signs Date Time Temp Pulse Resp B/P Pulse Ox O2 Delivery O2 Flow Rate FiO2 08/21/16 12:00 55 08/21/16 12:00 100.2 105 18 177/74 95 08/21/16 12:00 105 08/21/16 11:08 95 50 08/21/16 10:00 108 08/21/16 08:00 55 08/21/16 08:00 100.4 101 18 139/62 94 08/21/16 08:00 101 08/21/16 07:24 95 50 08/21/16 06:00 94 08/21/16 05:04 96 55 08/21/16 04:00 60 08/21/16 04:00 92 08/21/16 04:00 99.2 92 138/63 96 08/21/16 03:38 96 60 08/21/16 02:00 82 08/21/16 00:00 55 08/21/16 00:00 99.0 100 160/67 95 08/21/16 00:00 100 08/20/16 23:49 96 65 08/20/16 22:00 95 08/20/16 21:08 96 70 08/20/16 20:00 55 08/20/16 20:00 101.2 91 118/58 96 Arterial Line 08/20/16 20:00 91 08/20/16 18:00 74 08/20/16 18:00 86 109/55 95 08/20/16 17:00 75 113/43 95 08/20/16 16:00 74 08/20/16 16:00 74 102/55 95 104/40 08/20/16 16:00 65 08/20/16 16:00 99.0 74 16 102/55 95 104/40 08/20/16 15:39 95 90 08/20/16 15:25 80 112/58 95 123/46 08/20/16 15:00 80 126/47 97 08/20/16 08/20/16 08/21/16 15:00 23:00 07:00 Intake Total 913 ml 1464 ml 1296 ml Output Total 2690 ml 1200 ml 1200 ml Balance -1777 ml 264 ml 96 ml Intake IV Total 793 ml 1266 ml 710 ml Tube Feeding 198 ml 386 ml Tube Irrigant 120 ml Other 200 ml Output Urine Total 2350 ml 1100 ml 1050 ml Stool Total 340 ml 100 ml 150 ml . Laboratory Tests Test 08/20/16 08/21/16 02:00 12:00 White Blood Count 7.3 TH/MM3 8.5 TH/MM3 Red Blood Count 2.91 MIL/MM3 3.14 MIL/MM3 Hemoglobin 9.4 GM/DL 10.1 GM/DL Hematocrit 27.6 % 29.6 % Mean Corpuscular Volume 94.8 FL 94.4 FL Mean Corpuscular Hemoglobin 32.4 PG 32.2 PG Mean Corpuscular Hemoglobin 34.1 % 34.1 % Concent Red Cell Distribution Width 14.3 % 14.2 % Platelet Count 170 TH/MM3 194 TH/MM3 Mean Platelet Volume 8.6 FL 8.0 FL Laboratory Tests Test 08/20/16 08/20/16 08/20/16 08/21/16 02:00 07:10 17:33 12:00 Sodium Level 142 MEQ/L 143 MEQ/L Potassium Level 3.3 MEQ/L 3.1 MEQ/L 3.2 MEQ/L 3.4 MEQ/L Chloride Level 100 MEQ/L 99 MEQ/L Carbon Dioxide Level 37.1 MEQ/L 38.3 MEQ/L Anion Gap 5 MEQ/L 6 MEQ/L Blood Urea Nitrogen 31 MG/DL 28 MG/DL Creatinine 1.24 MG/DL 1.23 MG/DL Estimat Glomerular Filtration 59 ML/MIN 60 ML/MIN Rate Random Glucose 121 MG/DL 143 MG/DL Calcium Level 8.3 MG/DL 8.0 MG/DL Phosphorus Level 3.4 MG/DL 2.8 MG/DL Albumin 1.6 GM/DL 1.9 GM/DL Magnesium Level 2.1 MG/DL Total Bilirubin 0.6 MG/DL Aspartate Amino Transf 59 U/L (AST/SGOT) Alanine Aminotransferase 109 U/L (ALT/SGPT) Alkaline Phosphatase 83 U/L Total Protein 6.8 GM/DL Microbiology Date/Time Procedure Status Source Growth 08/19/16 03:20 Gram Stain - Final Complete Sputum Endotracheal 08/19/16 03:20 Sputum Culture - Final Complete Sputum Endotracheal HEAVY GROWTH NORMAL RESPIRATORY THANIA 08/20/16 13:40 Aerobic Blood Culture - Preliminary Resulted Blood Line NO GROWTH IN 1 DAY 08/20/16 13:40 Anaerobic Blood Culture - Preliminary Resulted Blood Line NO GROWTH IN 1 DAY 08/20/16 15:35 Aerobic Blood Culture - Preliminary Resulted Blood Peripheral NO GROWTH IN 1 DAY 08/20/16 15:35 Anaerobic Blood Culture - Preliminary Resulted Blood Peripheral NO GROWTH IN 1 DAY Imaging Chest X-Ray 08/17/16 0600 Signed Impressions: Service Date/Time: Wednesday, August 17, 2016 04:54 - CONCLUSION: Unchanged bilateral pulmonary infiltrates. Robin Wray Jr., MD Chest X-Ray 08/15/16 0600 Signed Impressions: Service Date/Time: Monday, August 15, 2016 03:34 - CONCLUSION: Diffuse airspace disease with worsening disease in the lower lobes on current study. Perico Wahl MD Lower Extremity Ultrasound 08/11/16 0000 Signed Impressions: Service Date/Time: Thursday, August 11, 2016 08:00 - CONCLUSION: Normal examination. Efrain Deng MD Chest X-Ray 08/11/16 0000 Signed Impressions: Service Date/Time: Thursday, August 11, 2016 13:14 - CONCLUSION: Stable chest appearance. Efrain Deng MD Chest X-Ray 08/11/16 0000 Signed Impressions: Service Date/Time: Thursday, August 11, 2016 12:25 - CONCLUSION: 1. Stable patchy infiltrates bilaterally consistent with pneumonia and/or pulmonary edema. Clinical correlation is recommended. 2. Tiny bilateral pleural effusions. Franck Betancourt MD Lower Extremity Ultrasound 08/11/16 0000 Signed Impressions: Service Date/Time: Thursday, August 11, 2016 08:00 - CONCLUSION: Normal examination. Efrain Deng MD Chest X-Ray 08/10/16 0000 Signed Impressions: Service Date/Time: Wednesday, August 10, 2016 15:39 - CONCLUSION: Slight worsening in aeration Efrain Deng MD Chest X-Ray 08/09/16 0000 Signed Impressions: Service Date/Time: Tuesday, August 09, 2016 07:51 - CONCLUSION: Endotracheal tube tip now 2 cm above the long. No change in patchy bilateral pulmonary parenchymal opacity. Julio Grove MD ADDENDUM: There is an NG tube in place overlapping the nasogastric tube on the image. The tip of the NG tube is at the level of the aortic arch in the proximal to mid thoracic esophagus. Side-port 3 cm below the thoracic inlet. Endotracheal tube tip is 9 cm above the long and 3 cm below the thoracic inlet. Julio Grove MD Abdomen X-Ray 08/09/16 0000 Signed Impressions: Service Date/Time: Tuesday, August 09, 2016 10:18 - CONCLUSION: Nonspecific bowel gas pattern. Julio Grove MD Chest X-Ray 08/08/16 1000 Signed Impressions: Service Date/Time: Monday, August 08, 2016 10:38 - CONCLUSION: Improved aeration. Murali Perdomo MD Chest X-Ray 08/07/16 0600 Signed Impressions: Service Date/Time: Sunday, August 07, 2016 04:57 - CONCLUSION: No significant change. Extensive bilateral infiltrates persist. Efrain Syed MD Chest X-Ray 08/06/16 0400 Signed Impressions: Service Date/Time: July 03:00 - CONCLUSION: No significant interval change with bilateral pulmonary infiltrates. Ronny Joshi MD Renal Ultrasound 08/05/16 1504 Signed Impressions: Service Date/Time: Friday, August 05, 2016 21:01 - CONCLUSION: 1. No evidence of obstruction or other acute renal abnormality. 2. Small, benign appearing cyst of the right kidney. 3. Witt catheter present. Efrain Syed MD Last Impressions Chest X-Ray 08/06/16 0400 Signed Impressions: Service Date/Time: July 03:00 - CONCLUSION: No significant interval change with bilateral pulmonary infiltrates. Ronny Joshi MD Renal Ultrasound 08/05/16 1504 Signed Impressions: Service Date/Time: Friday, August 05, 2016 21:01 - CONCLUSION: 1. No evidence of obstruction or other acute renal abnormality. 2. Small, benign appearing cyst of the right kidney. 3. Witt catheter present. Efrain Syed MD Physical Exam GENERAL: On the vent, NAD. Awakens easily SKIN: Cool and moist. No rash HEENT: [place] conjunctiva, no icterus, moist mucosa. NECK: Supple, not tender. Trach site ok CARDIOVASCULAR: regular rate and rhythm without murmurs, gallops, or rubs. RESPIRATORY: Bilateral diffuse coarse rhonchi GASTROINTESTINAL: Abdomen soft, BS (+) PEG site with dry dressing MUSCULOSKELETAL: Extremities without edema. NEUROLOGICAL: Awake, focusing PSYCH: Unable to fully assess LINE: PIV all ok : Witt cath in place, urine looks clear Assessment & Plan Remarks IMPRESSION Severe bilateral pneumonia, (+) Legionella - S/P Rx Acute Respiratory failure, with significant hypoxemia. On vent. - better - S/P trach 08/20 Hx anxiety/depression Leukocytosis - resolved Renal failure, improving, good UO Low grade temps, possibly due to DVT RLE DVT RECOMMENDATION Follow new C/S Follow clinically Monitor temps Monitor off Abx Weaning per [facility] D/W RN Other ID covering 08/22-08/24 Kyleigh Nichols MD August 21, 2016 14:52
[2016-08-21] MEDS: HEPARIN-D5W INJ 250 ML IV SCH (18:32)
[2016-08-21] MEDS: fentaNYL DRIP 250 ML IV SCH (20:36)
[2016-08-21 20:46] LABS: APTT (PATIENT) 42.7 SEC (24.3-30.1)
[2016-08-21] MEDS: hydrALAZINE HCL 20 MG/ML VIAL IV PUSH PRN (23:06)
--- NOTE | 2016-08-21 23:25 | MP ---
cc: VELASQUEZ MA MD DATE OF SURGERY 08/20/16 PREOPERATIVE DIAGNOSIS Respiratory failure, failure to wean from ventilator. POSTOPERATIVE DIAGNOSIS Respiratory failure, failure to wean from ventilator. PROCEDURE Bronchoscopic guided percutaneous tracheostomy. SURGEON Loren Ma MD. BRONCHOSCOPIST Dr. Thea Kessler PROCEDURE IN DETAIL The patient remained in his intensive care unit bed. He was administered sedative and paralytic medication per the intensive care physician. The surgical time-out was performed to verify correct patient, procedure and site. A roll was placed under the shoulder blades to gently hyperextend the neck. The anterior neck was prepped and draped in usual sterile fashion. Lidocaine with epinephrine injected into skin and subcutaneous tissue about two fingerbreadths above the sternal notch and a 1 cm transverse incision created. The bronchoscope was inserted down the endotracheal tube which was withdrawn past the site of anticipated entry into the trachea. The large bore needle and catheter were inserted into the trachea and air bubbles were withdrawn. The wire fit easily. The punch dilator would not feed. I think it was on a tracheal ring. Therefore, I removed the wire. I again punctured the anterior trachea in a slightly different location but very near to the first one with a large bore needle and catheter and the wire fit easily. The punch dilator then was able to be inserted and then the blue rhino dilator. A #8 tracheostomy tube was then inserted. This was all visualized bronchoscopically. The balloon was inflated, inner cannula placed. A broncho was placed down the tracheostomy tube, position again confirmed. Then apparatus was switched to the tracheostomy tube and there were adequate tidal volumes and end-tidal CO2. The trache was sutured in place with 2-0 Prolene suture and a dressing applied. The patient tolerated the procedure well and remained in his intensive care unit bed. MD ABRIL Solorio/ /4:07 PM /11:20 PM
[2016-08-22] VITALS (25 sets, daily range): BP systolic 93–193; BP diastolic 50–81; PULSE 77–115; RESP 14–16; TEMP 98.5–101.9; O2SAT 91–97
[2016-08-22 00:16] LABS: BICARBONATE 36.5 MEQ/L (21.0-32.0); POTASSIUM 3.6 MEQ/L (3.5-5.1)
[2016-08-22 02:24] LABS: AUTOMATED NEUTROPHIL # 8.2 TH/MM3 (1.8-7.7); BASOPHIL % 0.2 % (0.0-2.0); EOSINOPHIL # 0.1 TH/MM3 (0-0.4); EOSINOPHIL % 0.6 % (0.0-4.0); HEMATOCRIT 29.5 % (39.0-51.0); HEMO FLAGS DIFF FINAL; LYMPH % 6.6 % (9.0-44.0); LYMPHOCYTE # 0.6 TH/MM3 (1.0-4.8); MEAN CELL VOLUME 93.8 FL (80.0-100.0); MEAN CORPUSCULAR HEMOGLOBIN 31.7 PG (27.0-34.0); MEAN CORPUSCULAR HGB CONC 33.8 % (32.0-36.0); MONO % 7.3 % (0.0-8.0); NEUT % 85.3 % (16.0-70.0); PLATELET COUNT 190 TH/MM3 (150-450); RED BLOOD COUNT 3.15 MIL/MM3 (4.50-5.90); RED CELL DISTRIBUTION WIDTH 14.3 % (11.6-17.2); WHITE BLOOD COUNT 9.7 TH/MM3 (4.0-11.0)
[2016-08-22 02:46] LABS: BICARBONATE 36.8 MEQ/L (21.0-32.0); POTASSIUM 3.6 MEQ/L (3.5-5.1)
[2016-08-22] MEDS: FREE WATER G-TUBE SCH ×3 (03:01→20:00)
[2016-08-22] MEDS: CHLORHEXIDINE GLUCONATE 2 % 1 PACK (2 CLOTHS) TOP SCH (03:01)
[2016-08-22] MEDS: PROPOFOL 1000 MG/100 ML INJ 100 ML IV SCH ×3 (03:03→22:21)
[2016-08-22 03:09] LABS: APTT (PATIENT) 31.4 SEC (24.3-30.1)
[2016-08-22] MEDS: INSULIN ASPART SUPPLEMENTAL SCALE SQ SCH ×3 (05:29→17:18)
[2016-08-22] MEDS: METOPROLOL TARTRATE 25 MG TAB PO SCH ×3 (05:29→22:22)
[2016-08-22] MEDS: HEPARIN-D5W INJ 250 ML IV SCH ×2 (06:46→22:23)
[2016-08-22] MEDS: CHLORHEXIDINE 0.12% (ORAL KIT) 15 ML CUP MT SCH ×2 (07:38→22:26)
[2016-08-22] MEDS: METOCLOPRAMIDE HCL 10 MG/2 ML VIAL IV PUSH SCH (09:17)
[2016-08-22] MEDS: fentaNYL DRIP 250 ML IV SCH (09:17)
[2016-08-22] MEDS: BUMETANIDE INJ 1 MG/4 ML VIAL IV PUSH SCH (09:17)
[2016-08-22] MEDS: PANTOPRAZOLE SODIUM 40 MG VIAL IV SCH (09:18)
[2016-08-22] MEDS: HYDROCORTISONE SOD SUCCINATE 100 MG VIAL IV PUSH SCH ×2 (09:18→22:22)
[2016-08-22] MEDS: LACTULOSE SYRUP 20 GM/30 ML CUP PO SCH (09:18)
[2016-08-22] MEDS: HALOPERIDOL LACTATE ORAL CONC 10 MG/5 ML CUP PO SCH (09:18)
[2016-08-22] MEDS: AMIODARONE 200 MG TAB PO SCH ×2 (09:18→22:22)
[2016-08-22] MEDS: ARTIFICIAL TEARS OPTH SOLN 15 ML BTL EACH EYE SCH ×3 (09:19→17:16)
--- NOTE | 2016-08-22 11:16 | HHI.CCPN ---
Subjective Remarks/Hospital Course 08/04: 60 y/o man with several week history of weakness, fatigue; fevers and sweats over past week. Today with severe SOB, arrived by EMS with hypoxemia. CO2 retention as well in ED. Required intubation in ED. Creatinine > 3.0 and severely dehydrated. 08/05: Remains sedated, orally intubated on mechanical ventilation. He remains at PEEP+14, FiO2 decreased to 80%. Urine positive for Legionella Ag. Went into A. fib with RVR. 08/06: Remains sedated, orally intubated on mechanical ventilation. On neuromuscular blockade with Nimbex. Initiated on prone ventilation today. Switched to pressure control mode with positive inspiratory pressure +20, PEEP + 15, respiratory rate 20, I time 1.82 seconds, FiO2 70%.. On propofol/fentanyl/ Versed/Nimbex/amiodarone/ vasopressin drips. Jose-Synephrine titrated off following switching from APRV to pressure control mode mechanical ventilation and initiating proning. 08/07: Remains sedated, on neuromuscular blockade, orally intubated on prone ventilation. FiO2 decreased to 50%, PEEP remains at +15. On fentanyl/versed/ Nimbex/amiodarone/vasopressin drips. Jose-Synephrine on transiently today. Diuresed well with Bumex. 08/08: Remains sedated, on neuromuscular blockade, orally intubated on prone ventilation. FiO2 decreased to 45%, PEEP remains at +15. Attempting to place Dobbhoff to initiate tube feeds. Off Jose-Synephrine. Vasopressin being titrated down. 08/09: Remains sedated, orally intubated on prone ventilation. Remains on Nimbex for neuromuscular blockade. PEEP +15, FiO2 50%. Have been unable to place OG tube despite multiple attempts. 08/10: Remains sedated, orally intubated on neuromuscular blockade on prone ventilation. Attempts at keeping supine today however had progressively increasing FiO2 requirement. He was restarted on prone ventilation. He had a sudden episode of desaturation with dropping O2 sats to the 80s despite 100% FiO2. I time increased from 1.2 seconds to 1.8 seconds. He was immediately supined and a stat chest x-ray obtained which did not reveal any pneumothorax and essentially unchanged compared to previous chest x-ray with bilateral infiltrates. He was restarted on prone ventilation. Question of PE. We will initiate full anticoagulation with heparin. Will also check troponins and EKG when supine unless troponin elevated in which case we will get a stat EKG. 52: Remains sedated, orally intubated on neuromuscular blockade in prone ventilation. Had episode of loss of lung volumes with desaturation. Chest x- ray did not reveal any pneumothorax or atelectasis. Thick mucus suctioned out of the ET tube. Difficult to bag at times. ET tube was changed over a tube exchanger following which he had return of good volumes. ( It is possible that the pre-existing ET tube was getting occluded by debris or secretions which were somewhat cleared out by suctioning earlier.) GI postponed with G-tube placement due to unstable respiratory status until tomorrow and they will plan on doing a PEG tube if respiratory status permits. 08/12: Remains sedated, orally intubated on neuromuscular blockade on prone ventilation. Underwent PEG tube placement today. Start tube feeds in a.m. 08/13: Tmax 98.9. Tube feeds initiated this a.m.. Sodium level 155, free water flushes initiated. Slight improvement in ventilatory status. Plan to remain supine today, an attempt to wean ventilation settings. 08/14: The patient was transitioned off of the [place] prone bed. Neuromuscular blockade has been discontinued. FiO2 has been decreased to 40%. The patient has been transitioned to by mouth amiodarone. Patient continues on Nepro at 15 cc an hour with moderate residuals noted. 08/15: Patient's O2 requirements decreasing, PEEP now 7, FiO2 60%. Patient was transitioned to amiodarone PO yesterday, noted tachycardia HR 109. Metoprolol added to medication regimen. Patient was also noted to be hypertensive, when necessary antihypertensive medications added. 08/16: Tmax 101.2 . The patient has been febrile today, receiving Tylenol. Chest x-ray slightly worsened today bilateral lower lobes, placed on pressure control mode via mechanical ventilation The patient had 2 episodes of SVT last night with the rate in the 140s. The patient received beta blockers 2 doses with immediate resolution. Amiodarone was increased to 400 mg twice a day today. Versed was completely discontinued CPAP trials have been initiated. 08/17: The patient tolerated CPAP trials for over 4 hours yesterday. The patient is alert oriented responding by nodding to yes and no questions, following commands. The patient was noted to be hypokalemic potassium level 2.9, and was repleted. PT/OT initiated. 08/18: The patient unable to tolerate CPAP trial today. The patient was noted to be hypertensive despite metoprolol dosage being increased, will increase frequency. Chest x-ray showed improvement. 08/19: Afebrile. Multiple attempts at CPAP trials today unsuccessful, and very to patient becoming agitated. Haldol medication instituted. Plans for tracheostomy this week by general surgery. Wound care consulted for left foot drainage. 08/20: Patient underwent uneventful percutaneous tracheostomy at the bedside. Upper and has been temporarily discontinued, will receive subcutaneous heparin tonight, with resumption of IV heparin infusion in the a.m.. Central line arterial line has been discontinued. 08/21 Patient s/p trach yesterday. Spiked fever with T: 101.2 last night, On PC/ AC with PEEP: 7 and FIO2 55% 08/22: TMax 101.9. The patient is postop day 3 status post trach. The patient now will be transition on to Coumadin. We'll discontinue heparin with therapeutic INR. Liquid stool were noted metoclopramide was DC'd the patient was transitioned onto by mouth narcotics, with further weaning of IV fentanyl. Objective Vital Signs Date Time Temp Pulse Resp B/P Pulse Ox O2 Delivery O2 Flow Rate FiO2 08/22/16 10:00 104 08/22/16 08:07 92 50 08/22/16 08:00 101.9 16 93/50 Intake and Output 08/21/16 08/21/16 08/22/16 08:00 16:00 00:00 Intake Total 1296 ml 1128 ml 832 ml Output Total 1200 ml 3075 ml 650 ml Balance 96 ml -1947 ml 182 ml Result Diagram: 08/22/16 0216 08/22/16 0216 Imaging Last Impressions Chest X-Ray 08/20/16 0600 Signed Impressions: Service Date/Time: August 02:14 - CONCLUSION: Unchanged bilateral pulmonary infiltrates. Robin Wray Jr., MD Upper Extremity Ultrasound 08/17/16 0900 Signed Impressions: Service Date/Time: Wednesday, August 17, 2016 10:40 - CONCLUSION: No DVT in either upper extremity Perico Wahl MD Lower Extremity Ultrasound 08/17/16 0900 Signed Impressions: Service Date/Time: Wednesday, August 17, 2016 10:40 - CONCLUSION: DVT on the right as described above. Jamie Blackwood MD FACR Abdomen X-Ray 08/09/16 0000 Signed Impressions: Service Date/Time: Tuesday, August 09, 2016 10:18 - CONCLUSION: Nonspecific bowel gas pattern. Julio Grove MD Renal Ultrasound 08/05/16 1504 Signed Impressions: Service Date/Time: Friday, August 05, 2016 21:01 - CONCLUSION: 1. No evidence of obstruction or other acute renal abnormality. 2. Small, benign appearing cyst of the right kidney. 3. Witt catheter present. Efrain Syed MD Objective Remarks GENERAL: Patient is 60 yo on ventilator via trach SKIN: Warm and dry. HEAD: Normocephalic. EYES: No scleral icterus. No injection or drainage. NECK: Supple, trachea midline. No JVD or lymphadenopathy. CARDIOVASCULAR: Regular rate and rhythm without murmurs, gallops, or rubs. RESPIRATORY: Breath sounds equal bilaterally. No accessory muscle use. GASTROINTESTINAL: Abdomen soft, non-tender, nondistended. MUSCULOSKELETAL: No cyanosis, or edema. Neuro: On Ventilator vi atrach Urinary Catheter: Yes Assessment to: Remove Date of Removal: August 20, 2016 Line: Central Venous Catheter A/P Assessment and Plan 1. VDRF s/p trach 2. Legionella Pneumonia 3. CKD with CHAN 4. A. fib with RVR (converted to RSR) 5. Hx depression with recent ECT 2016 6 Left heel wound 7 DVT-right popliteal to mid femoral 8 CHAN-improving 9 Leukocytosis- trending down 10 Anemia Neuro: Continue sedation with fentanyl, and propofol. Daily sedation vacation CV: Monitor HR and BP keep MAP>65mmHg- On Metoprolol 50 mg Q8, Amiodarone 400mg Q12 08/10 - 2-D echo with minimally depressed LV and RV function, ejection fraction 45 50%, tricuspid valve mild regurgitation Pulmonary: Continue vent support keep sat >92%- s/p trach 08/20 Vent bundle, bronchodilators, pulmonary toilet. SBT daily as kanwal. taper IV steroids- decrease HC 25mg IV Q12 On PC/AC RR 16, IP:14, IT: 1.8, PEEP:7, FIO2 55%. Decrease FIO2 405 as kanwal. GI/liver: GI placed PEG on 08/12. Tube feeds to Glucerna 1.5 with goal rate 50ml/ hr Renal/:Monitor renal function, I/O's, electrolytes replacement per protocol. On Bumex 2mg IV daily , renal is following Heme:Monitor CBC. Start Full anticoagulation with heparin. Monitor PTT 08/18 repeat US bilateral upper and lower extremities-no DVT in either upper extremities. DVT right popliteal into mid femoral vein. 08/22 transition to Coumadin, pharmacy dosing ID: Off abx per ID monitor for signs of infections ( Fever, WBC) Follow up on BC from 08/20, check UA and sputum cx- NGTD Endocrine: SSI for glycemic control. Tapering stress dose hydrocortisone. Prophylaxis: PPI/SCDs/ heparin drip (transitioning to Coumadin) Dispo: Discussed with OFFICE SUPPORT SPECIALIST at bedside. Tentative plan transfer to [facility] in near future my billing statement This patient remains critically ill with one or more organ systems which are or may become a threat to life. I have spent in excess of 32 minutes discontinuously in the care and management of this patient. This time is exclusive of procedures, and includes, but is not limited to, evaluation of the patient, review of the medical record, discussions with family, consultants, nursing staff, or respiratory therapy, and documentation in the medical record. Physician Danica Asif MD August 22, 2016 11:16
[2016-08-22 11:28] LABS: APTT (PATIENT) 28.3 SEC (24.3-30.1)
[2016-08-22] MEDS: METOPROLOL TARTRATE 5 MG/5 ML VIAL IV PUSH PRN (11:33)
[2016-08-22] MEDS: ACETAMINOPHEN 325 MG TAB PO PRN (11:33)
--- NOTE | 2016-08-22 11:38 | RADRPT ---
EXAM DATE/TIME: 08/22/2016 11:19 [facility] COMPARISON: CHEST SINGLE AP, August 20, 2016, 12:11. INDICATIONS : Shortness of breath. MEDICAL HISTORY : Hypertension. asthma, infiltrates. SURGICAL HISTORY : None. ENCOUNTER: Subsequent ACUITY: 2 weeks PAIN SCORE: Non-responsive. LOCATION: Bilateral chest FINDINGS: A single view of the chest demonstrates bilateral patchy opacities slightly improved. Tracheostomy tu be unchanged.. Osseous structures are intact. CONCLUSION: Improving bilateral patchy opacities. Perico Wahl MD on August 22, 2016 at 11:36 Board Certified Radiologist. This report was verified electronically.
[2016-08-22] MEDS: ACETAMINOPHEN/HYDROcodone 325 MG/10 MG TAB PO PRN (15:44)
[2016-08-22] MEDS ORDERED: WARFARIN SOD 2.5 MG TAB PO SCH (16:00)
[2016-08-22] MEDS: hydrALAZINE HCL 20 MG/ML VIAL IV PUSH PRN (17:15)
--- NOTE | 2016-08-22 17:24 | HHI.IDPN ---
Note Infectious Disease Note ID COVERAGE: Patient had temp of 101.9 today. On CPAP. Notes reviewed D/W RN S/P trach 08/20 BC negative so far 08/20 Sputum 08/19 ok Has DVT RLE Off Abx is a 60 y/o Male with h/o Asthma, admitted with severe sepsis, Legionella pneumonia s/p Rotabed. Antibiotics None Lines PIV Past Medical History Reviewed Allergies: Coded Allergies: No Known Allergies (Unverified , 07/31/16) Objective Vital Signs Date Time Temp Pulse Resp B/P Pulse Ox O2 Delivery O2 Flow Rate FiO2 08/22/16 16:00 99.5 91 16 193/77 96 08/22/16 16:00 83 08/22/16 16:00 50 08/22/16 15:00 101 96 08/22/16 14:26 97 55 08/22/16 14:00 92 173/74 97 08/22/16 14:00 104 08/22/16 13:00 89 166/70 97 08/22/16 12:00 60 08/22/16 12:00 94 08/22/16 12:00 101.0 91 117/58 94 08/22/16 11:26 92 60 08/22/16 11:00 115 165/74 91 08/22/16 10:00 101 158/72 95 08/22/16 10:00 104 08/22/16 09:00 80 96/55 94 08/22/16 08:07 92 50 08/22/16 08:00 50 08/22/16 08:00 92 08/22/16 08:00 101.9 82 16 93/50 93 08/22/16 07:00 91 137/77 95 08/22/16 06:00 89 08/22/16 04:00 94 08/22/16 04:00 100.1 94 14 143/69 96 08/22/16 04:00 50 08/22/16 03:39 94 50 08/22/16 02:00 104 08/22/16 00:02 94 50 08/22/16 00:00 50 08/22/16 00:00 98.6 106 16 156/69 95 08/22/16 00:00 106 08/21/16 22:00 79 08/21/16 20:00 88 08/21/16 20:00 50 08/21/16 20:00 98.4 92 16 181/77 95 08/21/16 19:52 95 50 08/21/16 18:00 91 08/21/16 08/21/16 08/22/16 15:00 23:00 07:00 Intake Total 1128 ml 832 ml 1098 ml Output Total 3075 ml 650 ml 925 ml Balance -1947 ml 182 ml 173 ml Intake IV Total 443 ml 337 ml 501 ml Tube Feeding 435 ml 295 ml 397 ml Tube Irrigant 250 ml Other 200 ml 200 ml Output Urine Total 2825 ml 450 ml 725 ml Stool Total 250 ml 200 ml 200 ml Laboratory Tests Test 08/21/16 08/22/16 12:00 02:16 White Blood Count 8.5 TH/MM3 9.7 TH/MM3 Red Blood Count 3.14 MIL/MM3 3.15 MIL/MM3 Hemoglobin 10.1 GM/DL 10.0 GM/DL Hematocrit 29.6 % 29.5 % Mean Corpuscular Volume 94.4 FL 93.8 FL Mean Corpuscular Hemoglobin 32.2 PG 31.7 PG Mean Corpuscular Hemoglobin 34.1 % 33.8 % Concent Red Cell Distribution Width 14.2 % 14.3 % Platelet Count 194 TH/MM3 190 TH/MM3 Mean Platelet Volume 8.0 FL 7.4 FL Neutrophils (%) (Auto) 85.3 % Lymphocytes (%) (Auto) 6.6 % Monocytes (%) (Auto) 7.3 % Eosinophils (%) (Auto) 0.6 % Basophils (%) (Auto) 0.2 % Neutrophils # (Auto) 8.2 TH/MM3 Lymphocytes # (Auto) 0.6 TH/MM3 Monocytes # (Auto) 0.7 TH/MM3 Eosinophils # (Auto) 0.1 TH/MM3 Basophils # (Auto) 0.0 TH/MM3 CBC Comment DIFF FINAL Differential Comment Laboratory Tests Test 08/20/16 08/21/16 08/21/16 08/22/16 17:33 12:00 23:40 02:16 Potassium Level 3.2 MEQ/L 3.4 MEQ/L 3.6 MEQ/L 3.6 MEQ/L Sodium Level 143 MEQ/L 145 MEQ/L 144 MEQ/L Chloride Level 99 MEQ/L 102 MEQ/L 102 MEQ/L Carbon Dioxide Level 38.3 MEQ/L 36.5 MEQ/L 36.8 MEQ/L Anion Gap 6 MEQ/L 7 MEQ/L 5 MEQ/L Blood Urea Nitrogen 28 MG/DL 29 MG/DL 29 MG/DL Creatinine 1.23 MG/DL 1.08 MG/DL 1.02 MG/DL Estimat Glomerular Filtration 60 ML/MIN 70 ML/MIN 74 ML/MIN Rate Random Glucose 143 MG/DL 153 MG/DL 149 MG/DL Calcium Level 8.0 MG/DL 7.9 MG/DL 7.9 MG/DL Phosphorus Level 2.8 MG/DL Magnesium Level 2.1 MG/DL Total Bilirubin 0.6 MG/DL Aspartate Amino Transf 59 U/L (AST/SGOT) Alanine Aminotransferase 109 U/L (ALT/SGPT) Alkaline Phosphatase 83 U/L Total Protein 6.8 GM/DL Albumin 1.9 GM/DL Microbiology Date/Time Procedure Status Source Growth 08/20/16 13:40 Aerobic Blood Culture - Preliminary Resulted Blood Line NO GROWTH IN 2 DAYS 08/20/16 13:40 Anaerobic Blood Culture - Preliminary Resulted Blood Line NO GROWTH IN 2 DAYS 08/20/16 15:35 Aerobic Blood Culture - Preliminary Resulted Blood Peripheral NO GROWTH IN 2 DAYS 08/20/16 15:35 Anaerobic Blood Culture - Preliminary Resulted Blood Peripheral NO GROWTH IN 2 DAYS Imaging Chest X-Ray 08/22/16 0000 Signed Impressions: Service Date/Time: Monday, August 22, 2016 11:19 - CONCLUSION: Improving bilateral patchy opacities. Perico Wahl MD Chest X-Ray 08/17/16 0600 Signed Impressions: Service Date/Time: Wednesday, August 17, 2016 04:54 - CONCLUSION: Unchanged bilateral pulmonary infiltrates. Robin Wray Jr., MD Chest X-Ray 08/15/16 0600 Signed Impressions: Service Date/Time: Monday, August 15, 2016 03:34 - CONCLUSION: Diffuse airspace disease with worsening disease in the lower lobes on current study. Perico Wahl MD Lower Extremity Ultrasound 08/11/16 0000 Signed Impressions: Service Date/Time: Thursday, August 11, 2016 08:00 - CONCLUSION: Normal examination. Efrain Deng MD Chest X-Ray 08/11/16 0000 Signed Impressions: Service Date/Time: Thursday, August 11, 2016 13:14 - CONCLUSION: Stable chest appearance. Efrain Deng MD Chest X-Ray 08/11/16 0000 Signed Impressions: Service Date/Time: Thursday, August 11, 2016 12:25 - CONCLUSION: 1. Stable patchy infiltrates bilaterally consistent with pneumonia and/or pulmonary edema. Clinical correlation is recommended. 2. Tiny bilateral pleural effusions. Franck Betancourt MD Lower Extremity Ultrasound 08/11/16 0000 Signed Impressions: Service Date/Time: Thursday, August 11, 2016 08:00 - CONCLUSION: Normal examination. Efrain Deng MD Chest X-Ray 08/10/16 0000 Signed Impressions: Service Date/Time: Wednesday, August 10, 2016 15:39 - CONCLUSION: Slight worsening in aeration Efrain Deng MD Chest X-Ray 08/09/16 0000 Signed Impressions: Service Date/Time: Tuesday, August 09, 2016 07:51 - CONCLUSION: Endotracheal tube tip now 2 cm above the long. No change in patchy bilateral pulmonary parenchymal opacity. Julio Grove MD ADDENDUM: There is an NG tube in place overlapping the nasogastric tube on the image. The tip of the NG tube is at the level of the aortic arch in the proximal to mid thoracic esophagus. Side-port 3 cm below the thoracic inlet. Endotracheal tube tip is 9 cm above the long and 3 cm below the thoracic inlet. Julio Grove MD Abdomen X-Ray 08/09/16 0000 Signed Impressions: Service Date/Time: Tuesday, August 09, 2016 10:18 - CONCLUSION: Nonspecific bowel gas pattern. Julio Grove MD Chest X-Ray 08/08/16 1000 Signed Impressions: Service Date/Time: Monday, August 08, 2016 10:38 - CONCLUSION: Improved aeration. Murali Perdomo MD Chest X-Ray 08/07/16 0600 Signed Impressions: Service Date/Time: Sunday, August 07, 2016 04:57 - CONCLUSION: No significant change. Extensive bilateral infiltrates persist. Efrain Syed MD Chest X-Ray 08/06/16 0400 Signed Impressions: Service Date/Time: July 03:00 - CONCLUSION: No significant interval change with bilateral pulmonary infiltrates. Ronny Joshi MD Renal Ultrasound 08/05/16 1504 Signed Impressions: Service Date/Time: Friday, August 05, 2016 21:01 - CONCLUSION: 1. No evidence of obstruction or other acute renal abnormality. 2. Small, benign appearing cyst of the right kidney. 3. Witt catheter present. Efrain Syed MD Last Impressions Chest X-Ray 08/06/16 0400 Signed Impressions: Service Date/Time: July 03:00 - CONCLUSION: No significant interval change with bilateral pulmonary infiltrates. Ronny Joshi MD Renal Ultrasound 08/05/16 1504 Signed Impressions: Service Date/Time: Friday, August 05, 2016 21:01 - CONCLUSION: 1. No evidence of obstruction or other acute renal abnormality. 2. Small, benign appearing cyst of the right kidney. 3. Witt catheter present. Efrain Syed MD Physical Exam GENERAL: On the vent, NAD. Awakens easily SKIN: Cool and moist. No rash HEENT: [place] conjunctiva, no icterus, moist mucosa. NECK: Supple, not tender. Trach site ok CARDIOVASCULAR: regular rate and rhythm without murmurs, gallops, or rubs. RESPIRATORY: Diffuse rhonchi. GASTROINTESTINAL: Abdomen soft, BS (+) PEG site with dry dressing MUSCULOSKELETAL: Extremities without edema. NEUROLOGICAL: Awake, focusing PSYCH: Unable to fully assess Assessment & Plan IMPRESSION Severe bilateral pneumonia, (+) Legionella - S/P Rx Acute Respiratory failure, with significant hypoxemia. On vent. - better - S/P trach 08/20 Hx anxiety/depression Leukocytosis - resolved Renal failure, improving, good UO Fever, possibly due to DVT. No clear evidence of new infection. RLE DVT RECOMMENDATION Follow blood culture. Follow clinically Monitor temps Monitor off Abx. Ilya Loera MD August 22, 2016 17:24
[2016-08-22 19:44] LABS: APTT (PATIENT) 38.1 SEC (24.3-30.1)
[2016-08-22] MEDS: SODIUM CHLORIDE 0.9% FLUSH 10 ML FLUSH IVF PRN (22:23)
[2016-08-23] VITALS (9 sets, daily range): BP systolic 137–175; BP diastolic 64–79; PULSE 78–92; TEMP 98.2–100.7; O2SAT 93–97
[2016-08-23] MEDS: oxyCODONE HCL ORAL CONC 20 MG/ML SYRINGE PO PRN ×3 (00:44→12:22)
[2016-08-23] MEDS: FREE WATER G-TUBE SCH ×2 (02:49→12:00)
[2016-08-23] MEDS: PROPOFOL 1000 MG/100 ML INJ 100 ML IV SCH ×2 (02:49→06:27)
[2016-08-23 03:13] LABS: BICARBONATE 36.1 MEQ/L (21.0-32.0); POTASSIUM 3.6 MEQ/L (3.5-5.1)
[2016-08-23 03:20] LABS: HEMATOCRIT 31.8 % (39.0-51.0); MEAN CELL VOLUME 92.9 FL (80.0-100.0); MEAN CORPUSCULAR HEMOGLOBIN 31.5 PG (27.0-34.0); MEAN CORPUSCULAR HGB CONC 33.9 % (32.0-36.0); PLATELET COUNT 206 TH/MM3 (150-450); RED BLOOD COUNT 3.42 MIL/MM3 (4.50-5.90); RED CELL DISTRIBUTION WIDTH 14.3 % (11.6-17.2); REVIEW FLAG FINAL; WHITE BLOOD COUNT 11.5 TH/MM3 (4.0-11.0)
[2016-08-23 03:33] LABS: INTERNATIONAL NORMALIZED RATIO 1.2 RATIO; PROTHROMBIN TIME - PATIENT 12.9 SEC (9.8-11.6)
[2016-08-23] MEDS: CHLORHEXIDINE GLUCONATE 2 % 1 PACK (2 CLOTHS) TOP SCH (04:00)
--- NOTE | 2016-08-23 04:41 | RADRPT ---
EXAM DATE/TIME: 08/23/2016 03:45 [facility] COMPARISON: CHEST SINGLE AP, August 22, 2016, 11:19. INDICATIONS : Shortness of breath, possible pulmonary disease. MEDICAL HISTORY : Hypertension. Asthma SURGICAL HISTORY : None. ENCOUNTER: Subsequent ACUITY: 2 weeks PAIN SCORE: Non-responsive. LOCATION: Bilateral chest FINDINGS: The tracheostomy tube remains in place. There is no pneumothorax. There continues to be bilateral sca ttered pulmonary infiltrates throughout both lung kelly. Infiltrates are about the same compared to the prior study. The heart size is stable. No significant pleural effusions. CONCLUSION: No significant interval change. Ronny Joshi MD on August 23, 2016 at 4:38 Board Certified Radiologist. This report was verified electronically.
[2016-08-23] MEDS: INSULIN ASPART SUPPLEMENTAL SCALE SQ SCH ×2 (06:00)
[2016-08-23] MEDS: METOPROLOL TARTRATE 25 MG TAB PO SCH (06:25)
[2016-08-23] MEDS: CHLORHEXIDINE 0.12% (ORAL KIT) 15 ML CUP MT SCH (07:05)
[2016-08-23] MEDS: ACETAMINOPHEN/HYDROcodone 325 MG/10 MG TAB PO PRN (07:45)
[2016-08-23] MEDS: RESP: ALBUTEROL 2.5 MG/IPRATROPIUM 0.5 MG NEB (PRN) NEB (08:17)
[2016-08-23] MEDS: LACTULOSE SYRUP 20 GM/30 ML CUP PO SCH (09:00)
[2016-08-23] MEDS: BUMETANIDE INJ 1 MG/4 ML VIAL IV PUSH SCH (09:01)
[2016-08-23] MEDS: PANTOPRAZOLE SODIUM 40 MG VIAL IV SCH (09:02)
[2016-08-23] MEDS: HYDROCORTISONE SOD SUCCINATE 100 MG VIAL IV PUSH SCH (09:02)
[2016-08-23] MEDS: AMIODARONE 200 MG TAB PO SCH (09:02)
[2016-08-23] MEDS: ARTIFICIAL TEARS OPTH SOLN 15 ML BTL EACH EYE SCH (09:02)
--- NOTE | 2016-08-23 10:14 | HHI.CCPN ---
Subjective Remarks/Hospital Course 08/04: 60 y/o man with several week history of weakness, fatigue; fevers and sweats over past week. Today with severe SOB, arrived by EMS with hypoxemia. CO2 retention as well in ED. Required intubation in ED. Creatinine > 3.0 and severely dehydrated. 08/05: Remains sedated, orally intubated on mechanical ventilation. He remains at PEEP+14, FiO2 decreased to 80%. Urine positive for Legionella Ag. Went into A. fib with RVR. 08/06: Remains sedated, orally intubated on mechanical ventilation. On neuromuscular blockade with Nimbex. Initiated on prone ventilation today. Switched to pressure control mode with positive inspiratory pressure +20, PEEP + 15, respiratory rate 20, I time 1.82 seconds, FiO2 70%.. On propofol/fentanyl/ Versed/Nimbex/amiodarone/ vasopressin drips. Jose-Synephrine titrated off following switching from APRV to pressure control mode mechanical ventilation and initiating proning. 08/07: Remains sedated, on neuromuscular blockade, orally intubated on prone ventilation. FiO2 decreased to 50%, PEEP remains at +15. On fentanyl/versed/ Nimbex/amiodarone/vasopressin drips. Jose-Synephrine on transiently today. Diuresed well with Bumex. 08/08: Remains sedated, on neuromuscular blockade, orally intubated on prone ventilation. FiO2 decreased to 45%, PEEP remains at +15. Attempting to place Dobbhoff to initiate tube feeds. Off Jose-Synephrine. Vasopressin being titrated down. 08/09: Remains sedated, orally intubated on prone ventilation. Remains on Nimbex for neuromuscular blockade. PEEP +15, FiO2 50%. Have been unable to place OG tube despite multiple attempts. 08/10: Remains sedated, orally intubated on neuromuscular blockade on prone ventilation. Attempts at keeping supine today however had progressively increasing FiO2 requirement. He was restarted on prone ventilation. He had a sudden episode of desaturation with dropping O2 sats to the 80s despite 100% FiO2. I time increased from 1.2 seconds to 1.8 seconds. He was immediately supined and a stat chest x-ray obtained which did not reveal any pneumothorax and essentially unchanged compared to previous chest x-ray with bilateral infiltrates. He was restarted on prone ventilation. Question of PE. We will initiate full anticoagulation with heparin. Will also check troponins and EKG when supine unless troponin elevated in which case we will get a stat EKG. 52: Remains sedated, orally intubated on neuromuscular blockade in prone ventilation. Had episode of loss of lung volumes with desaturation. Chest x- ray did not reveal any pneumothorax or atelectasis. Thick mucus suctioned out of the ET tube. Difficult to bag at times. ET tube was changed over a tube exchanger following which he had return of good volumes. ( It is possible that the pre-existing ET tube was getting occluded by debris or secretions which were somewhat cleared out by suctioning earlier.) GI postponed with G-tube placement due to unstable respiratory status until tomorrow and they will plan on doing a PEG tube if respiratory status permits. 08/12: Remains sedated, orally intubated on neuromuscular blockade on prone ventilation. Underwent PEG tube placement today. Start tube feeds in a.m. 08/13: Tmax 98.9. Tube feeds initiated this a.m.. Sodium level 155, free water flushes initiated. Slight improvement in ventilatory status. Plan to remain supine today, an attempt to wean ventilation settings. 08/14: The patient was transitioned off of the Rota prone bed. Neuromuscular blockade has been discontinued. FiO2 has been decreased to 40%. The patient has been transitioned to by mouth amiodarone. Patient continues on Nepro at 15 cc an hour with moderate residuals noted. 08/15: Patient's O2 requirements decreasing, PEEP now 7, FiO2 60%. Patient was transitioned to amiodarone PO yesterday, noted tachycardia HR 109. Metoprolol added to medication regimen. Patient was also noted to be hypertensive, when necessary antihypertensive medications added. 08/16: Tmax 101.2 . The patient has been febrile today, receiving Tylenol. Chest x-ray slightly worsened today bilateral lower lobes, placed on pressure control mode via mechanical ventilation The patient had 2 episodes of SVT last night with the rate in the 140s. The patient received beta blockers 2 doses with immediate resolution. Amiodarone was increased to 400 mg twice a day today. Versed was completely discontinued CPAP trials have been initiated. 08/17: The patient tolerated CPAP trials for over 4 hours yesterday. The patient is alert oriented responding by nodding to yes and no questions, following commands. The patient was noted to be hypokalemic potassium level 2.9, and was repleted. PT/OT initiated. 08/18: The patient unable to tolerate CPAP trial today. The patient was noted to be hypertensive despite metoprolol dosage being increased, will increase frequency. Chest x-ray showed improvement. 08/19: Afebrile. Multiple attempts at CPAP trials today unsuccessful, and very to patient becoming agitated. Haldol medication instituted. Plans for tracheostomy this week by general surgery. Wound care consulted for left foot drainage. 08/20: Patient underwent uneventful percutaneous tracheostomy at the bedside. Upper and has been temporarily discontinued, will receive subcutaneous heparin tonight, with resumption of IV heparin infusion in the a.m.. Central line arterial line has been discontinued. 08/21 Patient s/p trach yesterday. Spiked fever with T: 101.2 last night, On PC/ AC with PEEP: 7 and FIO2 55% 08/22: TMax 101.9. The patient is postop day 3 status post trach. The patient now will be transition on to Coumadin. We'll discontinue heparin with therapeutic INR. Liquid stool were noted metoclopramide was DC'd the patient was transitioned onto by mouth narcotics, with further weaning of IV fentanyl. 08/23: Tmax 100.7. Patient did not receive Tylenol during the night, no growth on blood cultures sputum culture. The patient continues on CPAP throughout the night without any difficulty. Hemodynamically stable. [facility] . Objective Vital Signs Date Time Temp Pulse Resp B/P Pulse Ox O2 Delivery O2 Flow Rate FiO2 08/23/16 10:00 86 08/23/16 08:19 95 40 08/23/16 08:00 100.7 175/79 08/22/16 16:00 16 Intake and Output 08/22/16 08/22/16 08/23/16 08:00 16:00 00:00 Intake Total 1098 ml 987 ml Output Total 925 ml 3150 ml Balance 173 ml -2163 ml Result Diagram: 08/23/16 0246 08/23/16 0246 Imaging Last Impressions Chest X-Ray 08/20/16 0600 Signed Impressions: Service Date/Time: August 02:14 - CONCLUSION: Unchanged bilateral pulmonary infiltrates. Robin Wray Jr., MD Upper Extremity Ultrasound 08/17/16 0900 Signed Impressions: Service Date/Time: Wednesday, August 17, 2016 10:40 - CONCLUSION: No DVT in either upper extremity Perico Wahl MD Lower Extremity Ultrasound 08/17/16 0900 Signed Impressions: Service Date/Time: Wednesday, August 17, 2016 10:40 - CONCLUSION: DVT on the right as described above. Jamie Blackwood MD FACR Abdomen X-Ray 08/09/16 0000 Signed Impressions: Service Date/Time: Tuesday, August 09, 2016 10:18 - CONCLUSION: Nonspecific bowel gas pattern. Julio Grove MD Renal Ultrasound 08/05/16 1504 Signed Impressions: Service Date/Time: Friday, August 05, 2016 21:01 - CONCLUSION: 1. No evidence of obstruction or other acute renal abnormality. 2. Small, benign appearing cyst of the right kidney. 3. Witt catheter present. Efrain Syed MD Objective Remarks BP 155/70 P 77 O2 saturation 94% GENERAL: Patient is 60 yo on ventilator via trach SKIN: Warm and dry. HEAD: Normocephalic. EYES: No scleral icterus. No injection or drainage. NECK: Supple, trachea midline. No JVD or lymphadenopathy. CARDIOVASCULAR: Regular rate and rhythm without murmurs, gallops, or rubs. RESPIRATORY: Breath sounds equal bilaterally. No accessory muscle use. GASTROINTESTINAL: Abdomen soft, non-tender, nondistended. MUSCULOSKELETAL: No cyanosis, or edema. Neuro: On Ventilator via trach, responsive when off sedation Urinary Catheter: Yes Date of Removal: August 20, 2016 Line: Central Venous Catheter A/P Assessment and Plan 1. VDRF s/p trach 2. Legionella Pneumonia 3. CKD with CHAN 4. A. fib with RVR (converted to RSR) 5. Hx depression with recent ECT 2017 6 Left heel wound 7 DVT-right popliteal to mid femoral 8 CHAN-improving 9 Leukocytosis- trending down 10 Anemia Neuro: Discontinue fentanyl infusion. Maintain daily sedation vacation. Continue by mouth narcotics CV: Monitor HR and BP keep MAP>65mmHg- On Metoprolol 50 mg Q8, Amiodarone 400mg Q12 5/1 - 2-D echo with minimally depressed LV and RV function, ejection fraction 45 50%, tricuspid valve mild regurgitation Pulmonary: Continue vent support keep sat >92%- s/p trach 08/20 Vent bundle, bronchodilators, pulmonary toilet. SBT daily as kanwal. taper IV steroids- decrease HC 25mg IV Q12 On PC/AC RR 16, IP:14, IT: 1.8, PEEP:7, FIO2 55%. Decrease FIO2 405 as kanwal. Patient continues on CPAP 01/16/0.40 greater than 24 hours GI/liver: GI placed PEG on 08/12. Tube feeds to Glucerna 1.5 with goal rate 50ml/ hr Renal/:Monitor renal function, I/O's, electrolytes replacement per protocol. On Bumex 2mg IV daily , renal is following Heme:Monitor CBC. Start Full anticoagulation with heparin. Monitor PTT 08/18 repeat US bilateral upper and lower extremities-no DVT in either upper extremities. DVT right popliteal into mid femoral vein. 08/22 transition to Coumadin, pharmacy dosing ID: Off abx per ID monitor for signs of infections ( Fever, WBC) Follow up on BC from 08/20, check UA and sputum cx- NGTD Endocrine: SSI for glycemic control. Tapering stress dose hydrocortisone. Prophylaxis: PPI/SCDs/ heparin drip (transitioning to Coumadin) Dispo: Discussed with AVAYA ENGINEER at bedside.Plan transfer to [facility] . Level 3 Physician Danica Asif MD August 23, 2016 10:14
[2016-08-23] MEDS: hydrALAZINE HCL 20 MG/ML VIAL IV PUSH PRN (10:23)
[2016-08-23 10:58] LABS: APTT (PATIENT) 35.2 SEC (24.3-30.1)
--- NOTE | 2016-08-23 12:47 | HHI.DS ---
Discharge Summary Admission Date Aug 04, 2016 at 20:09 Admitting Diagnosis respiratory failure, pneumonia (1) Acute respiratory failure ICD Code: J96.00 Diagnosis: Principal (2) Pneumonia ICD Code: J18.9 (3) CKD (chronic kidney disease) ICD Code: N18.9 Brief History 60 y/o man with several week history of weakness, fatigue; fevers and sweats over past week. Today with severe SOB, arrived by EMS with hypoxemia. CO2 retention as well in ED. Required intubation in ED. Creatinine > 3.0 and severely dehydrated. CBC/BMP: 08/23/16 0246 08/23/16 0246 Significant Findings Laboratory Tests Test 08/20/16 08/20/16 08/21/16 08/21/16 15:48 17:33 10:25 12:00 Blood Gas HCO3 33 mmol/L (22-26) Blood Gas Base Excess 8.4 mmol/L (-2-2) Arterial Blood pH 7.44 (7.380-7.420) Arterial Blood Partial 50 mmHg (38-42) Pressure CO2 Arterial Blood Partial 161 mmHg Pressure O2 (61-120) Blood Gas Hemoglobin 9.0 G/DL (12.0-16.0) Potassium Level 3.2 MEQ/L 3.4 MEQ/L (3.5-5.1) (3.5-5.1) Urine Occult Blood TRACE (NEG) Urine RBC 4 /hpf (0-3) Urine Mucus FEW /lpf (OCC) Red Blood Count 3.14 MIL/MM3 (4.50-5.90) Hemoglobin 10.1 GM/DL (13.0-17.0) Hematocrit 29.6 % (39.0-51.0) Prothrombin Time 13.0 SEC (9.8-11.6) Carbon Dioxide Level 38.3 MEQ/L (21.0-32.0) Blood Urea Nitrogen 28 MG/DL (7-18) Estimat Glomerular Filtration 60 ML/MIN (>89) Rate Random Glucose 143 MG/DL (74-106) Calcium Level 8.0 MG/DL (8.5-10.1) Aspartate Amino Transf 59 U/L (15-37) (AST/SGOT) Alanine Aminotransferase 109 U/L (12-78) (ALT/SGPT) Albumin 1.9 GM/DL (3.4-5.0) Test 08/21/16 08/21/16 08/22/16 08/22/16 20:15 23:40 02:16 19:16 Activated Partial 42.7 SEC 31.4 SEC 38.1 SEC Thromboplast Time (24.3-30.1) (24.3-30.1) (24.3-30.1) Carbon Dioxide Level 36.5 MEQ/L 36.8 MEQ/L (21.0-32.0) (21.0-32.0) Blood Urea Nitrogen 29 MG/DL (7-18) 29 MG/DL (7-18) Estimat Glomerular Filtration 70 ML/MIN (>89) 74 ML/MIN (>89) Rate Random Glucose 153 MG/DL 149 MG/DL (74-106) (74-106) Calcium Level 7.9 MG/DL 7.9 MG/DL (8.5-10.1) (8.5-10.1) Red Blood Count 3.15 MIL/MM3 (4.50-5.90) Hemoglobin 10.0 GM/DL (13.0-17.0) Hematocrit 29.5 % (39.0-51.0) Neutrophils (%) (Auto) 85.3 % (16.0-70.0) Lymphocytes (%) (Auto) 6.6 % (9.0-44.0) Neutrophils # (Auto) 8.2 TH/MM3 (1.8-7.7) Lymphocytes # (Auto) 0.6 TH/MM3 (1.0-4.8) Test 08/23/16 08/23/16 02:46 10:00 White Blood Count 11.5 TH/MM3 (4.0-11.0) Red Blood Count 3.42 MIL/MM3 (4.50-5.90) Hemoglobin 10.8 GM/DL (13.0-17.0) Hematocrit 31.8 % (39.0-51.0) Prothrombin Time 12.9 SEC (9.8-11.6) Activated Partial 32.0 SEC 35.2 SEC Thromboplast Time (24.3-30.1) (24.3-30.1) Carbon Dioxide Level 36.1 MEQ/L (21.0-32.0) Blood Urea Nitrogen 27 MG/DL (7-18) Estimat Glomerular Filtration 78 ML/MIN (>89) Rate Random Glucose 131 MG/DL (74-106) Calcium Level 8.1 MG/DL (8.5-10.1) Hospital Course 08/04: 60 y/o man with several week history of weakness, fatigue; fevers and sweats over past week. Today with severe SOB, arrived by EMS with hypoxemia. CO2 retention as well in ED. Required intubation in ED. Creatinine > 3.0 and severely dehydrated. 08/05: Remains sedated, orally intubated on mechanical ventilation. He remains at PEEP+14, FiO2 decreased to 80%. Urine positive for Legionella Ag. Went into A. fib with RVR. 08/06: Remains sedated, orally intubated on mechanical ventilation. On neuromuscular blockade with Nimbex. Initiated on prone ventilation today. Switched to pressure control mode with positive inspiratory pressure +20, PEEP + 15, respiratory rate 20, I time 1.82 seconds, FiO2 70%.. On propofol/fentanyl/ Versed/Nimbex/amiodarone/ vasopressin drips. Jose-Synephrine titrated off following switching from APRV to pressure control mode mechanical ventilation and initiating proning. 08/07: Remains sedated, on neuromuscular blockade, orally intubated on prone ventilation. FiO2 decreased to 50%, PEEP remains at +15. On fentanyl/versed/ Nimbex/amiodarone/vasopressin drips. Jose-Synephrine on transiently today. Diuresed well with Bumex. 08/08: Remains sedated, on neuromuscular blockade, orally intubated on prone ventilation. FiO2 decreased to 45%, PEEP remains at +15. Attempting to place Dobbhoff to initiate tube feeds. Off Jose-Synephrine. Vasopressin being titrated down. 08/09: Remains sedated, orally intubated on prone ventilation. Remains on Nimbex for neuromuscular blockade. PEEP +15, FiO2 50%. Have been unable to place OG tube despite multiple attempts. 08/10: Remains sedated, orally intubated on neuromuscular blockade on prone ventilation. Attempts at keeping supine today however had progressively increasing FiO2 requirement. He was restarted on prone ventilation. He had a sudden episode of desaturation with dropping O2 sats to the 80s despite 100% FiO2. I time increased from 1.2 seconds to 1.8 seconds. He was immediately supined and a stat chest x-ray obtained which did not reveal any pneumothorax and essentially unchanged compared to previous chest x-ray with bilateral infiltrates. He was restarted on prone ventilation. Question of PE. We will initiate full anticoagulation with heparin. Will also check troponins and EKG when supine unless troponin elevated in which case we will get a stat EKG. 52: Remains sedated, orally intubated on neuromuscular blockade in prone ventilation. Had episode of loss of lung volumes with desaturation. Chest x- ray did not reveal any pneumothorax or atelectasis. Thick mucus suctioned out of the ET tube. Difficult to bag at times. ET tube was changed over a tube exchanger following which he had return of good volumes. ( It is possible that the pre-existing ET tube was getting occluded by debris or secretions which were somewhat cleared out by suctioning earlier.) GI postponed with G-tube placement due to unstable respiratory status until tomorrow and they will plan on doing a PEG tube if respiratory status permits. 08/12: Remains sedated, orally intubated on neuromuscular blockade on prone ventilation. Underwent PEG tube placement today. Start tube feeds in a.m. 08/13: Tmax 98.9. Tube feeds initiated this a.m.. Sodium level 155, free water flushes initiated. Slight improvement in ventilatory status. Plan to remain supine today, an attempt to wean ventilation settings. 08/14: The patient was transitioned off of the Rota prone bed. Neuromuscular blockade has been discontinued. FiO2 has been decreased to 40%. The patient has been transitioned to by mouth amiodarone. Patient continues on Nepro at 15 cc an hour with moderate residuals noted. 08/15: Patient's O2 requirements decreasing, PEEP now 7, FiO2 60%. Patient was transitioned to amiodarone PO yesterday, noted tachycardia HR 109. Metoprolol added to medication regimen. Patient was also noted to be hypertensive, when necessary antihypertensive medications added. 08/16: Tmax 101.2 . The patient has been febrile today, receiving Tylenol. Chest x-ray slightly worsened today bilateral lower lobes, placed on pressure control mode via mechanical ventilation The patient had 2 episodes of SVT last night with the rate in the 140s. The patient received beta blockers 2 doses with immediate resolution. Amiodarone was increased to 400 mg twice a day today. Versed was completely discontinued CPAP trials have been initiated. 08/17: The patient tolerated CPAP trials for over 4 hours yesterday. The patient is alert oriented responding by nodding to yes and no questions, following commands. The patient was noted to be hypokalemic potassium level 2.9, and was repleted. PT/OT initiated. 08/18: The patient unable to tolerate CPAP trial today. The patient was noted to be hypertensive despite metoprolol dosage being increased, will increase frequency. Chest x-ray showed improvement. 08/19: Afebrile. Multiple attempts at CPAP trials today unsuccessful, and very to patient becoming agitated. Haldol medication instituted. Plans for tracheostomy this week by general surgery. Wound care consulted for left foot drainage. 08/20: Patient underwent uneventful percutaneous tracheostomy at the bedside. Upper and has been temporarily discontinued, will receive subcutaneous heparin tonight, with resumption of IV heparin infusion in the a.m.. Central line arterial line has been discontinued. 08/21 Patient s/p trach yesterday. Spiked fever with T: 101.2 last night, On PC/ AC with PEEP: 7 and FIO2 55% 08/22: TMax 101.9. The patient is postop day 3 status post trach. The patient now will be transition on to Coumadin. We'll discontinue heparin with therapeutic INR. Liquid stool were noted metoclopramide was DC'd the patient was transitioned onto by mouth narcotics, with further weaning of IV fentanyl. 08/23: Tmax 100.7. Patient did not receive Tylenol during the night, no growth on blood cultures sputum culture. The patient continues on CPAP throughout the night without any difficulty. Hemodynamically stable. [facility] . Pt Condition on Discharge: Stable Discharge Disposition: Disch to Another Hospital Discharge Instructions DIET: Follow Instructions for: On Tube Feeding Additional Diet Instructions: [facility] Activities you can perform: See Additionl Instruction, Continue Bedrest Continued Medications: Albuterol 18 GM Inh (Ventolin Hfa 18 GM Inh) 90 Mcg/Act Aer 2 PUFF INH Q3HR PRN wheezing #1 Ref 0 INHALER Fluoxetine (Prozac) 40 Mg Cap 40 MG PO DAILY Depression Control #90 Ref 3 CAP Ondansetron Odt (Zofran Odt) 4 Mg Tab 4 MG SL Q6HR PRN Nausea/Vomiting #30 Ref 0 TAB Trazodone (Trazodone) 100 Mg Tab 200 MG PO HS Control Depression #60 Ref 3 TAB ([Aspirin Chew]) 81 MG CHEW 81 MG CHEW DAILY Prevent Blood Clot #30 TAB.CHEW Additional Information The patient is currently being transitioned from Heparin to Coumadin, INR monitored daily. Danica Kessler MD August 23, 2016 12:47
[2016-08-23] MEDS ORDERED: WARFARIN SOD 5 MG TAB PO SCH (16:00)
== END 2016-08-23 12:40 | disposition short-term general hospital (02) | DRG 4 ==
LOC: NEPC 18:06 → NEDA 20:09 → HIMN 22:15
PROVIDERS: ADMIT Surgery Surgical Critical Care; ATTEND Surgery Surgical Critical Care
PROC: 5A1955Z Respiratory Ventilation, Greater than 96 Consecutive Hours (ICD-10-PCS; 2016-08-04)
PROC: 0BH17EZ Insertion of Endotracheal Airway into Trachea, Via Natural or Artificial Opening (ICD-10-PCS; 2016-08-04)
PROC: 02HV33Z Insertion of Infusion Device into Superior Vena Cava, Percutaneous Approach (ICD-10-PCS; 2016-08-04)
PROC: 0DH63UZ Insertion of Feeding Device into Stomach, Percutaneous Approach (ICD-10-PCS; 2016-08-12)
PROC: 0DJ08ZZ Inspection of Upper Intestinal Tract, Via Natural or Artificial Opening Endoscopic (ICD-10-PCS; 2016-08-12)
PROC: 0B113F4 Bypass Trachea to Cutaneous with Tracheostomy Device, Percutaneous Approach (ICD-10-PCS; principal; 2016-08-20)
PROC: 0BJ08ZZ Inspection of Tracheobronchial Tree, Via Natural or Artificial Opening Endoscopic (ICD-10-PCS; 2016-08-20)
DX: A41.89 Other specified sepsis (principal); N17.0 Acute kidney failure with tubular necrosis; R65.21 Severe sepsis with septic shock; A48.1 Legionnaires' disease; E87.0 Hyperosmolality and hypernatremia; I67.1 Cerebral aneurysm, nonruptured; R13.10 Dysphagia, unspecified; J96.01 Acute respiratory failure with hypoxia; J96.02 Acute respiratory failure with hypercapnia; I47.1 Supraventricular tachycardia; E86.0 Dehydration; I48.91 Unspecified atrial fibrillation; E87.2 Acidosis; I82.411 Acute embolism and thrombosis of right femoral vein; I82.431 Acute embolism and thrombosis of right popliteal vein; N18.3 Chronic kidney disease, stage 3 (moderate); I12.9 Hypertensive chronic kidney disease with stage 1 through stage 4 chronic kidney disease, or unspecified chronic kidney disease; E87.6 Hypokalemia; J45.909 Unspecified asthma, uncomplicated; R73.9 Hyperglycemia, unspecified; E83.39 Other disorders of phosphorus metabolism; E87.70 Fluid overload, unspecified; E87.5 Hyperkalemia; G43.909 Migraine, unspecified, not intractable, without status migrainosus; I07.1 Rheumatic tricuspid insufficiency; D64.9 Anemia, unspecified; G47.00 Insomnia, unspecified; F12.90 Cannabis use, unspecified, uncomplicated; F32.9 Major depressive disorder, single episode, unspecified; F41.9 Anxiety disorder, unspecified
CPT/HCPCS: 31500; 31600; 31624; 36556; 36600; 36620; 51702; 71010; 74000; 76775; 76937; 80048; 80053; 80069; 81001; 82043; 82550; 82570; 82805; 82948; 83605; 83735; 83880; 84100; 84132; 84300; 84484; 85007; 85025; 85027; 85610; 85730; 87015; 87040; 87070; 87086; 87116; 87205; 87206; 87449; 87641; 93005; 93306; 93970; 94002; 94003; 94640; 94664; 96361; 96365; 96375; 99292; A7521; C9113; J0282; J0330; J0360; J0456; J0610; J0690; J0692; J1160; J1205; J1644; J1650; J1720; J1815; J1940; J1956; J2250; J2270; J2370; J2765; J2930; J3010; J3475; J3480; J7030; J7050; J7060; J7070; J7613

== ENCOUNTER 2016-11-09 11:19 | Emergency (ER) | payer MEDICAID, MEDICARE ==
[~2016-11-09] VITALS: Ht 190.5 cm; Wt 95.0 kg
[2016-11-09 11:24] VITALS: BP 124/71; PULSE 71; RESP 17; TEMP 98.3
[2016-11-09] MEDS ORDERED: TRAZ100T6 PO (11:32)
[2016-11-09] MEDS ORDERED: DIPHTH/TETANUS/ACEL PERTUSSIS (BOOSTER) 0.5 ML VIAL/PFS IM ONE (11:45)
--- NOTE | 2016-11-09 11:53 | PD ---
HPI Chief Complaint: Fall Time Seen by Provider: 11:34 Travel History International Travel<30 days: No Contact w/Intl Traveler<30days: No Traveled to known affect area: No History of Present Illness HPI Is a 60-year-old man who presents to the emergency department complaining of trip and fall [employer]. He reports that he's been unsteady on his feet for the past little bit, as well as some generalized weakness. He was supposed to see a doctor today because a swelling in his left arm. From talking to him it sounds like he has no medical problems other than asthma. He reports that over the past he looks ill, walks with a walker. He states he's only walks with a walker for the past several weeks. He's been losing weight. No night sweats. Left arm has been swollen for a while as well. History Past Medical History Narrative Medical Asthma Tetanus Vaccination: < 5 Years Past Surgical History Surgical History: No Previous Surgery Social History Alcohol Use: Yes (OCC) Tobacco Use: No Allergies-Medications (Allergen,Severity, Reaction): Coded Allergies: No Known Allergies (Unverified , 11/09/16) Reported Meds & Prescriptions Reported Meds & Active Scripts Active Zofran Odt (Ondansetron Odt) 4 Mg Tab 4 Mg SL Q6HR PRN Ventolin Hfa 18 GM Inh (Albuterol Sulfate) 90 Mcg/Act Aer 2 Puff INH Q3HR PRN [Aspirin Chew] 81 MG Chew 81 Mg CHEW DAILY Reported Trazodone (Trazodone HCl) 100 Mg Tablet 200 Mg PO HS Review of Systems Except as stated in HPI: all other systems reviewed are Neg Physical Exam Narrative GENERAL: Well-appearing 60-year-old man, chronically ill-appearing. SKIN: Focused skin assessment warm/dry. HEAD: Atraumatic. Normocephalic. EYES: Pupils equal and round. No scleral icterus. No injection or drainage. ENT: No nasal bleeding or discharge. Mucous membranes pink and moist. Angled laceration above the right brow. NECK: Trachea midline. No JVD. CARDIOVASCULAR: Regular rate and rhythm. No murmur appreciated. RESPIRATORY: No accessory muscle use. Clear to auscultation. Breath sounds equal bilaterally. GASTROINTESTINAL: Abdomen soft, non-tender, nondistended. Hepatic and splenic margins not palpable. MUSCULOSKELETAL: No obvious deformities. Pitting edema in the left upper extremity. NEUROLOGICAL: Awake and alert. No obvious cranial nerve deficits. Motor grossly within normal limits. Normal speech. PSYCHIATRIC: Appropriate mood and affect; insight and judgment normal. Data Data Last Documented VS Vital Signs Date Time Temp Pulse Resp B/P Pulse Ox O2 Delivery O2 Flow Rate FiO2 11/09/16 11:33 98 11/09/16 11:24 98.3 71 17 124/[address] Brain W/O Iv Contrast(Rout) (11/09/16 ) Ct Thorax/ Chest W Iv Contrast (11/09/16 ) Ct Abd/Pel W Iv Contrast(Rout) (11/09/16 ) Complete Blood Count With Diff (11/09/16 11:34) Comprehensive Metabolic Panel (11/09/16 11:34) Act Partial Throm Time (Ptt) (11/09/16 11:34) Prothrombin Time / Inr (Pt) (11/09/16 11:34) Iv Access Insert/Monitor (11/09/16 11:34) Us Arm Venous Doppler (11/09/16 ) Kxzx-Rpn-Nnfhde (Booster) Inj (Boostrix (11/09/16 11:45) Ct Cerv Spine W/O Contrast (11/09/16 ) Iohexol 350 Inj (Omnipaque 350 Inj) (11/09/16 12:50) Labs Laboratory Tests Test 11/09/16 11:45 White Blood Count 7.0 TH/MM3 Red Blood Count 3.90 MIL/MM3 Hemoglobin 12.0 GM/DL Hematocrit 36.2 % Mean Corpuscular Volume 92.8 FL Mean Corpuscular Hemoglobin 30.8 PG Mean Corpuscular Hemoglobin 33.2 % Concent Red Cell Distribution Width 14.7 % Platelet Count 234 TH/MM3 Mean Platelet Volume 6.7 FL Neutrophils (%) (Auto) 44.1 % Lymphocytes (%) (Auto) 42.9 % Monocytes (%) (Auto) 10.3 % Eosinophils (%) (Auto) 2.3 % Basophils (%) (Auto) 0.4 % Neutrophils # (Auto) 3.1 TH/MM3 Lymphocytes # (Auto) 3.0 TH/MM3 Monocytes # (Auto) 0.7 TH/MM3 Eosinophils # (Auto) 0.2 TH/MM3 Basophils # (Auto) 0.0 TH/MM3 CBC Comment DIFF FINAL Differential Comment Prothrombin Time 17.9 SEC Prothromb Time International 1.6 RATIO Ratio Activated Partial 28.3 SEC Thromboplast Time Sodium Level 141 MEQ/L Potassium Level 4.2 MEQ/L Chloride Level 104 MEQ/L Carbon Dioxide Level 30.7 MEQ/L Anion Gap 6 MEQ/L Blood Urea Nitrogen 8 MG/DL Creatinine 1.21 MG/DL Estimat Glomerular Filtration 61 ML/MIN Rate Random Glucose 76 MG/DL Calcium Level 9.1 MG/DL Total Bilirubin 0.3 MG/DL Aspartate Amino Transf 14 U/L (AST/SGOT) Alanine Aminotransferase 17 U/L (ALT/SGPT) Alkaline Phosphatase 47 U/L Total Protein 6.6 GM/DL Albumin 3.0 GM/DL [facility] Medical Decision Making Medical Screen Exam Complete: Yes Emergency Medical Condition: Yes Interpretation(s) LABS: CBC remarkable for mild anemia. CMP is unremarkable. Coags remarkable for an INR 1.[address] negative Chest CT negative C-spine CT negative Abdominal pelvis CT shows 2.3 cm right adrenal mass Differential Diagnosis Fall, head injury, occult malignancy, edema, other Narrative Course Medical decision making 60-year-old man presents with weight loss, chronic ill appearance, unsteadiness and weakness. Concern for occult malignancy. Only thing we found on examination is is 2.3 cm right adrenal mass. We'll need outpatient follow-up for this. His laceration his head was repaired. Not sure why he has edema to his arm. His INR is a little bit elevated could suggest some liver disease. Additional Instructions: Keep wound clean and dry. Do not apply antibiotic ointment to glued wound as this will dissolve the glue. Follow-up her primary physician regarding the 2.3 cm right adrenal gland mass. Return to the emergency department for any new or worsening symptoms. Med/Other Pt SpecificInfo: No Change to Meds Disposition: 01 DISCHARGE HOME Condition: Stable Lui Moreno MD Nov 09, 2016 11:53
[2016-11-09 12:03] LABS: AUTOMATED NEUTROPHIL # 3.1 TH/MM3 (1.8-7.7); BASOPHIL % 0.4 % (0.0-2.0); EOSINOPHIL # 0.2 TH/MM3 (0-0.4); EOSINOPHIL % 2.3 % (0.0-4.0); HEMATOCRIT 36.2 % (39.0-51.0); HEMO FLAGS DIFF FINAL; LYMPH % 42.9 % (9.0-44.0); MEAN CELL VOLUME 92.8 FL (80.0-100.0); MEAN CORPUSCULAR HEMOGLOBIN 30.8 PG (27.0-34.0); MEAN CORPUSCULAR HGB CONC 33.2 % (32.0-36.0); MONO % 10.3 % (0.0-8.0); NEUT % 44.1 % (16.0-70.0); PLATELET COUNT 234 TH/MM3 (150-450); RED CELL DISTRIBUTION WIDTH 14.7 % (11.6-17.2)
[2016-11-09 12:11] LABS: APTT (PATIENT) 28.3 SEC (24.3-30.1); INTERNATIONAL NORMALIZED RATIO 1.6 RATIO; PROTHROMBIN TIME - PATIENT 17.9 SEC (9.8-11.6)
--- NOTE | 2016-11-09 12:16 | RADRPT ---
EXAM DATE/TIME: 11/09/2016 11:45 [facility] COMPARISON: No previous studies available for comparison. INDICATIONS : Left arm pain. MEDICAL HISTORY : Asthma. SURGICAL HISTORY : Right shoulder surgery. ENCOUNTER: Initial ACUITY: 3 weeks PAIN SCORE: 2/10 LOCATION: Left arm. FINDINGS: There is spontaneous flow documented in the brachial, basilic, cephalic, axillary, and subclavian vei ns. The vessels are compressible and augmentation response is documented. No filling defects are se en. The flow is phasic with respiration. Direction of flow in the jugular vein is caudal. CONCLUSION: 1. No sonographic evidence for left upper extremity DVT. Ck Kumar MD on November 09, 2016 at 12:13 Board Certified Radiologist. This report was verified electronically.
[2016-11-09 12:18] LABS: ANION GAP 6 MEQ/L (5-15); AST (GOT) 14 U/L (15-37); BICARBONATE 30.7 MEQ/L (21.0-32.0); BLOOD UREA NITROGEN 8 MG/DL (7-18); CHLORIDE 104 MEQ/L (98-107); GLOMERULAR FILTRATION RATE 61 ML/MIN (>89); POTASSIUM 4.2 MEQ/L (3.5-5.1); SODIUM (NA) 141 MEQ/L (136-145)
[2016-11-09 12:25] LABS: ALKALINE PHOSPHATASE 47 U/L (45-117); ALT (GPT) 17 U/L (12-78); TOTAL BILIRUBIN ADULT 0.3 MG/DL (0.2-1.0)
[2016-11-09] MEDS ORDERED: IOHEXOL 350 MG/ML 10 ML VIAL (for RAD DIAG) IV ONE (12:50)
--- NOTE | 2016-11-09 13:04 | RADRPT ---
EXAM DATE/TIME: 11/09/2016 12:34 [facility] COMPARISON: CT BRAIN W/O CONTRAST, June 09, 2016, 4:41. INDICATIONS : Trauma, fall. RADIATION DOSE: 56.38 CTDIvol (mGy) MEDICAL HISTORY : Hypertension. SURGICAL HISTORY : None. ENCOUNTER: Initial ACUITY: 1 day PAIN SCALE: 3/10 LOCATION: cranial TECHNIQUE: Multiple contiguous axial images were obtained of the head. Using automated exposure control and adj ustment of the mA and/or kV according to patient size, radiation dose was kept as low as reasonably a chievable to obtain optimal diagnostic quality images. DICOM format image data is available electro nically for review and comparison. FINDINGS: CEREBRUM: Small chronic lacunar infarctions involving the basal ganglia bilaterally are unchanged. The ventricl es are normal for age. No evidence of midline shift, mass lesion, hemorrhage or acute infarction. N o extra-axial fluid collections are seen. POSTERIOR FOSSA: The cerebellum and brainstem are intact. The 4th ventricle is midline. The cerebellopontine angle i s unremarkable. EXTRACRANIAL: The visualized portion of the orbits is intact. Soft tissue swelling is seen involving the right supr aorbital region. SKULL: The calvaria is intact. No evidence of skull fracture. CONCLUSION: 1. Right supraorbital soft tissue swelling. 2. No acute intracranial abnormality. Robin Wray Jr., MD on November 09, 2016 at 13:01 Board Certified Radiologist. This report was verified electronically.
--- NOTE | 2016-11-09 13:11 | RADRPT ---
EXAM DATE/TIME: 11/09/2016 12:36 [facility] COMPARISON: No previous studies available for comparison. INDICATIONS : Trauma, fall. IV CONTRAST: 100 cc Omnipaque 350 (iohexol) IV ; Cumulative dose for multiple exams. RADIATION DOSE: 9.96 CTDIvol (mGy) ; Combined studies - Thorax/Abdomen/Pelvis MEDICAL HISTORY : Hypertension. SURGICAL HISTORY : None. ENCOUNTER: Initial ACUITY: 1 day PAIN SCALE: 5/10 LOCATION: Bilateral chest TECHNIQUE: Volumetric scanning of the chest was performed. Using automated exposure control and adjustment of t he mA and/or kV according to patient size, radiation dose was kept as low as reasonably achievable to obtain optimal diagnostic quality images. DICOM format image data is available electronically for review and comparison. Follow-up recommendations for incidentally detected pulmonary nodules are based at a minimum on nodul e size and patient risk factors according to Fleischner Society Guidelines. FINDINGS: LUNGS: Areas of consolidation are seen bilaterally. The largest involves the basilar segments of the left lo wer lobe with associated air bronchograms. Smaller scattered areas of consolidation are seen througho ut the right lower lobe and both upper lobes. PLEURA: A small posterior layering left pleural effusion. No effusion on the right. No pneumothorax. MEDIASTINUM: The heart and great vessels demonstrate no acute abnormality. There is no mediastinal or hilar lymph adenopathy. AXILLAE: Within normal limits. No lymphadenopathy. SKELETAL: Within normal limits for patient age. MISCELLANEOUS: The visualized upper abdominal organs demonstrate no acute abnormality. CONCLUSION: Small left pleural effusion with bilateral pulmonary infiltrates. Robin Wray Jr., MD on November 09, 2016 at 13:06 Board Certified Radiologist. This report was verified electronically.
--- NOTE | 2016-11-09 13:13 | RADRPT ---
EXAM DATE/TIME: 11/09/2016 12:34 [facility] COMPARISON: No previous studies available for comparison. INDICATIONS : Trauma, fall. RADIATION DOSE: 44.35 CTDIvol (mGy) MEDICAL HISTORY : Hypertension. SURGICAL HISTORY : None. ENCOUNTER: Initial ACUITY: 1 day PAIN SCALE: 6/10 LOCATION: neck TECHNIQUE: Volumetric scanning of the cervical spine was performed. Multiplanar reconstructions in the sagittal, coronal and oblique axial planes were performed. Using automated exposure control and adjustment o f the mA and/or kV according to patient size, radiation dose was kept as low as reasonably achievable to obtain optimal diagnostic quality images. DICOM format image data is available electronically f or review and comparison. FINDINGS: There is 2 mm of anterolisthesis of C6 on C7. Degenerative disc disease is present at C3-C4 and C6-C7 . There is facet arthrosis at multiple levels. There is severe right neural foraminal narrowing at C3 -C4 secondary to facet and uncovertebral osteophytes. The atlantoaxial relationship is within normal limits. There is no prevertebral soft tissue swelling present. No fracture or dislocation is identifi ed. No disc herniation is visualized in the upper cervical spine. The visualized portions of the posterior fossa and paraspinous soft tissues demonstrate no acute abno rmality. CONCLUSION: 1. No acute cervical spine abnormality is identified. No fracture is seen. 2. There is 2 mm of anterolisthesis of C6 on C7. This is of uncertain chronicity but may be related t o the facet arthrosis. 3. There is degenerative disc disease at multiple levels, severe at C3-C4 and C6-C7. There is severe right neural foraminal narrowing at C3-C4 secondary to facet and uncovertebral osteophyte. Efrain Stokes MD on November 09, 2016 at 13:07 Board Certified Radiologist. This report was verified electronically.
--- NOTE | 2016-11-09 13:19 | RADRPT ---
EXAM DATE/TIME: 11/09/2016 12:36 [facility] COMPARISON: CT THORAX W CONTRAST, November 09, 2016, 12:36. INDICATIONS : Trauma, fall. IV CONTRAST: 100 cc Omnipaque 350 (iohexol) IV ; Cumulative dose for multiple exams. ORAL CONTRAST: No oral contrast ingested. RADIATION DOSE: 9.96 CTDIvol (mGy) ; Combined studies - Thorax/Abdomen/Pelvis MEDICAL HISTORY : Hypertension. SURGICAL HISTORY : None. ENCOUNTER: Initial ACUITY: 1 day PAIN SCALE: 0/10 LOCATION: abdomen TECHNIQUE: Volumetric scanning of the abdomen and pelvis was performed. Using automated exposure control and ad justment of the mA and/or kV according to patient size, radiation dose was kept as low as reasonably achievable to obtain optimal diagnostic quality images. DICOM format image data is available electro nically for review and comparison. FINDINGS: LOWER LUNGS: Please refer to chest CT report for description of the supradiaphragmatic findings. LIVER: Homogeneous density within 11 mm cyst in the right posterior liver. There is an 8mm low-density lesio n left lobe that is too small to characterize. There is no dilation of the biliary tree. No calcifi ed gallstones. SPLEEN: Normal size without lesion. PANCREAS: Within normal limits. KIDNEYS: Normal in size and shape. There is no mass, stone or hydronephrosis. ADRENAL GLANDS: There is a right adrenal gland mass measuring 2.3 cm. Hounsfield measurements are 15. Left adrenal gl and is within normal limits. VASCULAR: There is no aortic aneurysm. There is moderate to severe atherosclerotic disease. BOWEL/MESENTERY: The stomach, small bowel, and colon demonstrate no acute abnormality. There is no free intraperitone al air or fluid. ABDOMINAL WALL: Within normal limits. RETROPERITONEUM: There is no lymphadenopathy. BLADDER: No wall thickening or mass. REPRODUCTIVE: Within normal limits. INGUINAL: There is no lymphadenopathy or hernia. MUSCULOSKELETAL: There are degenerative changes of the spine. CONCLUSION: 1. No acute finding is identified within the abdomen or pelvis. 2. There is a nonspecific 2.3 cm right adrenal gland mass. Hounsfield measurements are 15 suggesting against adrenal gland hematoma. The Hounsfield measurements are also too high to diagnose an adenoma on this examination. If no prior imaging studies are available to offer additional characterization, consider [address] to evaluate for stability and evaluate noncontrast density. Alternatively, adrenal protocol CT or MRI could further characterize at this time, if desired clinica lly. Efrain Stokes MD on November 09, 2016 at 13:11 Board Certified Radiologist. This report was verified electronically.
--- NOTE | 2016-11-09 14:29 | PD ---
Physical Exam Date Seen by Provider: Nov 09, 2016 Time Seen by Provider: 14:26 Narrative 60-year-old male that presents to the ED for evaluation of fall. Please refer to my attendings note. I was asked to my attending to repair laceration. Data Data Last Documented VS Vital Signs Date Time Temp Pulse Resp B/P Pulse Ox O2 Delivery O2 Flow Rate FiO2 11/09/16 11:33 98 11/09/16 11:24 98.3 71 17 124/[address] Brain W/O Iv Contrast(Rout) (11/09/16 ) Ct Thorax/ Chest W Iv Contrast (11/09/16 ) Ct Abd/Pel W Iv Contrast(Rout) (11/09/16 ) Complete Blood Count With Diff (11/09/16 11:34) Comprehensive Metabolic Panel (11/09/16 11:34) Act Partial Throm Time (Ptt) (11/09/16 11:34) Prothrombin Time / Inr (Pt) (11/09/16 11:34) Iv Access Insert/Monitor (11/09/16 11:34) Us Arm Venous Doppler (11/09/16 ) [place]-Ymh-Dzshqc (Booster) Inj (Boostrix (11/09/16 11:45) Ct Cerv Spine W/O Contrast (11/09/16 ) Iohexol 350 Inj (Omnipaque 350 Inj) (11/09/16 12:50) Labs Laboratory Tests Test 11/09/16 11:45 White Blood Count 7.0 TH/MM3 Red Blood Count 3.90 MIL/MM3 Hemoglobin 12.0 GM/DL Hematocrit 36.2 % Mean Corpuscular Volume 92.8 FL Mean Corpuscular Hemoglobin 30.8 PG Mean Corpuscular Hemoglobin 33.2 % Concent Red Cell Distribution Width 14.7 % Platelet Count 234 TH/MM3 Mean Platelet Volume 6.7 FL Neutrophils (%) (Auto) 44.1 % Lymphocytes (%) (Auto) 42.9 % Monocytes (%) (Auto) 10.3 % Eosinophils (%) (Auto) 2.3 % Basophils (%) (Auto) 0.4 % Neutrophils # (Auto) 3.1 TH/MM3 Lymphocytes # (Auto) 3.0 TH/MM3 Monocytes # (Auto) 0.7 TH/MM3 Eosinophils # (Auto) 0.2 TH/MM3 Basophils # (Auto) 0.0 TH/MM3 CBC Comment DIFF FINAL Differential Comment Prothrombin Time 17.9 SEC Prothromb Time International 1.6 RATIO Ratio Activated Partial 28.3 SEC Thromboplast Time Sodium Level 141 MEQ/L Potassium Level 4.2 MEQ/L Chloride Level 104 MEQ/L Carbon Dioxide Level 30.7 MEQ/L Anion Gap 6 MEQ/L Blood Urea Nitrogen 8 MG/DL Creatinine 1.21 MG/DL Estimat Glomerular Filtration 61 ML/MIN Rate Random Glucose 76 MG/DL Calcium Level 9.1 MG/DL Total Bilirubin 0.3 MG/DL Aspartate Amino Transf 14 U/L (AST/SGOT) Alanine Aminotransferase 17 U/L (ALT/SGPT) Alkaline Phosphatase 47 U/L Total Protein 6.6 GM/DL Albumin 3.0 GM/DL MDM Medical Record Reviewed: Yes Supervised Visit with JERAMIE: No Procedures Procedure Narrative LACERATION LOCATION: right forehead LENGTH: 1 cm NUMBER OF STITCHES/ALFREDO: dermabond REPAIR: The area of the laceration was prepped with Betadine and sterilely draped. The wound was copiously irrigated and explored without evidence of foreign body, tendon injury or neurovascular injury. The wound was closed using dermabond. This was a 1 layer repair. A sterile dressing was applied. The patient was advised to keep the dressing clean and dry. Patient tolerated the procedure well. Diagnosis Primary Impression: Fall Qualified Code: W19.XXXA - Fall, initial encounter Additional Impressions: Head injury, acute Qualified Code: S09.90XA - Head injury, acute, initial encounter Laceration of forehead Qualified Code: S01.81XA - Laceration of forehead, initial encounter Jorge Vick Nov 09, 2016 14:29
== END 2016-11-09 15:36 | disposition home or self-care (01) ==
LOC: NEPC 11:19
DX: S01.81XA Laceration without foreign body of other part of head, initial encounter (principal); S09.90XA Unspecified injury of head, initial encounter; R60.0 Localized edema; R26.81 Unsteadiness on feet; R53.1 Weakness; R63.4 Abnormal weight loss; Z87.09 Personal history of other diseases of the respiratory system; W01.0XXA Fall on same level from slipping, tripping and stumbling without subsequent striking against object, initial encounter; Y92.512 Supermarket, store or market as the place of occurrence of the external cause; E27.8 Other specified disorders of adrenal gland
CPT/HCPCS: 12011; 70450; 71260; 72125; 74177; 80053; 85025; 85610; 85730; 90471; 90715; 93971; 99285; Q9967